=== PATIENT | female | born 1970 | race Caucasian/White ===

== ENCOUNTER → 2016-09-25 | Outpatient (CLI) | payer MEDICAID ==
--- NOTE | 2016-09-25 12:33 | MR ---
EXAMINATION: MRI cervical spine HISTORY: Other soft tissue disorders COMPARISON: None TECHNIQUE: Multiplanar and multisequence images obtained through the cervical spine without contrast . FINDINGS: The cervical spinal alignment appears grossly unremarkable. There is possibly a trace comp ression of the C6 vertebral body. Mild edema is noted within C6, likely endplate related changes. Th ere is likely minimally increased signal within the spinal cord at C6-C7. The prevertebral soft tiss ues otherwise appear normal. C2-C3: Unremarkable. C3-C4: Small diffuse disc bulge without significant spinal canal stenosis. Moderate to severe left a nd [id number] right neural foraminal stenosis. C4-C5: Small diffuse disc bulge with mild spinal canal stenosis. Moderate left and severe right neur al foraminal stenosis. C5-C6: Small diffuse disc bulge with minimal spinal canal stenosis. Mild to moderate bilateral neura l foraminal stenosis. C6-C7: Moderate diffuse disc bulge with moderate spinal canal stenosis. Moderate left and mild-to-mo derate right neural foraminal stenosis. C7-T1: Small diffuse disc bulge mild spinal canal stenosis. Moderate bilateral neural foraminal sten osis. C7-T1: Unremarkable. IMPRESSION: 1. Moderate to severe Multilevel degenerative disc disease noted within the cervical spine with suzette vidual details above.
--- NOTE | 2016-09-25 13:17 | NM ---
EXAMINATION: 3 phase bone scan of the left hand HISTORY: RSD COMPARISON: Radiographs dated 09/11/2016 TECHNIQUE: Anterior and posterior images were obtained of the upper extremities from the elbow to th e hands bilaterally following the administration of 21.8 mCi of technetium 99m labeled MDP. Images o btained in the angiographic phase, blood pool phase, and delayed phases. FINDINGS: There is symmetric flow within the upper extremities during the angiographic phase. There is possibl y slightly increased uptake within the region of the metacarpals bilaterally and blood pool however this is symmetric. There is symmetric delayed uptake within the carpal bones and unremarkable bilate rally. Mild focal uptake is noted at the interphalangeal joint of the first left digit. IMPRESSION: 1. Moderately increased however symmetric uptake within the carpal bones bilaterally and within the elbows, likely degenerative in nature. 2. Blood pool and blood flow to the extremities also appears fairly normal and symmetric.
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
== END ==
LOC: MW.NM 08:50
PROVIDERS: ATTEND Anesthesiology
DX: M79.89 Other specified soft tissue disorders (principal); R20.0 Anesthesia of skin; R20.2 Paresthesia of skin; G90.511 Complex regional pain syndrome I of right upper limb; M50.323 Other cervical disc degeneration at C6-C7 level
CPT/HCPCS: 72141; 78315; A9503

== ENCOUNTER 2016-12-18 06:52 | Emergency (ER) | payer MEDICAID ==
[2016-12-18] MEDS ORDERED: Ondansetron 4 MG/2 ML SDV IVPUSH ONE (07:36)
[2016-12-18] MEDS ORDERED: Sodium Chloride 0.9% 1,000 ML IV SCH (07:45)
[2016-12-18 08:33] LABS: CHLORIDE,CL 104 mmol/L (98-110); SODIUM,NA 139 mmol/L (136-146)
--- NOTE | 2016-12-18 08:38 | EDM.PDOC ---
ED HPI GENERAL MEDICAL PROBLEM - General Chief Complaint: Abdominal Pain Stated Complaint: FEVER, VOMITING Time Seen by Provider: 12/18/16 08:20 - History of Present Illness INITIAL COMMENTS - FREE TEXT/NARRATIVE: HISTORY AND PHYSICAL: History of present illness: Patient 46-year-old white female presents with abdominal pain nausea /vomiting/ diarrhea she denies fever chills denies urinary symptoms denies trauma denies chest pain shortness of breath or other concern Review of systems: As per history of present illness and below otherwise all systems reviewed and negative. Past medical history: As per history of present illness and as reviewed below otherwise noncontributory. Surgical history: As per history of present illness and as reviewed below otherwise noncontributory. Social history: No reported history of drug or alcohol abuse. Family history: As per history of present illness and as reviewed below otherwise noncontributory. Physical exam: HEENT: Atraumatic, normocephalic, pupils reactive, negative for conjunctival pallor or scleral icterus, mucous membranes moist, throat clear, neck supple, nontender, trachea midline. Lungs: Clear to auscultation, breath sounds equal bilaterally, chest nontender. Heart: S1S2, regular, negative for clicks, rubs, or JVD. Abdomen: Soft, nondistended, no localized tenderness. Negative for masses or hepatosplenomegaly. Negative for costovertebral tenderness. Pelvis: Stable nontender. Genitourinary: Deferred. Rectal: Deferred. Extremities: Atraumatic, negative for cords or calf pain. Neurovascular unremarkable. Neuro: Awake, alert, oriented. Cranial nerves II through XII unremarkable. Cerebellum unremarkable. Motor and sensory unremarkable throughout. Exam nonfocal. Diagnostics: CBC CMP amylase lipase UA Therapeutics: Normal saline 1 L bolus Zofran 4 mg IV Impression: #1 gastroenteritis Definitive disposition and diagnosis as appropriate pending reevaluation and review of above. Abdomen Pain Score (Numeric/FACES): 10 - Related Data Allergies Allergy/AdvReac Type Severity Reaction Status Date / Time amitriptyline Allergy Hives Verified 06/12/16 09:29 aspirin Allergy Nausea Verified 06/12/16 09:29 latex Allergy Rash Verified 06/12/16 09:29 levofloxacin [From Levaquin] Allergy Difficulty Verified 06/12/16 09:29 Breathing morphine AdvReac Confusion Verified 11/14/16 09:29 Home Meds: Home Meds Omeprazole 40 mg PO DAILY 03/06/14 [History] Albuterol [Ventolin HFA] 2 puff INH Q4HR PRN 04/24/14 [History] Potassium Chloride [Klor-Con 10] 10 meq PO DAILY 04/24/14 [History] busPIRone [Buspar] 10 mg PO BID 04/24/14 [History] Budesonide/Formoterol [Symbicort 160-4.5 MCG] 2 inh INH BID 10/12/14 [History] Ondansetron [Zofran] 4 mg PO ASDIRECTED PRN 02/16/15 [History] Cyclobenzaprine [Flexeril] 5 mg PO TID 12/18/16 [History] Gabapentin [Neurontin] 900 mg PO QID 12/18/16 [History] PARoxetine HCl [Paxil] 15 mg PO DAILY 12/18/16 [History] Past Medical History HEENT History: Reports: Other (See Below) Other HEENT History: states has blurred vision Cardiovascular History: Reports: None, Other (See Below) Other Cardiovascular History: states had blood clot in left leg over 20 yrs ago after vaginal delivery Respiratory History: Reports: Asthma, COPD, Other (See Below) Other Respiratory History: states has lung nodule Gastrointestinal History: Reports: Bowel Obstruction, Other (See Below) Other Gastrointestinal History: ulcerative colitis Genitourinary History: Reports: None MACHINE TAPER History: Reports: Ectopic Other OB/BYN History: laparotomy for ectopic Musculoskeletal History: Reports: Other (See Below) 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" Neurological History: Reports: None Psychiatric History: Reports: None Endocrine/Metabolic History: Reports: None Hematologic History: Reports: Blood Transfusion(s) Other Hematologic History: states blood transfusion following ectopic Immunologic History: Reports: None Oncologic (Cancer) History: Reports: Other (See Below) Other Oncologic History: lung nodule Dermatologic History: Reports: None - Infectious Disease History Infectious Disease History: Reports: None - Past Surgical History Head Surgeries/Procedures: Reports: None GI Surgical History: Reports: Cholecystectomy, Other (See Below) Other Female Surgeries/Procedures: left ovarian cyst with oopherectomy Endocrine Surgical History: Reports: None Neurological Surgical History: Reports: None Other Musculoskeletal Surgeries/Procedures:: toenail removal Dermatological Surgical History: Reports: None Social & Family History - Family History Family Medical History: Noncontributory - Tobacco Use Smoking Status *Q: Current Every Day Smoker Years of Tobacco use: 30 Packs/Tins Daily: 1 Used Tobacco, but Quit: No Second Hand Smoke Exposure: No - Caffeine Use Caffeine Use: Reports: Coffee Caffeine Use Comment: 3-4 daily - Alcohol Use Days Per Week of Alcohol Use: 0 Number of Drinks Per Day: 0 Total Drinks Per Week: 0 - Recreational Drug Use Recreational Drug Use: No Drug Use in Last 12 Months: No Recreational Drug Type: Reports: Marijuana/Hashish ED ROS GENERAL - Review of Systems Review Of Systems: ROS reveals no pertinent complaints other than HPI. ED EXAM, GENERAL - Physical Exam Exam: See Below (See) Course - Vital Signs Last Recorded V/S: Last Vital Signs Temp 36.5 C 12/18/16 06:59 Pulse 97 12/18/16 06:59 Resp 20 12/18/16 06:59 BP 170/101 H 12/18/16 06:59 Pulse Ox 97 12/18/16 06:59 - Orders/Labs/Meds Orders: Active Orders 24 hr Category Date Time Status Sodium Chloride 0.9% [Normal Saline] 1,000 ml Med 12/18/16 07:45 Active IV ASDIRECTED cefTRIAXone [Rocephin in Dextrose,Iso-Osm 1 GM/50 ML] 1 Med 12/18/16 10:25 Ordered gm Premix Bag 1 bag IV ONETIME Medication Orders Sodium Chloride (Normal Saline) 1,000 mls @ 999 mls/hr IV ASDIRECTED SEE Last Admin: 12/18/16 07:58 Dose: 999 mls/hr Ceftriaxone Sodium/Dextrose 1 (gm/ Premix) 50 mls @ 100 mls/hr IV ONETIME ONE Stop: 12/18/16 10:54 Labs: Laboratory Tests 12/18/16 12/18/16 12/18/16 Range/Units 07:53 07:53 09:36 WBC 13.25 H (4.0-11.0) K/uL RBC 5.05 (4.30-5.90) M/uL Hgb 15.0 (12.0-16.0) g/dL Hct 44.0 (36.0-46.0) % MCV 87.1 (80.0-98.0) fL MCH 29.7 (27.0-32.0) pg MCHC 34.1 (31.0-37.0) g/dL RDW Std Deviation 45.0 (28.0-62.0) fl RDW Coeff of Aydin 14 (11.0-15.0) % Plt Count 377 (150-400) K/uL MPV 9.20 (7.40-12.00) fL Neut % (Auto) 79.2 (48.0-80.0) % Lymph % (Auto) 14.3 L (16.0-40.0) % [place] % (Auto) 6.3 (0.0-15.0) % Eos % (Auto) 0.1 (0.0-7.0) % Baso % (Auto) 0.1 (0.0-1.5) % Neut # (Auto) 10.5 H (1.4-5.7) K/uL Lymph # (Auto) 1.9 (0.6-2.4) K/uL [place] # (Auto) 0.8 (0.0-0.8) K/uL Eos # (Auto) 0.0 (0.0-0.7) K/uL Baso # (Auto) 0.0 (0.0-0.1) K/uL Nucleated RBC % 0.0 /100WBC Nucleated RBCs # 0 K/uL Sodium 139 (136-146) mmol/L Potassium 4.0 (3.5-5.1) mmol/L Chloride 104 (98-110) mmol/L Carbon Dioxide 22 (21-31) mmol/L BUN 12 (6.0-23.0) mg/dL Creatinine 0.8 (0.6-1.5) mg/dL Est Cr Clr Drug Dosing 71.89 mL/min Estimated GFR (MDRD) > 60.0 ml/min Glucose 122 H (60-110) mg/dL Calcium 10.1 (8.8-10.8) mg/dL Total Bilirubin 0.4 (0.1-1.5) mg/dL AST 17 (5-40) IU/L ALT 16 (8-54) IU/L Alkaline Phosphatase 97 (40-150) Total Protein 8.1 H (6.0-8.0) g/dL Albumin 4.6 (3.5-5.0) g/dL Globulin 3.5 (2.0-3.5) g/dL Albumin/Globulin Ratio 1.3 (1.3-2.8) Amylase 46 (10-90) U/L Lipase 27 (7-80) U/L Urine Color YELLOW Urine Appearance CLEAR Urine pH 6.0 (5.0-8.0) Ur Specific [place] >= 1.030 (1.001-1.035) Urine Protein 100 (NEGATIVE) mg/dL Urine Glucose (UA) NEGATIVE (NEGATIVE) mg/dL Urine Ketones 15 H (NEGATIVE) mg/dL Urine Occult Blood TRACE-INTACT (NEGATIVE) Urine Nitrite NEGATIVE (NEGATIVE) Urine Bilirubin SMALL H (NEGATIVE) Urine Ictotest NEGATIVE Urine Urobilinogen 0.2 (<2.0) EU/dL Ur Leukocyte Esterase NEGATIVE (NEGATIVE) Urine RBC 0-1 (0-2/HPF) Urine WBC 1-2 (0-5/HPF) Ur Epithelial Cells FEW (NONE-FEW) Urine Bacteria 1+ H (NEGATIVE) Urine Mucus MODERATE (NONE-MOD) Meds: Medications Generic Name Dose Route Start Last Admin Trade Name Freq PRN Reason Stop Dose Admin Sodium Chloride 1,000 mls @ 999 mls/hr 12/18/16 07:45 12/18/16 07:58 Normal Saline IV 999 mls/hr ASDIRECTED SEE Administration Ceftriaxone Sodium/Dextrose 1 50 mls @ 100 mls/hr 12/18/16 10:25 gm/ Premix IV 12/18/16 10:54 ONETIME ONE Discontinued Medications Generic Name Dose Route Start Last Admin Trade Name Freq PRN Reason Stop Dose Admin Ondansetron HCl 4 mg 12/18/16 07:36 12/18/16 07:58 Zofran IVPUSH 12/18/16 07:37 4 mg ONETIME ONE Administration Departure - Departure Time of Disposition: 10:27 Disposition: Home, Self-Care 01 Condition: good Clinical Impression: UTI (urinary tract infection), Dehydration - Discharge Information Forms: ED Department Discharge - My Orders Last 24 Hours: My Active Orders 12/18/16 07:45 Sodium Chloride 0.9% [Normal Saline] 1,000 ml IV ASDIRECTED 12/18/16 10:25 cefTRIAXone [Rocephin in Dextrose,Iso-Osm 1 GM/50 ML] 1 gm Premix Bag 1 bag IV ONETIME - Assessment/Plan Last 24 Hours: My Active Orders 12/18/16 07:45 Sodium Chloride 0.9% [Normal Saline] 1,000 ml IV ASDIRECTED 12/18/16 10:25 cefTRIAXone [Rocephin in Dextrose,Iso-Osm 1 GM/50 ML] 1 gm Premix Bag 1 bag IV ONETIME
[2016-12-18] MEDS ORDERED: cefTRIAXone 1 GM in Premix Bag 1 BAG IV ONE (10:25)
[2016-12-18 11:48] VITALS: BP 117/58
== END 2016-12-18 11:48 | disposition home or self-care (01) ==
LOC: MW.ED 06:52
DX: K52.9 Noninfective gastroenteritis and colitis, unspecified (principal); E86.0 Dehydration; N39.0 Urinary tract infection, site not specified; F17.210 Nicotine dependence, cigarettes, uncomplicated; J45.909 Unspecified asthma, uncomplicated; J44.9 Chronic obstructive pulmonary disease, unspecified; Z88.5 Allergy status to narcotic agent; Z91.040 Latex allergy status; Z88.1 Allergy status to other antibiotic agents; Z88.8 Allergy status to other drugs, medicaments and biological substances; Z79.899 Other long term (current) drug therapy; Z90.49 Acquired absence of other specified parts of digestive tract; Z90.710 Acquired absence of both cervix and uterus
CPT/HCPCS: 36415; 80053; 81001; 82150; 83690; 85025; 96361; 96365; 96375; 99284; J0696; J2405; J7040

== ENCOUNTER 2016-12-19 07:35 | Emergency (ER) | payer MEDICAID ==
[2016-12-19] MEDS ORDERED: Ondansetron 4 MG/2 ML SDV IVPUSH ONE (07:53)
[2016-12-19] MEDS ORDERED: Sodium Chloride 0.9% 1,000 ML IV SCH (08:00)
[2016-12-19 08:39] LABS: CHLORIDE,CL 106 mmol/L (98-110); SODIUM,NA 141 mmol/L (136-146)
--- NOTE | 2016-12-19 08:45 | EDM.PDOC ---
ED HPI GENERAL MEDICAL PROBLEM - General Chief Complaint: Abdominal Pain Stated Complaint: FEVER, ABDOMINAL PAIN, VOMITING Time Seen by Provider: 12/19/16 08:42 - History of Present Illness INITIAL COMMENTS - FREE TEXT/NARRATIVE: HISTORY AND PHYSICAL: History of present illness: Patient 46-year-old female with chief complaint of nausea vomiting patient was seen yesterday by myself she had a workup done that included CBC chemistry UA amylase lipase she was given IV fluid antiemetics and discharged to home. She denies fever chills abdominal pain or other concern. Review of systems: As per history of present illness and below otherwise all systems reviewed and negative. Past medical history: As per history of present illness and as reviewed below otherwise noncontributory. Surgical history: As per history of present illness and as reviewed below otherwise noncontributory. Social history: No reported history of drug or alcohol abuse. Family history: As per history of present illness and as reviewed below otherwise noncontributory. Physical exam: HEENT: Atraumatic, normocephalic, pupils reactive, negative for conjunctival pallor or scleral icterus, mucous membranes moist, throat clear, neck supple, nontender, trachea midline. Lungs: Clear to auscultation, breath sounds equal bilaterally, chest nontender. Heart: S1S2, regular, negative for clicks, rubs, or JVD. Abdomen: Soft, nondistended, nontender. Negative for masses or hepatosplenomegaly. Negative for costovertebral tenderness. Pelvis: Stable nontender. Genitourinary: Deferred. Rectal: Deferred. Extremities: Atraumatic, negative for cords or calf pain. Neurovascular unremarkable. Neuro: Awake, alert, oriented. Cranial nerves II through XII unremarkable. Cerebellum unremarkable. Motor and sensory unremarkable throughout. Exam nonfocal. Diagnostics: CBC CMP CT abdomen and pelvis Therapeutics: Normal saline 1 L bolus Zofran 4 mg IV Impression: #1 nausea/vomiting definitive disposition and diagnosis as appropriate pending reevaluation and review of above. Abdominal Pain Score (Numeric/FACES): 8 - Related Data Allergies Allergy/AdvReac Type Severity Reaction Status Date / Time amitriptyline Allergy Hives Verified 06/12/16 09:29 aspirin Allergy Nausea Verified 06/12/16 09:29 latex Allergy Rash Verified 06/12/16 09:29 levofloxacin [From Levaquin] Allergy Difficulty Verified 06/12/16 09:29 Breathing morphine AdvReac Confusion Verified 06/12/16 09:29 Home Meds: Home Meds Omeprazole 40 mg PO DAILY 03/06/14 [History] Albuterol [Ventolin HFA] 2 puff INH Q4HR PRN 04/24/14 [History] Potassium Chloride [Klor-Con 10] 10 meq PO DAILY 04/24/14 [History] busPIRone [Buspar] 10 mg PO BID 04/24/14 [History] Budesonide/Formoterol [Symbicort 160-4.5 MCG] 2 inh INH BID 10/12/14 [History] Ondansetron [Zofran] 4 mg PO ASDIRECTED PRN 02/16/15 [History] Cyclobenzaprine [Flexeril] 5 mg PO TID 12/18/16 [History] Gabapentin [Neurontin] 900 mg PO QID 12/18/16 [History] PARoxetine HCl [Paxil] 15 mg PO DAILY 12/18/16 [History] Past Medical History HEENT History: Reports: Other (See Below) Other HEENT History: states has blurred vision Cardiovascular History: Reports: None, Other (See Below) Other Cardiovascular History: states had blood clot in left leg over 20 yrs ago after vaginal delivery Respiratory History: Reports: Asthma, COPD, Other (See Below) Other Respiratory History: states has lung nodule Gastrointestinal History: Reports: Bowel Obstruction, Other (See Below) Other Gastrointestinal History: ulcerative colitis Genitourinary History: Reports: None 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 Other OB/BYN History: laparotomy for ectopic Musculoskeletal History: Reports: Other (See Below) 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" Neurological History: Reports: None Psychiatric History: Reports: None Endocrine/Metabolic History: Reports: None Hematologic History: Reports: Blood Transfusion(s) Other Hematologic History: states blood transfusion following ectopic Immunologic History: Reports: None Oncologic (Cancer) History: Reports: Other (See Below) Other Oncologic History: lung nodule Dermatologic History: Reports: None - Infectious Disease History Infectious Disease History: Reports: None - Past Surgical History Head Surgeries/Procedures: Reports: None GI Surgical History: Reports: Cholecystectomy, Other (See Below) Other Female Surgeries/Procedures: left ovarian cyst with oopherectomy Endocrine Surgical History: Reports: None Neurological Surgical History: Reports: None Other Musculoskeletal Surgeries/Procedures:: toenail removal Dermatological Surgical History: Reports: None Social & Family History - Family History Family Medical History: Noncontributory - Tobacco Use Smoking Status *Q: Current Every Day Smoker Years of Tobacco use: 15 Packs/Tins Daily: 0.5 Used Tobacco, but Quit: No Second Hand Smoke Exposure: No - Caffeine Use Caffeine Use: Reports: Coffee Caffeine Use Comment: 3-4 daily - Alcohol Use Days Per Week of Alcohol Use: 0 Number of Drinks Per Day: 0 Total Drinks Per Week: 0 - Recreational Drug Use Recreational Drug Use: No Drug Use in Last 12 Months: No Recreational Drug Type: Reports: Marijuana/Hashish ED ROS GENERAL - Review of Systems Review Of Systems: ROS reveals no pertinent complaints other than HPI. ED EXAM, GENERAL - Physical Exam Exam: See Below (See dictation) Course - Vital Signs Last Recorded V/S: Last Vital Signs Temp 35.8 C 12/19/16 07:43 Pulse 82 12/19/16 07:43 Resp 16 12/19/16 07:43 BP 191/83 H 12/19/16 07:43 Pulse Ox 97 12/19/16 07:43 - Orders/Labs/Meds Orders: Active Orders 24 hr Category Date Time Status Abdomen Pelvis wo Cont [CT] Stat Exams 12/19/16 08:29 Ordered COMPREHENSIVE METABOLIC PN,CMP [CHEM] Stat Lab 12/19/16 07:50 Received Sodium Chloride 0.9% [Normal Saline] 1,000 ml Med 12/19/16 08:00 Active IV ASDIRECTED Medication Orders Sodium Chloride (Normal Saline) 1,000 mls @ 999 mls/hr IV ASDIRECTED SEE Last Admin: 12/19/16 07:57 Dose: 999 mls/hr Labs: Laboratory Tests 12/19/16 Range/Units 07:50 WBC 11.22 H (4.0-11.0) K/uL RBC 4.99 (4.30-5.90) M/uL Hgb 14.4 (12.0-16.0) g/dL Hct 43.8 (36.0-46.0) % MCV 87.8 (80.0-98.0) fL MCH 28.9 (27.0-32.0) pg MCHC 32.9 (31.0-37.0) g/dL RDW Std Deviation 44.9 (28.0-62.0) fl RDW Coeff of Aydin 14 (11.0-15.0) % Plt Count 359 (150-400) K/uL MPV 9.30 (7.40-12.00) fL Neut % (Auto) 75.6 (48.0-80.0) % Lymph % (Auto) 17.6 (16.0-40.0) % [place] % (Auto) 6.5 (0.0-15.0) % Eos % (Auto) 0.1 (0.0-7.0) % Baso % (Auto) 0.2 (0.0-1.5) % Neut # (Auto) 8.5 H (1.4-5.7) K/uL Lymph # (Auto) 2.0 (0.6-2.4) K/uL [place] # (Auto) 0.7 (0.0-0.8) K/uL Eos # (Auto) 0.0 (0.0-0.7) K/uL Baso # (Auto) 0.0 (0.0-0.1) K/uL Nucleated RBC % 0.0 /100WBC Nucleated RBCs # 0 K/uL Meds: Medications Generic Name Dose Route Start Last Admin Trade Name Freq PRN Reason Stop Dose Admin Sodium Chloride 1,000 mls @ 999 mls/hr 12/19/16 08:00 12/19/16 07:57 Normal Saline IV 999 mls/hr ASDIRECTED SEE Administration Discontinued Medications Generic Name Dose Route Start Last Admin Trade Name Freq PRN Reason Stop Dose Admin Ondansetron HCl 4 mg 12/19/16 07:53 12/19/16 07:58 Zofran IVPUSH 12/19/16 07:54 4 mg ONETIME ONE Administration Departure - Departure Time of Disposition: 08:44 Disposition: Home, Self-Care 01 Condition: good Clinical Impression: Vomiting - Discharge Information Forms: ED Department Discharge - My Orders Last 24 Hours: My Active Orders 12/19/16 07:50 COMPREHENSIVE METABOLIC PN,CMP [CHEM] Stat 12/19/16 08:00 Sodium Chloride 0.9% [Normal Saline] 1,000 ml IV ASDIRECTED 12/19/16 08:29 Abdomen Pelvis wo Cont [CT] Stat - Assessment/Plan Last 24 Hours: My Active Orders 12/19/16 07:50 COMPREHENSIVE METABOLIC PN,CMP [CHEM] Stat 12/19/16 08:00 Sodium Chloride 0.9% [Normal Saline] 1,000 ml IV ASDIRECTED 12/19/16 08:29 Abdomen Pelvis wo Cont [CT] Stat
--- NOTE | 2016-12-19 09:27 | CT ---
CT of the abdomen and pelvis without contrast. HISTORY: Pain TECHNIQUE: Axial CT images were obtained of the abdomen and pelvis without contrast. Coronal and sag ittal reconstructions obtained. FINDINGS: The lung bases are clear, no pleural effusion. There is mild focal fatty infiltration of the liver near the falciform ligament. Spleen, adrenal gla nds, and pancreas appear unremarkable for noncontrast examination. Cholecystectomy clips are noted. There is no bulky retroperitoneal lymphadenopathy. No abdominal ascites. There are no calcifications noted within the kidneys or along the courses of the ureters bilaterally . The large and small bowel are normal in caliber without evidence of obstruction. The appendix appear s normal. There is no bulky pelvic lymphadenopathy. No free fluid. No free air. The urinary bladder appears normal. The visualized osseous structures appear normal. IMPRESSION: No acute findings within the abdomen or pelvis.
[2016-12-19 09:50] VITALS: BP 124/71
== END 2016-12-19 09:49 | disposition home or self-care (01) ==
LOC: MW.ED 07:35
DX: R11.2 Nausea with vomiting, unspecified (principal); J45.909 Unspecified asthma, uncomplicated; J44.9 Chronic obstructive pulmonary disease, unspecified; G90.50 Complex regional pain syndrome I, unspecified; F17.200 Nicotine dependence, unspecified, uncomplicated; Z88.8 Allergy status to other drugs, medicaments and biological substances; Z79.899 Other long term (current) drug therapy
CPT/HCPCS: 36415; 74176; 80053; 85025; 96361; 96374; 99284; J2405; J7040

== ENCOUNTER 2017-03-30 15:06 | Emergency (ER) | payer OTHER, MEDICAID ==
--- NOTE | 2017-03-30 15:21 | EDM.PDOC ---
ED HPI GENERAL MEDICAL PROBLEM - General Chief Complaint: Chest Pain Stated Complaint: CHEST PAIN Time Seen by Provider: 03/30/17 15:16 - History of Present Illness INITIAL COMMENTS - FREE TEXT/NARRATIVE: HISTORY AND PHYSICAL: History of present illness: Patient's 46-year-old white female history chronic pain syndrome presents with concern of right rib pain she states she was carrying some items at work and missed a step and jolted her right ribs she felt pain immediately after that she is here today concerned about possible rib fracture versus muscle skeletal strain she is in pain management program is on multiple medications for pain management. Review of systems: As per history of present illness and below otherwise all systems reviewed and negative. Past medical history: As per history of present illness and as reviewed below otherwise noncontributory. Surgical history: As per history of present illness and as reviewed below otherwise noncontributory. Social history: No reported history of drug or alcohol abuse. Family history: As per history of present illness and as reviewed below otherwise noncontributory. Physical exam: HEENT: Atraumatic, normocephalic, pupils reactive, negative for conjunctival pallor or scleral icterus, mucous membranes moist, throat clear, neck supple, nontender, trachea midline. Lungs: Clear to auscultation, breath sounds equal bilaterally, patient has some right rib tenderness in the region of her anterior axillary line at the level of the fourth fifth and sixth ribs there is no crepitation is no point tenderness Heart: S1S2, regular, negative for clicks, rubs, or JVD. Abdomen: Soft, nondistended, nontender. Negative for masses or hepatosplenomegaly. Negative for costovertebral tenderness. Pelvis: Stable nontender. Genitourinary: Deferred. Rectal: Deferred. Extremities: Atraumatic, negative for cords or calf pain. Neurovascular unremarkable. Neuro: Awake, alert, oriented. Cranial nerves II through XII unremarkable. Cerebellum unremarkable. Motor and sensory unremarkable throughout. Exam nonfocal. Diagnostics: X-ray right ribs with chest Therapeutics: None Impression: #1 right rib injury #2 chronic pain syndrome Definitive disposition and diagnosis as appropriate pending reevaluation and review of above. chest,right Pain Score (Numeric/FACES): 9 - Related Data Allergies Allergy/AdvReac Type Severity Reaction Status Date / Time amitriptyline Allergy Hives Verified 03/30/17 15:21 aspirin Allergy Nausea Verified 03/30/17 15:21 latex Allergy Rash Verified 03/30/17 15:21 levofloxacin [From Levaquin] Allergy Difficulty Verified 03/30/17 15:21 Breathing morphine AdvReac Confusion Verified 03/30/17 15:21 Home Meds: Home Meds Omeprazole 40 mg PO DAILY 03/06/14 [History] Albuterol [Ventolin HFA] 2 puff INH Q4HR PRN 04/24/14 [History] Potassium Chloride [Klor-Con 10] 10 meq PO DAILY 04/24/14 [History] busPIRone [Buspar] 10 mg PO BID 04/24/14 [History] Budesonide/Formoterol [Symbicort 160-4.5 MCG] 2 inh INH BID 10/12/14 [History] Ondansetron [Zofran] 4 mg PO ASDIRECTED PRN 02/16/15 [History] Cyclobenzaprine [Flexeril] 5 mg PO TID 12/18/16 [History] Gabapentin [Neurontin] 900 mg PO QID 12/18/16 [History] PARoxetine HCl [Paxil] 15 mg PO DAILY 12/18/16 [History] Past Medical History HEENT History: Reports: Other (See Below) Other HEENT History: states has blurred vision Cardiovascular History: Reports: None, Other (See Below) Other Cardiovascular History: states had blood clot in left leg over 20 yrs ago after vaginal delivery Respiratory History: Reports: Asthma, COPD, Other (See Below) Other Respiratory History: states has lung nodule Gastrointestinal History: Reports: Bowel Obstruction, Other (See Below) Other Gastrointestinal History: ulcerative colitis Genitourinary History: Reports: None 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 Other OB/BYN History: laparotomy for ectopic Musculoskeletal History: Reports: Other (See Below) 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" Neurological History: Reports: None Psychiatric History: Reports: None Endocrine/Metabolic History: Reports: None Hematologic History: Reports: Blood Transfusion(s) Other Hematologic History: states blood transfusion following ectopic Immunologic History: Reports: None Oncologic (Cancer) History: Reports: Other (See Below) Other Oncologic History: lung nodule Dermatologic History: Reports: None - Infectious Disease History Infectious Disease History: Reports: None - Past Surgical History Head Surgeries/Procedures: Reports: None GI Surgical History: Reports: Cholecystectomy, Other (See Below) Other Female Surgeries/Procedures: left ovarian cyst with oopherectomy Endocrine Surgical History: Reports: None Neurological Surgical History: Reports: None Other Musculoskeletal Surgeries/Procedures:: toenail removal Dermatological Surgical History: Reports: None Social & Family History - Family History Family Medical History: Noncontributory - Tobacco Use Smoking Status *Q: Current Every Day Smoker Years of Tobacco use: 15 Packs/Tins Daily: 0.5 Used Tobacco, but Quit: No Second Hand Smoke Exposure: No - Caffeine Use Caffeine Use: Reports: Coffee Caffeine Use Comment: 3-4 daily - Alcohol Use Days Per Week of Alcohol Use: 0 Number of Drinks Per Day: 0 Total Drinks Per Week: 0 - Recreational Drug Use Recreational Drug Use: No Drug Use in Last 12 Months: No Recreational Drug Type: Reports: Marijuana/Hashish ED ROS GENERAL - Review of Systems Review Of Systems: ROS reveals no pertinent complaints other than HPI. ED EXAM, GENERAL - Physical Exam Exam: See Below (See dictation) Course - Vital Signs Last Recorded V/S: Last Vital Signs Temp 36.6 C 03/30/17 15:06 Pulse 100 03/30/17 15:06 Resp 24 H 03/30/17 15:06 BP 121/81 03/30/17 15:06 Pulse Ox 95 03/30/17 15:06 - Orders/Labs/Meds Orders: Active Orders 24 hr Category Date Time Status Ribs 2V w Chest Rt [CR] Stat Exams 03/30/17 15:18 Taken Departure - Departure Time of Disposition: 15:20 Disposition: Home, Self-Care 01 Condition: Good Clinical Impression: Chronic pain syndrome, Rib fracture - Discharge Information Referrals: Alex Garcia MD [Primary Care Provider] - Forms: ED Department Discharge Additional Instructions: The following information is given to patients seen in the emergency department who are being discharged to home. This information is to outline your options for follow-up care. We provide all patients seen in our emergency department with a follow-up referral. The need for follow-up, as well as the timing and circumstances, are variable depending upon the specifics of your emergency department visit. If you don't have a primary care physician on staff, we will provide you with a referral. We always advise you to contact your personal physician following an emergency department visit to inform them of the circumstance of the visit and for follow-up with them and/or the need for any referrals to a consulting specialist. The emergency department will also refer you to a specialist when appropriate. This referral assures that you have the opportunity for followup care with a specialist. All of these measure are taken in an effort to provide you with optimal care, which includes your followup. Under all circumstances we always encourage you to contact your private physician who remains a resource for coordinating your care. When calling for followup care, please make the office aware that this follow-up is from your recent emergency room visit. If for any reason you are refused follow-up, please contact the [facility] emergency department at and asked to speak to the emergency department charge nurse. Continue current medications as prescribed follow-up primary medical doctor and pain specialist as discussed return as needed as discussed - My Orders Last 24 Hours: My Active Orders 03/30/17 15:18 Ribs 2V w Chest Rt [CR] Stat - Assessment/Plan Last 24 Hours: My Active Orders 03/30/17 15:18 Ribs 2V w Chest Rt [CR] Stat
[2017-03-30 16:32] VITALS: BP 125/78
--- NOTE | 2017-04-03 10:56 | CR ---
EXAM DATE: 03/30/17 PATIENT'S AGE: 46 Patient: JUSTO PATTEN Facility: [place], [place] Site . Site : 1970 Study: XRay Extremity Right Ribs [id number] 3:52:26 PM Ordering Physician: Tyler Shaikh Final Report: HISTORY: Right-sided pain. FINDINGS: PA chest and 2 views of the right ribs are compared with 07 March 2017. Cardiac silhouette is normal. Pulmonary vasculature is free of cephalization. No consolidation or pleural effusion is seen. No pneumothorax is seen. A BB marker is seen at the right lower thorax. There is a nearly nondisplaced fracture of the posterolateral right 6th rib. IMPRESSION: Fracture of the posterolateral right 6th rib without pneumothorax. Dictated by Linnea Webster MD @ 03/30/2017 4:03:18 PM Dictated by: Linnea Webster MD @ 03/30/2017 16:03:40 (Electronic Signature) Report Signed by Proxy. RATNA
== END 2017-03-30 16:30 | disposition home or self-care (01) ==
LOC: MW.ED 15:06
DX: S22.31XA Fracture of one rib, right side, initial encounter for closed fracture (principal); G89.4 Chronic pain syndrome; J44.9 Chronic obstructive pulmonary disease, unspecified; F17.210 Nicotine dependence, cigarettes, uncomplicated; Z88.1 Allergy status to other antibiotic agents; Z88.5 Allergy status to narcotic agent; Z88.6 Allergy status to analgesic agent; Z91.040 Latex allergy status; Z79.899 Other long term (current) drug therapy; Z90.49 Acquired absence of other specified parts of digestive tract; Z90.721 Acquired absence of ovaries, unilateral; Z98.890 Other specified postprocedural states; W10.9XXA Fall (on) (from) unspecified stairs and steps, initial encounter
CPT/HCPCS: 71101-26-RT; 71101-RT; 99283

== ENCOUNTER 2017-06-18 11:22 | Emergency (ER) | payer MEDICAID, OTHER ==
[2017-06-18 12:16] VITALS: BP 163/105
[2017-06-18] MEDS ORDERED: Sodium Chloride 0.9% 1,000 ML IV ONE (12:19)
[2017-06-18] MEDS ORDERED: LORazepam 2 MG/ML SDV IVPUSH ONE ×2 (12:20→15:08)
--- NOTE | 2017-06-18 12:24 | EDM.PDOC ---
ED HPI GENERAL MEDICAL PROBLEM - General Chief Complaint: General Stated Complaint: vomiting for 3 days Time Seen by Provider: 06/18/17 12:21 Source of Information: Reports: Patient History Limitations: Reports: No Limitations - History of Present Illness INITIAL COMMENTS - FREE TEXT/NARRATIVE: HISTORY AND PHYSICAL: History of present illness: Patient is a 46-year-old female who presents to the emergency room with complaints of abdominal pain, nausea, vomiting, dysuria 3 days. States her symptoms started on Sunday and have progressively gotten worse. She does have a home prescription for Zofran which she states she is "popping like candy" not getting any relief. States when she is vomiting she does become short of breath. When asked where her pain as she points to the suprapubic /mid abdominal area, but is tender in all 4 quadrants. Denies any blood in her stools. Patient has a past medical history of anxiety, depression, COPD, fatigue syndrome, GERD, complex regional pain syndrome. Primary care provider is Dr. Alex Garcia. Currently a pack per day smoker, 35 year history. Review of systems: As per history of present illness and below otherwise all systems reviewed and negative. Past medical history: As per history of present illness and as reviewed below otherwise noncontributory. Surgical history: As per history of present illness and as reviewed below otherwise noncontributory. Social history: No reported history of drug or alcohol abuse. Family history: As per history of present illness and as reviewed below otherwise noncontributory. Physical exam: Gen.: Well-developed and well-nourished 46-year-old female. Alert and oriented. HEENT: Atraumatic, normocephalic, pupils reactive, negative for conjunctival pallor or scleral icterus, mucous membranes moist, throat clear, neck supple, nontender, trachea midline. No teeth noted, no dentures in place at this time. Lungs: Clear to auscultation, breath sounds equal bilaterally, chest nontender. Heart: S1S2, regular, negative for clicks, rubs, or JVD. Abdomen: Soft, nondistended, tender in all 4 quadrants - no rebound tenderness. Negative for masses or hepatosplenomegaly. Negative for costovertebral tenderness. Pelvis: Stable nontender. Genitourinary: Deferred. Rectal: Deferred. Extremities: Atraumatic, negative for cords or calf pain. Neurovascular unremarkable. Neuro: Awake, alert, oriented. Cranial nerves II through XII unremarkable. Cerebellum unremarkable. Motor and sensory unremarkable throughout. Exam nonfocal. Patient has not had any emesis since receiving fluids and Ativan. Reviewed this case with Dr. Fleming. They are checking on bed status/availability. I'm being told by our nursing supervisor electronics inspection that there are no beds available for this patient in our facility. I informed the patient of a likely transfer to manage her symptoms, she states she would like to first speak with her . We discussed risks versus benefits of her staying/being transferred and her signing out AMA. 1415- Patient is agreeable to transfer to [place]. Dr. Cummings in the ER at [facility] - is agreeable to accept this patient. Patient will go by ground EMS. Appropriate paperwork has been completed. Copies of the labs, CT will be sent with EMS crew. Diagnostics: CBC, CMP, amylase, lipase, UA Therapeutics: IV fluid, Ativan, Dilaudid Impression: Pancreatitis Plan: Transfer to [place] [facility], Dr. Cummings is accepting. Definitive disposition and diagnosis as appropriate pending reevaluation and review of above. Duration: Day(s): Location: Reports: Abdomen Improves with: Reports: None Worsens with: Reports: None Associated Symptoms: Reports: Nausea/Vomiting, Shortness of Breath, Weakness. Denies: Confusion, Chest Pain, Diaphoresis, Fever/Chills, Headaches Generalized Pain Score (Numeric/FACES): 9 - Related Data Allergies Allergy/AdvReac Type Severity Reaction Status Date / Time amitriptyline Allergy Hives Verified 03/30/17 15:21 aspirin Allergy Nausea Verified 03/30/17 15:21 latex Allergy Rash Verified 03/30/17 15:21 levofloxacin [From Levaquin] Allergy Difficulty Verified 03/30/17 15:21 Breathing pregabalin [From Lyrica] Allergy Nausea and Verified 06/18/17 11:53 Vomiting morphine AdvReac Confusion Verified 03/30/17 15:21 Home Meds: Home Meds Omeprazole 40 mg PO DAILY 03/06/14 [History] Albuterol [Ventolin HFA] 2 puff INH Q4HR PRN 04/24/14 [History] Potassium Chloride [Klor-Con 10] 10 meq PO DAILY 04/24/14 [History] busPIRone [Buspar] 10 mg PO BID 04/24/14 [History] Budesonide/Formoterol [Symbicort 160-4.5 MCG] 2 inh INH BID 10/12/14 [History] Ondansetron [Zofran] 4 mg PO ASDIRECTED PRN 02/16/15 [History] Gabapentin [Neurontin] 900 mg PO QID 12/18/16 [History] PARoxetine HCl [Paxil] 15 mg PO DAILY 12/18/16 [History] Past Medical History - Past Health History Medical/Surgical History: Denies Medical/Surgical History HEENT History: Reports: Other (See Below) Other HEENT History: states has blurred vision Cardiovascular History: Reports: None, Other (See Below) Other Cardiovascular History: states had blood clot in left leg over 20 yrs ago after vaginal delivery Respiratory History: Reports: Asthma, COPD, Other (See Below) Other Respiratory History: states has lung nodule Gastrointestinal History: Reports: Bowel Obstruction, Other (See Below) Other Gastrointestinal History: ulcerative colitis Genitourinary History: Reports: None 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 Other OB/BYN History: laparotomy for ectopic Musculoskeletal History: Reports: Other (See Below) 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" Neurological History: Reports: None Psychiatric History: Reports: None Endocrine/Metabolic History: Reports: None Hematologic History: Reports: Blood Transfusion(s) Other Hematologic History: states blood transfusion following ectopic Immunologic History: Reports: None Oncologic (Cancer) History: Reports: Other (See Below) Other Oncologic History: lung nodule Dermatologic History: Reports: None - Infectious Disease History Infectious Disease History: Reports: None - Past Surgical History Head Surgeries/Procedures: Reports: None GI Surgical History: Reports: Cholecystectomy, Other (See Below) Other Female Surgeries/Procedures: left ovarian cyst with oopherectomy Endocrine Surgical History: Reports: None Neurological Surgical History: Reports: None Other Musculoskeletal Surgeries/Procedures:: toenail removal Dermatological Surgical History: Reports: None Social & Family History - Family History Family Medical History: Noncontributory - Tobacco Use Smoking Status *Q: Current Every Day Smoker Years of Tobacco use: 20 Packs/Tins Daily: 1 Used Tobacco, but Quit: No Second Hand Smoke Exposure: No - Caffeine Use Caffeine Use: Reports: Coffee, Tea Caffeine Use Comment: 3-4 daily - Alcohol Use Days Per Week of Alcohol Use: 0 Number of Drinks Per Day: 0 Total Drinks Per Week: 0 - Recreational Drug Use Recreational Drug Use: No Drug Use in Last 12 Months: No Recreational Drug Type: Reports: Marijuana/Hashish ED ROS GENERAL - Review of Systems Review Of Systems: ROS reveals no pertinent complaints other than HPI. ED EXAM, GENERAL - Physical Exam Exam: See Below (See dictation) Course - Vital Signs Last Recorded V/S: Last Vital Signs Temp 37.8 C 06/18/17 12:14 Pulse 86 06/18/17 12:14 Resp 16 06/18/17 12:14 BP 163/105 H 06/18/17 12:14 Pulse Ox 96 06/18/17 12:14 - Orders/Labs/Meds Orders: Active Orders 24 hr Category Date Time Status UA W/MICROSCOPIC [URIN] Stat Lab 06/18/17 12:15 Uncollected Labs: Laboratory Tests 06/18/17 06/18/17 Range/Units 12:31 12:31 WBC 15.38 H (4.0-11.0) K/uL RBC 4.75 (4.30-5.90) M/uL Hgb 14.4 (12.0-16.0) g/dL Hct 42.0 (36.0-46.0) % MCV 88.4 (80.0-98.0) fL MCH 30.3 (27.0-32.0) pg MCHC 34.3 (31.0-37.0) g/dL RDW Std Deviation 46.5 (28.0-62.0) fl RDW Coeff of Aydin 14 (11.0-15.0) % Plt Count 293 (150-400) K/uL MPV 9.60 (7.40-12.00) fL Neut % (Auto) 72.5 (48.0-80.0) % Lymph % (Auto) 20.3 (16.0-40.0) % [place] % (Auto) 7.0 (0.0-15.0) % Eos % (Auto) 0.1 (0.0-7.0) % Baso % (Auto) 0.1 (0.0-1.5) % Neut # (Auto) 11.2 H (1.4-5.7) K/uL Lymph # (Auto) 3.1 H (0.6-2.4) K/uL [place] # (Auto) 1.1 H (0.0-0.8) K/uL Eos # (Auto) 0.0 (0.0-0.7) K/uL Baso # (Auto) 0.0 (0.0-0.1) K/uL Nucleated RBC % 0.0 /100WBC Nucleated RBCs # 0 K/uL Sodium 141 (136-146) mmol/L Potassium 3.9 (3.5-5.1) mmol/L Chloride 105 (98-110) mmol/L Carbon Dioxide 24 (21-31) mmol/L BUN 16 (6.0-23.0) mg/dL Creatinine 0.8 (0.6-1.5) mg/dL Est Cr Clr Drug Dosing 71.91 mL/min Estimated GFR (MDRD) > 60.0 ml/min Glucose 114 H (60-110) mg/dL Calcium 9.7 (8.8-10.8) mg/dL Total Bilirubin 0.5 (0.1-1.5) mg/dL AST 17 (5-40) IU/L ALT 14 (8-54) IU/L Alkaline Phosphatase 97 (40-150) Total Protein 7.5 (6.0-8.0) g/dL Albumin 4.5 (3.5-5.0) g/dL Globulin 3.0 (2.0-3.5) g/dL Albumin/Globulin Ratio 1.5 (1.3-2.8) Amylase 91 H (10-90) U/L Lipase 234 H (7-80) U/L Meds: Medications Discontinued Medications Generic Name Dose Route Start Last Admin Trade Name Freq PRN Reason Stop Dose Admin Sodium Chloride 1,000 mls @ 999 mls/hr 06/18/17 12:19 06/18/17 12:40 Normal Saline IV 06/18/17 13:19 999 mls/hr STAT ONE Administration Lorazepam 1 mg 06/18/17 12:20 06/18/17 12:40 Ativan IVPUSH 06/18/17 12:21 1 mg ONETIME ONE Administration Departure - Departure Time of Disposition: 14:28 Disposition: DC/Tfer to Acute Hospital 02 Clinical Impression: Pancreatitis Qualifiers: Chronicity: acute Pancreatitis type: other Acute pancreatitis complication: unspecified Qualified Code(s): K85.80 - Other acute pancreatitis without necrosis or infection - Discharge Information Referrals: PCP,None [Primary Care Provider] - Forms: ED Department Discharge - My Orders Last 24 Hours: My Active Orders 06/18/17 12:15 UA W/MICROSCOPIC [URIN] Stat - Assessment/Plan Last 24 Hours: My Active Orders 06/18/17 12:15 UA W/MICROSCOPIC [URIN] Stat
[2017-06-18 13:12] LABS: CHLORIDE,CL 105 mmol/L (98-110); SODIUM,NA 141 mmol/L (136-146)
--- NOTE | 2017-06-18 13:31 | CT ---
CT of the abdomen and pelvis without contrast. HISTORY: Pain TECHNIQUE: Axial CT images were obtained of the abdomen and pelvis without contrast. Coronal and sagi ttal reconstructions obtained. FINDINGS: The lung bases are clear, no pleural effusion. The liver, spleen, adrenal glands, and pancreas appear unremarkable for noncontrast examination. Chol ecystectomy clips are noted. There is no bulky retroperitoneal lymphadenopathy. No abdominal ascites. There are no calcifications noted within the kidneys or along the courses of the ureters bilaterally. The large and small bowel are normal in caliber without evidence of obstruction. The appendix appears normal. Mild diverticulosis without evidence of diverticulitis. There is no bulky pelvic lymphadenop athy. No free fluid. No free air. The urinary bladder appears normal. The visualized osseous structures appear normal. IMPRESSION: 1. No acute findings within the abdomen or pelvis. 2. Minimal diverticulosis without evidence of diverticulitis. 3. Cholecystectomy.
== END 2017-06-18 15:29 ==
LOC: MW.ED 11:22
DX: K85.80 Other acute pancreatitis without necrosis or infection (principal); F17.210 Nicotine dependence, cigarettes, uncomplicated; Z88.6 Allergy status to analgesic agent; Z88.5 Allergy status to narcotic agent; Z91.040 Latex allergy status; Z88.1 Allergy status to other antibiotic agents; Z79.899 Other long term (current) drug therapy
CPT/HCPCS: 36415; 74176; 80053; 81001; 82150; 83690; 85025; 96361; 96374; 96375; 99284; J2060; J7040; 99283

== ENCOUNTER 2017-11-10 13:49 | Emergency (ER) | payer MEDICAID ==
--- NOTE | 2017-11-10 16:12 | EDM.PDOC ---
ED HPI GENERAL MEDICAL PROBLEM - General Chief Complaint: Fever Stated Complaint: FEVER Time Seen by Provider: 11/10/17 15:05 Source of Information: Reports: Patient History Limitations: Reports: No Limitations - History of Present Illness INITIAL COMMENTS - FREE TEXT/NARRATIVE: HISTORY AND PHYSICAL: History of present illness: Patient is a 47-year-old female who presents to the emergency room with complaints of fevers, and generalized feeling unwell, and one episode of emesis yesterday. C/o of dull "ache" to low abdomen but is non-tender to palpation. Denies any current n/v/d, or constipation. Review of systems: As per history of present illness and below otherwise all systems reviewed and negative. Past medical history: As per history of present illness and as reviewed below otherwise noncontributory. Surgical history: As per history of present illness and as reviewed below otherwise noncontributory. Social history: No reported history of drug or alcohol abuse. Family history: As per history of present illness and as reviewed below otherwise noncontributory. Physical exam: General: Well-developed and well-nourished 47-year-old female. Alert and oriented. Nontoxic appearing and in no acute distress. HEENT: Atraumatic, normocephalic, pupils equal and reactive bilaterally, negative for conjunctival pallor or scleral icterus, mucous membranes moist, throat clear, neck supple, nontender, trachea midline. No drooling or trismus noted. No meningeal signs Lungs: Clear to auscultation, breath sounds equal bilaterally, chest nontender. Heart: S1S2, regular rate and rhythm without overt murmur Abdomen: Soft, nondistended, nontender. Negative for masses or hepatosplenomegaly. Negative for costovertebral tenderness. Pelvis: Stable nontender. Genitourinary: Deferred. Rectal: Deferred. Skin: Intact, warm, dry. No lesions or rashes noted. Extremities: Atraumatic, negative for cords or calf pain. Neurovascular unremarkable. Neuro: Awake, alert, oriented. Cranial nerves II through XII unremarkable. Cerebellum unremarkable. Motor and sensory unremarkable throughout. Exam nonfocal. Notes: Physical examination is normal. I'll do routine lab work at this time along with an influenza screening. She declines IV fluids at this time. Influenza negative. WBC 13. Will add a CT abdomen/pelvis at this time as I do not have a source for her white count. CT of the abdomen and pelvis is normal with no acute abnormalities noted. X-ray shows no infiltrate or pneumonia. The slightly elevated white count is likely due to her dehydration status. She declines giving a urine sample as she states she "peed before she got here". Supportive care measures were reviewed with her. Encouraged her to follow up with her primary caregiver in the next 1-2 days. Signs and symptoms were reviewed which would prompt her to return to the emergency room. SHe voices understanding and is agreeable to plan of care. Denies any further questions at this time. Diagnostics: CBC, CMP, influenza Therapeutics: NS Impression: Viral illness 1. Please use Tylenol and/or Ibuprofen as needed for pain and fever management. 2. Get plenty of Rest. Encourage fluids to prevent dehydration. 3. Please follow up with your primary care provider. Return to the ED as needed as discussed. Definitive disposition and diagnosis as appropriate pending reevaluation and review of above. Duration: Day(s): Location: Reports: Generalized Lower Abdomen Pain Score (Numeric/FACES): 8 - Related Data Allergies Allergy/AdvReac Type Severity Reaction Status Date / Time amitriptyline Allergy Hives Verified 03/30/17 15:21 aspirin Allergy Nausea Verified 03/30/17 15:21 latex Allergy Rash Verified 03/30/17 15:21 levofloxacin [From Levaquin] Allergy Difficulty Verified 03/30/17 15:21 Breathing pregabalin [From Lyrica] Allergy Nausea and Verified 06/18/17 11:53 Vomiting morphine AdvReac Confusion Verified 03/30/17 15:21 Home Meds: Home Meds Omeprazole 40 mg PO DAILY 03/06/14 [History] Albuterol [Ventolin HFA] 2 puff INH Q4HR PRN 04/24/14 [History] Potassium Chloride [Klor-Con 10] 10 meq PO DAILY 04/24/14 [History] busPIRone [Buspar] 10 mg PO BID 04/24/14 [History] Budesonide/Formoterol [Symbicort 160-4.5 MCG] 2 inh INH BID 10/12/14 [History] Ondansetron [Zofran] 4 mg PO ASDIRECTED PRN 02/16/15 [History] Gabapentin [Neurontin] 900 mg PO QID 12/18/16 [History] PARoxetine HCl [Paxil] 15 mg PO DAILY 12/18/16 [History] Past Medical History - Past Health History Medical/Surgical History: Denies Medical/Surgical History HEENT History: Reports: Other (See Below) Other HEENT History: states has blurred vision Cardiovascular History: Reports: None, Other (See Below) Other Cardiovascular History: states had blood clot in left leg over 20 yrs ago after vaginal delivery Respiratory History: Reports: Asthma, COPD, Other (See Below) Other Respiratory History: states has lung nodule Gastrointestinal History: Reports: Bowel Obstruction, Other (See Below) Other Gastrointestinal History: ulcerative colitis Genitourinary History: Reports: None [employer]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 Neurological History: Reports: None Psychiatric History: Reports: None Endocrine/Metabolic History: Reports: None Hematologic History: Reports: Blood Transfusion(s) Other Hematologic History: states blood transfusion following ectopic Immunologic History: Reports: None Oncologic (Cancer) History: Reports: Other (See Below) Other Oncologic History: lung nodule Dermatologic History: Reports: None - Infectious Disease History Infectious Disease History: Reports: None - Past Surgical History Head Surgeries/Procedures: Reports: None GI Surgical History: Reports: Cholecystectomy, Other (See Below) Other Female Surgeries/Procedures: left ovarian cyst with oopherectomy Endocrine Surgical History: Reports: None Neurological Surgical History: Reports: None Other Musculoskeletal Surgeries/Procedures:: toenail removal Dermatological Surgical History: Reports: None Social & Family History - Family History Family Medical History: Noncontributory - Tobacco Use Smoking Status *Q: Current Every Day Smoker Years of Tobacco use: 32 Packs/Tins Daily: 1 Used Tobacco, but Quit: No Second Hand Smoke Exposure: No - Caffeine Use Caffeine Use: Reports: Coffee Caffeine Use Comment: 3-4 daily - Alcohol Use Days Per Week of Alcohol Use: 0 Number of Drinks Per Day: 0 Total Drinks Per Week: 0 - Recreational Drug Use Recreational Drug Use: No Drug Use in Last 12 Months: No Recreational Drug Type: Reports: Marijuana/Hashish ED ROS GENERAL - Review of Systems Review Of Systems: ROS reveals no pertinent complaints other than HPI. ED EXAM, GENERAL - Physical Exam Exam: See Below (See dictation) Course - Vital Signs Last Recorded V/S: Last Vital Signs Temp 97.4 F 11/10/17 16:35 Pulse 75 11/10/17 16:35 Resp 18 11/10/17 16:35 BP 120/85 11/10/17 16:35 Pulse Ox 94 L 11/10/17 16:35 - Orders/Labs/Meds Orders: Active Orders 24 hr Category Date Time Status Abdomen Pelvis w Cont [CT] Stat Exams 11/10/17 16:15 Taken Chest 1V Frontal [CR] Stat Exams 11/10/17 16:15 Taken UA W/MICROSCOPIC [URIN] Stat Lab 11/10/17 16:15 Ordered Sodium Chloride 0.9% [Normal Saline] 1,000 ml Med 11/10/17 16:15 Active IV STAT Medication Orders Sodium Chloride (Normal Saline) 1,000 mls @ 999 mls/hr IV STAT ONE Stop: 11/10/17 17:15 Last Admin: 11/10/17 16:30 Dose: 999 mls/hr Labs: Laboratory Tests 11/10/17 11/10/17 11/10/17 Range/Units 15:52 15:52 15:52 WBC 13.08 H (4.0-11.0) K/uL RBC 4.53 (4.30-5.90) M/uL Hgb 13.8 (12.0-16.0) g/dL Hct 39.8 (36.0-46.0) % MCV 87.9 (80.0-98.0) fL MCH 30.5 (27.0-32.0) pg MCHC 34.7 (31.0-37.0) g/dL RDW Std Deviation 44.5 (28.0-62.0) fl RDW Coeff of Aydin 14 (11.0-15.0) % Plt Count 294 (150-400) K/uL MPV 9.40 (7.40-12.00) fL Neut % (Auto) 57.9 (48.0-80.0) % Lymph % (Auto) 33.9 (16.0-40.0) % [place] % (Auto) 7.0 (0.0-15.0) % Eos % (Auto) 1.0 (0.0-7.0) % Baso % (Auto) 0.2 (0.0-1.5) % Neut # (Auto) 7.6 H (1.4-5.7) K/uL Lymph # (Auto) 4.4 H (0.6-2.4) K/uL [place] # (Auto) 0.9 H (0.0-0.8) K/uL Eos # (Auto) 0.1 (0.0-0.7) K/uL Baso # (Auto) 0.0 (0.0-0.1) K/uL Nucleated RBC % 0.0 /100WBC Nucleated RBCs # 0 K/uL Sodium 134 L (136-145) mmol/L Potassium 3.6 (3.5-5.1) mmol/L Chloride 97 L (98-107) mmol/L Carbon Dioxide 24.5 (21.0-32.0) mmol/L BUN 15 (7.0-18.0) mg/dL Creatinine 1.0 (0.6-1.0) mg/dL Est Cr Clr Drug Dosing TNP Estimated GFR (MDRD) 59.2 ml/min Glucose 96 (74-106) mg/dL Calcium 9.2 (8.5-10.1) mg/dL Total Bilirubin 0.3 (0.2-1.0) mg/dL AST 20 (15-37) IU/L ALT 20 (14-63) IU/L Alkaline Phosphatase 84 (46-116) U/L Total Protein 8.0 (6.4-8.2) g/dL Albumin 3.9 (3.4-5.0) g/dL Globulin 4.1 H (2.0-3.5) g/dL Albumin/Globulin Ratio 1.0 L (1.3-2.8) Amylase 45 (25-115) U/L Lipase 190 (73-393) U/L Monoscreen (NEG) 11/10/17 Range/Units 15:52 WBC (4.0-11.0) K/uL RBC (4.30-5.90) M/uL Hgb (12.0-16.0) g/dL Hct (36.0-46.0) % MCV (80.0-98.0) fL MCH (27.0-32.0) pg MCHC (31.0-37.0) g/dL RDW Std Deviation (28.0-62.0) fl RDW Coeff of Aydin (11.0-15.0) % Plt Count (150-400) K/uL MPV (7.40-12.00) fL Neut % (Auto) (48.0-80.0) % Lymph % (Auto) (16.0-40.0) % [place] % (Auto) (0.0-15.0) % Eos % (Auto) (0.0-7.0) % Baso % (Auto) (0.0-1.5) % Neut # (Auto) (1.4-5.7) K/uL Lymph # (Auto) (0.6-2.4) K/uL [place] # (Auto) (0.0-0.8) K/uL Eos # (Auto) (0.0-0.7) K/uL Baso # (Auto) (0.0-0.1) K/uL Nucleated RBC % /100WBC Nucleated RBCs # K/uL Sodium (136-145) mmol/L Potassium (3.5-5.1) mmol/L Chloride (98-107) mmol/L Carbon Dioxide (21.0-32.0) mmol/L BUN (7.0-18.0) mg/dL Creatinine (0.6-1.0) mg/dL Est Cr Clr Drug Dosing Estimated GFR (MDRD) ml/min Glucose (74-106) mg/dL Calcium (8.5-10.1) mg/dL Total Bilirubin (0.2-1.0) mg/dL AST (15-37) IU/L ALT (14-63) IU/L Alkaline Phosphatase (46-116) U/L Total Protein (6.4-8.2) g/dL Albumin (3.4-5.0) g/dL Globulin (2.0-3.5) g/dL Albumin/Globulin Ratio (1.3-2.8) Amylase (25-115) U/L Lipase (73-393) U/L Monoscreen NEGATIVE (NEG) Meds: Medications Generic Name Dose Route Start Last Admin Trade Name Freq PRN Reason Stop Dose Admin Sodium Chloride 1,000 mls @ 999 mls/hr 04/14/18 16:15 11/10/17 16:30 Normal Saline IV 11/10/17 17:15 999 mls/hr STAT ONE Administration Discontinued Medications Generic Name Dose Route Start Last Admin Trade Name Ajit PRN Reason Stop Dose Admin Iopamidol 72 ml 11/10/17 16:55 11/10/17 16:55 Isovue Multipack-370 (76%) IVPUSH 11/10/17 16:56 72 ml ONETIME ONE Administration Departure - Departure Time of Disposition: 17:15 Disposition: Home, Self-Care 01 Clinical Impression: Viral illness - Discharge Information Instructions: Viral Illness, Adult Referrals: PCP,None [Primary Care Provider] - Forms: ED Department Discharge Additional Instructions: The following information is given to patients seen in the emergency department who are being discharged to home. This information is to outline your options for follow-up care. We provide all patients seen in our emergency department with a follow-up referral. The need for follow-up, as well as the timing and circumstances, are variable depending upon the specifics of your emergency department visit. If you don't have a primary care physician on staff, we will provide you with a referral. We always advise you to contact your personal physician following an emergency department visit to inform them of the circumstance of the visit and for follow-up with them and/or the need for any referrals to a consulting specialist. The emergency department will also refer you to a specialist when appropriate. This referral assures that you have the opportunity for follow-up care with a specialist. All of these measure are taken in an effort to provide you with optimal care, which includes your follow-up. Under all circumstances we always encourage you to contact your private physician who remains a resource for coordinating your care. When calling for follow-up care, please make the office aware that this follow-up is from your recent emergency room visit. If for any reason you are refused follow-up, please contact the [facility] Emergency Department at and asked to speak to the emergency department charge nurse. [facility] [address] [place] [id number] 1. Please use Tylenol and/or Ibuprofen as needed for pain and fever management. 2. Get plenty of Rest. Encourage fluids to prevent dehydration. 3. Please follow up with your primary care provider in 1-2 days. Return to the ED as needed as discussed. - My Orders Last 24 Hours: My Active Orders 11/10/17 16:15 Abdomen Pelvis w Cont [CT] Stat Chest 1V Frontal [CR] Stat UA W/MICROSCOPIC [URIN] Stat Sodium Chloride 0.9% [Normal Saline] 1,000 ml IV STAT - Assessment/Plan Last 24 Hours: My Active Orders 11/10/17 16:15 Abdomen Pelvis w Cont [CT] Stat Chest 1V Frontal [CR] Stat UA W/MICROSCOPIC [URIN] Stat Sodium Chloride 0.9% [Normal Saline] 1,000 ml IV STAT
[2017-11-10] MEDS ORDERED: Sodium Chloride 0.9% 1,000 ML IV ONE (16:15)
[2017-11-10 16:26] LABS: CHLORIDE,CL 97 mmol/L (98-107); SODIUM,NA 134 mmol/L (136-145)
[2017-11-10 16:36] VITALS: BP 120/85
[2017-11-10] MEDS ORDERED: Iopamidol 755 MG/ML 200 ML Multipack Bottle IVPUSH ONE (16:55)
--- NOTE | 2017-11-12 10:30 | CR ---
EXAM DATE: 11/10/17 PATIENT'S AGE: 47 Patient: JUSTO PATTEN Facility: [place], [place] Site . Site : 1970 Study: XRay Chest [id number]/14/2018 4:57:01 PM Ordering Physician: Doctor Iglesias Final Report: INDICATION: Pain. Shortness of breath. TECHNIQUE: PA chest. FINDINGS: Clear lungs. Normal heart size and pulmonary vascularity. Normal included skeletal thorax. IMPRESSION: Normal PA chest. Dictated by Samy Mcfadden MD @ Nov 10 2017 5:00PM (Electronic Signature) Report Signed by Proxy. RATNA
--- NOTE | 2017-11-12 10:31 | CT ---
EXAM DATE: 11/10/17 PATIENT'S AGE: 47 Patient: JUSTO PATTEN Facility: [place], [place] Site . Site : 1970 Study: CT Abdomen/Pelvis W CONT [id number]/14/2018 4:59:44 PM Ordering Physician: Doctor Iglesias Final Report: INDICATION: Emesis. Weakness. Fever. TECHNIQUE: CT scan of the abdomen and pelvis with 72 cc of Isovue-370 given intravenously. COMPARISON: CT scan of the abdomen and pelvis dated 18 June 2017. FINDINGS: The lung bases are unremarkable. No focal abnormalities identified in the visualized portions of the liver, spleen, pancreas, adrenal glands, and kidneys. No hydronephrosis. No obstructing uroliths. The GI tract is incompletely distended but shows no gross abnormalities. The stomach and GE junction are not well assessed. Normal appendix. No retroperitoneal, pelvic sidewall, or mesenteric adenopathy. Cholecystectomy changes. No bile duct dilation. IMPRESSION: No acute abnormalities of the abdomen or pelvis identified. Dictated by Abdulaziz Vidal MD @ 11/10/2017 5:11:37 PM Please note that all CT scans at this facility use dose modulation, iterative reconstruction, and/or weight-based dosing when appropriate to reduce radiation dose to as low as reasonably achievable. Dictated by: Abdulaziz Vidal MD @ 11/10/2017 17:11:49 (Electronic Signature) Report Signed by Proxy. [facility]
== END 2017-11-10 17:49 | disposition home or self-care (01) ==
LOC: MW.ED 13:49
DX: B34.9 Viral infection, unspecified (principal); F17.210 Nicotine dependence, cigarettes, uncomplicated; J44.9 Chronic obstructive pulmonary disease, unspecified; Z79.899 Other long term (current) drug therapy; Z88.8 Allergy status to other drugs, medicaments and biological substances; Z91.040 Latex allergy status; Z88.5 Allergy status to narcotic agent; Z88.1 Allergy status to other antibiotic agents; Z90.49 Acquired absence of other specified parts of digestive tract
CPT/HCPCS: 36415; 71045; 74177; 80053; 81001; 82150; 83690; 85025; 86308; 87804; 99285; J7040; Q9967; 99283

== ENCOUNTER 2018-12-03 10:09 | Day surgery (SDC) | payer MEDICAID ==
[2018-12-03] MEDS ORDERED: Scopolamine 1.5 MG Transdermal Patch TRDERM PRN (10:40)
[2018-12-03] MEDS ORDERED: Scopolamine 1.5 MG Transdermal Patch ONE (10:41)
[2018-12-03] MEDS ORDERED: Propofol 200 MG/20 ML SDV ONE (10:41)
[2018-12-03] MEDS ORDERED: Midazolam 1 MG/ML 2 ML SDV ONE (10:41)
[2018-12-03] MEDS ORDERED: fentaNYL 100 MCG/2 ML SDV ONE ×2 (10:41→12:56)
[2018-12-03] MEDS ORDERED: Ondansetron 4 MG/2 ML SDV ONE (10:42)
--- NOTE | 2018-12-03 10:47 | PCM.PREANE ---
Preanesthetic Assessment - Anesthesia/Transfusion/Family Hx Anesthesia History: Prior Anesthesia Without Reaction Other Type of Anesthesia Reaction Comment: Pt adopted, states has N/V 1 day after having anesthesia Family History of Anesthesia Reaction: No Transfusion History: Prior Transfusion Without Reaction Intubation History: Unknown - Review of Systems General: No Symptoms Pulmonary: No Symptoms Cardiovascular: No Symptoms Gastrointestinal: No Symptoms Neurological: No Symptoms Other: Reports: None - Physical Assessment O2 Sat by Pulse Oximetry: 96 Respiratory Rate: 16 Vital Signs: Last Vital Signs Temp 36.4 C 12/03/18 10:29 Pulse 98 12/03/18 10:29 Resp 16 12/03/18 10:29 BP 134/84 12/03/18 10:29 Pulse Ox 96 12/03/18 10:29 Height: 1.6 m Weight: 54.431 kg ASA Class: 3 Mental Status: Alert & Oriented x3 Airway Class: Mallampati = 2 Dentition: Reports: Dentures (upper and lower) Thyro-Mental Finger Breadths: 3 Mouth Opening Finger Breadths: 3 ROM/Head Extension: Full Lungs: Clear to Auscultation, Normal Respiratory Effort Cardiovascular: Regular Rate, Regular Rhythm - Allergies Allergies/Adverse Reactions: Allergies Allergy/AdvReac Type Severity Reaction Status Date / Time amitriptyline Allergy Hives Verified 11/28/18 09:51 aspirin Allergy Stomach Verified 11/28/18 09:51 Upset latex Allergy Rash Verified 11/28/18 09:51 levofloxacin [From Levaquin] Allergy Diarrhea Verified 11/28/18 09:51 morphine AdvReac Confusion Verified 11/28/18 09:51 - Blood Blood Available: No - Anesthesia Plan Pre-Op Medication Ordered: None - Acknowledgements Anesthesia Type Planned: General Anesthesia Pt an Appropriate Candidate for the Planned Anesthesia: Yes Alternatives and Risks of Anesthesia Discussed w Pt/Guardian: Yes Pt/Guardian Understands and Agrees with Anesthesia Plan: Yes PreAnesthesia Questionnaire - Past Health History Medical/Surgical History: Denies Medical/Surgical History HEENT History: Reports: Other (See Below) Other HEENT History: states has blurred vision, wears glasses, top denture, Cardiovascular History: Reports: High Cholesterol Respiratory History: Reports: Asthma, COPD, SOB ( 2 blocks ok but not 2 flights of stairs), Other (See Below) Other Respiratory History: states has nodule on left lower lung Gastrointestinal History: Reports: Bowel Obstruction, Diverticulosis, Pancreatitis, Other (See Below) Other Gastrointestinal History: ulcerative colitis Genitourinary History: Reports: None [employer] History: Reports: Ectopic , Other OB/BYN History: laparotomy for ectopic Musculoskeletal History: Reports: Arthritis, Back Pain, Chronic, Fracture, Other (See Below) 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 Neurological History: Reports: Other (See Below) (chronic neuropathic pain, chronic pain syndrome) Psychiatric History: Reports: Anxiety, Depression, PTSD Endocrine/Metabolic History: Reports: None Hematologic History: Reports: Blood Transfusion(s) Immunologic History: Reports: None Oncologic (Cancer) History: Reports: Other (See Below) Other Oncologic History: cervical dysplagia Dermatologic History: Reports: None - Infectious Disease History Infectious Disease History: Reports: None - Past Surgical History Head Surgeries/Procedures: Reports: None HEENT Surgical History: Reports: Other (See Below) Other HEENT Surgeries/Procedures: Dental extractions Cardiovascular Surgical History: Reports: None Respiratory Surgical History: Reports: None GI Surgical History: Reports: Cholecystectomy, Colonoscopy, EGD, Other (See Below) Other GI Surgeries/Procedures: Multiple laproscopic surgeries Female Surgical History: Reports: Section, Hysterectomy, Oophorectomy Other Female Surgeries/Procedures: left ovarian cyst with oopherectomy Endocrine Surgical History: Reports: None Neurological Surgical History: Reports: None Musculoskeletal Surgical History: Reports: Other (See Below) Other Musculoskeletal Surgeries/Procedures:: left hand surgery x3, toenail removal Oncologic Surgical History: Reports: None Dermatological Surgical History: Reports: None - SUBSTANCE USE Smoking Status *Q: Current Every Day Smoker (now < 1ppd) Tobacco Use Within Last Twelve Months: Cigarettes - HOME MEDS Home Medications: Home Meds Omeprazole 40 mg PO DAILY 03/06/14 [History] Potassium Chloride [Klor-Con 10] 10 meq PO DAILY 04/24/14 [History] Ondansetron [Zofran] 8 mg PO ASDIRECTED PRN 02/16/15 [History] Albuterol [Ventolin HFA] 1 - 2 puff INH ASDIRECTED PRN 11/28/18 [History] Cyclobenzaprine HCl 10 mg PO BID 11/28/18 [History] Diclofenac Sodium [Voltaren 1% Gel] 1 applic TOP ASDIRECTED PRN 11/28/18 [ History] Fluticasone/Salmeterol [Advair HFA 230-21 MCG] 2 puff INH BID 11/28/18 [History] Lidocaine/Prilocaine [Lidocaine-Prilocaine Cream] 1 applic TOP ASDIRECTED PRN [History] PARoxetine HCl [Paroxetine HCl] 20 mg PO BID 11/28/18 [History] Pregabalin [Lyrica] 75 mg PO BID 11/28/18 [History] busPIRone HCl [busPIRone] 30 mg PO BID 11/28/18 [History] traZODone HCl [Trazodone HCl] 50 mg PO BEDTIME PRN 11/28/18 [History] - CURRENT (IN HOUSE) MEDS Current Meds: Current Medications Scopolamine (Transderm-Scop) 1.5 mg TRDERM Q72H PRN PRN Reason: Nausea
[2018-12-03] MEDS ORDERED: Lidocaine 1% 20 ML MDV ONE (10:57)
[2018-12-03] MEDS ORDERED: Bupivacaine 0.5% 10 ML SDV ONE ×2 (10:57→12:27)
[2018-12-03] MEDS ORDERED: Rocuronium 100 MG/10 ML Syringe ONE (12:05)
[2018-12-03] MEDS ORDERED: ceFAZolin 1 GM Vial ONE (12:14)
[2018-12-03] MEDS ORDERED: fentaNYL 100 MCG/2 ML SDV IVPUSH PRN (12:40)
[2018-12-03] MEDS ORDERED: Phenylephrine/Normal Saline 100 MCG/ML 10 ML Syringe ONE (12:42)
--- NOTE | 2018-12-03 13:41 | PCM.OPNOTE ---
- General Post-Op/Procedure Note Date of Surgery/Procedure: 12/03/18 Operative Procedure(s): excision of mass left foot Findings: consistent with diagnosis Pre Op Diagnosis: mass left foot Post-Op Diagnosis: mass left foot Primary Surgeon: Surendra Craig Anesthesia Provider: Laxmi Haywood Pathology: fibrotic mass material excised from left foot plantar aspect EBL in mLs: 3 Complications: none Condition: Good Free Text/Narrative:: injectables: 10 ml 0.5% marcaine plain materials: 4-0 Vicryl, 3-0 Nylon
--- NOTE | 2018-12-03 13:52 | PCM.POSTAN ---
POST ANESTHESIA ASSESSMENT - MENTAL STATUS Mental Status: Alert - RESPIRATORY Respiratory Status: Respiratory Rate WNL, Airway Patent, O2 Saturation Stable - CARDIOVASCULAR CV Status: Pulse Rate WNL, Blood Pressure Stable - GASTROINTESTINAL GI Status: No Symptoms - POST OP HYDRATION Hydration Status: Adequate & Stable
--- NOTE | 2018-12-03 14:26 | PCM48HPAN ---
Post Anesthesia Note - EVALUATION WITHIN 48HRS OF ANESTHETIC Vital Signs in Normal Range: Yes Patient Participated in Evaluation: Yes Respiratory Function Stable: Yes Airway Patent: Yes Cardiovascular Function Stable: Yes Hydration Status Stable: Yes Pain Control Satisfactory: Yes Nausea and Vomiting Control Satisfactory: Yes Mental Status Recovered: Yes Resp Rate: 16
--- NOTE | 2018-12-03 14:42 | PN ---
DATE OF SURGERY: 12/03/2018. PREOPERATIVE DIAGNOSIS: Mass on the left foot. SCHEDULED PROCEDURE: Excision of mass, left foot. ALLERGIES: To amitriptyline, latex gloves, Levaquin, and aspirin. Additionally, patient has had confusion when she takes morphine. CURRENT MEDICATIONS: 1. Advair HFA 115/21 mcg per actuation inhalation aerosol inhale two puffs by mouth twice daily, which she has not started yet. 2. Buspirone hydrochloride 30 mg oral tablet, take 1 tablet twice daily. 3. Cyclobenzaprine hydrochloride 10 mg oral tablet, take 1 tablet at night for spasms as needed. 4. Diclofenac sodium 1% transdermal gel apply 2 g to affected area four times daily maximum of 8 g daily. 5. Lidocaine/prilocaine 2.5%/2.5% external cream apply three times a day to the left upper extremity. 6. Lyrica 75 mg oral capsule take 1 capsule by mouth twice daily x3 days, then one capsule three times daily as tolerated twice daily. 7. Omeprazole 40 mg oral capsule delayed release, take 1 capsule by mouth once daily. 8. Ondansetron hydrochloride 8 mg oral tablet, take 1 tablet by mouth every 8 hours as needed for nausea. 9. Potassium chloride ER 10 mEq oral tablet extended-release, take 1 tablet by mouth once daily. 10.Trazodone hydrochloride 50 mg oral tablet, take 1 tablet by mouth at bedtime as needed. 11.Ventolin HFA 108, 90 base, microgram per actuation inhalation aerosol solution inhale 1-2 puffs every 4-6 hours as needed. 12.Paroxetine 20 mg twice daily. PAST MEDICAL HISTORY: Significant for: 1. History of acute myofascial pain, back spasm. 2. Asthmatic bronchitis. 3. Cervical disk disease. 4. Cervical radiculopathy. 5. COPD exacerbation. 6. Complex regional pain syndrome, type 2, upper. 7. Grief counseling. 8. Hip abrasion. 9. Hip dysplasia. 10.Abdominal pain. 11.Acute bronchitis. 12.Alcohol abuse. 13.Anemia. 14.History of cholecystitis. 15.Excessive sweating. 16.Fatigue. 17.Rib fracture. 18.Hypokalemia. 19.Leukocytosis. 20.Low back pain. 21.Nausea and vomiting. 22.Ovarian cyst. 23.Rectal bleeding. 24.Reflex sympathetic dystrophy. 25.Shortness of breath. 26.Ulcerative colitis. 27.Urinary tract infection. 28.Left arm swelling. 29.Loose stools. 30.Menopausal symptoms. 31.Nasal lesion. 32.Numbness and tingling in the left arm. 33.Otitis external. 34.Pelvic mass. 35.History of asthma. 36.Reactive airway disease with wheezing. 37.Sciatica of the left side. 38.Skin lesions. PAST SURGICAL HISTORY: The patient has had surgeries includin. History of . 2. Cholecystectomy. 3. Colonoscopy. 4. Diagnostic esophagogastroduodenoscopy. 5. Hand surgery. 6. Hysterectomy. Patient denies a history of knee surgery, though it was listed on her history and physical exam. LABORATORY DATA: INR 0.89. White blood cell 7.77, red blood cell 4.11, hemoglobin 12.5, hematocrit 37.4, platelets 255. Sodium 139, potassium 4.8, chloride 102, CO2 of 27.9, random glucose 87, BUN 21, creatinine 0.9, PTT 29.3. The patient was cleared for surgery by Dr. Wayne Sims, with risks stated as class 1 risk which puts her at low risk for the procedure. All risks and benefits have been discussed with the patient. All patient questions have been answered. No guarantees have been expressed or implied, and risks discussed included prolonged healing particularly due to the patient's smoking, which she is urged to reduce further and eliminate as possible as well as postoperative infection potential particularly because this will be involving a plantar foot incision. LINDA / [place] /[id number]
[2018-12-03 14:45] VITALS: BP 128/74
--- NOTE | 2018-12-03 17:04 | OR ---
SURGEON: Surendra Craig DPM DATE OF PROCEDURE: 12/03/2018 PREOPERATIVE DIAGNOSIS: Mass, left foot. OPERATIVE PROCEDURE: Excision of mass, left foot. ANESTHESIA: General. HEMOSTASIS: Above-ankle pneumatic tourniquet inflated to a pressure of 250 mmHg. PATHOLOGY: Fibrotic mass material excised from plantar aspect of left foot. ESTIMATED BLOOD LOSS: 3 mL. MATERIALS: 4-0 Vicryl and 3-0 nylon. INJECTABLES: 10 mL of 0.5% Marcaine plain injected at the beginning of the procedure. FINDINGS: Findings were consistent with preoperative diagnosis. The patient appears to have developed a substantial fibroma in the plantar aspect of the left foot, however, final diagnosis is pending pathology analysis. The patient's condition is good, having tolerated the procedure and the anesthesia well with a prompt hyperemic response to all digits of the left foot after deflation of the tourniquet with a tourniquet time of 38 minutes. JUSTIFICATION FOR THE PROCEDURE: The patient over the last several months has developed a large palpable and painful mass on the central medial aspect of her left foot consistent with plantar fibroma. This mass appears to the patient to be growing continuously, though I do not appreciate such growth but in any event is too large to reduce conservatively with attempts such as steroid injections. The patient has consented for surgical excision of the left foot mass and presents for surgery today with written consent signed and in the patient's chart and all questions answered. No guarantees expressed or implied. The patient has again been cautioned to try to further reduce her smoking as this inevitably could complicate healing. The patient also understands that depending on the nature of the mass, the mass may repeat such as is common to plantar fibromas. PROCEDURE IN DETAIL: Excision of mass, left foot. The patient was brought to the operating room, placed on the operating table in a supine position, at which time an aseptic scrub and drape was performed about the patient's left lower extremity, and the above-ankle pneumatic tourniquet was inflated after the incision site had been planned with a marking pen and following Esmarch bandage exsanguination. The planned incision is approximately 4 cm linear from distal to proximal directly over the center of the easily palpated mass on the plantar aspect of the left foot. Incision was made with a #15 blade mounted on a #3 handle through the superficial skin into the subcutaneous layer and skin tissue was retracted with skin hooks and later with Arielle and Ragnell retractors. The dissection continued through the subcutaneous layer to the readily identifiable fibroma like thickening within the plantar fascia. The roughly oval shaped area identified as the mass area is poorly defined within the plantar fascia and is dissected with care being taken to preserve the flexor tendons and sufficient amount of plantar fascia. Careful dissection proceeded grasping the mass with a mosquito hemostat and another curved hemostat, and care was taken to identify and avoid or retract out of the way the neurovascular and tendinous structures. No Bovie was necessary as there was virtually no bleeding. The area was flushed following dissection of the main mass contents and re-examined further. A small amount of additional mass material was identified and excised and after final normal saline flush, the area was dabbed dry in preparation for layered soft tissue closure. Closure of the deep and subcutaneous layers was with 4-0 Vicryl suture. A single 4-0 Vicryl suture was also used to reapproximate some incised plantar fascia and the superficial skin was reapproximated using 3-0 nylon suture. The tourniquet was then deflated promptly at 38 minutes. Minimal bleeding was noted and the area was dressed. After cleaning the foot with wet and dry, the area was dressed with Betadine-soaked Xeroform gauze, followed by fluff gauze, Kerlix roll, and secured with a 3-inch Haris bandage. Prompt hyperemic response was noted to all digits of the left foot following deflation of the tourniquet. The patient tolerated the procedure and the anesthesia well. No complications were noted. LINDA / [place] /[id number] RATNA
== END 2018-12-03 14:47 | disposition home or self-care (01) ==
LOC: MW.SDS 10:09
PROVIDERS: ATTEND Podiatrist Foot & Ankle Surgery
DX: M72.2 Plantar fascial fibromatosis (principal); F17.210 Nicotine dependence, cigarettes, uncomplicated; J44.9 Chronic obstructive pulmonary disease, unspecified; F32.9 Major depressive disorder, single episode, unspecified; F41.9 Anxiety disorder, unspecified; Z79.51 Long term (current) use of inhaled steroids; Z79.899 Other long term (current) drug therapy; Z01.818 Encounter for other preprocedural examination; Z88.8 Allergy status to other drugs, medicaments and biological substances; Z88.1 Allergy status to other antibiotic agents; Z91.040 Latex allergy status; Z88.5 Allergy status to narcotic agent
CPT/HCPCS: 13132; 28041; A9270; J0330; J0690; J2001; J2250; J2370; J2405; J2704; J3010; J3490; 00400; 88305

== ENCOUNTER 2019-05-06 19:06 | Emergency (ER) | payer MEDICAID ==
[2019-05-06] MEDS ORDERED: Albuterol/Ipratropium 3.0-0.5 MG/3 ML Neb Soln ONE (19:14)
[2019-05-06] MEDS ORDERED: methylPREDNISolone Sodium Succinate 125 MG/2 ML SDV ONE (19:25)
[2019-05-06] MEDS ORDERED: Sodium Chloride 0.9% 1,000 ML IV ONE (19:27)
[2019-05-06] MEDS ORDERED: methylPREDNISolone Sodium Succinate 125 MG/2 ML SDV IVPUSH ONE (19:27)
--- NOTE | 2019-05-06 19:27 | EDM.PDOC ---
ED HPI GENERAL MEDICAL PROBLEM - General Chief Complaint: Respiratory Problem Stated Complaint: CHEST PAIN AND COUGH Time Seen by Provider: 05/06/19 19:25 Source of Information: Reports: Patient History Limitations: Reports: No Limitations - History of Present Illness INITIAL COMMENTS - FREE TEXT/NARRATIVE: HISTORY AND PHYSICAL: History of present illness: Patient is a 48-year-old female presenting to the emergency room for "shortness of breath/cough for 3 days". Patient states her symptoms have worsened today. She has having associated back pain due to coughing, subjective fever/chills, and "chest pain that has been going on for a while". She denies any recent illnesses. She states she has COPD, asthma, chronic bronchitis, and chronic pneumonia. She also states that she is following up with Dr. Slater for right lower lobe lung nodules that she is having checked every 6 months. 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 Patient denies any headache, change in vision, syncope or near syncope. Denies any abdominal pain, nausea, vomiting, diarrhea, constipation or dysuria. Has not noted any blood in urine or stool. Patient has been eating and drinking appropriately. Review of systems: As per history of present illness and below otherwise all systems reviewed and negative. Past medical history: As per history of present illness and as reviewed below otherwise noncontributory. Surgical history: As per history of present illness and as reviewed below otherwise noncontributory. Social history: See social history for further information Family history: As per history of present illness and as reviewed below otherwise noncontributory. Physical exam: General: Patient is a well-nourished and well-developed 48-year-old female. Alert and orientated. Nontoxic in appearance and in no acute distress. Vital signs have been reviewed by me. HEENT: Atraumatic, normocephalic, pupils equal and reactive bilaterally, negative for conjunctival pallor or scleral icterus, mucous membranes moist, TMs normal bilaterally, throat clear, neck supple, nontender, trachea midline. No drooling or trismus noted. No meningeal signs. No hot potato voice noted. Lungs: Expiratory wheezing, chest nontender. Heart: S1S2, regular rate and rhythm without overt murmur Abdomen: Soft, nondistended, nontender. Negative for masses or hepatosplenomegaly. Negative for costovertebral tenderness. Skin: Intact, warm, dry. No lesions or rashes noted. Extremities: Atraumatic, moves all extremities per self without difficulty or deficits, negative for cords or calf pain. Neurovascular unremarkable. Neuro: Awake, alert, oriented. Cranial nerves II through XII unremarkable. Cerebellum unremarkable. Motor and sensory unremarkable throughout. Exam nonfocal. Notes: Chest x-ray shows no acute findings. Lab work is unremarkable. Patient states she does feel improved since being here in the emergency room. We discussed discharge versus admission. She states she feels comfortable being discharged home. Due to her extensive respiratory history and will put her on a Z-Felipe and Medrol Dosepak. She does have a follow-up appointment with Dr. Moya on Sunday. Vital signs remain stable. Supportive care measures were reviewed and discussed. Voices understanding and is agreeable to plan of care. Denies any further questions or concerns at this time. Diagnostics: CBC, CMP, EKG, CXR, Troponin, Influenza Therapeutics: Solumedrol, IV fluids, DuoNeb Prescription: Z-Felipe, Medrol Dosepak Impression: COPD exacerbation Plan: 1. Stop smoking. 2. Take the medications as prescribed. He can do a nebulizer treatment every 4 hours as needed. 3. Follow-up with Dr. Moya, as you have scheduled on Sunday. Return to the ED as needed and as discussed. Definitive disposition and diagnosis as appropriate pending reevaluation and review of above. Chest Pain Score (Numeric/FACES): 8 - Related Data Allergies Allergy/AdvReac Type Severity Reaction Status Date / Time amitriptyline Allergy Hives Verified 05/06/19 19:14 aspirin Allergy Stomach Verified 05/06/19 19:14 Upset latex Allergy Rash Verified 05/06/19 19:14 levofloxacin [From Levaquin] Allergy Diarrhea Verified 05/06/19 19:14 morphine AdvReac Confusion Verified 05/06/19 19:14 Home Meds: Home Meds Omeprazole 40 mg PO DAILY 03/06/14 [History] Potassium Chloride [Klor-Con 10] 10 meq PO DAILY 04/24/14 [History] Ondansetron [Zofran] 8 mg PO ASDIRECTED PRN 02/16/15 [History] Albuterol [Ventolin HFA] 1 - 2 puff INH ASDIRECTED PRN 11/28/18 [History] Cyclobenzaprine HCl 10 mg PO BID 11/28/18 [History] Diclofenac Sodium [Voltaren 1% Gel] 1 applic TOP ASDIRECTED PRN 11/28/18 [ History] Fluticasone/Salmeterol [Advair HFA 230-21 MCG] 2 puff INH BID 11/28/18 [History] Lidocaine/Prilocaine [Lidocaine-Prilocaine Cream] 1 applic TOP ASDIRECTED PRN [History] PARoxetine HCl [Paroxetine HCl] 20 mg PO BID 11/28/18 [History] busPIRone HCl [busPIRone] 30 mg PO BID 11/28/18 [History] traZODone HCl [Trazodone HCl] 50 mg PO BEDTIME PRN 11/28/18 [History] Past Medical History - Past Health History Medical/Surgical History: Denies Medical/Surgical History HEENT History: Reports: Other (See Below) Other HEENT History: states has blurred vision, wears glasses, top denture, Cardiovascular History: Reports: High Cholesterol Respiratory History: Reports: Asthma, COPD, SOB, Other (See Below) Other Respiratory History: states has nodule on left lower lung Gastrointestinal History: Reports: Bowel Obstruction, Diverticulosis, Pancreatitis, Other (See Below) Other Gastrointestinal History: ulcerative colitis Genitourinary History: Reports: None DESK MONITOR History: Reports: Ectopic , Other DESK MONITOR History: laparotomy for ectopic Musculoskeletal History: Reports: Arthritis, Back Pain, Chronic, Fracture, Other (See Below) 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 Neurological History: Reports: Other (See Below) Psychiatric History: Reports: Anxiety, Depression, PTSD Endocrine/Metabolic History: Reports: None Hematologic History: Reports: Blood Transfusion(s) Immunologic History: Reports: None Oncologic (Cancer) History: Reports: Other (See Below) Other Oncologic History: cervical dysplagia Dermatologic History: Reports: None - Infectious Disease History Infectious Disease History: Reports: None - Past Surgical History HEENT Surgical History: Reports: Other (See Below) Other HEENT Surgeries/Procedures: Dental extractions Cardiovascular Surgical History: Reports: None Respiratory Surgical History: Reports: None GI Surgical History: Reports: Cholecystectomy, Colonoscopy, EGD, Other (See Below) Other GI Surgeries/Procedures: Multiple laproscopic surgeries Female Surgical History: Reports: Section, Hysterectomy, Oophorectomy Other Female Surgeries/Procedures: left ovarian cyst with oopherectomy Endocrine Surgical History: Reports: None Neurological Surgical History: Reports: None Musculoskeletal Surgical History: Reports: Other (See Below) Other Musculoskeletal Surgeries/Procedures:: left hand surgery x3, toenail removal Oncologic Surgical History: Reports: None Dermatological Surgical History: Reports: None Social & Family History - Family History Family Medical History: Noncontributory - Tobacco Use Smoking Status *Q: Current Every Day Smoker Years of Tobacco use: 35 Packs/Tins Daily: 2 - Caffeine Use Caffeine Use: Reports: Coffee Caffeine Use Comment: 3-4 daily - Recreational Drug Use Recreational Drug Use: No ED ROS GENERAL - Review of Systems Review Of Systems: ROS reveals no pertinent complaints other than HPI. ED EXAM, GENERAL - Physical Exam Exam: See Below (See dictation) Course - Vital Signs Last Recorded V/S: Last Vital Signs Temp 97.3 F 05/06/19 19:11 Pulse 92 05/06/19 20:05 Resp 28 H 05/06/19 20:05 BP 129/60 05/06/19 20:05 Pulse Ox 96 05/06/19 20:05 - Orders/Labs/Meds Orders: Active Orders 24 hr Category Date Time Status EKG Documentation Completion [RC] STAT Care 05/06/19 19:26 Active RT Aerosol Therapy [RC] ASDIRECTED Care 05/06/19 19:33 Active Azithromycin [Zithromax] Med 05/06/19 20:56 Stat 500 mg PO NOW STA Sodium Chloride 0.9% [Normal Saline] 1,000 ml Med 05/06/19 19:27 Active IV STAT Medication Orders Sodium Chloride (Normal Saline) 1,000 mls @ 125 mls/hr IV STAT ONE Stop: 05/07/19 03:26 Last Admin: 05/06/19 19:37 Dose: 125 mls/hr Labs: Laboratory Tests 05/06/19 05/06/19 Range/Units 20:00 20:00 WBC 8.60 (4.0-11.0) K/uL RBC 4.06 L (4.30-5.90) M/uL Hgb 12.5 (12.0-16.0) g/dL Hct 36.6 (36.0-46.0) % MCV 90.1 (80.0-98.0) fL MCH 30.8 (27.0-32.0) pg MCHC 34.2 (31.0-37.0) g/dL RDW Std Deviation 47.2 (28.0-62.0) fl RDW Coeff of Aydin 14 (11.0-15.0) % Plt Count 259 (150-400) K/uL MPV 8.90 (7.40-12.00) fL Neut % (Auto) 54.4 (48.0-80.0) % Lymph % (Auto) 33.7 (16.0-40.0) % [place] % (Auto) 10.3 (0.0-15.0) % Eos % (Auto) 1.5 (0.0-7.0) % Baso % (Auto) 0.1 (0.0-1.5) % Neut # (Auto) 4.7 (1.4-5.7) K/uL Lymph # (Auto) 2.9 H (0.6-2.4) K/uL [place] # (Auto) 0.9 H (0.0-0.8) K/uL Eos # (Auto) 0.1 (0.0-0.7) K/uL Baso # (Auto) 0.0 (0.0-0.1) K/uL Nucleated RBC % 0.0 /100WBC Nucleated RBCs # 0 K/uL Sodium 137 (136-145) mmol/L Potassium 3.5 (3.5-5.1) mmol/L Chloride 101 (98-107) mmol/L Carbon Dioxide 26.0 (21.0-32.0) mmol/L BUN 23 H (7.0-18.0) mg/dL Creatinine 1.0 (0.6-1.0) mg/dL Est Cr Clr Drug Dosing 56.29 mL/min Estimated GFR (MDRD) 58.9 ml/min Glucose 136 H (74-106) mg/dL Calcium 8.4 L (8.5-10.1) mg/dL Total Bilirubin 0.2 (0.2-1.0) mg/dL AST 17 (15-37) IU/L ALT 21 (14-63) IU/L Alkaline Phosphatase 107 (46-116) U/L Troponin I < 0.050 (0.000-0.056) ng/mL Total Protein 7.1 (6.4-8.2) g/dL Albumin 3.3 L (3.4-5.0) g/dL Globulin 3.8 (2.6-4.0) g/dL Albumin/Globulin Ratio 0.9 (0.9-1.6) Meds: Medications Generic Name Dose Route Start Last Admin Trade Name Freq PRN Reason Stop Dose Admin Sodium Chloride 1,000 mls @ 125 mls/hr 05/06/19 19:27 05/06/19 19:37 Normal Saline IV 05/07/19 03:26 125 mls/hr STAT ONE Administration Discontinued Medications Generic Name Dose Route Start Last Admin Trade Name Freq PRN Reason Stop Dose Admin Albuterol/Ipratropium Confirm 05/06/19 19:14 05/06/19 20:49 Duoneb 3.0-0.5 Mg/3 Ml Administered 05/06/19 19:15 Not Given Dose 3 ml .ROUTE .STK-MED ONE Albuterol/Ipratropium 3 ml 05/06/19 19:32 05/06/19 19:36 Duoneb 3.0-0.5 Mg/3 Ml NEB 05/06/19 19:33 3 ml ONETIME ONE Administration Methylprednisolone Sodium Succinate 125 mg 05/06/19 19:27 05/06/19 19:36 Solu-Medrol IVPUSH 05/06/19 19:28 125 mg ONETIME ONE Administration Methylprednisolone Sodium Succinate Confirm 05/06/19 19:25 05/06/19 20:49 Solu-Medrol Administered 05/06/19 19:26 Not Given Dose 125 mg .ROUTE .STK-MED ONE Departure - Departure Time of Disposition: 20:59 Disposition: Home, Self-Care 01 Clinical Impression: COPD exacerbation - Discharge Information Instructions: Chronic Obstructive Pulmonary Disease Exacerbation Referrals: PCP,Unknown [Primary Care Provider] - Forms: ED Department Discharge Additional Instructions: The following information is given to patients seen in the emergency department who are being discharged to home. This information is to outline your options for follow-up care. We provide all patients seen in our emergency department with a follow-up referral. The need for follow-up, as well as the timing and circumstances, are variable depending upon the specifics of your emergency department visit. If you don't have a primary care physician on staff, we will provide you with a referral. We always advise you to contact your personal physician following an emergency department visit to inform them of the circumstance of the visit and for follow-up with them and/or the need for any referrals to a consulting specialist. The emergency department will also refer you to a specialist when appropriate. This referral assures that you have the opportunity for follow-up care with a specialist. All of these measure are taken in an effort to provide you with optimal care, which includes your follow-up. Under all circumstances we always encourage you to contact your private physician who remains a resource for coordinating your care. When calling for follow-up care, please make the office aware that this follow-up is from your recent emergency room visit. If for any reason you are refused follow-up, please contact the [facility] Emergency Department at and asked to speak to the emergency department charge nurse. [facility] [address] [place] [address] [place] [address] 1. Stop smoking. 2. Take the medications as prescribed. He can do a nebulizer treatment every 4 hours as needed. 3. Follow-up with Dr. Moya, as you have scheduled on Sunday. Return to the ED as needed and as discussed. - My Orders Last 24 Hours: My Active Orders 05/06/19 19:26 EKG Documentation Completion [RC] STAT 05/06/19 19:27 Sodium Chloride 0.9% [Normal Saline] 1,000 ml IV STAT 05/06/19 19:33 RT Aerosol Therapy [RC] ASDIRECTED 05/06/19 20:56 Azithromycin [Zithromax] 500 mg PO NOW STA - Assessment/Plan Last 24 Hours: My Active Orders 05/06/19 19:26 EKG Documentation Completion [RC] STAT 05/06/19 19:27 Sodium Chloride 0.9% [Normal Saline] 1,000 ml IV STAT 05/06/19 19:33 RT Aerosol Therapy [RC] ASDIRECTED 05/06/19 20:56 Azithromycin [Zithromax] 500 mg PO NOW STA
[2019-05-06] MEDS ORDERED: Albuterol/Ipratropium 3.0-0.5 MG/3 ML Neb Soln NEB ONE (19:32)
--- NOTE | 2019-05-06 20:24 | CR ---
Indication: Chest pain. Technique: Single AP portable view of the chest was obtained. Comparison: April 02, 2019. Findings: The heart is normal in size. The lungs are clear. No infiltrate, pleural effusion, or pneumothorax is identified. Impression: No acute cardiopulmonary process. Dictated by Elisabeth Moran MD @ May 06 2019 8:23PM Signed by Dr. Elisabeth Moran @ May 06 2019 8:24PM
[2019-05-06 20:52] LABS: BLOOD UREA NITROGEN,BUN 23 mg/dL (7.0-18.0); CHLORIDE,CL 101 mmol/L (98-107); GLUCOSE RANDOM 136 mg/dL (74-106); POTASSIUM,K 3.5 mmol/L (3.5-5.1); SODIUM,NA 137 mmol/L (136-145)
[2019-05-06] MEDS ORDERED: Azithromycin 250 MG Tab PO STA (20:56)
[2019-05-06 21:16] VITALS: BP 102/57; PULSE 91
== END 2019-05-06 21:25 | disposition home or self-care (01) ==
LOC: MW.ED 19:06
DX: J44.1 Chronic obstructive pulmonary disease with (acute) exacerbation (principal); F17.210 Nicotine dependence, cigarettes, uncomplicated; F41.9 Anxiety disorder, unspecified; F32.9 Major depressive disorder, single episode, unspecified; Z79.51 Long term (current) use of inhaled steroids; Z79.899 Other long term (current) drug therapy; Z88.1 Allergy status to other antibiotic agents; Z88.5 Allergy status to narcotic agent; Z88.8 Allergy status to other drugs, medicaments and biological substances; Z91.040 Latex allergy status
CPT/HCPCS: 71045; 80053; 84484; 85025; 87804; 93005; 94640; 96361; 96374; 99285; A9270; J2930; J7040; 99284; J7620-GY

== ENCOUNTER 2019-05-15 19:48 | Emergency (ER) | payer MEDICAID ==
[2019-05-15] MEDS ORDERED: Aspirin 81 MG Tab.Chew PO ONE (19:51)
[2019-05-15] MEDS ORDERED: Sodium Chloride 0.9% 1,000 ML IV ONE (19:51)
[2019-05-15] MEDS ORDERED: LORazepam 1 MG Tab PO ONE (20:17)
--- NOTE | 2019-05-15 20:38 | EDM.PDOC ---
ED HPI GENERAL MEDICAL PROBLEM - General Chief Complaint: Chest Pain Stated Complaint: CHEST PAIN Time Seen by Provider: 05/15/19 20:38 Source of Information: Reports: Patient - History of Present Illness INITIAL COMMENTS - FREE TEXT/NARRATIVE: HISTORY AND PHYSICAL: History of present illness: [Patient presents with chest pain which is reproducible with palpation along her sternum pain as 3 out of 10 with palpation minimal 0-1 at rest Patient has been drinking today she is clinically intoxicated she has no fever nausea vomiting chills sweats no shortness of breath or diaphoresis no radiation of pain to arm neck or jaw no apparent distress whatsoever ] Review of systems: As per history of present illness and below otherwise all systems reviewed and negative. Past medical history: As per history of present illness and as reviewed below otherwise noncontributory. Surgical history: As per history of present illness and as reviewed below otherwise noncontributory. Social history: No reported history of drug or alcohol abuse. Family history: As per history of present illness and as reviewed below otherwise noncontributory. Physical exam: HEENT: Atraumatic, normocephalic, pupils reactive, negative for conjunctival pallor or scleral icterus, mucous membranes moist, throat clear, neck supple, nontender, trachea midline. Lungs: Clear to auscultation, breath sounds equal bilaterally, chest tender along sternum with reproducible pain Heart: S1S2, regular, negative for clicks, rubs, or JVD. Abdomen: Soft, nondistended, nontender. Negative for masses or hepatosplenomegaly. Negative for costovertebral tenderness. Pelvis: Stable nontender. Genitourinary: Deferred. Rectal: Deferred. Extremities: Atraumatic, negative for cords or calf pain. Neurovascular unremarkable. Neuro: Awake, alert, oriented. Cranial nerves II through XII unremarkable. Cerebellum unremarkable. Motor and sensory unremarkable throughout. Exam nonfocal. Diagnostics: [CBC CMP troponin d-dimer EKG Chest 1 view ] Therapeutics: [Normal saline Aspirin held due to allergy Ativan 1 mg ] Impression: [ anxiety about health Reproducible chest pain Alcohol intoxication ] Definitive disposition and diagnosis as appropriate pending reevaluation and review of above. chest Pain Score (Numeric/FACES): 6 - Related Data Allergies Allergy/AdvReac Type Severity Reaction Status Date / Time amitriptyline Allergy Hives Verified 05/15/19 19:54 aspirin Allergy Stomach Verified 05/15/19 19:54 Upset latex Allergy Rash Verified 05/15/19 19:54 levofloxacin [From Levaquin] Allergy Diarrhea Verified 05/15/19 19:54 morphine AdvReac Confusion Verified 05/15/19 19:54 Home Meds: Home Meds Omeprazole 40 mg PO DAILY 03/06/14 [History] Potassium Chloride [Klor-Con 10] 10 meq PO DAILY 04/24/14 [History] Ondansetron [Zofran] 8 mg PO ASDIRECTED PRN 02/16/15 [History] Albuterol [Ventolin HFA] 1 - 2 puff INH ASDIRECTED PRN 11/28/18 [History] Cyclobenzaprine HCl 10 mg PO BID 11/28/18 [History] Diclofenac Sodium [Voltaren 1% Gel] 1 applic TOP ASDIRECTED PRN 11/28/18 [ History] Fluticasone/Salmeterol [Advair HFA 230-21 MCG] 2 puff INH BID 11/28/18 [History] Lidocaine/Prilocaine [Lidocaine-Prilocaine Cream] 1 applic TOP ASDIRECTED PRN [History] PARoxetine HCl [Paroxetine HCl] 20 mg PO BID 11/28/18 [History] busPIRone HCl [busPIRone] 30 mg PO BID 11/28/18 [History] traZODone HCl [Trazodone HCl] 50 mg PO BEDTIME PRN 11/28/18 [History] Azithromycin [Zithromax] 1 dose PO DAILY 5 Days #6 tab 05/06/19 [Rx] methylPREDNISolone [Medrol] 1 dose PO DAILY 6 Days #1 dospk 05/06/19 [Rx] Past Medical History - Past Health History Medical/Surgical History: Denies Medical/Surgical History HEENT History: Reports: Other (See Below) Other HEENT History: states has blurred vision, wears glasses, top denture, Cardiovascular History: Reports: High Cholesterol Respiratory History: Reports: Asthma, COPD, SOB, Other (See Below) Other Respiratory History: states has nodule on left lower lung Gastrointestinal History: Reports: Bowel Obstruction, Diverticulosis, Pancreatitis, Other (See Below) Other Gastrointestinal History: ulcerative colitis Genitourinary History: Reports: None 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 Neurological History: Reports: Other (See Below) Psychiatric History: Reports: Anxiety, Depression, PTSD Endocrine/Metabolic History: Reports: None Hematologic History: Reports: Blood Transfusion(s) Immunologic History: Reports: None Oncologic (Cancer) History: Reports: Other (See Below) Other Oncologic History: cervical dysplagia Dermatologic History: Reports: None - Infectious Disease History Infectious Disease History: Reports: None - Past Surgical History HEENT Surgical History: Reports: Other (See Below) Other HEENT Surgeries/Procedures: Dental extractions Cardiovascular Surgical History: Reports: None Respiratory Surgical History: Reports: None GI Surgical History: Reports: Cholecystectomy, Colonoscopy, EGD, Other (See Below) Other GI Surgeries/Procedures: Multiple laproscopic surgeries Female Surgical History: Reports: Section, Hysterectomy, Oophorectomy Other Female Surgeries/Procedures: left ovarian cyst with oopherectomy Endocrine Surgical History: Reports: None Neurological Surgical History: Reports: None Musculoskeletal Surgical History: Reports: Other (See Below) Other Musculoskeletal Surgeries/Procedures:: left hand surgery x3, toenail removal Oncologic Surgical History: Reports: None Dermatological Surgical History: Reports: None Social & Family History - Family History Family Medical History: Noncontributory - Tobacco Use Smoking Status *Q: Current Every Day Smoker Years of Tobacco use: 30 Packs/Tins Daily: 1 - Caffeine Use Caffeine Use: Reports: Coffee Caffeine Use Comment: 3-4 daily - Recreational Drug Use Recreational Drug Use: No ED ROS GENERAL - Review of Systems Review Of Systems: See Below ED EXAM, GENERAL - Physical Exam Exam: See Below Course - Vital Signs Last Recorded V/S: Last Vital Signs Temp 96.7 F 05/15/19 19:48 Pulse 118 H 05/15/19 19:48 Resp 18 05/15/19 19:48 BP 130/80 05/15/19 19:48 Pulse Ox 96 05/15/19 19:48 - Orders/Labs/Meds Orders: Active Orders 24 hr Category Date Time Status EKG Documentation Completion [RC] STAT Care 05/15/19 19:51 Active HCG QUALITATIVE,URINE [URCHEM] Stat Lab 05/15/19 19:51 Ordered UA RFX LIANNE AND CULT IF INDIC [URIN] Stat Lab 05/15/19 19:51 Ordered Labs: Laboratory Tests 05/15/19 05/15/19 05/15/19 Range/Units 20:29 20:29 20:29 WBC 7.29 (4.0-11.0) K/uL RBC 4.14 L (4.30-5.90) M/uL Hgb 12.6 (12.0-16.0) g/dL Hct 37.1 (36.0-46.0) % MCV 89.6 (80.0-98.0) fL MCH 30.4 (27.0-32.0) pg MCHC 34.0 (31.0-37.0) g/dL RDW Std Deviation 46.7 (28.0-62.0) fl RDW Coeff of Aydin 14 (11.0-15.0) % Plt Count 263 (150-400) K/uL MPV 8.80 (7.40-12.00) fL Neut % (Auto) 50.1 (48.0-80.0) % Lymph % (Auto) 38.3 (16.0-40.0) % [place] % (Auto) 9.5 (0.0-15.0) % Eos % (Auto) 1.8 (0.0-7.0) % Baso % (Auto) 0.3 (0.0-1.5) % Neut # (Auto) 3.7 (1.4-5.7) K/uL Lymph # (Auto) 2.8 H (0.6-2.4) K/uL [place] # (Auto) 0.7 (0.0-0.8) K/uL Eos # (Auto) 0.1 (0.0-0.7) K/uL Baso # (Auto) 0.0 (0.0-0.1) K/uL Nucleated RBC % 0.0 /100WBC Nucleated RBCs # 0 K/uL D-Dimer, Quantitative (0.0-0.50) mg/L FEU Sodium 141 (136-145) mmol/L Potassium 4.4 (3.5-5.1) mmol/L Chloride 104 (98-107) mmol/L Carbon Dioxide 26.3 (21.0-32.0) mmol/L BUN 9 (7.0-18.0) mg/dL Creatinine 1.0 (0.6-1.0) mg/dL Est Cr Clr Drug Dosing 56.29 mL/min Estimated GFR (MDRD) 58.9 ml/min Glucose 110 H (74-106) mg/dL Calcium 8.6 (8.5-10.1) mg/dL Total Bilirubin 0.2 (0.2-1.0) mg/dL AST 24 (15-37) IU/L ALT 22 (14-63) IU/L Alkaline Phosphatase 93 (46-116) U/L Troponin I < 0.050 (0.000-0.056) ng/mL Total Protein 7.2 (6.4-8.2) g/dL Albumin 3.4 (3.4-5.0) g/dL Globulin 3.8 (2.6-4.0) g/dL Albumin/Globulin Ratio 0.9 (0.9-1.6) Lipase 225 (73-393) U/L Ethyl Alcohol 150 mg/dL 05/15/19 Range/Units 20:40 WBC (4.0-11.0) K/uL RBC (4.30-5.90) M/uL Hgb (12.0-16.0) g/dL Hct (36.0-46.0) % MCV (80.0-98.0) fL MCH (27.0-32.0) pg MCHC (31.0-37.0) g/dL RDW Std Deviation (28.0-62.0) fl RDW Coeff of Aydin (11.0-15.0) % Plt Count (150-400) K/uL MPV (7.40-12.00) fL Neut % (Auto) (48.0-80.0) % Lymph % (Auto) (16.0-40.0) % [place] % (Auto) (0.0-15.0) % Eos % (Auto) (0.0-7.0) % Baso % (Auto) (0.0-1.5) % Neut # (Auto) (1.4-5.7) K/uL Lymph # (Auto) (0.6-2.4) K/uL [place] # (Auto) (0.0-0.8) K/uL Eos # (Auto) (0.0-0.7) K/uL Baso # (Auto) (0.0-0.1) K/uL Nucleated RBC % /100WBC Nucleated RBCs # K/uL D-Dimer, Quantitative 0.30 (0.0-0.50) mg/L FEU Sodium (136-145) mmol/L Potassium (3.5-5.1) mmol/L Chloride (98-107) mmol/L Carbon Dioxide (21.0-32.0) mmol/L BUN (7.0-18.0) mg/dL Creatinine (0.6-1.0) mg/dL Est Cr Clr Drug Dosing mL/min Estimated GFR (MDRD) ml/min Glucose (74-106) mg/dL Calcium (8.5-10.1) mg/dL Total Bilirubin (0.2-1.0) mg/dL AST (15-37) IU/L ALT (14-63) IU/L Alkaline Phosphatase (46-116) U/L Troponin I (0.000-0.056) ng/mL Total Protein (6.4-8.2) g/dL Albumin (3.4-5.0) g/dL Globulin (2.6-4.0) g/dL Albumin/Globulin Ratio (0.9-1.6) Lipase (73-393) U/L Ethyl Alcohol mg/dL Meds: Medications Discontinued Medications Generic Name Dose Route Start Last Admin Trade Name Freq PRN Reason Stop Dose Admin Aspirin 324 mg 05/15/19 19:51 05/15/19 20:19 Aspirin PO 05/15/19 19:52 324 mg ONETIME ONE Administration Sodium Chloride 1,000 mls @ 999 mls/hr 05/15/19 19:51 05/15/19 20:19 Normal Saline IV 05/15/19 20:51 999 mls/hr STAT ONE Administration Lorazepam 1 mg 05/15/19 20:17 05/15/19 20:37 Ativan PO 05/15/19 20:18 1 mg ONETIME ONE Administration Departure - Departure Time of Disposition: 21:16 Disposition: Home, Self-Care 01 Condition: Good Clinical Impression: Alcohol intoxication, Chest wall pain, Anxiety about health - Discharge Information Referrals: Wayne Melvin MD [Primary Care Provider] - Forms: ED Department Discharge Additional Instructions: 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 This information is to outline your options for follow-up care. We provide all patients seen in our emergency department with a follow-up referral. The need for follow-up, as well as the timing and circumstances, are variable depending upon the specifics of your emergency department visit. If you don't have a primary care physician on staff, we will provide you with a referral. We always advise you to contact your personal physician following an emergency department visit to inform them of the circumstance of the visit and for follow-up with them and/or the need for any referrals to a consulting specialist. The emergency department will also refer you to a specialist when appropriate. This referral assures that you have the opportunity for follow-up care with a specialist. All of these measure are taken in an effort to provide you with optimal care, which includes your follow-up. Under all circumstances we always encourage you to contact your private physician who remains a resource for coordinating your care. When calling for follow-up care, please make the office aware that this follow-up is from your recent emergency room visit. If for any reason you are refused follow-up, please contact the [facility] emergency department at and asked to speak to the emergency department charge nurse. - My Orders Last 24 Hours: My Active Orders 05/15/19 19:51 EKG Documentation Completion [RC] STAT HCG QUALITATIVE,URINE [URCHEM] Stat UA RFX LIANNE AND CULT IF INDIC [URIN] Stat - Assessment/Plan Last 24 Hours: My Active Orders 05/15/19 19:51 EKG Documentation Completion [RC] STAT HCG QUALITATIVE,URINE [URCHEM] Stat UA RFX LIANNE AND CULT IF INDIC [URIN] Stat
--- NOTE | 2019-05-15 20:47 | CR ---
INDICATION: chest pain. hx of copd TECHNIQUE: Chest 1 view. COMPARISON: 05/06/19 FINDINGS: Cardiovascular and mediastinum: Heart size and vasculature are normal in caliber and appearance. Mediastinum is within normal limits. Lungs and pleural space: Lungs are clear. No sign of infiltrate or mass. No sign of pleural effusion. No pneumothorax. Bones and soft tissues: No significant findings. IMPRESSION: Unremarkable chest. Dictated by: Alex Mistry MD @ 05/15/2019 20:45:26 (Electronically Signed)
[2019-05-15 20:56] LABS: BLOOD UREA NITROGEN,BUN 9 mg/dL (7.0-18.0); CARBON DIOXIDE,CO2 26.3 mmol/L (21.0-32.0); CHLORIDE,CL 104 mmol/L (98-107); GLUCOSE RANDOM 110 mg/dL (74-106); LIPASE 225 U/L (73-393); POTASSIUM,K 4.4 mmol/L (3.5-5.1); SODIUM,NA 141 mmol/L (136-145)
[2019-05-15 21:23] VITALS: BP 113/67; PULSE 101
== END 2019-05-15 21:29 | disposition home or self-care (01) ==
LOC: MW.ED 19:48
DX: F10.129 Alcohol abuse with intoxication, unspecified (principal); R07.89 Other chest pain; F41.9 Anxiety disorder, unspecified; F32.9 Major depressive disorder, single episode, unspecified; F17.210 Nicotine dependence, cigarettes, uncomplicated; J44.9 Chronic obstructive pulmonary disease, unspecified; Y90.6 Blood alcohol level of 120-199 mg/100 ml; Z79.51 Long term (current) use of inhaled steroids; Z79.899 Other long term (current) drug therapy; Z88.1 Allergy status to other antibiotic agents; Z88.6 Allergy status to analgesic agent; Z88.8 Allergy status to other drugs, medicaments and biological substances; Z91.040 Latex allergy status
CPT/HCPCS: 71045; 71045-26; 80053; 83690; 84484; 85025; 85379; 96360; 99285-25; A9270-GY; G0480; J7040

== ENCOUNTER 2019-07-20 23:31 | Emergency (ER) | payer MEDICAID ==
--- NOTE | 2019-07-21 01:00 | EDM.PDOCBH ---
ED HPI GENERAL MEDICAL PROBLEM - General Chief Complaint: Drug or Alcohol Abuse Stated Complaint: drunk Time Seen by Provider: 07/21/19 00:55 Source of Information: Reports: Patient History Limitations: Reports: No Limitations - History of Present Illness INITIAL COMMENTS - FREE TEXT/NARRATIVE: 49 year old female states that has been having bad thoughts after drinking. Patient states that she takes Chantas and alcohol. Patient denies suicidal or homicidal ideation. Patient states she has a follow-up clinic with mental health and feels stable to go home at this time. Onset: Today Duration: Day(s):, Improving Quality: Reports: Same as Previous Episode Severity: Mild Improves with: Reports: Rest Worsens with: Reports: None Associated Symptoms: Reports: No Other Symptoms - Related Data Allergies Allergy/AdvReac Type Severity Reaction Status Date / Time amitriptyline Allergy Hives Verified 07/21/19 00:02 aspirin Allergy Stomach Verified 07/21/19 00:02 Upset latex Allergy Rash Verified 07/21/19 00:02 levofloxacin [From Levaquin] Allergy Diarrhea Verified 07/21/19 00:02 morphine AdvReac Confusion Verified 07/21/19 00:02 Home Meds: Home Meds Omeprazole 40 mg PO DAILY 03/06/14 [History] Ondansetron [Zofran] 8 mg PO ASDIRECTED PRN 02/16/15 [History] Albuterol [Ventolin HFA] 1 - 2 puff INH ASDIRECTED PRN 11/28/18 [History] Cyclobenzaprine HCl 10 mg PO BID 11/28/18 [History] Lidocaine/Prilocaine [Lidocaine-Prilocaine Cream] 1 applic TOP ASDIRECTED PRN [History] PARoxetine HCl [Paroxetine HCl] 20 mg PO BID 11/28/18 [History] busPIRone HCl [busPIRone] 30 mg PO BID 11/28/18 [History] Naltrexone 50 mg PO DAILY 07/20/19 [History] Varenicline Tartrate [Chantix] 1 mg PO 07/20/19 [History] Past Medical History - Past Health History Medical/Surgical History: Denies Medical/Surgical History HEENT History: Reports: Other (See Below) Other HEENT History: states has blurred vision, wears glasses, top denture, Cardiovascular History: Reports: High Cholesterol Respiratory History: Reports: Asthma, COPD, SOB, Other (See Below) Other Respiratory History: states has nodule on left lower lung Gastrointestinal History: Reports: Bowel Obstruction, Diverticulosis, Pancreatitis, Other (See Below) Other Gastrointestinal History: ulcerative colitis Genitourinary History: Reports: None MANAGER COLLEGE History: Reports: Ectopic , Other MANAGER COLLEGE History: laparotomy for ectopic Musculoskeletal History: Reports: Arthritis, Back Pain, Chronic, Fracture, Other (See Below) 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 Neurological History: Reports: Other (See Below) Other Neuro History: c.r.i.p.s.- final stages Psychiatric History: Reports: Anxiety, Depression, PTSD Endocrine/Metabolic History: Reports: None Hematologic History: Reports: Blood Transfusion(s) Immunologic History: Reports: None Oncologic (Cancer) History: Reports: Other (See Below) Other Oncologic History: cervical dysplagia Dermatologic History: Reports: None - Infectious Disease History Infectious Disease History: Reports: Chicken Pox - Past Surgical History HEENT Surgical History: Reports: Other (See Below) Other HEENT Surgeries/Procedures: Dental extractions Cardiovascular Surgical History: Reports: None Respiratory Surgical History: Reports: None GI Surgical History: Reports: Cholecystectomy, Colonoscopy, EGD, Other (See Below) Other GI Surgeries/Procedures: Multiple laproscopic surgeries Female Surgical History: Reports: Section, Hysterectomy, Oophorectomy Other Female Surgeries/Procedures: left ovarian cyst with oopherectomy Endocrine Surgical History: Reports: None Neurological Surgical History: Reports: None Musculoskeletal Surgical History: Reports: Other (See Below) Other Musculoskeletal Surgeries/Procedures:: left hand surgery x3, toenail removal Oncologic Surgical History: Reports: None Dermatological Surgical History: Reports: None Social & Family History - Family History Family Medical History: Noncontributory - Tobacco Use Smoking Status *Q: Current Every Day Smoker Years of Tobacco use: 35 Packs/Tins Daily: 0.5 Tobacco Use Comment: states on 2nd month of chantix but still smoking some - Caffeine Use Caffeine Use: Reports: Coffee, Soda Caffeine Use Comment: 3-4 daily - Alcohol Use Days Per Week of Alcohol Use: 7 Number of Drinks Per Day: 15 Total Drinks Per Week: 105 - Recreational Drug Use Recreational Drug Use: Yes Drug Use in Last 12 Months: Yes Recreational Drug Type: Reports: Marijuana/Hashish Recreational Drug Use Frequency: Weekly ED ROS GENERAL - Review of Systems Review Of Systems: See Below Constitutional: Reports: No Symptoms HEENT: Reports: No Symptoms Respiratory: Reports: No Symptoms Cardiovascular: Reports: No Symptoms Endocrine: Reports: No Symptoms GI/Abdominal: Reports: No Symptoms : Reports: No Symptoms Musculoskeletal: Reports: No Symptoms Skin: Reports: No Symptoms Neurological: Reports: No Symptoms Psychiatric: Reports: Other (States she has bad thoughts but not suicidal or homicidal.) Hematologic/Lymphatic: Reports: No Symptoms Immunologic: Reports: No Symptoms ED EXAM, BEHAVIORAL HEALTH - Physical Exam Exam: See Below Exam Limited By: No Limitations General Appearance: Alert, WD/WN, No Apparent Distress Eye Exam: Bilateral Eye: Normal Fundi, Normal Inspection Ears: Normal External Exam, Normal Canal, Hearing Grossly Normal, Normal TMs Nose: Normal Inspection, Normal Mucosa, No Blood Throat/Mouth: Normal Inspection, Normal Oropharynx Head: Atraumatic, Normocephalic Neck: Normal Inspection, Non-Tender, Full Range of Motion Respiratory/Chest: No Respiratory Distress, Lungs Clear, Normal Breath Sounds, No Accessory Muscle Use, Chest Non-Tender Cardiovascular: Normal Peripheral Pulses, Regular Rate, Rhythm, No Edema, No JVD , No Murmur, No Rub GI/Abdominal: Normal Bowel Sounds, No Distention Back Exam: Normal Inspection, Full Range of Motion Extremities: Normal Inspection, Normal Range of Motion Neurological: Alert, Normal Mood/Affect, CN II-XII Intact, Normal Cognition, Normal Reflexes, No Motor/Sensory Deficits, Oriented x 3 Psychiatric: Alert, Normal Affect, Normal Cognition, Normal Mood, Oriented, Tangential Thoughts. No: Flight of Ideas, Homicidal Thoughts, Yarsanism Delusions, Suicidal Plan, Suicidal Thoughts, Threatening Behavior Skin Exam: Warm, Intact, Normal color COURSE, BEHAVIORAL HEALTH COMP - Course Vital Signs: Last Vital Signs Temp 98.1 F 07/20/19 23:34 Pulse 122 H 07/20/19 23:34 Resp 22 H 07/20/19 23:34 BP 144/72 H 07/20/19 23:34 Pulse Ox 99 07/20/19 23:34 Departure - Departure Time of Disposition: 01:02 Disposition: Home, Self-Care 01 Condition: Good Clinical Impression: Alcohol abuse - Discharge Information Instructions: Alcohol Intoxication, [id number], Alcohol Abuse and Nutrition Referrals: Wayne Melvin MD [Primary Care Provider] - Sepsis Event Note - Evaluation Sepsis Screening Result: No Definite Risk - Focused Exam Vital Signs: Vital Signs Temp Pulse Resp BP Pulse Ox 07/20/19 23:34 98.1 F 122 H 22 H 144/72 H 99 Date Exam was Performed: 07/21/19 Time Exam was Performed: 00:55
[2019-07-21 01:26] VITALS: BP 129/77; PULSE 112
== END 2019-07-21 01:24 | disposition home or self-care (01) ==
LOC: MW.ED 23:31
DX: F10.10 Alcohol abuse, uncomplicated (principal); Y90.9 Presence of alcohol in blood, level not specified; E78.00 Pure hypercholesterolemia, unspecified; J44.9 Chronic obstructive pulmonary disease, unspecified; F32.9 Major depressive disorder, single episode, unspecified; F41.9 Anxiety disorder, unspecified; F17.210 Nicotine dependence, cigarettes, uncomplicated
CPT/HCPCS: 99283

== ENCOUNTER 2019-08-20 08:42 | Day surgery (SDC) | payer MEDICAID ==
[~2019-08-20 08:42] MED LIST: Lactated Ringers 1,000 ML IV SCH
--- NOTE | 2019-08-20 09:19 | PCM.PREANE ---
Preanesthetic Assessment - Anesthesia/Transfusion/Family Hx Anesthesia History: Prior Anesthesia Without Reaction Other Type of Anesthesia Reaction Comment: pt adopted, family hx unknown Transfusion History: Prior Transfusion Without Reaction Intubation History: Unknown - Review of Systems General: No Symptoms Pulmonary: No Symptoms Cardiovascular: No Symptoms Gastrointestinal: Abdominal Pain Neurological: No Symptoms Other: Reports: None - Physical Assessment Height: 5 ft 3 in Weight: 67.585 kg ASA Class: 3 Mental Status: Alert & Oriented x3 Airway Class: Mallampati = 2 Dentition: Reports: Edentulous Thyro-Mental Finger Breadths: 3 Mouth Opening Finger Breadths: 2 ROM/Head Extension: Full Lungs: Normal Respiratory Effort, Decreased Breath Sounds, Crackles Cardiovascular: Regular Rate, Regular Rhythm - Allergies Allergies/Adverse Reactions: Allergies Allergy/AdvReac Type Severity Reaction Status Date / Time amitriptyline Allergy Hives Verified 08/14/19 07:12 aspirin Allergy Stomach Verified 08/14/19 07:12 Upset latex Allergy Rash Verified 08/14/19 07:12 levofloxacin [From Levaquin] Allergy Diarrhea Verified 08/14/19 07:12 morphine AdvReac Confusion Verified 08/14/19 07:12 - Blood Blood Available: No - Anesthesia Plan Pre-Op Medication Ordered: None - Acknowledgements Anesthesia Type Planned: MAC Pt an Appropriate Candidate for the Planned Anesthesia: Yes Alternatives and Risks of Anesthesia Discussed w Pt/Guardian: Yes Pt/Guardian Understands and Agrees with Anesthesia Plan: Yes PreAnesthesia Questionnaire - Past Health History Medical/Surgical History: Denies Medical/Surgical History HEENT History: Reports: Other (See Below) Other HEENT History: states has blurred vision, wears glasses, top denture, Cardiovascular History: Reports: High Cholesterol Other Cardiovascular History: states mild heart murmur Respiratory History: Reports: Asthma, COPD, SOB (can't get 2 flights of stairs) , Other (See Below) Other Respiratory History: states has nodule on left lower lung, recurrent bronchitis Gastrointestinal History: Reports: Bowel Obstruction, Diverticulosis, GERD, Pancreatitis, Other (See Below) Other Gastrointestinal History: ulcerative colitis Genitourinary History: Reports: None 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 , Other OB/BYN History: laparotomy for ectopic Musculoskeletal History: Reports: Arthritis, Back Pain, Chronic, Fracture, Other (See Below) Other Musculoskeletal History: 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-( complex regional pain syndrome), put left hand through a plate glass window, left hand and wrist surgery x3 Neurological History: Reports: Other (See Below) Other Neuro History: CRIPS- "final stages" Psychiatric History: Reports: Anxiety, Depression, PTSD Endocrine/Metabolic History: Reports: None Hematologic History: Reports: Blood Transfusion(s) Immunologic History: Reports: None Oncologic (Cancer) History: Reports: Other (See Below) Other Oncologic History: cervical dysplagia Dermatologic History: Reports: None - Infectious Disease History Infectious Disease History: Reports: Chicken Pox - Past Surgical History Head Surgeries/Procedures: Reports: None HEENT Surgical History: Reports: Other (See Below) Other HEENT Surgeries/Procedures: Dental extractions Cardiovascular Surgical History: Reports: None Respiratory Surgical History: Reports: None GI Surgical History: Reports: Cholecystectomy, Colon, Colonoscopy, EGD, Other ( See Below) Other GI Surgeries/Procedures: Multiple laproscopic surgeries, laparotomy with colon resection for bowel obstruction Female Surgical History: Reports: Section, Hysterectomy, Oophorectomy Other Female Surgeries/Procedures: left ovarian cyst with oopherectomy Endocrine Surgical History: Reports: None Neurological Surgical History: Reports: None Musculoskeletal Surgical History: Reports: Other (See Below) Other Musculoskeletal Surgeries/Procedures:: left hand surgery x3, toenail removal Oncologic Surgical History: Reports: None Dermatological Surgical History: Reports: None - SUBSTANCE USE Smoking Status *Q: Light Tobacco Smoker Tobacco Use Within Last Twelve Months: Cigarettes Recreational Drug Use History: Yes - HOME MEDS Home Medications: Home Meds Omeprazole 40 mg PO DAILY 03/06/14 [History] Ondansetron [Zofran] 8 mg PO ASDIRECTED PRN 02/16/15 [History] Albuterol [Ventolin HFA] 1 - 2 puff INH ASDIRECTED PRN 11/28/18 [History] Cyclobenzaprine HCl 10 mg PO BID 11/28/18 [History] Lidocaine/Prilocaine [Lidocaine-Prilocaine Cream] 1 applic TOP ASDIRECTED PRN [History] PARoxetine HCl [Paroxetine HCl] 20 mg PO BID 11/28/18 [History] busPIRone HCl [busPIRone] 30 mg PO BID 11/28/18 [History] Naltrexone 50 mg PO DAILY 07/20/19 [History] Varenicline Tartrate [Chantix] 1 mg PO ASDIRECTED 07/20/19 [History] - CURRENT (IN HOUSE) MEDS Current Meds: Current Medications Lactated Ringer's (Ringers, Lactated) 1,000 mls @ 125 mls/hr IV ASDIRECTED SEE
[2019-08-20] MEDS ORDERED: Dexamethasone 4 MG/ML 5 ML MDV ONE (10:21)
[2019-08-20] MEDS ORDERED: Ondansetron 4 MG/2 ML SDV ONE (10:21)
[2019-08-20] MEDS ORDERED: Propofol 200 MG/20 ML SDV ONE (10:21)
[2019-08-20] MEDS ORDERED: Midazolam 1 MG/ML 2 ML SDV ONE (10:21)
[2019-08-20] MEDS ORDERED: fentaNYL 100 MCG/2 ML SDV ONE (10:21)
--- NOTE | 2019-08-20 11:11 | PCM.OPNOTE ---
- General Post-Op/Procedure Note Operative Procedure(s): egd w bx. colonoscopy w random bx Findings: see [id number] Pre Op Diagnosis: chanage in bowel habits and gerd flare up Post-Op Diagnosis: Same Anesthesia Technique: Moderate Sedation Primary Surgeon: Jam Tesfaye Pathology: sent Complications: None Condition: Good
--- NOTE | 2019-08-20 11:12 | PCM.POSTAN ---
POST ANESTHESIA ASSESSMENT - VITAL SIGNS Vital Signs: Last Vital Signs Temp 37.1 C 08/20/19 11:00 Pulse 88 08/20/19 11:05 Resp 16 08/20/19 11:05 BP 132/78 08/20/19 11:05 Pulse Ox 97 08/20/19 11:05 - RESPIRATORY Respiratory Status: Respiratory Rate WNL - CARDIOVASCULAR CV Status: Pulse Rate WNL - GASTROINTESTINAL GI Status: No Symptoms - PAIN Pain Score: 0 - POST OP HYDRATION Hydration Status: Adequate & Stable - OBSERVATIONS Free Text/Narrative:: Doing well. To DS.
--- NOTE | 2019-08-20 11:50 | PCM48HPAN ---
Post Anesthesia Note - EVALUATION WITHIN 48HRS OF ANESTHETIC Vital Signs in Normal Range: Yes Patient Participated in Evaluation: Yes Respiratory Function Stable: Yes Airway Patent: Yes Cardiovascular Function Stable: Yes Hydration Status Stable: Yes Pain Control Satisfactory: Yes Nausea and Vomiting Control Satisfactory: Yes Mental Status Recovered: Yes Vital Signs: Last Vital Signs Temp 37.1 C 08/20/19 11:00 Pulse 91 08/20/19 11:10 Resp 15 08/20/19 11:10 BP 118/85 08/20/19 11:10 Pulse Ox 98 08/20/19 11:10 - COMMENTS/OBSERVATIONS Free Text/Narrative:: no anesthesia problems
[2019-08-20 15:14] VITALS: BP 133/74; PULSE 93
--- NOTE | 2019-08-21 08:28 | OR ---
SURGEON: Jam Tesfaye MD DATE OF PROCEDURE: 08/20/2019 PREOPERATIVE DIAGNOSES: Change in bowel habit and abdominal pain and gastroesophageal reflux disease flare-up. PROCEDURES PERFORMED: Esophagogastroduodenoscopy with biopsy and colonoscopy with biopsy. DESCRIPTION OF PROCEDURE: EGD: The patient was taken to the endoscopy room, and with the LOAD MIXER, Diprivan was administered. A well-lubricated EGD scope was gently inserted through the oropharynx, down the esophagus, passing through the gastroesophageal junction, into the stomach. The mucosa was examined upon the passage. Any etiology will be noted. Once in the stomach, we continued to advance to the distal antrum, passed through the pylorus into the second portion of the duodenum. Again, the mucosa was examined for any abnormality and etiology. The scope was then retrieved back to the stomach and then retroflexed to look at the fundus of the stomach. If a biopsy was indicated, we will biopsy the antrum, body, and gastroesophageal junction. The air will be sucked out while the scope is retrieved to reduce the patient's discomfort. The patient tolerated the procedure well. There were no intraoperative complications. Dr. Tesfaye was present through the whole procedure. Prior to surgery, a time-out had been called, the patient identified, procedure identified, and antibiotic administered. The patient was taken to the endoscopy room. A time out was called, patient identified, and procedure identified. Diprivan was then administrated. Patient went from awake to sleep, hearing doctor talking or door closing is normal. Perineum inspection and digital examination were then performed. A well- lubricated colonoscope was gently inserted through the rectum, advanced past the rectosigmoid junction, the descending colon, splenic flexure, transverse colon, hepatic flexure, ascending colon, arrived to the cecum. Cecum was identified as dictated in the finding. Then the scope was carefully withdrawn while attention was paid to the mucosal surface for any abnormality. Air will be sucked out during the scope withdrawal. At the rectum, retroflexed to examine any rectal diseases, fistula or hemorrhoids. During mucosal examination, abnormality or polyp was noted; picture taken and biopsy performed. Patient tolerated procedure well. There were no intraoperative complications, and Dr. Tesfaye was present throughout the whole procedure. FINDINGS: EGD findings: 1. The patient is easily sedated with LOAD MIXER and Diprivan, the patient is soundly snoring. 2. Oropharynx and proximal esophagus are free of disease and no stricture, inflammation, or varicosity. Distal esophagus at GE junction at 30 cm, note for mild salmon-colored change, consistent with mild acid reflux. There is some area with flame-like color change and only one area of it, but overall is mild. Stomach rugae are normal in appearance. Antrum is normal in appearance. Duodenum is grossly normal. Retroflexed look at the fundus of stomach, the patient does not have hiatal hernia. Biopsy done at antrum, body, GE junction at 30 cm and sucked out the gas while scope pulling out. During the whole study, there is no ulcer, bry blood, or food. There is a little bit, mild, bile in the stomach. Colonoscopy findings: 1. The patient is easily sedated with LOAD MIXER and Diprivan, the patient is soundly snoring. 2. The patient's bowel prep is average to good, some liquid stool, no semi- formed stool. 3. The patient's colon is very straightforward. Cecum indicated by ileocecal fold, one-to-one indentation. Light emittance is not observed. Appendiceal orifice is observed. ScopeGuide is pointing south. Mucosa examined upon scope pulling out. The patient does not have diverticulosis, polyp, mass, growth, inflammation, stricture, ulceration, AV malformation, bleeding, none of those. The patient has moderate external hemorrhoids and moderate internal hemorrhoids. The patient would benefit from repeat colonoscopy in 10 years from today or if clinically indicated otherwise. Random biopsy done because of abdominal pain. As always, thank you for the kind referral. LINDSEY / [place] /[id number]
== END 2019-08-20 11:45 | disposition home or self-care (01) ==
LOC: MW.SDS 08:42
PROVIDERS: ATTEND Surgery
DX: R19.4 Change in bowel habit (principal); K21.9 Gastro-esophageal reflux disease without esophagitis; K64.4 Residual hemorrhoidal skin tags; K64.8 Other hemorrhoids; F41.9 Anxiety disorder, unspecified; J45.909 Unspecified asthma, uncomplicated; J44.9 Chronic obstructive pulmonary disease, unspecified; F32.9 Major depressive disorder, single episode, unspecified; E78.5 Hyperlipidemia, unspecified; K58.9 Irritable bowel syndrome, unspecified; F17.210 Nicotine dependence, cigarettes, uncomplicated; Z88.8 Allergy status to other drugs, medicaments and biological substances; Z91.040 Latex allergy status; Z88.1 Allergy status to other antibiotic agents; Z88.6 Allergy status to analgesic agent; Z79.899 Other long term (current) drug therapy
CPT/HCPCS: J1100; J2001; J2250; J2405; J2704; J3010; J7120

== ENCOUNTER 2019-10-02 18:14 | Emergency (ER) | payer MEDICAID ==
[2019-10-02 18:24] VITALS: BP 90/66; PULSE 107
[2019-10-02] MEDS ORDERED: Sodium Chloride 0.9% 1,000 ML IV ONE (18:32)
--- NOTE | 2019-10-02 18:50 | EDM.PDOC ---
ED HPI GENERAL MEDICAL PROBLEM - General Chief Complaint: General Stated Complaint: EMS Time Seen by Provider: 10/02/19 18:39 Source of Information: Reports: Patient History Limitations: Reports: No Limitations - History of Present Illness INITIAL COMMENTS - FREE TEXT/NARRATIVE: HISTORY AND PHYSICAL: History of present illness: She is a 49-year-old female who presents to the ED today via EMS with concern of an episode of her heart racing. Patient states she was sitting at home when she began to feel anxious and checked her heart rate and said it was around 120 at home. Patient states that she has had anxiety attacks in the past which is how she felt today. Patient states her symptoms lasted about 5 minutes before they resolved. Patient states she did not have any chest pain during this event and only felt like her heart was racing. Patient states that she is a chronic alcohol user and has had several [employer] hard lemonade's today. Patient states she would like information for treatment centers for alcohol abuse. Patient denies any other symptoms or concerns. Patient denies fever, chills, chest pain, shortness of breath, or cough. Denies headache, neck stiff ness, change in vision, syncope, or near syncope. Denies nausea, vomiting, abdominal pain, diarrhea, constipation, or dysuria. Has not noted any blood in urine or stool. Patient has been eating and drinking appropriately. Review of systems: As per history of present illness and below otherwise all systems reviewed and negative. Past medical history: As per history of present illness and as reviewed below otherwise noncontributory. Surgical history: As per history of present illness and as reviewed below otherwise noncontributory. Social history: See social history for further information Family history: As per history of present illness and as reviewed below otherwise noncontributory. Physical exam: General: Patient is alert, oriented, and in no acute distress. Patient sitting comfortably on exam table. HEENT: Atraumatic, normocephalic, pupils equal and reactive bilaterally, negative for conjunctival pallor or scleral icterus, mucous membranes moist, TMs normal bilaterally, throat clear, neck supple, nontender, trachea midline. No drooling or trismus noted. No meningeal signs. No hot potato voice noted. Lungs: Clear to auscultation, breath sounds equal bilaterally, chest nontender. Heart: S1S2, regular rate and rhythm without overt murmur Abdomen: Soft, nondistended, nontender. Negative for masses or hepatosplenomegaly. Negative for costovertebral tenderness. Pelvis: Stable nontender. Genitourinary: Deferred. Rectal: Deferred. Skin: Intact, warm, dry. No lesions or rashes noted. Extremities: Atraumatic, negative for cords or calf pain. Neurovascular unremarkable. Neuro: Awake, alert, oriented. Cranial nerves II through XII unremarkable. Cerebellum unremarkable. Motor and sensory unremarkable throughout. Exam nonfocal. Notes: Patient left AGAINST MEDICAL ADVICE before diagnostics had returned. Diagnostics: EKG, CBC, CMP, UA, lipase, magnesium, troponin, lactate, chest x-ray Therapeutics: NS Prescription: None Impression: Left against medical advice History of palpitations Alcohol abuse Plan: Left against medical advice before discharge Definitive disposition and diagnosis as appropriate pending reevaluation and review of above. Left Arm Pain Score (Numeric/FACES): 8 - Related Data Allergies Allergy/AdvReac Type Severity Reaction Status Date / Time amitriptyline Allergy Hives Verified 10/02/19 18:24 aspirin Allergy Stomach Verified 10/02/19 18:24 Upset latex Allergy Rash Verified 10/02/19 18:24 levofloxacin [From Levaquin] Allergy Diarrhea Verified 10/02/19 18:24 morphine AdvReac Confusion Verified 10/02/19 18:24 Home Meds: Home Meds Omeprazole 40 mg PO DAILY 03/06/14 [History] Ondansetron [Zofran] 8 mg PO ASDIRECTED PRN 02/16/15 [History] Albuterol [Ventolin HFA] 1 - 2 puff INH ASDIRECTED PRN 11/28/18 [History] Cyclobenzaprine HCl 10 mg PO BID 11/28/18 [History] Lidocaine/Prilocaine [Lidocaine-Prilocaine Cream] 1 applic TOP ASDIRECTED PRN [History] PARoxetine HCl [Paroxetine HCl] 20 mg PO BID 11/28/18 [History] busPIRone HCl [busPIRone] 30 mg PO BID 11/28/18 [History] Naltrexone 50 mg PO DAILY 07/20/19 [History] Varenicline Tartrate [Chantix] 1 mg PO ASDIRECTED 07/20/19 [History] Past Medical History - Past Health History Medical/Surgical History: Denies Medical/Surgical History HEENT History: Reports: Other (See Below) Other HEENT History: states has blurred vision, wears glasses, top denture, Cardiovascular History: Reports: High Cholesterol Other Cardiovascular History: states mild heart murmur Respiratory History: Reports: Asthma, COPD, SOB, Other (See Below) Other Respiratory History: states has nodule on left lower lung, recurrent bronchitis Gastrointestinal History: Reports: Bowel Obstruction, Diverticulosis, GERD, Pancreatitis, Other (See Below) Other Gastrointestinal History: ulcerative colitis Genitourinary History: Reports: None 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 , 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: laparotomy for ectopic Musculoskeletal History: Reports: Arthritis, Back Pain, Chronic, Fracture, Other (See Below) Other Musculoskeletal History: 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-( complex regional pain syndrome), put left hand through a plate glass window, left hand and wrist surgery x3 Neurological History: Reports: Other (See Below) Other Neuro History: CRIPS- "final stages" Psychiatric History: Reports: Anxiety, Depression, PTSD Endocrine/Metabolic History: Reports: None Hematologic History: Reports: Blood Transfusion(s) Immunologic History: Reports: None Oncologic (Cancer) History: Reports: Other (See Below) Other Oncologic History: cervical dysplagia Dermatologic History: Reports: None - Infectious Disease History Infectious Disease History: Reports: Chicken Pox - Past Surgical History Head Surgeries/Procedures: Reports: None HEENT Surgical History: Reports: Other (See Below) Other HEENT Surgeries/Procedures: Dental extractions Cardiovascular Surgical History: Reports: None Respiratory Surgical History: Reports: None GI Surgical History: Reports: Cholecystectomy, Colon, Colonoscopy, EGD, Other ( See Below) Other GI Surgeries/Procedures: Multiple laproscopic surgeries, laparotomy with colon resection for bowel obstruction Female Surgical History: Reports: Section, Hysterectomy, Oophorectomy Other Female Surgeries/Procedures: left ovarian cyst with oopherectomy Endocrine Surgical History: Reports: None Neurological Surgical History: Reports: None Musculoskeletal Surgical History: Reports: Other (See Below) Other Musculoskeletal Surgeries/Procedures:: left hand surgery x3, toenail removal Oncologic Surgical History: Reports: None Dermatological Surgical History: Reports: None Social & Family History - Family History Family Medical History: Noncontributory - Tobacco Use Smoking Status *Q: Current Every Day Smoker Years of Tobacco use: 35 Packs/Tins Daily: 1 - Caffeine Use Caffeine Use: Reports: Coffee, Energy Drinks, Soda Caffeine Use Comment: 3-4 daily - Recreational Drug Use Recreational Drug Use: Yes Drug Use in Last 12 Months: Yes Recreational Drug Type: Reports: Marijuana/Hashish Recreational Drug Use Frequency: Monthly ED ROS GENERAL - Review of Systems Review Of Systems: Comprehensive ROS is negative, except as noted in HPI. ED EXAM, GENERAL - Physical Exam Exam: See Below (see dictation) Course - Vital Signs Last Recorded V/S: Last Vital Signs Temp 96.6 F L 10/02/19 18:19 Pulse 107 H 10/02/19 18:19 Resp 20 10/02/19 18:19 BP 90/66 10/02/19 18:19 Pulse Ox 95 10/02/19 18:19 - Orders/Labs/Meds Orders: Active Orders 24 hr Category Date Time Status EKG Documentation Completion [RC] STAT Care 10/02/19 18:45 Active CBC WITH AUTO DIFF [HEME] Stat Lab 10/02/19 18:50 Received CMP [COMPREHENSIVE METABOLIC PN,CMP] [CHEM] Stat Lab 10/02/19 18:50 Received LIPASE [CHEM] Stat Lab 10/02/19 18:50 Received MAGNESIUM [CHEM] Stat Lab 10/02/19 18:50 Received TROPONIN I [CHEM] Stat Lab 10/02/19 18:50 Received UA W/LIANNE RFLX IF INDICATED [URIN] Stat Lab 10/02/19 18:32 Ordered Sodium Chloride 0.9% [Normal Saline] 1,000 ml Med 10/02/19 18:32 Active IV .Bolus Medication Orders Sodium Chloride (Normal Saline) 1,000 mls @ 1,000 mls/hr IV .Bolus ONE Stop: 10/02/19 19:31 Last Admin: 10/02/19 18:55 Dose: 1,000 mls/hr Labs: Laboratory Tests 10/02/19 Range/Units 18:50 Lactate 1.0 (0.20-2.00) mmol/L Meds: Medications Generic Name Dose Route Start Last Admin Trade Name Freq PRN Reason Stop Dose Admin Sodium Chloride 1,000 mls @ 1,000 mls/hr 10/02/19 18:32 10/02/19 18:55 Normal Saline IV 10/02/19 19:31 1,000 mls/hr .Bolus ONE Administration Departure - Departure Time of Disposition: 19:17 Disposition: Against Medical Advice 07 Clinical Impression: Alcohol abuse, History of palpitations, Left against medical advice - Discharge Information Forms: ED Department Discharge Additional Instructions: Patient left AGAINST MEDICAL ADVICE prior to discharge being given. Sepsis Event Note - Evaluation Sepsis Screening Result: No Definite Risk - Focused Exam Vital Signs: Vital Signs Temp Pulse Resp BP Pulse Ox 10/02/19 18:19 96.6 F L 107 H 20 90/66 95 Date Exam was Performed: 10/02/19 Time Exam was Performed: 19:17 - My Orders Last 24 Hours: My Active Orders 10/02/19 18:45 EKG Documentation Completion [RC] STAT - Assessment/Plan Last 24 Hours: My Active Orders 10/02/19 18:45 EKG Documentation Completion [RC] STAT
--- NOTE | 2019-10-02 19:08 | CR ---
Chest: Portable view of the chest was obtained. Comparison: Prior chest x-ray of 05/15/19. Heart size and mediastinum are normal. Lungs are clear with no acute parenchymal change. Bony structures are grossly intact. Impression: 1. Nothing acute is appreciated on portable chest x-ray. Diagnostic code #1 This report was dictated in [place] Standard Time
[2019-10-02 19:39] LABS: BLOOD UREA NITROGEN,BUN 12 mg/dL (7.0-18.0); CARBON DIOXIDE,CO2 26.9 mmol/L (21.0-32.0); CHLORIDE,CL 99 mmol/L (98-107); GLUCOSE RANDOM 106 mg/dL (74-106); POTASSIUM,K 3.8 mmol/L (3.5-5.1); SODIUM,NA 136 mmol/L (136-145)
[2019-10-02 19:57] LABS: LIPASE 1792 U/L (73-393)
== END 2019-10-02 19:20 | disposition left against medical advice (07) ==
LOC: MW.ED 18:14
DX: R00.2 Palpitations (principal); F10.10 Alcohol abuse, uncomplicated; K21.9 Gastro-esophageal reflux disease without esophagitis; F41.9 Anxiety disorder, unspecified; F32.9 Major depressive disorder, single episode, unspecified; J45.909 Unspecified asthma, uncomplicated; F17.210 Nicotine dependence, cigarettes, uncomplicated; Z90.49 Acquired absence of other specified parts of digestive tract; Z88.5 Allergy status to narcotic agent; Z91.040 Latex allergy status; Z88.6 Allergy status to analgesic agent; Z88.1 Allergy status to other antibiotic agents; Z88.8 Allergy status to other drugs, medicaments and biological substances; Z79.899 Other long term (current) drug therapy
CPT/HCPCS: 36415; 71045; 80053; 83605; 83690; 83735; 84484; 85025; 93005; 99285; J7030

== ENCOUNTER 2019-10-07 19:44 | Emergency (ER) | payer MEDICAID ==
[2019-10-07] MEDS ORDERED: Sodium Chloride 0.9% 2.5 ML Syringe FLUSH PRN (20:13)
[2019-10-07] MEDS ORDERED: Sodium Chloride 0.9% 10 ML Syringe FLUSH PRN (20:13)
--- NOTE | 2019-10-07 20:22 | EDM.PDOC ---
ED HPI GENERAL MEDICAL PROBLEM - General Chief Complaint: Respiratory Problem Stated Complaint: TROUBLE BREATHING,CONGESTION Time Seen by Provider: 10/07/19 19:58 Source of Information: Reports: Patient, Family History Limitations: Reports: No Limitations - History of Present Illness INITIAL COMMENTS - FREE TEXT/NARRATIVE: 1-year-old female with past medical history of COPD using albuterol and inhaled steroids daily presenting with a 3-day history of worsening of her cough and shortness of breath. Patient denies fevers at home. Patient denies any sick contacts. Patient Dors increased wheezing and "congestion." She denies any changes in bowel or bladder habits and denies any chest pain or arm pain or jaw pain. Patient does endorse benefiting mildly from the initial treatment she got here in the emergency department. No recent trips or travels. No history of pulmonary embolus or DVT. Patient denies any new joint pains, rashes, bug bites, confusion, headaches, vision changes, focal weakness. chest Pain Score (Numeric/FACES): 8 - Related Data Allergies Allergy/AdvReac Type Severity Reaction Status Date / Time amitriptyline Allergy Hives Verified 10/07/19 19:50 aspirin Allergy Stomach Verified 10/07/19 19:50 Upset latex Allergy Rash Verified 10/07/19 19:50 levofloxacin [From Levaquin] Allergy Diarrhea Verified 10/07/19 19:50 morphine AdvReac Confusion Verified 10/07/19 19:50 Home Meds: Home Meds Omeprazole 40 mg PO DAILY 03/06/14 [History] Ondansetron [Zofran] 8 mg PO ASDIRECTED PRN 02/16/15 [History] Albuterol [Ventolin HFA] 1 - 2 puff INH ASDIRECTED PRN 11/28/18 [History] Cyclobenzaprine HCl 10 mg PO BID 11/28/18 [History] Lidocaine/Prilocaine [Lidocaine-Prilocaine Cream] 1 applic TOP ASDIRECTED PRN [History] PARoxetine HCl [Paroxetine HCl] 20 mg PO BID 11/28/18 [History] busPIRone HCl [busPIRone] 30 mg PO BID 11/28/18 [History] Naltrexone 50 mg PO DAILY 07/20/19 [History] Varenicline Tartrate [Chantix] 1 mg PO ASDIRECTED 07/20/19 [History] Doxycycline Monohydrate 100 mg PO BID 6 Days #12 capsule 10/07/19 [Rx] predniSONE [Prednisone] 40 mg PO DAILY 3 Days #6 tablet 10/07/19 [Rx] Past Medical History - Past Health History Medical/Surgical History: Denies Medical/Surgical History HEENT History: Reports: Other (See Below) Other HEENT History: states has blurred vision, wears glasses, top denture, Cardiovascular History: Reports: High Cholesterol Other Cardiovascular History: states mild heart murmur Respiratory History: Reports: Asthma, COPD, SOB, Other (See Below) Other Respiratory History: states has nodule on left lower lung, recurrent bronchitis Gastrointestinal History: Reports: Bowel Obstruction, Diverticulosis, GERD, Pancreatitis, Other (See Below) Other Gastrointestinal History: ulcerative colitis Genitourinary History: Reports: None 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 CLERK 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: Reports: Ectopic , Other KENO CLERK History: laparotomy for ectopic Musculoskeletal History: Reports: Arthritis, Back Pain, Chronic, Fracture, Other (See Below) Other Musculoskeletal History: 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-( complex regional pain syndrome), put left hand through a plate glass window, left hand and wrist surgery x3 Neurological History: Reports: Other (See Below) Other Neuro History: CRIPS- "final stages" Psychiatric History: Reports: Anxiety, Depression, PTSD Endocrine/Metabolic History: Reports: None Hematologic History: Reports: Blood Transfusion(s) Immunologic History: Reports: None Oncologic (Cancer) History: Reports: Other (See Below) Other Oncologic History: cervical dysplagia Dermatologic History: Reports: None - Infectious Disease History Infectious Disease History: Reports: Chicken Pox - Past Surgical History Head Surgeries/Procedures: Reports: None HEENT Surgical History: Reports: Other (See Below) Other HEENT Surgeries/Procedures: Dental extractions Cardiovascular Surgical History: Reports: None Respiratory Surgical History: Reports: None GI Surgical History: Reports: Cholecystectomy, Colon, Colonoscopy, EGD, Other ( See Below) Other GI Surgeries/Procedures: Multiple laproscopic surgeries, laparotomy with colon resection for bowel obstruction Female Surgical History: Reports: Section, Hysterectomy, Oophorectomy Other Female Surgeries/Procedures: left ovarian cyst with oopherectomy Endocrine Surgical History: Reports: None Neurological Surgical History: Reports: None Musculoskeletal Surgical History: Reports: Other (See Below) Other Musculoskeletal Surgeries/Procedures:: left hand surgery x3, toenail removal Oncologic Surgical History: Reports: None Dermatological Surgical History: Reports: None Social & Family History - Family History Family Medical History: Noncontributory - Tobacco Use Smoking Status *Q: Never Smoker Second Hand Smoke Exposure: No - Caffeine Use Caffeine Use: Reports: Soda Caffeine Use Comment: 3-4 daily - Recreational Drug Use Recreational Drug Use: No ED ROS GENERAL - Review of Systems Review Of Systems: Comprehensive ROS is negative, except as noted in HPI. ED EXAM, GENERAL - Physical Exam Exam: See Below Free Text/Narrative:: General: No acute distress. Comfortable. Coughing Heent: Examination revealed no pallor, no icterus, no lymphadenopathy. The patient has normal posterior pharynx, moist mucous membranes. Neck: Supple. No JVD. No rigidity. Heart: Normal rate. Reg rhythm. No murmurs appreciated. Lungs: Significant global wheezing. No focal findings. Abdomen: Nontender, non-distended, soft, no CVA tenderness. Neuro: Pt is moving all four extremities. EOMI. PERRL. Normal speech. Skin: Exposed areas appeared normally perfused, warm, normal color with no meaningful rashes or lesions. Extremities: Peripheral examination revealed no pedal edema. Peripheral pulses were 2+. EKG INTERPRETATION EKG Interpretation Comments: EKG time 7:53 PM. Sinus tachycardia 112 bpm. Normal axis. Normal intervals. QTc slightly elevated at 466. No significant Q waves. No significant ST elevation or depression. Course - Vital Signs Last Recorded V/S: Last Vital Signs Temp 36.9 C 10/07/19 19:47 Pulse 108 H 10/07/19 20:27 Resp 26 H 10/07/19 19:47 BP 147/100 H 10/07/19 19:48 Pulse Ox 89 L 10/07/19 20:27 - Orders/Labs/Meds Orders: Active Orders 24 hr Category Date Time Status EKG Documentation Completion [RC] STAT Care 10/07/19 20:27 Active RT Aerosol Therapy [RC] ASDIRECTED Care 10/07/19 20:43 Active Sodium Chloride 0.9% [Saline Flush] Med 10/07/19 20:13 Active 10 ml FLUSH ASDIRECTED PRN Sodium Chloride 0.9% [Saline Flush] Med 10/07/19 20:13 Active 2.5 ml FLUSH ASDIRECTED PRN Saline Lock Insert [OM.PC] Stat Oth 10/07/19 20:13 Ordered Medication Orders Sodium Chloride (Saline Flush) 10 ml FLUSH ASDIRECTED PRN PRN Reason: Keep Vein Open Sodium Chloride (Saline Flush) 2.5 ml FLUSH ASDIRECTED PRN PRN Reason: Keep Vein Open Labs: Laboratory Tests 10/07/19 10/07/19 Range/Units 20:00 20:00 WBC 11.88 H (4.0-11.0) K/uL RBC 4.57 (4.30-5.90) M/uL Hgb 13.9 (12.0-16.0) g/dL Hct 40.8 (36.0-46.0) % MCV 89.3 (80.0-98.0) fL MCH 30.4 (27.0-32.0) pg MCHC 34.1 (31.0-37.0) g/dL RDW Std Deviation 45.0 (28.0-62.0) fl RDW Coeff of Aydin 14 (11.0-15.0) % Plt Count 334 (150-400) K/uL MPV 9.10 (7.40-12.00) fL Neut % (Auto) 83.6 H (48.0-80.0) % Lymph % (Auto) 9.8 L (16.0-40.0) % White % (Auto) 6.1 (0.0-15.0) % Eos % (Auto) 0.3 (0.0-7.0) % Baso % (Auto) 0.2 (0.0-1.5) % Neut # (Auto) 9.9 H (1.4-5.7) K/uL Lymph # (Auto) 1.2 (0.6-2.4) K/uL White # (Auto) 0.7 (0.0-0.8) K/uL Eos # (Auto) 0.0 (0.0-0.7) K/uL Baso # (Auto) 0.0 (0.0-0.1) K/uL Nucleated RBC % 0.0 /100WBC Nucleated RBCs # 0 K/uL Sodium 138 (136-145) mmol/L Potassium 3.7 (3.5-5.1) mmol/L Chloride 97 L (98-107) mmol/L Carbon Dioxide 27.5 (21.0-32.0) mmol/L BUN 15 (7.0-18.0) mg/dL Creatinine 0.9 (0.6-1.0) mg/dL Est Cr Clr Drug Dosing 61.86 mL/min Estimated GFR (MDRD) > 60.0 ml/min Glucose 124 H (74-106) mg/dL Calcium 9.7 (8.5-10.1) mg/dL Total Bilirubin 0.4 (0.2-1.0) mg/dL AST 20 (15-37) IU/L ALT 30 (14-63) IU/L Alkaline Phosphatase 115 (46-116) U/L Total Protein 8.4 H (6.4-8.2) g/dL Albumin 4.1 (3.4-5.0) g/dL Globulin 4.3 H (2.6-4.0) g/dL Albumin/Globulin Ratio 1.0 (0.9-1.6) Meds: Medications Generic Name Dose Route Start Last Admin Trade Name Freq PRN Reason Stop Dose Admin Sodium Chloride 10 ml 10/07/19 20:13 Saline Flush FLUSH ASDIRECTED PRN Keep Vein Open Sodium Chloride 2.5 ml 10/07/19 20:13 Saline Flush FLUSH ASDIRECTED PRN Keep Vein Open Discontinued Medications Generic Name Dose Route Start Last Admin Trade Name Freq PRN Reason Stop Dose Admin Albuterol/Ipratropium 3 ml 10/07/19 20:43 10/07/19 19:52 Duoneb 3.0-0.5 Mg/3 Ml NEB 10/07/19 20:44 3 ml ONETIME ONE Administration Methylprednisolone Sodium Succinate 125 mg 10/07/19 20:30 10/07/19 20:43 Solu-Medrol IVPUSH 10/07/19 20:31 125 mg ONETIME ONE Administration - Re-Assessments/Exams Free Text/Narrative Re-Assessment/Exam: Patient feels much better after her second breathing treatment. She requests discharge home because she feels better and wants to go to sleep. Again she has had no chest pain with this presentation and significant wheezing and we felt that a cardiac work-up was not in order. Patient will be sent home with steroid and will follow-up with her primary care provider tomorrow. Additionally, she has 2 elevated inflammatory markers and a strong history of pneumonia we will treat for pneumonia for 5 days with doxycycline. Return precautions. 10/07/19 21:46 Departure - Departure Time of Disposition: 20:10 Disposition: Home, Self-Care 01 Clinical Impression: COPD exacerbation - Discharge Information Prescriptions: Doxycycline Monohydrate 100 mg PO BID 6 Days #12 capsule predniSONE [Prednisone] 40 mg PO DAILY 3 Days #6 tablet Referrals: Wayne Melvin MD [Primary Care Provider] - Forms: ED Department Discharge Sepsis Event Note - Evaluation Sepsis Screening Result: No Definite Risk - Focused Exam Vital Signs: Vital Signs Temp Pulse Resp BP Pulse Ox 10/07/19 20:27 108 H 89 L 10/07/19 20:12 111 H 96 10/07/19 20:07 110 H 94 L 10/07/19 19:48 119 H 147/100 H 94 L 10/07/19 19:47 36.9 C 116 H 26 H 147/100 H 92 L Date Exam was Performed: 10/07/19 Time Exam was Performed: 21:45 - My Orders Last 24 Hours: My Active Orders 10/07/19 20:13 Sodium Chloride 0.9% [Saline Flush] 10 ml FLUSH ASDIRECTED PRN Sodium Chloride 0.9% [Saline Flush] 2.5 ml FLUSH ASDIRECTED PRN Saline Lock Insert [OM.PC] Stat - Assessment/Plan Last 24 Hours: My Active Orders 10/07/19 20:13 Sodium Chloride 0.9% [Saline Flush] 10 ml FLUSH ASDIRECTED PRN Sodium Chloride 0.9% [Saline Flush] 2.5 ml FLUSH ASDIRECTED PRN Saline Lock Insert [OM.PC] Stat
[2019-10-07] MEDS ORDERED: methylPREDNISolone Sodium Succinate 125 MG/2 ML SDV IVPUSH ONE (20:30)
[2019-10-07 20:31] LABS: BLOOD UREA NITROGEN,BUN 15 mg/dL (7.0-18.0); CARBON DIOXIDE,CO2 27.5 mmol/L (21.0-32.0); CHLORIDE,CL 97 mmol/L (98-107); GLUCOSE RANDOM 124 mg/dL (74-106); POTASSIUM,K 3.7 mmol/L (3.5-5.1); SODIUM,NA 138 mmol/L (136-145)
--- NOTE | 2019-10-07 20:42 | CR ---
Chest: PA and lateral views the chest were obtained. Comparison: Prior chest x-ray of 10/02/19. Heart size and mediastinum are normal. Lungs are clear with no acute parenchymal change. Bony structures shows nothing acute. Surgical clips are seen within the upper abdomen. Impression: 1. Nothing acute is seen on 2 view chest x-ray. Diagnostic code #1 This report was dictated in [place] Standard Time
[2019-10-07] MEDS ORDERED: Albuterol/Ipratropium 3.0-0.5 MG/3 ML Neb Soln NEB ONE (20:43)
[2019-10-07] MEDS ORDERED: Doxycycline 100 MG Cap PO ONE (22:05)
[2019-10-07 22:08] VITALS: BP 130/84; PULSE 97
== END 2019-10-07 22:12 | disposition home or self-care (01) ==
LOC: MW.ED 19:44
DX: J44.1 Chronic obstructive pulmonary disease with (acute) exacerbation (principal); E78.00 Pure hypercholesterolemia, unspecified; F41.9 Anxiety disorder, unspecified; F32.9 Major depressive disorder, single episode, unspecified; Z88.6 Allergy status to analgesic agent; Z91.040 Latex allergy status; Z88.5 Allergy status to narcotic agent; Z88.8 Allergy status to other drugs, medicaments and biological substances
CPT/HCPCS: 36415; 71046; 80053; 85025; 93005; 96374; 99285; A9270; J2930; J7620-GY

== ENCOUNTER 2019-11-26 13:10 | Emergency (ER) | payer MEDICAID ==
[2019-11-26] MEDS ORDERED: Ondansetron 4 MG/2 ML SDV IVPUSH ONE (13:17)
[2019-11-26] MEDS ORDERED: Sodium Chloride 0.9% 2.5 ML Syringe FLUSH PRN (13:17)
[2019-11-26] MEDS ORDERED: Sodium Chloride 0.9% 10 ML Syringe FLUSH PRN (13:17)
[2019-11-26] MEDS ORDERED: Sodium Chloride 0.9% 1,000 ML IV ONE (13:17)
--- NOTE | 2019-11-26 13:38 | EDM.PDOC ---
ED HPI GENERAL MEDICAL PROBLEM - General Chief Complaint: Abdominal Pain Stated Complaint: PANCREATITIS Time Seen by Provider: 11/26/19 13:38 Source of Information: Reports: Patient History Limitations: Reports: No Limitations - History of Present Illness INITIAL COMMENTS - FREE TEXT/NARRATIVE: HISTORY AND PHYSICAL: History of present illness: Patient is a 49-year-old female presents to the ED with concern of pancreatitis. Patient has history of alcohol abuse, COPD, GERD, and pancreatitis. Patient states she has been having abdominal discomfort for the past week. She states today she started having more severe epigastric abdominal pain, bloating and nausea. She states she has not had anything to drink in about 2 weeks. She denies fevers or chills. She reports diarrhea which is chronic, states it has been more yellow lately but nonbloody. History of cholecystectomy. Review of systems: As per history of present illness and below otherwise all systems reviewed and negative. Past medical history: As per history of present illness and as reviewed below otherwise noncontributory. Surgical history: As per history of present illness and as reviewed below otherwise noncontributory. Social history: No reported history of drug or alcohol abuse. Family history: As per history of present illness and as reviewed below otherwise noncontributory. Physical exam: General: Patient sitting comfortably in no acute distress and nontoxic appearing HEENT: Atraumatic, normocephalic, pupils reactive, negative for conjunctival pallor or scleral icterus, mucous membranes moist, throat clear, neck supple, nontender, trachea midline. No meningeal signs. Lungs: Clear to auscultation, breath sounds equal bilaterally, chest nontender. Heart: S1S2, regular, negative for clicks, rubs, or overt murmur. Abdomen: abdomen is soft and mildly distended. Epigastric and RUQ tenderness to palpation. Negative for masses or hepatosplenomegaly. Negative for costovertebral tenderness. No rigidity, rebound, guarding. Pelvis: Stable nontender. Genitourinary: Deferred. Rectal: Deferred. Extremities: Atraumatic, negative for cords or calf pain. Neurovascular unremarkable. Neuro: Awake, alert, oriented. Cranial nerves II through XII unremarkable. Cerebellum unremarkable. Motor and sensory unremarkable throughout. Exam nonfocal. Notes: Diagnostics: CBC, CMP, lipase, Therapeutics: 1L NS IV 4mg Zofran IV GI cocktail Prescriptions: none Impression: Gastritis Plan: Continue omeprazole as prescribed Avoid spicy and citrus foods Follow up with primary care provider Return to ED as needed as discussed Definitive disposition and diagnosis as appropriate pending reevaluation and review of above. RUQ Pain Score (Numeric/FACES): 7 - Related Data Allergies Allergy/AdvReac Type Severity Reaction Status Date / Time amitriptyline Allergy Hives Verified 11/26/19 13:19 aspirin Allergy Stomach Verified 11/26/19 13:19 Upset latex Allergy Rash Verified 11/26/19 13:19 levofloxacin [From Levaquin] Allergy Diarrhea Verified 11/26/19 13:19 morphine AdvReac Confusion Verified 11/26/19 13:19 Home Meds: Home Meds Omeprazole 40 mg PO DAILY 03/06/14 [History] Ondansetron [Zofran] 8 mg PO ASDIRECTED PRN 02/16/15 [History] Albuterol [Ventolin HFA] 1 - 2 puff INH ASDIRECTED PRN 11/28/18 [History] Cyclobenzaprine HCl 10 mg PO BID 11/28/18 [History] PARoxetine HCL [Paroxetine HCl] 20 mg PO BID 11/28/18 [History] busPIRone HCl [busPIRone] 30 mg PO BID 11/28/18 [History] Past Medical History - Past Health History Medical/Surgical History: Denies Medical/Surgical History HEENT History: Reports: Other (See Below) Other HEENT History: states has blurred vision, wears glasses, top denture, Cardiovascular History: Reports: High Cholesterol Other Cardiovascular History: states mild heart murmur Respiratory History: Reports: Asthma, COPD, SOB, Other (See Below) Other Respiratory History: states has nodule on left lower lung, recurrent bronchitis Gastrointestinal History: Reports: Bowel Obstruction, Diverticulosis, GERD, Pancreatitis, Other (See Below) Other Gastrointestinal History: ulcerative colitis Genitourinary History: Reports: None 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: Ectopic , Other HOT ROOM ATTENDANT History: laparotomy for ectopic Musculoskeletal History: Reports: Arthritis, Back Pain, Chronic, Fracture, Other (See Below) Other Musculoskeletal History: 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-( complex regional pain syndrome), put left hand through a plate glass window, left hand and wrist surgery x3 Neurological History: Reports: Other (See Below) Other Neuro History: CRIPS- "final stages" Psychiatric History: Reports: Anxiety, Depression, PTSD Endocrine/Metabolic History: Reports: None Hematologic History: Reports: Blood Transfusion(s) Immunologic History: Reports: None Oncologic (Cancer) History: Reports: Other (See Below) Other Oncologic History: cervical dysplagia Dermatologic History: Reports: None - Infectious Disease History Infectious Disease History: Reports: Chicken Pox - Past Surgical History Head Surgeries/Procedures: Reports: None HEENT Surgical History: Reports: Other (See Below) Other HEENT Surgeries/Procedures: Dental extractions Cardiovascular Surgical History: Reports: None Respiratory Surgical History: Reports: None GI Surgical History: Reports: Cholecystectomy, Colon, Colonoscopy, EGD, Other ( See Below) Other GI Surgeries/Procedures: Multiple laproscopic surgeries, laparotomy with colon resection for bowel obstruction Female Surgical History: Reports: Section, Hysterectomy, Oophorectomy Other Female Surgeries/Procedures: left ovarian cyst with oopherectomy Endocrine Surgical History: Reports: None Neurological Surgical History: Reports: None Musculoskeletal Surgical History: Reports: Other (See Below) Other Musculoskeletal Surgeries/Procedures:: left hand surgery x3, toenail removal Oncologic Surgical History: Reports: None Dermatological Surgical History: Reports: None Social & Family History - Family History Family Medical History: Noncontributory - Tobacco Use Smoking Status *Q: Former Smoker Used Tobacco, but Quit: Yes Month/Year Tobacco Last Used: 2018 - Caffeine Use Caffeine Use: Reports: Soda Caffeine Use Comment: 3-4 daily - Recreational Drug Use Recreational Drug Use: Yes Recreational Drug Type: Reports: Marijuana/Hashish ED ROS GENERAL - Review of Systems Review Of Systems: Comprehensive ROS is negative, except as noted in HPI. ED EXAM, GI/ABD - Physical Exam Exam: See Below (see dictation) Course - Vital Signs Last Recorded V/S: Last Vital Signs Temp 95.9 F L 11/26/19 13:21 Pulse 98 11/26/19 13:21 Resp 16 11/26/19 13:21 BP 132/74 11/26/19 13:21 Pulse Ox 97 11/26/19 13:21 - Orders/Labs/Meds Orders: Active Orders 24 hr Category Date Time Status Sodium Chloride 0.9% [Saline Flush] Med 11/26/19 13:17 Active 10 ml FLUSH ASDIRECTED PRN Sodium Chloride 0.9% [Saline Flush] Med 11/26/19 13:17 Active 2.5 ml FLUSH ASDIRECTED PRN Saline Lock Insert [OM.PC] Stat Oth 11/26/19 13:17 Ordered Medication Orders Sodium Chloride (Saline Flush) 10 ml FLUSH ASDIRECTED PRN PRN Reason: Keep Vein Open Last Admin: 11/26/19 13:37 Dose: 10 ml Sodium Chloride (Saline Flush) 2.5 ml FLUSH ASDIRECTED PRN PRN Reason: Keep Vein Open Last Admin: 11/26/19 13:37 Dose: 2.5 ml Labs: Laboratory Tests 11/26/19 11/26/19 Range/Units 13:35 13:35 WBC 8.94 (4.0-11.0) K/uL RBC 4.10 L (4.30-5.90) M/uL Hgb 11.8 L (12.0-16.0) g/dL Hct 36.5 (36.0-46.0) % MCV 89.0 (80.0-98.0) fL MCH 28.8 (27.0-32.0) pg MCHC 32.3 (31.0-37.0) g/dL RDW Std Deviation 45.6 (28.0-62.0) fl RDW Coeff of Aydin 14 (11.0-15.0) % Plt Count 326 (150-400) K/uL MPV 9.10 (7.40-12.00) fL Neut % (Auto) 61.8 (48.0-80.0) % Lymph % (Auto) 29.2 (16.0-40.0) % [place] % (Auto) 7.0 (0.0-15.0) % Eos % (Auto) 1.8 (0.0-7.0) % Baso % (Auto) 0.2 (0.0-1.5) % Neut # (Auto) 5.5 (1.4-5.7) K/uL Lymph # (Auto) 2.6 H (0.6-2.4) K/uL [place] # (Auto) 0.6 (0.0-0.8) K/uL Eos # (Auto) 0.2 (0.0-0.7) K/uL Baso # (Auto) 0.0 (0.0-0.1) K/uL Nucleated RBC % 0.0 /100WBC Nucleated RBCs # 0 K/uL Sodium 135 L (136-145) mmol/L Potassium 3.7 (3.5-5.1) mmol/L Chloride 100 (98-107) mmol/L Carbon Dioxide 24.8 (21.0-32.0) mmol/L BUN 22 H (7.0-18.0) mg/dL Creatinine 1.2 H (0.6-1.0) mg/dL Est Cr Clr Drug Dosing 46.40 mL/min Estimated GFR (MDRD) 47.6 ml/min Glucose 123 H (74-106) mg/dL Calcium 8.8 (8.5-10.1) mg/dL Total Bilirubin 0.2 (0.2-1.0) mg/dL AST 24 (15-37) IU/L ALT 32 (14-63) IU/L Alkaline Phosphatase 90 (46-116) U/L Total Protein 7.0 (6.4-8.2) g/dL Albumin 3.6 (3.4-5.0) g/dL Globulin 3.4 (2.6-4.0) g/dL Albumin/Globulin Ratio 1.1 (0.9-1.6) Lipase 394 H (73-393) U/L Meds: Medications Generic Name Dose Route Start Last Admin Trade Name Freq PRN Reason Stop Dose Admin Sodium Chloride 10 ml 11/26/19 13:17 11/26/19 13:37 Saline Flush FLUSH 10 ml ASDIRECTED PRN Administration Keep Vein Open Sodium Chloride 2.5 ml 11/26/19 13:17 11/26/19 13:37 Saline Flush FLUSH 2.5 ml ASDIRECTED PRN Administration Keep Vein Open Discontinued Medications Generic Name Dose Route Start Last Admin Trade Name Freq PRN Reason Stop Dose Admin Al Hydroxide/Mg Hydroxide 15 0 ml 11/26/19 14:18 ml/ Lidocaine HCl 5 ml PO 11/26/19 14:19 ONETIME ONE Sodium Chloride 1,000 mls @ 999 mls/hr 11/26/19 13:17 11/26/19 13:35 Normal Saline IV 11/26/19 14:17 999 mls/hr STAT ONE Administration Ondansetron HCl 4 mg 11/26/19 13:17 11/26/19 13:36 Zofran IVPUSH 11/26/19 13:18 4 mg ONETIME ONE Administration Departure - Departure Time of Disposition: 14:28 Disposition: Home, Self-Care 01 Condition: Good Clinical Impression: Gastritis - Discharge Information Referrals: Wayne Melvin MD [Primary Care Provider] - Forms: ED Department Discharge Additional Instructions: The following information is given to patients seen in the emergency department who are being discharged to home. This information is to outline your options for follow-up care. We provide all patients seen in our emergency department with a follow-up referral. The need for follow-up, as well as the timing and circumstances, are variable depending upon the specifics of your emergency department visit. If you don't have a primary care physician on staff, we will provide you with a referral. We always advise you to contact your personal physician following an emergency department visit to inform them of the circumstance of the visit and for follow-up with them and/or the need for any referrals to a consulting specialist. The emergency department will also refer you to a specialist when appropriate. This referral assures that you have the opportunity for follow-up care with a specialist. All of these measure are taken in an effort to provide you with optimal care, which includes your follow-up. Under all circumstances we always encourage you to contact your private physician who remains a resource for coordinating your care. When calling for follow-up care, please make the office aware that this follow-up is from your recent emergency room visit. If for any reason you are refused follow-up, please contact the [facility] Emergency Department at and asked to speak to the emergency department charge nurse. [facility] [address] [place] [id number] [id number] Continue omeprazole as prescribed Avoid spicy and citrus foods Follow up with primary care provider Return to ED as needed as discussed Sepsis Event Note - Evaluation Sepsis Screening Result: No Definite Risk - Focused Exam Vital Signs: Vital Signs Temp Pulse Resp BP Pulse Ox 11/26/19 13:21 95.9 F L 98 16 132/74 97 Date Exam was Performed: 11/26/19 Time Exam was Performed: 14:28 - My Orders Last 24 Hours: My Active Orders 11/26/19 13:17 Sodium Chloride 0.9% [Saline Flush] 10 ml FLUSH ASDIRECTED PRN Sodium Chloride 0.9% [Saline Flush] 2.5 ml FLUSH ASDIRECTED PRN Saline Lock Insert [OM.PC] Stat - Assessment/Plan Last 24 Hours: My Active Orders 11/26/19 13:17 Sodium Chloride 0.9% [Saline Flush] 10 ml FLUSH ASDIRECTED PRN Sodium Chloride 0.9% [Saline Flush] 2.5 ml FLUSH ASDIRECTED PRN Saline Lock Insert [OM.PC] Stat
[2019-11-26 14:13] LABS: CARBON DIOXIDE,CO2 24.8 mmol/L (21.0-32.0); POTASSIUM,K 3.7 mmol/L (3.5-5.1)
[2019-11-26] MEDS ORDERED: Alum Hydrox/Mag Hydrox/Simeth 15 ML, Lidocaine 2% 5 ML PO ONE ×2 (14:18)
[2019-11-26 14:36] VITALS: BP 154/79; PULSE 92
== END 2019-11-26 14:40 | disposition home or self-care (01) ==
LOC: MW.ED 13:10
DX: K29.70 Gastritis, unspecified, without bleeding (principal); J44.9 Chronic obstructive pulmonary disease, unspecified; K21.9 Gastro-esophageal reflux disease without esophagitis; M19.90 Unspecified osteoarthritis, unspecified site; F41.9 Anxiety disorder, unspecified; F32.9 Major depressive disorder, single episode, unspecified; Z90.710 Acquired absence of both cervix and uterus; Z87.891 Personal history of nicotine dependence; Z88.6 Allergy status to analgesic agent; Z91.040 Latex allergy status; Z88.5 Allergy status to narcotic agent; Z88.8 Allergy status to other drugs, medicaments and biological substances; Z79.899 Other long term (current) drug therapy; Z90.49 Acquired absence of other specified parts of digestive tract
CPT/HCPCS: 36415; 80053; 83690; 85025; 96361; 96374; 99284; A9270; J2405; J7030; 99283

== ENCOUNTER 2019-12-26 14:28 | Emergency (ER) | payer MEDICAID ==
[2019-12-26] MEDS ORDERED: Sodium Chloride 0.9% 1,000 ML IV ONE (14:35)
[2019-12-26] MEDS ORDERED: chlordiazePOXIDE 25 MG Cap PO ONE ×2 (14:35→16:15)
[2019-12-26] MEDS ORDERED: Thiamine 200 MG/2 ML MDV IVPUSH ONE ×2 (14:37→15:26)
[2019-12-26] MEDS ORDERED: Prochlorperazine 10 MG/2 ML SDV IVPUSH ONE (14:38)
--- NOTE | 2019-12-26 14:44 | EDM.PDOC ---
ED HPI GENERAL MEDICAL PROBLEM - General Chief Complaint: Drug or Alcohol Abuse Stated Complaint: ALCOHOL Time Seen by Provider: 12/26/19 14:32 Source of Information: Reports: Patient, EMS History Limitations: Reports: Intoxication - History of Present Illness INITIAL COMMENTS - FREE TEXT/NARRATIVE: HISTORY AND PHYSICAL: History of present illness: This 49-year-old female with a past medical history of COPD, hypertension, alcohol dependence, and severe alcohol withdrawal syndrome in the past presents emergency department complaining of a binge drinking episode that is been going on for the last 9 days per her report. Patient does appear to be intoxicated. She is able to give a history including her name and events. She denies any trauma. She states that she has been wanting to stop drinking and desires medically assisted detox for alcohol and tried to stop cold turkey at home. The patient reports that she was having severe alcohol withdrawal syndromes at home including tremors and some early delirium along with nausea and vomiting. She is taken multiple doses of Zofran. She complains that she has a history of chronic pancreatitis and that she has some generalized vague abdominal symptoms including her nausea and vomiting. Review of systems: As per history of present illness and below otherwise all systems reviewed and negative. Past medical history: As per history of present illness and as reviewed below otherwise noncontributory. Surgical history: As per history of present illness and as reviewed below otherwise noncontributory. Social history: No reported history of drug or alcohol abuse. Family history: As per history of present illness and as reviewed below otherwise noncontributory. Physical exam: HEENT: Atraumatic, normocephalic, pupils reactive, negative for conjunctival pallor or scleral icterus, mucous membranes moist, throat clear, neck supple, nontender, trachea midline. Lungs: Clear to auscultation, breath sounds equal bilaterally, chest nontender. Heart: S1S2, regular, negative for clicks, rubs, or JVD. Abdomen: Soft, nondistended, nontender. Negative for masses or hepatosplenomegaly. Negative for costovertebral tenderness. Pelvis: Stable nontender. Genitourinary: Deferred. Rectal: Deferred. Extremities: Atraumatic, negative for cords or calf pain. Neurovascular unremarkable. Neuro: Awake, alert, oriented. Cranial nerves II through XII unremarkable. Cerebellum unremarkable. Motor and sensory unremarkable throughout. Exam nonfocal. Initial differential diagnosis: Patient is altered mental status and appears to have mild alcohol intoxication. She does not have any focal neurologic deficits and is not significantly confused. She does have some nystagmus. Differential includes electrolyte abnormality, alcohol intoxication, underlying infection, and metabolic abnormality. I will obtain a CBC, EKG, CMP, magnesium level, lipase level, treat with Librium and thiamine and IV fluids. I will reevaluate the patient and determine if she requires admission to the hospital. Currently that is our initial plan. - Related Data Allergies Allergy/AdvReac Type Severity Reaction Status Date / Time amitriptyline Allergy Hives Verified 12/26/19 14:31 aspirin Allergy Stomach Verified 12/26/19 14:31 Upset latex Allergy Rash Verified 12/26/19 14:31 levofloxacin [From Levaquin] Allergy Diarrhea Verified 12/26/19 14:31 morphine AdvReac Confusion Verified 12/26/19 14:31 Home Meds: Home Meds RX: Omeprazole 40 mg PO DAILY 03/06/14 [History] RX: Ondansetron [Zofran] 8 mg PO ASDIRECTED PRN 02/16/15 [History] RX: Albuterol [Ventolin HFA] 1 - 2 puff INH ASDIRECTED PRN 11/28/18 [History] RX: PARoxetine HCL [Paroxetine HCl] 20 mg PO BID 11/28/18 [History] RX: busPIRone HCl [busPIRone] 30 mg PO BID 11/28/18 [History] Past Medical History - Past Health History Medical/Surgical History: Denies Medical/Surgical History HEENT History: Reports: Other (See Below) Other HEENT History: states has blurred vision, wears glasses, top denture, Cardiovascular History: Reports: High Cholesterol Other Cardiovascular History: states mild heart murmur Respiratory History: Reports: Asthma, Bronchitis, Recurrent, COPD, SOB, Other ( See Below) Other Respiratory History: states has nodule on left lower lung, Gastrointestinal History: Reports: Bowel Obstruction, Diverticulosis, GERD, Pancreatitis, Other (See Below) Other Gastrointestinal History: ulcerative colitis Genitourinary History: Reports: None KITCHEN CLERK History: Reports: Ectopic , Other KITCHEN CLERK History: laparotomy for ectopic Musculoskeletal History: Reports: Arthritis, Back Pain, Chronic, Fracture, Other (See Below) Other Musculoskeletal History: 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-( complex regional pain syndrome), put left hand through a plate glass window, left hand and wrist surgery x3 Neurological History: Reports: Other (See Below) Other Neuro History: CRIPS- "final stages" Psychiatric History: Reports: Addiction, Anxiety, Depression, PTSD, Suicide Attempt, Suicidal Ideation Endocrine/Metabolic History: Reports: None Hematologic History: Reports: Blood Transfusion(s) Immunologic History: Reports: None Oncologic (Cancer) History: Reports: Other (See Below) Other Oncologic History: cervical dysplagia Dermatologic History: Reports: None - Infectious Disease History Infectious Disease History: Reports: Chicken Pox - Past Surgical History Head Surgeries/Procedures: Reports: None HEENT Surgical History: Reports: Other (See Below) Other HEENT Surgeries/Procedures: Dental extractions Cardiovascular Surgical History: Reports: None Respiratory Surgical History: Reports: None GI Surgical History: Reports: Cholecystectomy, Colon, Colonoscopy, EGD, Other ( See Below) Other GI Surgeries/Procedures: Multiple laproscopic surgeries, laparotomy with colon resection for bowel obstruction Female Surgical History: Reports: Section, Hysterectomy, Oophorectomy Other Female Surgeries/Procedures: left ovarian cyst with oopherectomy Endocrine Surgical History: Reports: None Neurological Surgical History: Reports: None Musculoskeletal Surgical History: Reports: Other (See Below) Other Musculoskeletal Surgeries/Procedures:: left hand surgery x3, toenail removal Oncologic Surgical History: Reports: None Dermatological Surgical History: Reports: None Social & Family History - Family History Family Medical History: Noncontributory - Tobacco Use Smoking Status *Q: Current Every Day Smoker Years of Tobacco use: 1 Packs/Tins Daily: 1 - Caffeine Use Caffeine Use: Reports: Soda Caffeine Use Comment: 3-4 daily - Recreational Drug Use Recreational Drug Use: No ED ROS GENERAL - Review of Systems Review Of Systems: Comprehensive ROS is negative, except as noted in HPI. - Physical Exam Exam: See Below (See narriative) Text/Narrative:: As above. Neuro Exam (Abbreviated): Other (Mild lateral nystagmus. Mild dysmetria. Mild slurred speech.) EKG INTERPRETATION EKG Interpretation Comments: 12 lead EKG interpretation Obtained: December 26, 2019 2:41 PM Rhythm: Sinus Rate: 96 [place]: Normal Intervals: Normal ST/T Segments: No acute ischemic changes Interpretation: Sinus Rhythm Course - Vital Signs Text/Narrative:: Patient would like to be admitted to inpatient alcohol rehab. We have found a facility in [place]. If the patient is medically fit for transfer for rehab we will arrange this. 1556: Spoke to the on the phone. Patient was trying to leave the hospital and he states that she is not safe at home. She goes into delirium tremens per his report. After discussing again with the patient she will stay and be admitted as original plan. 1615 -I have arranged for the patient to be accepted at [facility], Dr. Londono will accept, I will arrange for the patient to be transferred via [facility] with IV solution as needed. We will give an additional dose of Librium 50 mg and correct her magnesium deficiency prior to her transfer. Final diagnosis 1. Alcohol abuse with dependence 2. Delirium tremens at home 3. Hypomagnesia Treated with oral Librium, intravenous Compazine for symptoms, and IV fluids for dehydration. The patient was given thiamine 200 mg IV along with 2 g of magnesium sulfate. I feel at this time she is safe to be transferred. Transfer via [facility]. Last Recorded V/S: Last Vital Signs Temp 97.7 F 12/26/19 14:29 Pulse 104 H 12/26/19 14:29 Resp 17 12/26/19 14:29 BP 124/88 12/26/19 14:29 Pulse Ox 96 12/26/19 14:29 - Orders/Labs/Meds Orders: Active Orders 24 hr Category Date Time Status EKG Documentation Completion [RC] STAT Care 12/26/19 14:35 Active Magnesium Sulfate/Water [Magnesium Sulfate in Water Med 12/26/19 16:15 Active Premix] 2 gm Premix Bag 1 bag IV ONETIME Medication Orders Magnesium Sulfate 2 gm/ Premix 50 mls @ 50 mls/hr IV ONETIME ONE Stop: 12/26/19 17:14 Labs: Laboratory Tests 12/26/19 12/26/19 Range/Units 15:22 15:22 WBC 8.76 (4.0-11.0) K/uL RBC 4.28 L (4.30-5.90) M/uL Hgb 12.4 (12.0-16.0) g/dL Hct 37.6 (36.0-46.0) % MCV 87.9 (80.0-98.0) fL MCH 29.0 (27.0-32.0) pg MCHC 33.0 (31.0-37.0) g/dL RDW Std Deviation 45.5 (28.0-62.0) fl RDW Coeff of Aydin 14 (11.0-15.0) % Plt Count 312 (150-400) K/uL MPV 8.90 (7.40-12.00) fL Neut % (Auto) 57.1 (48.0-80.0) % Lymph % (Auto) 34.6 (16.0-40.0) % [place] % (Auto) 7.1 (0.0-15.0) % Eos % (Auto) 1.0 (0.0-7.0) % Baso % (Auto) 0.2 (0.0-1.5) % Neut # (Auto) 5.0 (1.4-5.7) K/uL Lymph # (Auto) 3.0 H (0.6-2.4) K/uL [place] # (Auto) 0.6 (0.0-0.8) K/uL Eos # (Auto) 0.1 (0.0-0.7) K/uL Baso # (Auto) 0.0 (0.0-0.1) K/uL Nucleated RBC % 0.0 /100WBC Nucleated RBCs # 0 K/uL Sodium 135 L (136-145) mmol/L Potassium 3.8 (3.5-5.1) mmol/L Chloride 98 (98-107) mmol/L Carbon Dioxide 28.4 (21.0-32.0) mmol/L BUN 11 (7.0-18.0) mg/dL Creatinine 0.9 (0.6-1.0) mg/dL Est Cr Clr Drug Dosing 61.86 mL/min Estimated GFR (MDRD) > 60.0 ml/min Glucose 102 (74-106) mg/dL Calcium 8.5 (8.5-10.1) mg/dL Magnesium 1.6 L (1.8-2.4) mg/dL Total Bilirubin 0.2 (0.2-1.0) mg/dL AST 22 (15-37) IU/L ALT 28 (14-63) IU/L Alkaline Phosphatase 100 (46-116) U/L Total Protein 7.3 (6.4-8.2) g/dL Albumin 3.6 (3.4-5.0) g/dL Globulin 3.7 (2.6-4.0) g/dL Albumin/Globulin Ratio 1.0 (0.9-1.6) Lipase 221 (73-393) U/L Ethyl Alcohol 76 mg/dL Meds: Medications Generic Name Dose Route Start Last Admin Trade Name Freq PRN Reason Stop Dose Admin Magnesium Sulfate 2 gm/ Premix 50 mls @ 50 mls/hr 12/26/19 16:15 IV 12/26/19 17:14 ONETIME ONE Discontinued Medications Generic Name Dose Route Start Last Admin Trade Name Freq PRN Reason Stop Dose Admin Chlordiazepoxide HCl 50 mg 12/26/19 14:35 12/26/19 15:27 Librium PO 12/26/19 14:36 50 mg ONETIME ONE Administration Chlordiazepoxide HCl 50 mg 12/26/19 16:15 Librium PO 12/26/19 16:16 ONETIME ONE Sodium Chloride 1,000 mls @ 999 mls/hr 12/26/19 14:35 12/26/19 15:12 Normal Saline IV 12/26/19 15:35 999 mls/hr .Bolus ONE Administration Magnesium Sulfate 2 gm 12/26/19 16:12 Magnesium Sulfate 50% IV 12/26/19 16:13 ONETIME ONE Prochlorperazine Edisylate 10 mg 12/26/19 14:38 12/26/19 15:12 Compazine IVPUSH 12/26/19 14:39 10 mg ONETIME ONE Administration Thiamine HCl 200 mg 12/26/19 15:26 12/26/19 15:27 Vitamin B-1 IVPUSH 12/26/19 15:27 200 mg ONETIME ONE Administration Departure - Departure Time of Disposition: 16:08 Disposition: DC[facility] 05 Clinical Impression: Alcohol abuse with intoxication with complication, Alcohol abuse - Discharge Information *PRESCRIPTION DRUG MONITORING PROGRAM REVIEWED*: Not Applicable *COPY OF PRESCRIPTION DRUG MONITORING REPORT IN PATIENT INOCENTE: Not Applicable Instructions: Alcohol Use Disorder, Chemical Dependency Referrals: PCP,Unobtain [Primary Care Provider] - Forms: ED Department Discharge Sepsis Event Note - Evaluation Sepsis Screening Result: No Definite Risk - Focused Exam Vital Signs: Vital Signs Temp Pulse Resp BP Pulse Ox 12/26/19 14:29 97.7 F 104 H 17 124/88 96 Date Exam was Performed: 12/26/19 Time Exam was Performed: 16:32 - My Orders Last 24 Hours: My Active Orders 12/26/19 14:35 EKG Documentation Completion [RC] STAT 12/26/19 16:15 Magnesium Sulfate/Water [Magnesium Sulfate in Water Premix] 2 gm Premix Bag 1 bag IV ONETIME - Assessment/Plan Last 24 Hours: My Active Orders 12/26/19 14:35 EKG Documentation Completion [RC] STAT 12/26/19 16:15 Magnesium Sulfate/Water [Magnesium Sulfate in Water Premix] 2 gm Premix Bag 1 bag IV ONETIME
[2019-12-26 16:07] LABS: BLOOD UREA NITROGEN,BUN 11 mg/dL (7.0-18.0); CARBON DIOXIDE,CO2 28.4 mmol/L (21.0-32.0); CHLORIDE,CL 98 mmol/L (98-107); GLUCOSE RANDOM 102 mg/dL (74-106); LIPASE 221 U/L (73-393); POTASSIUM,K 3.8 mmol/L (3.5-5.1); SODIUM,NA 135 mmol/L (136-145)
[2019-12-26] MEDS ORDERED: Magnesium Sulfate (4.06 MEQ/ML) 5 GM/10 ML SDV IV ONE (16:12)
[2019-12-26] MEDS ORDERED: Magnesium Sulfate/Water 2 GM in Premix Bag 1 BAG IV ONE (16:15)
[2019-12-26] MEDS ORDERED: Sodium Chloride 0.9% 1,000 ML IV STA (16:33)
[2019-12-26 16:44] VITALS: BP 124/89; PULSE 94
== END 2019-12-26 17:38 | disposition designated cancer center or children's hospital (05) ==
LOC: MW.ED 14:28
DX: F10.129 Alcohol abuse with intoxication, unspecified (principal); E83.42 Hypomagnesemia; R41.0 Disorientation, unspecified; K21.9 Gastro-esophageal reflux disease without esophagitis; J44.9 Chronic obstructive pulmonary disease, unspecified; F17.210 Nicotine dependence, cigarettes, uncomplicated; Z88.6 Allergy status to analgesic agent; Z88.5 Allergy status to narcotic agent; Z88.1 Allergy status to other antibiotic agents
CPT/HCPCS: 80053; 80307; 83690; 83735; 85025; 93005; 96361; 96365; 96375; 99285; A9270; J0780; J3411; J3475; J7030; 99283

== ENCOUNTER 2020-01-02 13:13 | Emergency (ER) | payer MEDICAID ==
--- NOTE | 2020-01-02 13:30 | PCM.SN.2 ---
- Free Text/Narrative Note: This patient was transported by EMS to the emergency department out of concern for intoxication. The patient has no medical complaints and does not want to be evaluated here in the emergency department. She is alert and oriented to person, place, time, and event. She has no medical complaints and is refusing vital signs or evaluation. She does not want to be seen here in the emergency department today. She is calm, cooperative, and quite pleasant. I see no evidence of trauma or any emergency medical condition. She is walking under her own power without difficulty and has normal coordination and speech. She signed a refusal of medical evaluation and was seen walking of the emergency department without difficulty.
[2020-01-02 13:45] VITALS: BP 154/89; PULSE 92
== END 2020-01-02 13:45 | disposition left against medical advice (07) ==
LOC: MW.ED 13:13
DX: Z53.21 Procedure and treatment not carried out due to patient leaving prior to being seen by health care provider (principal)

== ENCOUNTER 2020-01-05 01:02 | Emergency (ER) | payer MEDICAID ==
--- NOTE | 2020-01-05 01:19 | EDM.PDOC ---
ED HPI GENERAL MEDICAL PROBLEM - General Chief Complaint: Drug or Alcohol Abuse Stated Complaint: REFERRAL FROM CRISIS LINE- DETOX Time Seen by Provider: 01/05/20 01:06 - History of Present Illness INITIAL COMMENTS - FREE TEXT/NARRATIVE: History of present illness: [] Patient presents with alcohol intoxication patient was just discharged from detox several days ago is been drinking the entire time she is been back she is here at 1:15 in the morning requesting detox placement. Explained the patient we do not have ability to place her in detox. She denies any homicidal or suicidal ideations she is alert and oriented person place and time though intoxicated. Review of systems: As per history of present illness and below otherwise all systems reviewed and negative. Past medical history: As per history of present illness and as reviewed below otherwise noncontributory. Surgical history: As per history of present illness and as reviewed below otherwise noncontributory. Social history: No reported history of drug or alcohol abuse. Family history: As per history of present illness and as reviewed below otherwise noncontributory. Physical exam: HEENT: Atraumatic, normocephalic, pupils reactive, negative for conjunctival pallor or scleral icterus, mucous membranes moist, throat clear, neck supple, nontender, trachea midline. Lungs: Clear to auscultation, breath sounds equal bilaterally, chest nontender. Heart: S1S2, regular, negative for clicks, rubs, or JVD. Abdomen: Soft, nondistended, nontender. Negative for masses or hepatosplenomegaly. Negative for costovertebral tenderness. Pelvis: Stable nontender. Genitourinary: Deferred. Rectal: Deferred. Extremities: Atraumatic, negative for cords or calf pain. Neurovascular unremarkable. Neuro: Awake, alert, oriented. Cranial nerves II through XII unremarkable. Cerebellum unremarkable. Motor and sensory unremarkable throughout. Exam nonfocal. Intoxicated but alert Diagnostics: [] Therapeutics: [] Impression: [] Plan: Patient will be discharged home with a sober ride and given instructions on how to follow-up for help with her alcohol problem. [] Definitive disposition and diagnosis as appropriate pending reevaluation and review of above. - Related Data Allergies Allergy/AdvReac Type Severity Reaction Status Date / Time amitriptyline Allergy Hives Verified 01/02/20 13:18 aspirin Allergy Stomach Verified 06/05/20 13:18 Upset latex Allergy Rash Verified 01/02/20 13:18 levofloxacin [From Levaquin] Allergy Diarrhea Verified 01/02/20 13:18 morphine AdvReac Confusion Verified 01/02/20 13:18 Home Meds: Home Meds Omeprazole 20 mg PO DAILY 03/06/14 [History] Ondansetron [Zofran] 8 mg PO ASDIRECTED PRN 02/16/15 [History] Albuterol [Ventolin HFA] 1 - 2 puff INH ASDIRECTED PRN 11/28/18 [History] PARoxetine HCL [Paroxetine HCl] 20 mg PO BID 11/28/18 [History] busPIRone HCl [busPIRone] 30 mg PO BID 11/28/18 [History] Past Medical History - Past Health History Medical/Surgical History: Denies Medical/Surgical History HEENT History: Reports: Other (See Below) Other HEENT History: states has blurred vision, wears glasses, top denture, Cardiovascular History: Reports: High Cholesterol Other Cardiovascular History: states mild heart murmur Respiratory History: Reports: Asthma, Bronchitis, Recurrent, COPD, SOB, Other ( See Below) Other Respiratory History: states has nodule on left lower lung, Gastrointestinal History: Reports: Bowel Obstruction, Diverticulosis, GERD, Pancreatitis, Other (See Below) Other Gastrointestinal History: ulcerative colitis Genitourinary History: Reports: None NEW ACCOUNTS REPRESENTATIVE History: Reports: Ectopic , Other NEW ACCOUNTS REPRESENTATIVE History: Ectopic Musculoskeletal History: Reports: Arthritis, Back Pain, Chronic, Fracture, Other (See Below) Other Musculoskeletal History: 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-( complex regional pain syndrome), put left hand through a plate glass window, left hand and wrist surgery x3 Neurological History: Reports: Other (See Below) Other Neuro History: CRIPS Psychiatric History: Reports: Addiction, Anxiety, Depression, PTSD, Suicide Attempt, Suicidal Ideation Endocrine/Metabolic History: Reports: None Hematologic History: Reports: Blood Transfusion(s) Immunologic History: Reports: None Oncologic (Cancer) History: Reports: Other (See Below) Other Oncologic History: cervical dysplagia Dermatologic History: Reports: None - Infectious Disease History Infectious Disease History: Reports: Chicken Pox - Past Surgical History Head Surgeries/Procedures: Reports: None HEENT Surgical History: Reports: Other (See Below) Other HEENT Surgeries/Procedures: Dental extractions Cardiovascular Surgical History: Reports: None Respiratory Surgical History: Reports: None GI Surgical History: Reports: Cholecystectomy, Colon, Colonoscopy, EGD, Other ( See Below) Other GI Surgeries/Procedures: Multiple laproscopic surgeries, laparotomy with colon resection for bowel obstruction Female Surgical History: Reports: Section, Hysterectomy, Oophorectomy Other Female Surgeries/Procedures: left ovarian cyst with oopherectomy Endocrine Surgical History: Reports: None Neurological Surgical History: Reports: None Musculoskeletal Surgical History: Reports: Other (See Below) Other Musculoskeletal Surgeries/Procedures:: left hand surgery x3, toenail removal Oncologic Surgical History: Reports: None Dermatological Surgical History: Reports: None Social & Family History - Family History Family Medical History: Noncontributory - Caffeine Use Caffeine Use: Reports: Coffee, Soda Caffeine Use Comment: 3-4 daily ED ROS GENERAL - Review of Systems Review Of Systems: See Below ED EXAM, GENERAL - Physical Exam Exam: See Below Course - Vital Signs Text/Narrative:: Patient is alert oriented person place and time vital signs are stable she will be discharged home as soon as a sober ride is available she will be given phone numbers for resources she can contact tomorrow if she wishes to go to detox. Last Recorded V/S: Last Vital Signs Temp 36.7 C 01/05/20 01:11 Pulse 78 01/05/20 01:11 Resp 18 01/05/20 01:11 BP 118/74 01/05/20 01:11 Pulse Ox 96 01/05/20 01:11 Departure - Departure Time of Disposition: 01:18 Disposition: Home, Self-Care 01 Condition: Good Clinical Impression: Alcohol intoxication Qualifiers: Complication of substance-induced condition: uncomplicated Qualified Code(s): F10.920 - Alcohol use, unspecified with intoxication, uncomplicated - Discharge Information *PRESCRIPTION DRUG MONITORING PROGRAM REVIEWED*: Not Applicable *COPY OF PRESCRIPTION DRUG MONITORING REPORT IN PATIENT INOCENTE: Not Applicable Referrals: Wayne Melvin MD [Primary Care Provider] - Additional Instructions: The following information is given to patients seen in the emergency department who are being discharged to home. This information is to outline your options for follow-up care. We provide all patients seen in our emergency department with a follow-up referral. The need for follow-up, as well as the timing and circumstances, are variable depending upon the specifics of your emergency department visit. If you don't have a primary care physician on staff, we will provide you with a referral. We always advise you to contact your personal physician following an emergency department visit to inform them of the circumstance of the visit and for follow-up with them and/or the need for any referrals to a consulting specialist. The emergency department will also refer you to a specialist when appropriate. This referral assures that you have the opportunity for follow-up care with a specialist. All of these measure are taken in an effort to provide you with optimal care, which includes your follow-up. Under all circumstances we always encourage you to contact your private physician who remains a resource for coordinating your care. When calling for follow-up care, please make the office aware that this follow-up is from your recent emergency room visit. If for any reason you are refused follow-up, please contact the [facility] Emergency Department at and asked to speak to the emergency department charge nurse. [facility] [address] [place] [address] [address] Sepsis Event Note - Evaluation Sepsis Screening Result: No Definite Risk - Focused Exam Vital Signs: Vital Signs Temp Pulse Resp BP Pulse Ox 01/05/20 01:11 36.7 C 78 18 118/74 96 Date Exam was Performed: 01/05/20 Time Exam was Performed: 01:15
[2020-01-05 01:26] VITALS: BP 118/74; PULSE 78
== END 2020-01-05 01:23 | disposition home or self-care (01) ==
LOC: MW.ED 01:02
DX: F10.120 Alcohol abuse with intoxication, uncomplicated (principal); J44.9 Chronic obstructive pulmonary disease, unspecified; K21.9 Gastro-esophageal reflux disease without esophagitis; F41.9 Anxiety disorder, unspecified; F32.9 Major depressive disorder, single episode, unspecified; Z88.8 Allergy status to other drugs, medicaments and biological substances; Z88.6 Allergy status to analgesic agent; Z91.040 Latex allergy status; Z88.1 Allergy status to other antibiotic agents; Z88.5 Allergy status to narcotic agent; Z79.899 Other long term (current) drug therapy
CPT/HCPCS: 99282; 99283

== ENCOUNTER 2020-01-16 11:13 | Emergency (ER) | payer MEDICAID ==
--- NOTE | 2020-01-16 11:30 | EDM.PDOC ---
ED HPI GENERAL MEDICAL PROBLEM - General Chief Complaint: Upper Extremity Injury/Pain Stated Complaint: FELL DOWN STAIRS Time Seen by Provider: 01/16/20 11:22 - History of Present Illness INITIAL COMMENTS - FREE TEXT/NARRATIVE: History of present illness: The patient fell carrying a laundry basket and struck her right chest when she landed. She complains of pain in the right side of her ribs. Eyes any neck pain or head injury. She does not have any significant trauma to any other part of her body. She says she has a little bruising in her legs. The pain in the center of the posterior thorax but no other spinal pain. Patient has no neurologic deficit. The pain is moderately severe when she takes a deep breath and better when she is not breathing. Movement also makes it worse. Review of systems: As per history of present illness and below otherwise all systems reviewed and negative. Past medical history: As per history of present illness and as reviewed below otherwise noncontributory. Surgical history: As per history of present illness and as reviewed below otherwise noncontributory. Social history: No reported history of drug or alcohol abuse. Family history: As per history of present illness and as reviewed below otherwise noncontributory. Physical exam: HEENT: Atraumatic, normocephalic, pupils reactive, negative for conjunctival pallor or scleral icterus, mucous membranes moist, throat clear, neck supple, nontender, trachea midline. Lungs: Clear to auscultation, breath sounds equal bilaterally, chest nontender. Heart: S1S2, regular, negative for clicks, rubs, or JVD. Abdomen: Soft, nondistended, nontender. Negative for masses or hepatosplenomegaly. Negative for costovertebral tenderness. Pelvis: Stable nontender. Genitourinary: Deferred. Rectal: Deferred. Extremities: Atraumatic, negative for cords or calf pain. Neurovascular unremarkable. Neuro: Awake, alert, oriented. Cranial nerves II through XII unremarkable. Cerebellum unremarkable. Motor and sensory unremarkable throughout. Exam nonfocal. Diagnostics: [] Therapeutics: [] Impression: [] Plan: [] Definitive disposition and diagnosis as appropriate pending reevaluation and review of above. right ribs and shoulder Pain Score (Numeric/FACES): 10 - Related Data Allergies Allergy/AdvReac Type Severity Reaction Status Date / Time amitriptyline Allergy Hives Verified 01/16/20 11:28 aspirin Allergy Stomach Verified 01/16/20 11:28 Upset latex Allergy Rash Verified 01/16/20 11:28 levofloxacin [From Levaquin] Allergy Diarrhea Verified 01/16/20 11:28 morphine AdvReac Confusion Verified 01/16/20 11:28 Home Meds: Home Meds Omeprazole 20 mg PO DAILY 03/06/14 [History] Ondansetron [Zofran] 8 mg PO ASDIRECTED PRN 02/16/15 [History] Albuterol [Ventolin HFA] 1 - 2 puff INH ASDIRECTED PRN 11/28/18 [History] PARoxetine HCL [Paroxetine HCl] 20 mg PO BID 11/28/18 [History] busPIRone HCl [busPIRone] 30 mg PO BID 11/28/18 [History] Past Medical History - Past Health History Medical/Surgical History: Denies Medical/Surgical History HEENT History: Reports: Other (See Below) Other HEENT History: states has blurred vision, wears glasses, top denture, Cardiovascular History: Reports: High Cholesterol Other Cardiovascular History: states mild heart murmur Respiratory History: Reports: Asthma, Bronchitis, Recurrent, COPD, SOB, Other (See Below) Other Respiratory History: states has nodule on left lower lung, Gastrointestinal History: Reports: Bowel Obstruction, Diverticulosis, GERD, Pancreatitis, Other (See Below) Other Gastrointestinal History: ulcerative colitis Genitourinary History: Reports: None MANAGER INTRANET History: Reports: Ectopic , Other MANAGER INTRANET History: Ectopic Musculoskeletal History: Reports: Arthritis, Back Pain, Chronic, Fracture, Other (See Below) Other Musculoskeletal History: 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), put left hand through a plate glass window, left hand and wrist surgery x3 Neurological History: Reports: Other (See Below) Other Neuro History: CRIPS Psychiatric History: Reports: Addiction, Anxiety, Depression, PTSD, Suicide Attempt, Suicidal Ideation Endocrine/Metabolic History: Reports: None Hematologic History: Reports: Blood Transfusion(s) Immunologic History: Reports: None Oncologic (Cancer) History: Reports: Other (See Below) Other Oncologic History: cervical dysplagia Dermatologic History: Reports: None - Infectious Disease History Infectious Disease History: Reports: Chicken Pox - Past Surgical History Head Surgeries/Procedures: Reports: None HEENT Surgical History: Reports: Other (See Below) Other HEENT Surgeries/Procedures: Dental extractions Cardiovascular Surgical History: Reports: None Respiratory Surgical History: Reports: None GI Surgical History: Reports: Cholecystectomy, Colon, Colonoscopy, EGD, Other (See Below) Other GI Surgeries/Procedures: Multiple laproscopic surgeries, laparotomy with colon resection for bowel obstruction Female Surgical History: Reports: Section, Hysterectomy, Oophorectomy Other Female Surgeries/Procedures: left ovarian cyst with oopherectomy Endocrine Surgical History: Reports: None Neurological Surgical History: Reports: None Musculoskeletal Surgical History: Reports: Other (See Below) Other Musculoskeletal Surgeries/Procedures:: left hand surgery x3, toenail removal Oncologic Surgical History: Reports: None Dermatological Surgical History: Reports: None Social & Family History - Family History Family Medical History: Noncontributory - Caffeine Use Caffeine Use: Reports: Coffee, Soda Caffeine Use Comment: 3-4 daily Review of Systems - Review of Systems Review Of Systems: Comprehensive ROS is negative, except as noted in HPI. ED EXAM, GENERAL - Physical Exam Exam: See Below Free Text/Narrative:: Physical examination as in the HPI Course - Vital Signs Last Recorded V/S: Last Vital Signs Temp 97.3 F 01/16/20 11:29 Pulse 101 H 01/16/20 11:29 Resp 18 01/16/20 11:29 BP 147/95 H 01/16/20 11:29 Pulse Ox 98 01/16/20 11:29 - Orders/Labs/Meds Orders: Active Orders 24 hr Category Date Time Status Chest 2V [CR] Stat Exams 01/16/20 11:26 Ordered Departure - Departure Time of Disposition: 11:57 Disposition: Home, Self-Care 01 Condition: Good Clinical Impression: Contusion, chest wall, Fall - Discharge Information *PRESCRIPTION DRUG MONITORING PROGRAM REVIEWED*: Not Applicable *COPY OF PRESCRIPTION DRUG MONITORING REPORT IN PATIENT INOCENTE: Not Applicable Instructions: Rib Contusion Referrals: Guzman Wen MD [Primary Care Provider] - Forms: ED Department Discharge Additional Instructions: The following information is given to patients seen in the emergency department who are being discharged to home. This information is to outline your options for follow-up care. We provide all patients seen in our emergency department with a follow-up referral. The need for follow-up, as well as the timing and circumstances, are variable depending upon the specifics of your emergency department visit. If you don't have a primary care physician on staff, we will provide you with a referral. We always advise you to contact your personal physician following an emergency department visit to inform them of the circumstance of the visit and for follow-up with them and/or the need for any referrals to a consulting specialist. The emergency department will also refer you to a specialist when appropriate. This referral assures that you have the opportunity for follow-up care with a specialist. All of these measure are taken in an effort to provide you with optimal care, which includes your follow-up. Under all circumstances we always encourage you to contact your private physician who remains a resource for coordinating your care. When calling for follow-up care, please make the office aware that this follow-up is from your recent emergency room visit. If for any reason you are refused follow-up, please contact the [facility] Emergency Department at and asked to speak to the emergency department charge nurse. [facility] [address] [place] [address] [place] [address] Sepsis Event Note (ED) - Focused Exam Vital Signs: Vital Signs Temp Pulse Resp BP Pulse Ox 01/16/20 11:29 97.3 F 101 H 18 147/95 H 98 - My Orders Last 24 Hours: My Active Orders 01/16/20 11:26 Chest 2V [CR] Stat - Assessment/Plan Last 24 Hours: My Active Orders 01/16/20 11:26 Chest 2V [CR] Stat
--- NOTE | 2020-01-16 12:20 | CR ---
Chest: 2 views of the chest are obtained. Comparison: Prior chest x-ray of 10/07/19. Heart size and mediastinum are normal. Pleural thickening is noted along the right lateral chest which appears as an interval change from prior study. Given the history of injury to the right chest this may represent a small pleural hematoma from a nonvisualized rib fracture. Lungs otherwise are clear. Bony structures appear within normal limits for the patient's age. Surgical clips are seen within the upper abdomen. Impression: 1. Pleural thickening within the right lateral chest area and this may represent pleural hematoma from a nonvisualized rib fracture. 2. Nothing acute is otherwise seen on 2 view chest x-ray. Diagnostic code #3 This report was dictated in MDT
[2020-01-16 12:44] VITALS: BP 137/96; PULSE 87
== END 2020-01-16 12:44 | disposition home or self-care (01) ==
LOC: MW.ED 11:13
DX: S20.211A Contusion of right front wall of thorax, initial encounter (principal); J44.9 Chronic obstructive pulmonary disease, unspecified; M19.90 Unspecified osteoarthritis, unspecified site; K21.9 Gastro-esophageal reflux disease without esophagitis; F41.9 Anxiety disorder, unspecified; F32.9 Major depressive disorder, single episode, unspecified; Z88.8 Allergy status to other drugs, medicaments and biological substances; Z88.5 Allergy status to narcotic agent; Z91.040 Latex allergy status; Z79.899 Other long term (current) drug therapy; W10.9XXA Fall (on) (from) unspecified stairs and steps, initial encounter
CPT/HCPCS: 71046; 71046-26; 99282; 99284-25

== ENCOUNTER 2020-03-31 16:00 | Emergency (ER) | payer MEDICAID ==
[2020-03-31] MEDS ORDERED: Sodium Chloride 0.9% 2.5 ML Syringe FLUSH PRN (16:05)
[2020-03-31] MEDS ORDERED: Sodium Chloride 0.9% 10 ML Syringe FLUSH PRN (16:05)
--- NOTE | 2020-03-31 16:11 | EDM.PDOC ---
<Johanna Catalan - Last Filed: 04/01/20 18:30> ED HPI GENERAL MEDICAL PROBLEM - General Chief Complaint: Respiratory Problem Time Seen by Provider: 03/31/20 16:04 Source of Information: Reports: Patient, EMS - History of Present Illness INITIAL COMMENTS - FREE TEXT/NARRATIVE: History of present illness: 49-year-old female brought by EMS presenting with difficulty breathing over the last few days. She reports history of COPD. She does report she has needed to use her inhaler more than usual over the last few days. She has a dry cough. She also does report some right-sided chest pain that is described as a pressure and moderate in intensity. No leg pain. She is a smoker though she has plans to quit and she just recently got a prescription for Chantix. Per EMS the vital signs were largely stable except that the patient was tachycardic in the 113 range but oxygen saturation 96 to 97% on room air. Review of systems: As per history of present illness and below otherwise all systems reviewed and negative. Past medical history: As per history of present illness and as reviewed below otherwise noncontributory. Surgical history: As per history of present illness and as reviewed below otherwise noncontributory. Social history: No reported history of drug or alcohol abuse. Family history: As per history of present illness and as reviewed below otherwise noncontributory. Physical exam: GEN: no acute distress, well appearing, appears somewhat anxious HEENT: Atraumatic, normocephalic, mucous membranes moist, Neck: supple, nontender, trachea midline. Lungs: No respiratory distress. No wheezing, rales or rhonchi Heart: Regular, mildly tachycardic Abdomen: Soft, nondistended, nontender. Back: nontender Extremities: Atraumatic. Neurovascularly intact. No calf tenderness or lower extremity edema Neuro: Awake, alert, oriented. Neuro Exam nonfocal. Skin: warm, dry, no lesions Diagnostics: Labs, EKG, chest x-ray, COVID swab Therapeutics: [] MDM: Impression: [] Plan: [] Definitive disposition and diagnosis as appropriate pending reevaluation and review of above. abdominal, chest Pain Score (Numeric/FACES): 5 - Related Data Allergies Allergy/AdvReac Type Severity Reaction Status Date / Time amitriptyline Allergy Hives Verified 03/31/20 16:04 aspirin Allergy Stomach Verified 03/31/20 16:04 Upset latex Allergy Rash Verified 03/31/20 16:04 levofloxacin [From Levaquin] Allergy Diarrhea Verified 03/31/20 16:04 morphine AdvReac Confusion Verified 03/31/20 16:04 Home Meds: Home Meds Omeprazole 20 mg PO DAILY 03/06/14 [History] Ondansetron [Zofran] 8 mg PO ASDIRECTED PRN 02/16/15 [History] Albuterol [Ventolin HFA] 1 - 2 puff INH ASDIRECTED PRN 11/28/18 [History] PARoxetine HCL [Paroxetine HCl] 20 mg PO BID 11/28/18 [History] busPIRone HCl [busPIRone] 30 mg PO BID 11/28/18 [History] Albuterol Sulfate 1 dose INH DAILY PRN 03/31/20 [History] Magnesium Chloride [Mag Delay] 64 mg PO BID 7 Days #14 tablet. 03/31/20 [Rx] Potassium Chloride 40 meq PO DAILY 5 Days #10 packet 03/31/20 [Rx] Past Medical History - Past Health History Medical/Surgical History: Denies Medical/Surgical History HEENT History: Reports: Other (See Below) Other HEENT History: states has blurred vision, wears glasses, top denture, Cardiovascular History: Reports: High Cholesterol Other Cardiovascular History: states mild heart murmur Respiratory History: Reports: Asthma, Bronchitis, Recurrent, COPD, SOB, Other (See Below) Other Respiratory History: states has nodule on left lower lung, Gastrointestinal History: Reports: Bowel Obstruction, Diverticulosis, GERD, Pancreatitis, Other (See Below) Other Gastrointestinal History: ulcerative colitis Genitourinary History: Reports: None CAD DESIGNER DRAFTER History: Reports: Ectopic , Other CAD DESIGNER DRAFTER History: Ectopic Musculoskeletal History: Reports: Arthritis, Back Pain, Chronic, Fracture, Other (See Below) Other Musculoskeletal History: 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), put left hand through a plate glass window, left hand and wrist surgery x3 Neurological History: Reports: Other (See Below) Other Neuro History: CRIPS Psychiatric History: Reports: Addiction, Anxiety, Depression, PTSD, Suicide Attempt, Suicidal Ideation Endocrine/Metabolic History: Reports: None Hematologic History: Reports: Blood Transfusion(s) Immunologic History: Reports: None Oncologic (Cancer) History: Reports: Other (See Below) Other Oncologic History: cervical dysplagia Dermatologic History: Reports: None - Infectious Disease History Infectious Disease History: Reports: Chicken Pox - Past Surgical History Head Surgeries/Procedures: Reports: None HEENT Surgical History: Reports: Other (See Below) Other HEENT Surgeries/Procedures: Dental extractions Cardiovascular Surgical History: Reports: None Respiratory Surgical History: Reports: None GI Surgical History: Reports: Cholecystectomy, Colon, Colonoscopy, EGD, Other (See Below) Other GI Surgeries/Procedures: Multiple laproscopic surgeries, laparotomy with colon resection for bowel obstruction Female Surgical History: Reports: Section, Hysterectomy, Oophorectomy Other Female Surgeries/Procedures: left ovarian cyst with oopherectomy Endocrine Surgical History: Reports: None Neurological Surgical History: Reports: None Musculoskeletal Surgical History: Reports: Other (See Below) Other Musculoskeletal Surgeries/Procedures:: left hand surgery x3, toenail removal Oncologic Surgical History: Reports: None Dermatological Surgical History: Reports: None Social & Family History - Family History Family Medical History: Noncontributory - Caffeine Use Caffeine Use: Reports: Coffee, Soda Caffeine Use Comment: 3-4 daily ED ROS GENERAL - Review of Systems Review Of Systems: See Below (See HPI) ED EXAM, GENERAL - Physical Exam Exam: See Below (See HPI) EKG INTERPRETATION EKG Interpretation Comments: EKG performed today at 4:03 PM, sinus tachycardia, rate 103, QTc 430, no acute ischemia, no STEMI. Independently interpreted by me. Course - Vital Signs Text/Narrative:: Dyspnea, chest pain, history of COPD, also dry cough Differential includes COPD exacerbation, pneumonia, ACS or angina, coronavirus, bronchitis Chest x-ray neg, COVID swab negative, oxygen saturation improved no ischemia on EKG, troponin negative, will check repeat troponin, CT angios was performed which shows no pulmonary embolism or pneumonia. Patient improved. Stable for discharge after repeat troponin. Patient signed out to Dr. Nassar at 8 PM pending final troponin results. - Re-Assessments/Exams Free Text/Narrative Re-Assessment/Exam: 03/31/20 19:01 No acute findings on patient's chest x-ray or CT scan, no pulmonary emboli, no dissection. Departure - Departure Disposition: Home, Self-Care 01 Clinical Impression: Atypical chest pain, Hypokalemia Dyspnea Qualifiers: Dyspnea type: unspecified Qualified Code(s): R06.00 - Dyspnea, unspecified - Discharge Information Prescriptions: Magnesium Chloride [Mag Delay] 64 mg PO BID 7 Days #14 tablet. Potassium Chloride 40 meq PO DAILY 5 Days #10 packet Instructions: Hypokalemia, Nonspecific Chest Pain, Adult, Shortness of Breath, Adult Referrals: Guzman Wen MD [Primary Care Provider] - 3 Days (For re-evaluation of symptoms.) Forms: ED Department Discharge Additional Instructions: You were seen in the emergency department for chest pain and shortness of breath. At this point, your work-up is reassuring. There is no evidence of a heart attack, blood clot in your lungs, pneumonia, or any other dangerous explanation for your symptoms. Your blood potassium level is low so I will prescribe magnesium chloride and potassium that you should take as directed. I would like for you to have your potassium level rechecked by your primary doctor the next couple of days. I feel comfortable with going home tonight. I would like for you to follow-up with your primary doctor the next 2 to 3 days for reevaluation. If your symptoms worsen, you should come back to the ER right away. Please return the emergency department immediately if your symptoms worsen or if you feel worse. Thank you for choosing the [facility] emergency department in [place] for your medical needs today. It was a pleasure caring for you. The following information is given to patients seen in the emergency department who are being discharged. This information is to outline your options for follow-up care. We provide all patients seen in our emergency department with a follow-up referral. The need for follow-up, as well as the timing and circumstances, are variable depending upon the specifics of your emergency department visit. If you don't have a primary care physician on staff, we will provide you with a referral. We always advise you to contact your personal physician following an emergency department visit to inform them of the circumstance of the visit and for follow-up with them and/or the need for any referrals to a consulting specialist. The emergency department will also refer you to a specialist when appropriate. This referral assures that you have the opportunity for follow-up care with a specialist. All of these measure are taken in an effort to provide you with optimal care, which includes your follow-up. Under all circumstances we always encourage you to contact your private physician who remains a resource for coordinating your care. When calling for follow-up care, please make the office aware that this follow-up is from your recent emergency room visit. If for any reason you are refused follow-up, please contact the [facility] Emergency Department at and asked to speak to the emergency department charge nurse. If you do not have a primary care physician that is caring for you, you can contact these clinics below to set up an appointment to establish care: [facility] - Primary Care [address] [place] [id number] [address] Sepsis Event Note (ED) - Evaluation Sepsis Screening Result: No Definite Risk <Juan Manuel Nassar - Last Filed: 04/01/20 19:15> Course - Vital Signs Text/Narrative:: I assumed care of this patient at 1900 hrs. from my colleague Dr. Carlson. In brief, this is a 49-year-old female with a past medical history of COPD, SBO, alcohol intoxication presenting with right-sided chest pain and shortness of breath, onset around 1 PM. Also reported dry cough. Noted to be tachycardic on arrival. Did have a large work-up including negative troponin, negative CT pulm onary angiogram, negative chest x-rays. Given steroids prior to my arrival. BNP within normal limits. COVID testing negative. Twelve-lead EKG nonischemic. Repeat troponin testing is also negative. We did obtain an additional twelve- lead EKG which shows sinus rhythm with a ventricular rate of 91, no acute ischemia or ectopy, no RV strain pattern. Patient states her chest pain is improving. Low risk by HEART score. By auscultation, patient does have mild wheezing but she is not complaining of any shortness of breath so we did not administer any nebulized bronchodilators. I considered a multitude of differential diagnoses for the patient's chest pain, including: Acute coronary syndrome: the ECGs do not demonstrate acute ischemia and troponin testing is negative. They have a HEART score of 3. Under the 2015 HEART pathway study, risk of MACE at 30 days with a HEART score 0-3 and a second negative 3-hour troponin is 0.8% (Carlos et hugh PMID: [id number]) Pulmonary embolism: CT pulmonary angiography did not demonstrate pulmonary embolism. Thoracic aortic dissection: equal radial pulses, no radiation of pain to the back, no history of connective tissue disease. The mediastinum is not widened on x-rays. No evidence on CTPA study. Acute decompensated heart failure/pulmonary edema: no significant respiratory distress (hypoxia, tachypnea), no significant lower extremity edema, no evidence of edema on chest x-rays, no JVD. Negative BNP. Pneumothorax/pleural effusion: no evidence of such on chest x-ray, no fever or sputum production, no tachypnea or hypoxia. Pericardial effusion: Not seen on CT imaging. Lester/pericarditis: no fever, no friction rub, negative troponin testing, non- diagnostic ECG. Endocarditis: no fever, no splinter hemorrhages noted, no murmur, no history of IV drug use, non-toxic appearing. Esophageal rupture: no fever, no history of recurrent emesis, no subcutaneous emphysema to the neck or chest, non-toxic appearing. GERD, musculoskeletal chest pain, pleurisy, non-specific chest pain, et cetera. The patient presented with chest pain of uncertain etiology. Based on their history, lab analysis, and ECG, I see no evidence at this time for a malignant etiology for the patient's chest pain. Stable discharge home with outpatient primary care follow-up. Strict ED return precautions provided. All questions answered prior to being discharged in good condition. HEART Pathway for Early Discharge in Acute Chest Pain RESULT SUMMARY: 3 points HEART Pathway Score Low risk 0.9-1.7% 30-day MACE Repeat troponin at 3 hours and if negative, discharge home with outpatient follow-up. INPUTS: History > 1 = Moderately suspicious EKG > 0 = Normal Age > 1 = 45-64 Risk factors > 1 = 1-2 risk factors Initial troponin > 0 = ?normal limit Last Recorded V/S: Last Vital Signs Temp 35.1 C L 03/31/20 16:01 Pulse 93 03/31/20 21:07 Resp 16 03/31/20 21:07 BP 135/88 03/31/20 21:07 Pulse Ox 97 03/31/20 21:07 - Orders/Labs/Meds Labs: Laboratory Tests 03/31/20 03/31/20 03/31/20 Range/Units 15:59 15:59 15:59 WBC 10.36 (4.0-11.0) K/uL RBC 4.78 (4.30-5.90) M/uL Hgb 13.9 (12.0-16.0) g/dL Hct 41.1 (36.0-46.0) % MCV 86.0 (80.0-98.0) fL MCH 29.1 (27.0-32.0) pg MCHC 33.8 (31.0-37.0) g/dL RDW Std Deviation 44.3 (28.0-62.0) fl RDW Coeff of Aydin 14 (11.0-15.0) % Plt Count 332 (150-400) K/uL MPV 9.20 (7.40-12.00) fL Neut % (Auto) 64.4 (48.0-80.0) % Lymph % (Auto) 27.6 (16.0-40.0) % [place] % (Auto) 6.9 (0.0-15.0) % Eos % (Auto) 0.9 (0.0-7.0) % Baso % (Auto) 0.2 (0.0-1.5) % Neut # (Auto) 6.7 H (1.4-5.7) K/uL Lymph # (Auto) 2.9 H (0.6-2.4) K/uL [place] # (Auto) 0.7 (0.0-0.8) K/uL Eos # (Auto) 0.1 (0.0-0.7) K/uL Baso # (Auto) 0.0 (0.0-0.1) K/uL Nucleated RBC % 0.0 /100WBC Nucleated RBCs # 0 K/uL INR 0.99 Sodium 135 L (136-145) mmol/L Potassium 3.0 L (3.5-5.1) mmol/L Chloride 99 (98-107) mmol/L Carbon Dioxide 20.1 L (21.0-32.0) mmol/L BUN 11 (7.0-18.0) mg/dL Creatinine 1.1 H (0.6-1.0) mg/dL Est Cr Clr Drug Dosing 52.84 mL/min Estimated GFR (MDRD) 52.6 ml/min Glucose 97 (74-106) mg/dL Calcium 9.1 (8.5-10.1) mg/dL Total Bilirubin 0.2 (0.2-1.0) mg/dL AST 32 (15-37) IU/L ALT 37 (14-63) IU/L Alkaline Phosphatase 129 H (46-116) U/L Troponin I < 0.050 (0.000-0.056) ng/mL B-Natriuretic Peptide (<100) PG/ML Total Protein 7.9 (6.4-8.2) g/dL Albumin 3.9 (3.4-5.0) g/dL Globulin 4.0 (2.6-4.0) g/dL Albumin/Globulin Ratio 1.0 (0.9-1.6) COVID-19 (JOSE) (NEGATIVE) 03/31/20 03/31/20 03/31/20 Range/Units 15:59 17:19 19:44 WBC (4.0-11.0) K/uL RBC (4.30-5.90) M/uL Hgb (12.0-16.0) g/dL Hct (36.0-46.0) % MCV (80.0-98.0) fL MCH (27.0-32.0) pg MCHC (31.0-37.0) g/dL RDW Std Deviation (28.0-62.0) fl RDW Coeff of Aydin (11.0-15.0) % Plt Count (150-400) K/uL MPV (7.40-12.00) fL Neut % (Auto) (48.0-80.0) % Lymph % (Auto) (16.0-40.0) % [place] % (Auto) (0.0-15.0) % Eos % (Auto) (0.0-7.0) % Baso % (Auto) (0.0-1.5) % Neut # (Auto) (1.4-5.7) K/uL Lymph # (Auto) (0.6-2.4) K/uL [place] # (Auto) (0.0-0.8) K/uL Eos # (Auto) (0.0-0.7) K/uL Baso # (Auto) (0.0-0.1) K/uL Nucleated RBC % /100WBC Nucleated RBCs # K/uL INR Sodium (136-145) mmol/L Potassium (3.5-5.1) mmol/L Chloride (98-107) mmol/L Carbon Dioxide (21.0-32.0) mmol/L BUN (7.0-18.0) mg/dL Creatinine (0.6-1.0) mg/dL Est Cr Clr Drug Dosing mL/min Estimated GFR (MDRD) ml/min Glucose (74-106) mg/dL Calcium (8.5-10.1) mg/dL Total Bilirubin (0.2-1.0) mg/dL AST (15-37) IU/L ALT (14-63) IU/L Alkaline Phosphatase (46-116) U/L Troponin I < 0.050 (0.000-0.056) ng/mL B-Natriuretic Peptide 3 (<100) PG/ML Total Protein (6.4-8.2) g/dL Albumin (3.4-5.0) g/dL Globulin (2.6-4.0) g/dL Albumin/Globulin Ratio (0.9-1.6) COVID-19 (JOSE) NEGATIVE (NEGATIVE) Meds: Medications Discontinued Medications Generic Name Dose Route Start Last Admin Trade Name Freq PRN Reason Stop Dose Admin Aspirin 324 mg 03/31/20 19:51 03/31/20 19:58 Aspirin PO 03/31/20 19:52 324 mg ONETIME ONE Administration Dexamethasone 6 mg 03/31/20 16:37 03/31/20 17:20 Dexamethasone IVPUSH 03/31/20 16:38 6 mg ONETIME ONE Administration Iopamidol 50 ml 03/31/20 19:14 03/31/20 19:15 [id number]-370 (76%) IV 03/31/20 19:15 50 ml ONETIME STA Administration Sodium Chloride 10 ml 03/31/20 16:05 03/31/20 16:18 Saline Flush FLUSH 10 ml ASDIRECTED PRN Administration Keep Vein Open Sodium Chloride 2.5 ml 03/31/20 16:05 03/31/20 16:18 Saline Flush FLUSH 2.5 ml ASDIRECTED PRN Administration Keep Vein Open Departure - Departure Time of Disposition: 21:06 Condition: Good - Discharge Information *PRESCRIPTION DRUG MONITORING PROGRAM REVIEWED*: Not Applicable *COPY OF PRESCRIPTION DRUG MONITORING REPORT IN PATIENT INOCENTE: Not Applicable
[2020-03-31] MEDS ORDERED: Dexamethasone 10 MG/ML SDV IVPUSH ONE (16:37)
[2020-03-31 16:39] LABS: BLOOD UREA NITROGEN,BUN 11 mg/dL (7.0-18.0); CARBON DIOXIDE,CO2 20.1 mmol/L (21.0-32.0); CHLORIDE,CL 99 mmol/L (98-107); GLUCOSE RANDOM 97 mg/dL (74-106); SODIUM,NA 135 mmol/L (136-145)
--- NOTE | 2020-03-31 16:52 | CR ---
Chest: 2 views of the chest were obtained. Comparison: Previous chest x-ray of 01/16/20. Heart size and mediastinum are normal. Lungs are clear with no acute parenchymal change. Bony structures are grossly intact. Impression: 1. Nothing acute is seen on portable chest x-ray. Diagnostic code #1 Study was dictated in MDT
--- NOTE | 2020-03-31 18:43 | CT ---
CT chest Technique: Multiple axial sections through the chest were obtained. Intravenous contrast was utilized. Study has been performed as a pulmonary angiogram protocol. Comparison: No prior chest CT, prior chest x-ray performed earlier on same day (4:13 PM). Findings: Pulmonary arteries are well-opacified. No filling defects are seen to indicate pulmonary embolism. Aorta shows no aneurysm. No dissection is seen. Mediastinum shows no adenopathy. No axillary abnormalities are seen. Hilar regions appear normal. No pericardial thickening is seen. Visualized upper abdominal structures showed nothing acute. Lungs are clear with no acute parenchymal change. No pleural effusions are seen. No pneumothorax is seen. Bone window settings were reviewed. 3 partially healed right-sided rib fractures are seen. Please correlate as to the age of this finding. Single left-sided rib fracture is seen which appears to be healed. Thoracic spine shows minimal degenerative change. Impression: 1. No findings of pulmonary embolism. 2. Aorta shows no aneurysm or dissection. 3. Rib fractures as described above felt to be subacute to old. Please correlate. 4. Other findings which are nonacute. Diagnostic code #2 Study was dictated in MDT
[2020-03-31] MEDS ORDERED: Iopamidol 755 MG/ML 50 ML Bottle IV STA (19:14)
[2020-03-31] MEDS ORDERED: Aspirin 81 MG Tab.Chew PO ONE (19:51)
[2020-03-31 21:08] VITALS: BP 135/88; PULSE 93
== END 2020-03-31 21:30 | disposition home or self-care (01) ==
LOC: MW.ED 16:00
DX: R07.89 Other chest pain (principal); R06.00 Dyspnea, unspecified; E87.6 Hypokalemia; J44.9 Chronic obstructive pulmonary disease, unspecified; K21.9 Gastro-esophageal reflux disease without esophagitis; F41.9 Anxiety disorder, unspecified; F32.9 Major depressive disorder, single episode, unspecified; R00.0 Tachycardia, unspecified; F17.200 Nicotine dependence, unspecified, uncomplicated; Z98.890 Other specified postprocedural states; Z88.8 Allergy status to other drugs, medicaments and biological substances; Z88.5 Allergy status to narcotic agent; Z91.040 Latex allergy status; Z79.899 Other long term (current) drug therapy; Z20.828 Contact with and (suspected) exposure to other viral communicable diseases
CPT/HCPCS: 36415; 71045; 71275; 80053; 83880; 84484; 85025; 85610; 87635; 93005; 96374; 99285; A9270; J1100; Q9967; U0002

== ENCOUNTER 2020-05-29 21:36 | Emergency (ER) | payer MEDICAID ==
[2020-05-29] MEDS ORDERED: Ibuprofen 600 MG Tab PO ONE (22:44)
[2020-05-29] MEDS ORDERED: traMADol 50 MG Tab PO ONE (22:44)
--- NOTE | 2020-05-29 22:57 | EDM.PDOC ---
ED HPI GENERAL MEDICAL PROBLEM - General Chief Complaint: General Stated Complaint: RT SIDE ABDOMINAL PAIN Time Seen by Provider: 05/29/20 22:46 - History of Present Illness INITIAL COMMENTS - FREE TEXT/NARRATIVE: HISTORY AND PHYSICAL: History of present illness: This is a 49-year-old female with history significant for COPD, pancreatitis, alcohol-related liver disease, cervical dysplasia, multiple bowel surgeries in the past, ectopic pregnancies, hysterectomy, who presents ER today secondary to acute onset of sharp stabbing pain to her right lateral ribs. Patient reports that she felt a pop while she was sitting and relaxing and has been having pain with deep inspiration and cough since. Patient reports that the pain is very sharp and localized to her right lower ribs. Patient denies any abdominal pain. Patient has any recent fevers, shakes, chills, nausea, vomiting, diarrhea, dysuria, frequency, urgency. Patient reports pain increases with deep inspirations but feels okay with shallow inspirations. Patient denies any emesis. Patient denies any cough other than her usual COPD cough. Patient denies any hemoptysis. Patient has a history of DVT or PE. Patient has any calf tenderness or swelling. Patient has any family history of DVT or PE. Review of systems: As per history of present illness and below otherwise all systems reviewed and negative. MDM: Nurses notes reviewed and agree with PFSH, CISCO, V/S. Any exceptions to agreement documented on physician record. Other than the symptoms associated with the present events, the following is reported with regard to recent health: General: (-) fever. HENT: (-) congestion. Respiratory: (-) cough. Cardiovascular:(+) right lateral sharp chest pain with deep inspiration. GI: (-) abdominal pain : (-) urinary complaints. Musculoskeletal: (-) other aches or pains. Endocrine: (-) generalized weakness. Neurological: (-) localized weakness. Psychiatric: (-)emotional stress Past medical history: As per history of present illness and as reviewed below otherwise noncontributory. Surgical history: As per history of present illness and as reviewed below otherwise noncontributory. Social history: No reported history of drug or alcohol abuse. Family history: As per history of present illness and as reviewed below otherwise noncontributory. Physical exam: Constitutional: Patient is oriented to person, place, and time. Appears well-d eveloped and well-nourished. No distress. HEENT: Moist mucous membranes Head: Normocephalic and atraumatic Eyes: Right eye exhibits no discharge. Left eye exhibits no discharge. No scleral icterus Neck: Normal range of motion. No tracheal deviation present. Cardiovascular: Normal rate and regular rhythm. Pulmonary: Effort normal, no respiratory distress, no wheezing rales or rhonchi, no respiratory distress, no dyspnea, no tachypnea. Pain is reproducible with deep inspiration. Abdominal: No distention Musculoskeletal: Normal range of motion Neurologic: Alert and oriented to person, place and time. Skin: [place], warm and dry. Psychiatric: Normal mood and affect. Behavior is normal. Judgment and thought content normal. Nursing note and vital signs have been reviewed Patient's ER physical exam is significant for reproducible tenderness to palpation to her right lower lateral ribs. Pain is extremely localized. Patient has no right upper quadrant tenderness to palpation. Abd: Soft, nondistended, no rebound/guarding, no psoas or obturator signs, no tenderness at Mcberney's point, no Patel's sign. Pt does not present with an exam that would be consistent with an acute surgical abdomen at this time, nontender to palpation. Diagnostics: Right rib x-rays: No fracture identified by radiology. Therapeutics: Ibuprofen 600 mg Ultram 50 mg p.o. Patient is requesting no opiates but is agreeable to Ultram Assessment and plan: This a 49-year-old female who presents ER today with reproducible right-sided chest wall pain. Pain appears to be mechanical in nature. Pain does not appear to be consistent with cardiac etiology or pulmonary etiology i.e. PE, pneumonia, pneumothorax. Patient will be given ibuprofen and Ultram and will get a right rib x-ray. Patient reports improvement in her discomfort. Patient be discharged home with a prescription for a strength ibuprofen instructions to follow-up with her primary care physician. Reassessment at the time of disposition demonstrates that the patient is in no acute distress. The patient has remained stable throughout the entire ED visit and is without objective evidence for acute process requiring urgent intervention or hospitalization. The patient is stable for discharge, counseling is provided as documented above, discussed symptomatic treatment and specific conditions for return. I have spoken with the patient/caregiver and discussed todays findings, in addition to providing specific details for the plan of care. Questions are answered and there is agreement with the plan. Definitive disposition and diagnosis as appropriate pending reevaluation and review of above. R rib pain Pain Score (Numeric/FACES): 10 - Related Data Allergies Allergy/AdvReac Type Severity Reaction Status Date / Time amitriptyline Allergy Hives Verified 03/31/20 16:04 aspirin Allergy Stomach Verified 03/31/20 16:04 Upset latex Allergy Rash Verified 03/31/20 16:04 levofloxacin [From Levaquin] Allergy Diarrhea Verified 03/31/20 16:04 pregabalin [From Lyrica] Allergy Other Verified 05/29/20 21:56 morphine AdvReac Confusion Verified 03/31/20 16:04 Home Meds: Home Meds Omeprazole 20 mg PO DAILY 03/06/14 [History] Albuterol [Ventolin HFA] 1 - 2 puff INH ASDIRECTED PRN 11/28/18 [History] PARoxetine HCL [Paroxetine HCl] 20 mg PO BID 11/28/18 [History] busPIRone HCl [busPIRone] 30 mg PO BID 11/28/18 [History] Albuterol Sulfate 1 dose NEB DAILY PRN 03/31/20 [History] Ibuprofen 600 mg PO Q6HR PRN #30 tablet 05/30/20 [Rx] Past Medical History - Past Health History Medical/Surgical History: Denies Medical/Surgical History HEENT History: Reports: Other (See Below) Other HEENT History: states has blurred vision, wears glasses, top denture, Cardiovascular History: Reports: High Cholesterol Other Cardiovascular History: states mild heart murmur Respiratory History: Reports: Asthma, Bronchitis, Recurrent, COPD, SOB, Other (See Below) Other Respiratory History: states has nodule on R lower lung, Gastrointestinal History: Reports: Bowel Obstruction, Diverticulosis, GERD, Pancreatitis, Other (See Below) Other Gastrointestinal History: ulcerative colitis Genitourinary History: Reports: None MICROBIOLOGY LAB MANAGER History: Reports: Ectopic , Other MICROBIOLOGY LAB MANAGER History: Ectopic Musculoskeletal History: Reports: Arthritis, Back Pain, Chronic, Fracture, Other (See Below) Other Musculoskeletal History: 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), put left hand through a plate glass window, left hand and wrist surgery x3 Neurological History: Reports: Other (See Below) Other Neuro History: CRIPS Psychiatric History: Reports: Addiction, Anxiety, Depression, PTSD, Suicide Attempt, Suicidal Ideation Endocrine/Metabolic History: Reports: None Hematologic History: Reports: Blood Transfusion(s) Immunologic History: Reports: None Oncologic (Cancer) History: Reports: Other (See Below) Other Oncologic History: cervical dysplagia Dermatologic History: Reports: None - Infectious Disease History Infectious Disease History: Reports: Chicken Pox - Past Surgical History Head Surgeries/Procedures: Reports: None HEENT Surgical History: Reports: Other (See Below) Other HEENT Surgeries/Procedures: Dental extractions Cardiovascular Surgical History: Reports: None Respiratory Surgical History: Reports: None GI Surgical History: Reports: Cholecystectomy, Colon, Colonoscopy, EGD, Other (See Below) Other GI Surgeries/Procedures: Multiple laproscopic surgeries, laparotomy with colon resection for bowel obstruction Female Surgical History: Reports: Section, Hysterectomy, Oophorectomy Other Female Surgeries/Procedures: left ovarian cyst with oopherectomy Endocrine Surgical History: Reports: None Neurological Surgical History: Reports: None Musculoskeletal Surgical History: Reports: Other (See Below) Other Musculoskeletal Surgeries/Procedures:: left hand surgery x3, toenail removal Oncologic Surgical History: Reports: None Dermatological Surgical History: Reports: None Social & Family History - Family History Family Medical History: Noncontributory - Caffeine Use Caffeine Use: Reports: Coffee Caffeine Use Comment: 3-4 daily - Recreational Drug Use Recreational Drug Type: Reports: Marijuana/Hashish ED ROS GENERAL - Review of Systems Review Of Systems: See Below ED EXAM, GENERAL - Physical Exam Exam: See Below Course - Vital Signs Last Recorded V/S: Last Vital Signs Temp 97.6 F 05/29/20 21:57 Pulse 102 H 05/29/20 21:57 Resp 18 05/29/20 21:57 BP 119/62 05/29/20 21:57 Pulse Ox 94 L 05/29/20 21:57 - Orders/Labs/Meds Meds: Medications Discontinued Medications Generic Name Dose Route Start Last Admin Trade Name Rachidq PRN Reason Stop Dose Admin Ibuprofen 600 mg 05/29/20 22:44 05/29/20 22:56 Motrin PO 05/29/20 22:45 600 mg ONETIME ONE Administration Tramadol HCl 50 mg 05/29/20 22:44 05/29/20 22:57 Ultram PO 05/29/20 22:45 50 mg ONETIME ONE Administration Departure - Departure Time of Disposition: 00:04 Disposition: Home, Self-Care 01 Condition: Good Clinical Impression: Chest wall pain - Discharge Information Instructions: Chest Wall Pain Referrals: Guzman Wen MD [Primary Care Provider] - Forms: ED Department Discharge Additional Instructions: You have been seen and evaluated the ER today secondary to the pain to your right lateral ribs. Your x-ray does not reveal any fracture or pathology. You will be prescribed ibuprofen to assist you with the pain. Please make an appointment to see your family doctor if the pain persists for more than 3 to 5 days. The following information is given to patients seen in the emergency department who are being discharged to home. This information is to outline your options for follow-up care. We provide all patients seen in our emergency department with a follow-up referral. The need for follow-up, as well as the timing and circumstances, are variable depending upon the specifics of your emergency department visit. If you don't have a primary care physician on staff, we will provide you with a referral. We always advise you to contact your personal physician following an emergency department visit to inform them of the circumstance of the visit and for follow-up with them and/or the need for any referrals to a consulting specialist. The emergency department will also refer you to a specialist when appropriate. This referral assures that you have the opportunity for follow-up care with a specialist. All of these measure are taken in an effort to provide you with optimal care, which includes your follow-up. Under all circumstances we always encourage you to contact your private physician who remains a resource for coordinating your care. When calling for follow-up care, please make the office aware that this follow-up is from your recent emergency room visit. If for any reason you are refused follow-up, please contact the [facility] Emergency Department at and asked to speak to the emergency department charge nurse. Sepsis Event Note (ED) - Evaluation Sepsis Screening Result: No Definite Risk - Focused Exam Vital Signs: Vital Signs Temp Pulse Resp BP Pulse Ox 05/29/20 21:57 97.6 F 102 H 18 119/62 94 L
--- NOTE | 2020-05-29 23:55 | CR ---
INDICATION: Right lower rib pain TECHNIQUE: Right ribs 2 views. COMPARISON: Chest radiograph March 31, 2020 FINDINGS/IMPRESSION: Detailed oblique images of the right ribs demonstrate no fractures or bone lesions. There are surgical clips in the right upper quadrant. Visualized lungs are clear. Dictated by Becca Meehan MD @ May 29 2020 11:53PM Signed by Dr. Becca Meehan @ May 29 2020 11:53PM
[2020-05-30 00:26] VITALS: BP 116/75; PULSE 96
== END 2020-05-30 00:14 | disposition home or self-care (01) ==
LOC: MW.ED 21:36
DX: R07.89 Other chest pain (principal); J44.9 Chronic obstructive pulmonary disease, unspecified; F32.9 Major depressive disorder, single episode, unspecified; F41.9 Anxiety disorder, unspecified; K21.9 Gastro-esophageal reflux disease without esophagitis; Z91.040 Latex allergy status; Z88.8 Allergy status to other drugs, medicaments and biological substances; Z88.1 Allergy status to other antibiotic agents; Z88.5 Allergy status to narcotic agent; Z88.6 Allergy status to analgesic agent; Z79.899 Other long term (current) drug therapy
CPT/HCPCS: 71100; 99283; A9270

== ENCOUNTER 2020-08-11 14:26 | Observation (INO) | payer MEDICAID ==
[2020-08-11] MEDS ORDERED: Sodium Chloride 0.9% 1,000 ML IV ONE (15:06)
--- NOTE | 2020-08-11 15:11 | EDM.PDOC ---
ED HPI GENERAL MEDICAL PROBLEM - General Chief Complaint: Neuro Symptoms/Deficits Stated Complaint: EMS ARRIVAL Time Seen by Provider: 08/11/20 14:43 Source of Information: Reports: Patient History Limitations: Reports: No Limitations - History of Present Illness INITIAL COMMENTS - FREE TEXT/NARRATIVE: Patient is a 50-year-old female who presented today after possible syncope v ersus seizure episode. Patient had a previous subdural hematoma. Patient that she was in a store today where she felt lightheaded and woke up on the ground. Bystanders stated that she did not fall or hit her head but there was some notes that she had some shakiness of her arm. Patient was only out for few seconds and when she woke up she did states she was slightly confused. Patient now is at her baseline has no neurological complaints. Patient just feels dizzy more so when she turns her head to the left. Patient denies any vision changes arm or leg weakness no change in speech. Head Pain Score (Numeric/FACES): 8 - Related Data Allergies Allergy/AdvReac Type Severity Reaction Status Date / Time amitriptyline Allergy Hives Verified 08/11/20 21:54 aspirin Allergy Stomach Verified 08/11/20 21:54 Upset latex Allergy Rash Verified 08/11/20 21:54 levofloxacin [From Levaquin] Allergy Diarrhea Verified 08/11/20 21:54 pregabalin [From Lyrica] Allergy Other Verified 08/11/20 21:54 morphine AdvReac Confusion Verified 08/11/20 21:54 Home Meds: Home Meds Albuterol [Ventolin HFA] 1 - 2 puff INH ASDIRECTED PRN 11/28/18 [History] PARoxetine HCL [Paroxetine HCl] 20 mg PO BID 11/28/18 [History] busPIRone HCl [busPIRone] 30 mg PO BID 11/28/18 [History] Albuterol Sulfate 1 dose NEB DAILY PRN 03/31/20 [History] Ibuprofen 600 mg PO Q6HR PRN #30 tablet 05/30/20 [Rx] Furosemide [Lasix] 40 mg PO DAILY 08/11/20 [History] Diclofenac Sodium 50 mg PO BID PRN 08/12/20 [History] Mirtazapine 7.5 mg PO BEDTIME 08/12/20 [History] Pantoprazole Sodium [Protonix] 20 mg PO DAILY 08/12/20 [History] Prazosin HCl [Prazosin] 1 mg PO BEDTIME 08/12/20 [History] Rosuvastatin Calcium 10 mg PO BEDTIME 08/12/20 [History] Past Medical History - Past Health History Medical/Surgical History: Denies Medical/Surgical History HEENT History: Reports: Other (See Below) Other HEENT History: states has blurred vision, wears glasses, top denture, Cardiovascular History: Reports: High Cholesterol Other Cardiovascular History: states mild heart murmur Respiratory History: Reports: Asthma, Bronchitis, Recurrent, COPD, SOB, Other (See Below) Other Respiratory History: states has nodule on R lower lung, Gastrointestinal History: Reports: Bowel Obstruction, Diverticulosis, GERD, Pancreatitis, Other (See Below) Other Gastrointestinal History: ulcerative colitis Genitourinary History: Reports: None MANAGER INTELLIGENCE History: Reports: Ectopic , Other MANAGER INTELLIGENCE History: Ectopic Musculoskeletal History: Reports: Arthritis, Back Pain, Chronic, Fracture, Other (See Below) Other Musculoskeletal History: 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), put left hand through a plate glass window, left hand and wrist surgery x3 Neurological History: Reports: Other (See Below) Other Neuro History: CRIPS Psychiatric History: Reports: Addiction, Anxiety, Depression, PTSD, Suicide Attempt, Suicidal Ideation Endocrine/Metabolic History: Reports: None Hematologic History: Reports: Blood Transfusion(s) Immunologic History: Reports: None Oncologic (Cancer) History: Reports: Other (See Below) Other Oncologic History: cervical dysplagia Dermatologic History: Reports: None - Infectious Disease History Infectious Disease History: Reports: Chicken Pox - Past Surgical History Head Surgeries/Procedures: Reports: None HEENT Surgical History: Reports: Other (See Below) Other HEENT Surgeries/Procedures: Dental extractions Cardiovascular Surgical History: Reports: None Respiratory Surgical History: Reports: None GI Surgical History: Reports: Cholecystectomy, Colon, Colonoscopy, EGD, Other (See Below) Other GI Surgeries/Procedures: Multiple laproscopic surgeries, laparotomy with colon resection for bowel obstruction Female Surgical History: Reports: Section, Hysterectomy, Oophorectomy Other Female Surgeries/Procedures: left ovarian cyst with oopherectomy Endocrine Surgical History: Reports: None Neurological Surgical History: Reports: None Musculoskeletal Surgical History: Reports: Other (See Below) Other Musculoskeletal Surgeries/Procedures:: left hand surgery x3, toenail removal Oncologic Surgical History: Reports: None Dermatological Surgical History: Reports: None Social & Family History - Family History Family Medical History: No Pertinent Family History - Tobacco Use Tobacco Use Status *Q: Current Every Day Tobacco User Years of Tobacco use: 35 Packs/Tins Daily: 1 - Caffeine Use Caffeine Use: Reports: None Caffeine Use Comment: 3-4 daily - Recreational Drug Use Recreational Drug Use: Yes Recreational Drug Type: Reports: Marijuana/Hashish ED ROS GENERAL - Review of Systems Review Of Systems: Comprehensive ROS is negative, except as noted in HPI. Respiratory: Reports: No Symptoms Cardiovascular: Reports: No Symptoms Neurological: Reports: Dizziness, Syncope ED EXAM, GENERAL - Physical Exam Exam: See Below Exam Limited By: No Limitations General Appearance: Alert, WD/WN, No Apparent Distress Eye Exam: Left Eye: Nystagmus, Bilateral Eye: EOMI, PERRL Respiratory/Chest: No Respiratory Distress, Lungs Clear, Normal Breath Sounds Cardiovascular: Normal Peripheral Pulses, Regular Rate, Rhythm GI/Abdominal: Normal Bowel Sounds, Soft, Non-Tender Extremities: Normal Inspection, Normal Range of Motion, Non-Tender Neurological: Alert, Oriented, CN II-XII Intact, Abnormal Gait #1 Interpretation EKG Date: 08/11/20 Time: 15:02 Rhythm: NSR Rate (Beats/Min): 77 ST-T: Normal Course - Vital Signs Last Recorded V/S: Last Vital Signs Temp 97.3 F 08/12/20 07:02 Pulse 98 08/12/20 07:02 Resp 20 08/12/20 07:02 BP 122/68 08/12/20 07:02 Pulse Ox 94 L 08/12/20 07:02 - Orders/Labs/Meds Orders: Active Orders 24 hr Category Date Time Status Patient Status [ADT] Routine ADT 08/11/20 18:40 Active EKG Documentation Completion [RC] STAT Care 08/11/20 15:07 Active Orthostatic Vital Signs [RC] ASDIRECTED Care 08/11/20 17:16 Active Medication Orders Albuterol (Ventolin Hfa) 0 gm INH Q6H PRN PRN Reason: Shortness of Breath Buspirone HCl (Buspar) 30 mg PO BID SEE Folic Acid (Folic Acid) 1 mg PO BEDTIME SEE Last Admin: 08/11/20 23:19 Dose: 1 mg Documented by: GIAN Omeprazole (Omeprazole) 20 mg PO DAILY SEE Ondansetron HCl (Zofran) 4 mg IVPUSH Q4H PRN PRN Reason: Nausea Paroxetine HCl (Paxil) 20 mg PO BID SEE Thiamine HCl (Vitamin B-1) 100 mg PO BEDTIME SEE Last Admin: 08/11/20 23:23 Dose: 100 mg Documented by: GIAN Labs: Laboratory Tests 08/11/20 08/11/20 08/11/20 Range/Units 14:42 14:42 15:23 WBC 10.00 (4.0-11.0) K/uL RBC 4.14 L (4.30-5.90) M/uL Hgb 11.8 L (12.0-16.0) g/dL Hct 36.3 (36.0-46.0) % MCV 87.7 (80.0-98.0) fL MCH 28.5 (27.0-32.0) pg MCHC 32.5 (31.0-37.0) g/dL RDW Std Deviation 46.7 (28.0-62.0) fl RDW Coeff of Aydin 15 (11.0-15.0) % Plt Count 325 (150-400) K/uL MPV 9.50 (7.40-12.00) fL Neut % (Auto) 66.0 (48.0-80.0) % Lymph % (Auto) 25.4 (16.0-40.0) % [place] % (Auto) 7.0 (0.0-15.0) % Eos % (Auto) 1.3 (0.0-7.0) % Baso % (Auto) 0.3 (0.0-1.5) % Neut # (Auto) 6.6 H (1.4-5.7) K/uL Lymph # (Auto) 2.5 H (0.6-2.4) K/uL [place] # (Auto) 0.7 (0.0-0.8) K/uL Eos # (Auto) 0.1 (0.0-0.7) K/uL Baso # (Auto) 0.0 (0.0-0.1) K/uL Nucleated RBC % 0.0 /100WBC Nucleated RBCs # 0 K/uL Lactate 1.4 (0.20-2.00) mmol/L Sodium 140 (136-145) mmol/L Potassium 4.0 (3.5-5.1) mmol/L Chloride 101 (98-107) mmol/L Carbon Dioxide 24.9 (21.0-32.0) mmol/L BUN 19 H (7.0-18.0) mg/dL Creatinine 0.9 (0.6-1.0) mg/dL Est Cr Clr Drug Dosing 61.17 mL/min Estimated GFR (MDRD) > 60.0 ml/min Glucose 101 (74-106) mg/dL Calcium 9.7 (8.5-10.1) mg/dL Phosphorus 3.6 (2.6-4.7) mg/dL Magnesium 1.7 L (1.8-2.4) mg/dL Total Bilirubin 0.3 (0.2-1.0) mg/dL AST 24 (15-37) IU/L ALT 32 (14-63) IU/L Alkaline Phosphatase 112 (46-116) U/L Creatine Kinase 81 (26-308) U/L Troponin I (0.000-0.056) ng/mL Total Protein 8.1 (6.4-8.2) g/dL Albumin 3.9 (3.4-5.0) g/dL Globulin 4.2 H (2.6-4.0) g/dL Albumin/Globulin Ratio 0.9 (0.9-1.6) Lipase 115 (73-393) U/L Urine Color Urine Appearance Urine pH (5.0-8.0) Ur Specific [place] (1.001-1.035) Urine Protein (NEGATIVE) mg/dL Urine Glucose (UA) (NEGATIVE) mg/dL Urine Ketones (NEGATIVE) mg/dL Urine Occult Blood (NEGATIVE) Urine Nitrite (NEGATIVE) Urine Bilirubin (NEGATIVE) Urine Urobilinogen (<2.0) EU/dL Ur Leukocyte Esterase (NEGATIVE) Urine Opiates Screen (NEGATIVE) Ur Oxycodone Screen (NEGATIVE) Urine Methadone Screen (NEGATIVE) Ur Barbiturates Screen (NEGATIVE) Ur Phencyclidine Scrn (NEGATIVE) Ur Amphetamine Screen (NEGATIVE) U Methamphetamines Scrn (NEGATIVE) U Benzodiazepines Scrn (NEGATIVE) U Cocaine Metab Screen (NEGATIVE) U Marijuana (THC) Screen (NEGATIVE) Influenza Type A RNA (NEGATIVE) Influenza Type B RNA (NEGATIVE) SARS-CoV-2 RNA (JOSE) (NEGATIVE) 08/11/20 08/11/20 08/11/20 Range/Units 15:23 15:41 15:41 WBC (4.0-11.0) K/uL RBC (4.30-5.90) M/uL Hgb (12.0-16.0) g/dL Hct (36.0-46.0) % MCV (80.0-98.0) fL MCH (27.0-32.0) pg MCHC (31.0-37.0) g/dL RDW Std Deviation (28.0-62.0) fl RDW Coeff of Aydin (11.0-15.0) % Plt Count (150-400) K/uL MPV (7.40-12.00) fL Neut % (Auto) (48.0-80.0) % Lymph % (Auto) (16.0-40.0) % [place] % (Auto) (0.0-15.0) % Eos % (Auto) (0.0-7.0) % Baso % (Auto) (0.0-1.5) % Neut # (Auto) (1.4-5.7) K/uL Lymph # (Auto) (0.6-2.4) K/uL [place] # (Auto) (0.0-0.8) K/uL Eos # (Auto) (0.0-0.7) K/uL Baso # (Auto) (0.0-0.1) K/uL Nucleated RBC % /100WBC Nucleated RBCs # K/uL Lactate (0.20-2.00) mmol/L Sodium (136-145) mmol/L Potassium (3.5-5.1) mmol/L Chloride (98-107) mmol/L Carbon Dioxide (21.0-32.0) mmol/L BUN (7.0-18.0) mg/dL Creatinine (0.6-1.0) mg/dL Est Cr Clr Drug Dosing mL/min Estimated GFR (MDRD) ml/min Glucose (74-106) mg/dL Calcium (8.5-10.1) mg/dL Phosphorus (2.6-4.7) mg/dL Magnesium (1.8-2.4) mg/dL Total Bilirubin (0.2-1.0) mg/dL AST (15-37) IU/L ALT (14-63) IU/L Alkaline Phosphatase (46-116) U/L Creatine Kinase (26-308) U/L Troponin I < 0.050 (0.000-0.056) ng/mL Total Protein (6.4-8.2) g/dL Albumin (3.4-5.0) g/dL Globulin (2.6-4.0) g/dL Albumin/Globulin Ratio (0.9-1.6) Lipase (73-393) U/L Urine Color YELLOW Urine Appearance CLEAR Urine pH 6.0 (5.0-8.0) Ur Specific [place] 1.010 (1.001-1.035) Urine Protein NEGATIVE (NEGATIVE) mg/dL Urine Glucose (UA) NEGATIVE (NEGATIVE) mg/dL Urine Ketones NEGATIVE (NEGATIVE) mg/dL Urine Occult Blood NEGATIVE (NEGATIVE) Urine Nitrite NEGATIVE (NEGATIVE) Urine Bilirubin NEGATIVE (NEGATIVE) Urine Urobilinogen 0.2 (<2.0) EU/dL Ur Leukocyte Esterase NEGATIVE (NEGATIVE) Urine Opiates Screen NEGATIVE (NEGATIVE) Ur Oxycodone Screen NEGATIVE (NEGATIVE) Urine Methadone Screen NEGATIVE (NEGATIVE) Ur Barbiturates Screen NEGATIVE (NEGATIVE) Ur Phencyclidine Scrn NEGATIVE (NEGATIVE) Ur Amphetamine Screen NEGATIVE (NEGATIVE) U Methamphetamines Scrn NEGATIVE (NEGATIVE) U Benzodiazepines Scrn NEGATIVE (NEGATIVE) U Cocaine Metab Screen NEGATIVE (NEGATIVE) U Marijuana (THC) Screen POSITIVE (NEGATIVE) Influenza Type A RNA (NEGATIVE) Influenza Type B RNA (NEGATIVE) SARS-CoV-2 RNA (JOSE) (NEGATIVE) 08/11/20 Range/Units 17:50 WBC (4.0-11.0) K/uL RBC (4.30-5.90) M/uL Hgb (12.0-16.0) g/dL Hct (36.0-46.0) % MCV (80.0-98.0) fL MCH (27.0-32.0) pg MCHC (31.0-37.0) g/dL RDW Std Deviation (28.0-62.0) fl RDW Coeff of Aydin (11.0-15.0) % Plt Count (150-400) K/uL MPV (7.40-12.00) fL Neut % (Auto) (48.0-80.0) % Lymph % (Auto) (16.0-40.0) % [place] % (Auto) (0.0-15.0) % Eos % (Auto) (0.0-7.0) % Baso % (Auto) (0.0-1.5) % Neut # (Auto) (1.4-5.7) K/uL Lymph # (Auto) (0.6-2.4) K/uL [place] # (Auto) (0.0-0.8) K/uL Eos # (Auto) (0.0-0.7) K/uL Baso # (Auto) (0.0-0.1) K/uL Nucleated RBC % /100WBC Nucleated RBCs # K/uL Lactate (0.20-2.00) mmol/L Sodium (136-145) mmol/L Potassium (3.5-5.1) mmol/L Chloride (98-107) mmol/L Carbon Dioxide (21.0-32.0) mmol/L BUN (7.0-18.0) mg/dL Creatinine (0.6-1.0) mg/dL Est Cr Clr Drug Dosing mL/min Estimated GFR (MDRD) ml/min Glucose (74-106) mg/dL Calcium (8.5-10.1) mg/dL Phosphorus (2.6-4.7) mg/dL Magnesium (1.8-2.4) mg/dL Total Bilirubin (0.2-1.0) mg/dL AST (15-37) IU/L ALT (14-63) IU/L Alkaline Phosphatase (46-116) U/L Creatine Kinase (26-308) U/L Troponin I (0.000-0.056) ng/mL Total Protein (6.4-8.2) g/dL Albumin (3.4-5.0) g/dL Globulin (2.6-4.0) g/dL Albumin/Globulin Ratio (0.9-1.6) Lipase (73-393) U/L Urine Color Urine Appearance Urine pH (5.0-8.0) Ur Specific [place] (1.001-1.035) Urine Protein (NEGATIVE) mg/dL Urine Glucose (UA) (NEGATIVE) mg/dL Urine Ketones (NEGATIVE) mg/dL Urine Occult Blood (NEGATIVE) Urine Nitrite (NEGATIVE) Urine Bilirubin (NEGATIVE) Urine Urobilinogen (<2.0) EU/dL Ur Leukocyte Esterase (NEGATIVE) Urine Opiates Screen (NEGATIVE) Ur Oxycodone Screen (NEGATIVE) Urine Methadone Screen (NEGATIVE) Ur Barbiturates Screen (NEGATIVE) Ur Phencyclidine Scrn (NEGATIVE) Ur Amphetamine Screen (NEGATIVE) U Methamphetamines Scrn (NEGATIVE) U Benzodiazepines Scrn (NEGATIVE) U Cocaine Metab Screen (NEGATIVE) U Marijuana (THC) Screen (NEGATIVE) Influenza Type A RNA NEGATIVE (NEGATIVE) Influenza Type B RNA NEGATIVE (NEGATIVE) SARS-CoV-2 RNA (JOSE) NEGATIVE (NEGATIVE) Meds: Medications Generic Name Dose Route Start Last Admin Trade Name Freq PRN Reason Stop Dose Admin Albuterol 0 gm 08/11/20 22:39 Ventolin Hfa INH Q6H PRN Shortness of Breath Buspirone HCl 30 mg 08/12/20 09:00 Buspar PO BID SEE Folic Acid 1 mg 08/11/20 22:00 08/11/20 23:19 Folic Acid PO 1 mg BEDTIME SEE Administration Omeprazole 20 mg 08/12/20 09:00 Omeprazole PO DAILY SEE Ondansetron HCl 4 mg 08/11/20 22:38 Zofran IVPUSH Q4H PRN Nausea Paroxetine HCl 20 mg 08/12/20 09:00 Paxil PO BID SEE Thiamine HCl 100 mg 08/11/20 22:00 08/11/20 23:23 Vitamin B-1 PO 100 mg BEDTIME SEE Administration Discontinued Medications Generic Name Dose Route Start Last Admin Trade Name Freq PRN Reason Stop Dose Admin Sodium Chloride 1,000 mls @ 999 mls/hr 08/11/20 15:06 08/11/20 15:37 Normal Saline IV 08/11/20 16:06 999 mls/hr .BOLUS ONE Administration Departure - Departure Time of Disposition: 19:00 Disposition: Refer to Observation Condition: Good Clinical Impression: Syncope - Discharge Information Sepsis Event Note (ED) - Evaluation Sepsis Screening Result: No Definite Risk - My Orders Last 24 Hours: My Active Orders 08/11/20 15:07 EKG Documentation Completion [RC] STAT 08/11/20 17:16 Orthostatic Vital Signs [RC] ASDIRECTED 08/11/20 18:40 Patient Status [ADT] Routine - Assessment/Plan Last 24 Hours: My Active Orders 08/11/20 15:07 EKG Documentation Completion [RC] STAT 08/11/20 17:16 Orthostatic Vital Signs [RC] ASDIRECTED 08/11/20 18:40 Patient Status [ADT] Routine Assessment:: Is a 50-year-old female with history of subdural who presented today for a syncope episode she also has numbness shaking while she was passed out unclear if this is a syncope versus seizure. Also unsteady with gait when she stands up feels severely dizzy but feels fine sitting still. Will obtain EKG chest x-ray labs.
[2020-08-11 15:24] LABS: BLOOD UREA NITROGEN,BUN 19 mg/dL (7.0-18.0); CARBON DIOXIDE,CO2 24.9 mmol/L (21.0-32.0); CHLORIDE,CL 101 mmol/L (98-107); GLUCOSE RANDOM 101 mg/dL (74-106); LIPASE 115 U/L (73-393); SODIUM,NA 140 mmol/L (136-145)
--- NOTE | 2020-08-11 15:49 | CR ---
INDICATION: Syncope and possible seizure COMPARISON: March 31, 2020 TECHNIQUE: Single view of the chest was acquired FINDINGS: TUBES AND LINES: None. HEART AND MEDIASTINUM: The heart size is normal. The mediastinal contour appears normal for patient age. LUNGS AND PLEURAL SPACES: The lungs appear normal.The pleural spaces are unremarkable. OSSEOUS STRUCTURES: Age-appropriate appearance. No acute focal finding. IMPRESSION: No evidence of active pulmonary disease. Dictated by Tom Corral MD @ Aug 11 2020 3:47PM Signed by Dr. Tom Corral @ Aug 11 2020 3:48PM
--- NOTE | 2020-08-11 16:22 | CT ---
INDICATION: Syncope TECHNIQUE: CT head without contrast. COMPARISON: 06/30/2020 FINDINGS: CSF spaces: Within normal limits for age. Brain parenchyma and extra-axial spaces: The banks-white differentiation is normal. No sign of mass, hemorrhage, or midline shift. No extra-axial fluid collection. Skull base and calvarium: The visualized paranasal sinuses and mastoid air cells demonstrate no acute or significant findings. The visualized orbits are grossly unremarkable. No skull fractures. IMPRESSION: Unremarkable noncontrast head CT. Please note that all CT scans at this facility use dose modulation, iterative reconstruction, and/or weight-based dosing when appropriate to reduce radiation dose to as low as reasonably achievable. Dictated by Blade Martinez MD @ Aug 11 2020 4:14PM Signed by Dr. Blade Martinez @ Aug 11 2020 4:22PM
[2020-08-11 18:38] LABS: CORONAVIRUS COVID-19 NAA NEGATIVE (NEGATIVE); INFLUENZA A NAA NEGATIVE (NEGATIVE); INFLUENZA B NAA NEGATIVE (NEGATIVE)
[2020-08-11] MEDS ORDERED: Albuterol HFA 18 Gm Inhaler INH PRN (22:39)
--- NOTE | 2020-08-11 22:46 | PCM.HP.2 ---
H&P History of Present Illness - General Date of Service: 08/11/20 Admit Problem/Dx: Admission Diagnosis/Problem Admission Diagnosis/Problem Syncope - History of Present Illness Initial Comments - Free Text/Narative: 50 yo female with pmh COPD/Asthma, chronic pancreatitis and ETOH liver disease who presents to the ED after passing out. Patient reports feeling nauseated while eating at [employer]. In the restroom she strained to induce vomiting but passed out. Witness said she did not hit her head. Patient reports two months being sober. She completed inpatient rehab. During rehab she said she was started on lasix for leg edema. She has been urinating and drinking a a lot. Patient reports feeling nauseated several times during rehab which lead to the feelings of dizziness. She reports general fatigue since quitting ETOH. She is followed by Dr. Rosalie Wen who has ordered a Zio patch. It fell off after three days and she has sent it in to be analyzed. Head Pain Score (Numeric/FACES): 8 - Related Data Allergies/Adverse Reactions: Allergies Allergy/AdvReac Type Severity Reaction Status Date / Time amitriptyline Allergy Hives Verified 08/11/20 21:54 aspirin Allergy Stomach Verified 08/11/20 21:54 Upset latex Allergy Rash Verified 08/11/20 21:54 levofloxacin [From Levaquin] Allergy Diarrhea Verified 08/11/20 21:54 pregabalin [From Lyrica] Allergy Other Verified 08/11/20 21:54 morphine AdvReac Confusion Verified 08/11/20 21:54 Home Medications: Home Meds Omeprazole 20 mg PO DAILY 03/06/14 [History] Albuterol [Ventolin HFA] 1 - 2 puff INH ASDIRECTED PRN 11/28/18 [History] PARoxetine HCL [Paroxetine HCl] 20 mg PO BID 11/28/18 [History] busPIRone HCl [busPIRone] 30 mg PO BID 11/28/18 [History] Albuterol Sulfate 1 dose NEB DAILY PRN 03/31/20 [History] Ibuprofen 600 mg PO Q6HR PRN #30 tablet 05/30/20 [Rx] Furosemide [Lasix] 40 mg PO DAILY 08/11/20 [History] Past Medical History - Past Health History Medical/Surgical History: Denies Medical/Surgical History HEENT History: Reports: Other (See Below) Other HEENT History: states has blurred vision, wears glasses, top denture, Cardiovascular History: Reports: High Cholesterol Other Cardiovascular History: states mild heart murmur Respiratory History: Reports: Asthma, Bronchitis, Recurrent, COPD, SOB, Other (See Below) Other Respiratory History: states has nodule on R lower lung, Gastrointestinal History: Reports: Bowel Obstruction, Diverticulosis, GERD, Pancreatitis, Other (See Below) Other Gastrointestinal History: ulcerative colitis Genitourinary History: Reports: None [employer] SOC[employer] 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: Reports: Ectopic , Other OB/BYN History: Ectopic Musculoskeletal History: Reports: Arthritis, Back Pain, Chronic, Fracture, Other (See Below) Other Musculoskeletal History: 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), put left hand through a plate glass window, left hand and wrist surgery x3 Neurological History: Reports: Other (See Below) Other Neuro History: CRIPS Psychiatric History: Reports: Addiction, Anxiety, Depression, PTSD, Suicide Attempt, Suicidal Ideation Endocrine/Metabolic History: Reports: None Hematologic History: Reports: Blood Transfusion(s) Immunologic History: Reports: None Oncologic (Cancer) History: Reports: Other (See Below) Other Oncologic History: cervical dysplagia Dermatologic History: Reports: None - Infectious Disease History Infectious Disease History: Reports: Chicken Pox - Past Surgical History Head Surgeries/Procedures: Reports: None HEENT Surgical History: Reports: Other (See Below) Other HEENT Surgeries/Procedures: Dental extractions Cardiovascular Surgical History: Reports: None Respiratory Surgical History: Reports: None GI Surgical History: Reports: Cholecystectomy, Colon, Colonoscopy, EGD, Other (See Below) Other GI Surgeries/Procedures: Multiple laproscopic surgeries, laparotomy with colon resection for bowel obstruction Female Surgical History: Reports: Section, Hysterectomy, Oophorectomy Other Female Surgeries/Procedures: left ovarian cyst with oopherectomy Endocrine Surgical History: Reports: None Neurological Surgical History: Reports: None Musculoskeletal Surgical History: Reports: Other (See Below) Other Musculoskeletal Surgeries/Procedures:: left hand surgery x3, toenail removal Oncologic Surgical History: Reports: None Dermatological Surgical History: Reports: None Social & Family History - Family History Family Medical History: No Pertinent Family History - Tobacco Use Tobacco Use Status *Q: Current Every Day Tobacco User Years of Tobacco use: 35 Packs/Tins Daily: 1 - Caffeine Use Caffeine Use: Reports: None Caffeine Use Comment: 3-4 daily - Recreational Drug Use Recreational Drug Use: Yes Recreational Drug Type: Reports: Marijuana/Hashish H&P Review of Systems - Review of Systems: Review Of Systems: Comprehensive ROS is negative, except as noted in HPI. Exam - Exam Exam: See Below - Vital Signs Vital Signs: Last Vital Signs Temp 36.6 C 08/11/20 21:10 Pulse 81 08/11/20 21:10 Resp 15 08/11/20 21:10 BP 130/94 H 08/11/20 21:10 Pulse Ox 99 08/11/20 21:10 Orthostatic Blood Pressure [ 131/66 Standing] Orthostatic Blood Pressure [ 147/75 Sitting] Orthostatic Blood Pressure [ 120/55 Supine] Weight: 68.946 kg - Exam General: Alert, Oriented HEENT: Mucosa Moist & [place] Lungs: Clear to Auscultation, Normal Respiratory Effort Cardiovascular: Regular Rate, Regular Rhythm GI/Abdominal Exam: Normal Bowel Sounds, Soft Extremities: Non-Tender, No Pedal Edema Skin: Warm, Dry, Intact Neurological: Cranial Nerves Intact, Reflexes Equal Bilateral, Strength Equal Bilateral, Normal Speech, Normal Tone, Sensation Intact, Abnormal Gait (unsteady while walking, not able to keep standing while eyes closed, finger past pointing, no nystgmuis) - Patient Data Lab Results Last 24 hrs: Laboratory Results - last 24 hr 08/11/20 08/11/20 08/11/20 Range/Units 14:42 14:42 15:23 WBC 10.00 (4.0-11.0) K/uL RBC 4.14 L (4.30-5.90) M/uL Hgb 11.8 L (12.0-16.0) g/dL Hct 36.3 (36.0-46.0) % MCV 87.7 (80.0-98.0) fL MCH 28.5 (27.0-32.0) pg MCHC 32.5 (31.0-37.0) g/dL RDW Std Deviation 46.7 (28.0-62.0) fl RDW Coeff of Aydin 15 (11.0-15.0) % Plt Count 325 (150-400) K/uL MPV 9.50 (7.40-12.00) fL Neut % (Auto) 66.0 (48.0-80.0) % Lymph % (Auto) 25.4 (16.0-40.0) % [place] % (Auto) 7.0 (0.0-15.0) % Eos % (Auto) 1.3 (0.0-7.0) % Baso % (Auto) 0.3 (0.0-1.5) % Neut # (Auto) 6.6 H (1.4-5.7) K/uL Lymph # (Auto) 2.5 H (0.6-2.4) K/uL [place] # (Auto) 0.7 (0.0-0.8) K/uL Eos # (Auto) 0.1 (0.0-0.7) K/uL Baso # (Auto) 0.0 (0.0-0.1) K/uL Nucleated RBC % 0.0 /100WBC Nucleated RBCs # 0 K/uL Lactate 1.4 (0.20-2.00) mmol/L Sodium 140 (136-145) mmol/L Potassium 4.0 (3.5-5.1) mmol/L Chloride 101 (98-107) mmol/L Carbon Dioxide 24.9 (21.0-32.0) mmol/L BUN 19 H (7.0-18.0) mg/dL Creatinine 0.9 (0.6-1.0) mg/dL Est Cr Clr Drug Dosing 61.17 mL/min Estimated GFR (MDRD) > 60.0 ml/min Glucose 101 (74-106) mg/dL Calcium 9.7 (8.5-10.1) mg/dL Phosphorus 3.6 (2.6-4.7) mg/dL Magnesium 1.7 L (1.8-2.4) mg/dL Total Bilirubin 0.3 (0.2-1.0) mg/dL AST 24 (15-37) IU/L ALT 32 (14-63) IU/L Alkaline Phosphatase 112 (46-116) U/L Creatine Kinase 81 (26-308) U/L Troponin I (0.000-0.056) ng/mL Total Protein 8.1 (6.4-8.2) g/dL Albumin 3.9 (3.4-5.0) g/dL Globulin 4.2 H (2.6-4.0) g/dL Albumin/Globulin Ratio 0.9 (0.9-1.6) Lipase 115 (73-393) U/L Urine Color Urine Appearance Urine pH (5.0-8.0) Ur Specific [place] (1.001-1.035) Urine Protein (NEGATIVE) mg/dL Urine Glucose (UA) (NEGATIVE) mg/dL Urine Ketones (NEGATIVE) mg/dL Urine Occult Blood (NEGATIVE) Urine Nitrite (NEGATIVE) Urine Bilirubin (NEGATIVE) Urine Urobilinogen (<2.0) EU/dL Ur Leukocyte Esterase (NEGATIVE) Urine Opiates Screen (NEGATIVE) Ur Oxycodone Screen (NEGATIVE) Urine Methadone Screen (NEGATIVE) Ur Barbiturates Screen (NEGATIVE) Ur Phencyclidine Scrn (NEGATIVE) Ur Amphetamine Screen (NEGATIVE) U Methamphetamines Scrn (NEGATIVE) U Benzodiazepines Scrn (NEGATIVE) U Cocaine Metab Screen (NEGATIVE) U Marijuana (THC) Screen (NEGATIVE) Influenza Type A RNA (NEGATIVE) Influenza Type B RNA (NEGATIVE) SARS-CoV-2 RNA (JOSE) (NEGATIVE) 08/11/20 08/11/20 08/11/20 Range/Units 15:23 15:41 15:41 WBC (4.0-11.0) K/uL RBC (4.30-5.90) M/uL Hgb (12.0-16.0) g/dL Hct (36.0-46.0) % MCV (80.0-98.0) fL MCH (27.0-32.0) pg MCHC (31.0-37.0) g/dL RDW Std Deviation (28.0-62.0) fl RDW Coeff of Aydin (11.0-15.0) % Plt Count (150-400) K/uL MPV (7.40-12.00) fL Neut % (Auto) (48.0-80.0) % Lymph % (Auto) (16.0-40.0) % [place] % (Auto) (0.0-15.0) % Eos % (Auto) (0.0-7.0) % Baso % (Auto) (0.0-1.5) % Neut # (Auto) (1.4-5.7) K/uL Lymph # (Auto) (0.6-2.4) K/uL [place] # (Auto) (0.0-0.8) K/uL Eos # (Auto) (0.0-0.7) K/uL Baso # (Auto) (0.0-0.1) K/uL Nucleated RBC % /100WBC Nucleated RBCs # K/uL Lactate (0.20-2.00) mmol/L Sodium (136-145) mmol/L Potassium (3.5-5.1) mmol/L Chloride (98-107) mmol/L Carbon Dioxide (21.0-32.0) mmol/L BUN (7.0-18.0) mg/dL Creatinine (0.6-1.0) mg/dL Est Cr Clr Drug Dosing mL/min Estimated GFR (MDRD) ml/min Glucose (74-106) mg/dL Calcium (8.5-10.1) mg/dL Phosphorus (2.6-4.7) mg/dL Magnesium (1.8-2.4) mg/dL Total Bilirubin (0.2-1.0) mg/dL AST (15-37) IU/L ALT (14-63) IU/L Alkaline Phosphatase (46-116) U/L Creatine Kinase (26-308) U/L Troponin I < 0.050 (0.000-0.056) ng/mL Total Protein (6.4-8.2) g/dL Albumin (3.4-5.0) g/dL Globulin (2.6-4.0) g/dL Albumin/Globulin Ratio (0.9-1.6) Lipase (73-393) U/L Urine Color YELLOW Urine Appearance CLEAR Urine pH 6.0 (5.0-8.0) Ur Specific [place] 1.010 (1.001-1.035) Urine Protein NEGATIVE (NEGATIVE) mg/dL Urine Glucose (UA) NEGATIVE (NEGATIVE) mg/dL Urine Ketones NEGATIVE (NEGATIVE) mg/dL Urine Occult Blood NEGATIVE (NEGATIVE) Urine Nitrite NEGATIVE (NEGATIVE) Urine Bilirubin NEGATIVE (NEGATIVE) Urine Urobilinogen 0.2 (<2.0) EU/dL Ur Leukocyte Esterase NEGATIVE (NEGATIVE) Urine Opiates Screen NEGATIVE (NEGATIVE) Ur Oxycodone Screen NEGATIVE (NEGATIVE) Urine Methadone Screen NEGATIVE (NEGATIVE) Ur Barbiturates Screen NEGATIVE (NEGATIVE) Ur Phencyclidine Scrn NEGATIVE (NEGATIVE) Ur Amphetamine Screen NEGATIVE (NEGATIVE) U Methamphetamines Scrn NEGATIVE (NEGATIVE) U Benzodiazepines Scrn NEGATIVE (NEGATIVE) U Cocaine Metab Screen NEGATIVE (NEGATIVE) U Marijuana (THC) Screen POSITIVE (NEGATIVE) Influenza Type A RNA (NEGATIVE) Influenza Type B RNA (NEGATIVE) SARS-CoV-2 RNA (JOSE) (NEGATIVE) 08/11/20 Range/Units 17:50 WBC (4.0-11.0) K/uL RBC (4.30-5.90) M/uL Hgb (12.0-16.0) g/dL Hct (36.0-46.0) % MCV (80.0-98.0) fL MCH (27.0-32.0) pg MCHC (31.0-37.0) g/dL RDW Std Deviation (28.0-62.0) fl RDW Coeff of Aydin (11.0-15.0) % Plt Count (150-400) K/uL MPV (7.40-12.00) fL Neut % (Auto) (48.0-80.0) % Lymph % (Auto) (16.0-40.0) % [place] % (Auto) (0.0-15.0) % Eos % (Auto) (0.0-7.0) % Baso % (Auto) (0.0-1.5) % Neut # (Auto) (1.4-5.7) K/uL Lymph # (Auto) (0.6-2.4) K/uL [place] # (Auto) (0.0-0.8) K/uL Eos # (Auto) (0.0-0.7) K/uL Baso # (Auto) (0.0-0.1) K/uL Nucleated RBC % /100WBC Nucleated RBCs # K/uL Lactate (0.20-2.00) mmol/L Sodium (136-145) mmol/L Potassium (3.5-5.1) mmol/L Chloride (98-107) mmol/L Carbon Dioxide (21.0-32.0) mmol/L BUN (7.0-18.0) mg/dL Creatinine (0.6-1.0) mg/dL Est Cr Clr Drug Dosing mL/min Estimated GFR (MDRD) ml/min Glucose (74-106) mg/dL Calcium (8.5-10.1) mg/dL Phosphorus (2.6-4.7) mg/dL Magnesium (1.8-2.4) mg/dL Total Bilirubin (0.2-1.0) mg/dL AST (15-37) IU/L ALT (14-63) IU/L Alkaline Phosphatase (46-116) U/L Creatine Kinase (26-308) U/L Troponin I (0.000-0.056) ng/mL Total Protein (6.4-8.2) g/dL Albumin (3.4-5.0) g/dL Globulin (2.6-4.0) g/dL Albumin/Globulin Ratio (0.9-1.6) Lipase (73-393) U/L Urine Color Urine Appearance Urine pH (5.0-8.0) Ur Specific [place] (1.001-1.035) Urine Protein (NEGATIVE) mg/dL Urine Glucose (UA) (NEGATIVE) mg/dL Urine Ketones (NEGATIVE) mg/dL Urine Occult Blood (NEGATIVE) Urine Nitrite (NEGATIVE) Urine Bilirubin (NEGATIVE) Urine Urobilinogen (<2.0) EU/dL Ur Leukocyte Esterase (NEGATIVE) Urine Opiates Screen (NEGATIVE) Ur Oxycodone Screen (NEGATIVE) Urine Methadone Screen (NEGATIVE) Ur Barbiturates Screen (NEGATIVE) Ur Phencyclidine Scrn (NEGATIVE) Ur Amphetamine Screen (NEGATIVE) U Methamphetamines Scrn (NEGATIVE) U Benzodiazepines Scrn (NEGATIVE) U Cocaine Metab Screen (NEGATIVE) U Marijuana (THC) Screen (NEGATIVE) Influenza Type A RNA NEGATIVE (NEGATIVE) Influenza Type B RNA NEGATIVE (NEGATIVE) SARS-CoV-2 RNA (JOSE) NEGATIVE (NEGATIVE) Result Diagrams: 08/11/20 14:42 08/11/20 14:42 Sepsis Event Note - Evaluation Sepsis Screening Result: No Definite Risk - Focused Exam Vital Signs: Vital Signs Temp Pulse Resp BP Pulse Ox 08/11/20 21:10 36.6 C 81 15 130/94 H 99 08/11/20 20:25 88 14 121/87 95 08/11/20 19:24 81 16 113/71 97 08/11/20 18:13 76 18 110/74 97 08/11/20 17:43 75 18 116/68 97 08/11/20 17:13 75 17 114/66 97 08/11/20 15:40 85 25 H 115/73 98 08/11/20 14:33 35.5 C L 77 16 116/67 98 Problem List Initiated/Reviewed/Updated: Yes Orders Last 24hrs: Active Orders 24 hr Category Date Time Status Patient Status [ADT] Routine ADT 08/11/20 18:40 Active EKG Documentation Completion [RC] STAT Care 08/11/20 15:07 Active Orthostatic Vital Signs [RC] ASDIRECTED Care 08/11/20 17:16 Active Telemetry Monitoring [Cardiac Monitoring] [RC] Q8H Care 08/11/20 19:22 Active Folic Acid Med 08/11/20 21:00 Ordered 1 mg PO BEDTIME Thiamine [Vitamin B-1] Med 08/11/20 21:00 Ordered 100 mg PO BEDTIME Medication Orders Folic Acid (Folic Acid) 1 mg PO BEDTIME SEE Thiamine HCl (Vitamin B-1) 100 mg PO BEDTIME SEE Assessment/Plan Comment:: 50 yo female admitted after syncope. Per her history this sounds vasovagal. She is not orthostatic. She has balance issues on neuro exam. We will monitor overnight on telemetry. Brain MRI ordered.
[2020-08-11] MEDS: Folic Acid 1 MG Tab PO SCH (23:19)
[2020-08-11] MEDS: Thiamine 100 MG Tab PO SCH (23:23)
[2020-08-12 05:31] LABS: BLOOD UREA NITROGEN,BUN 18 mg/dL (7.0-18.0); CARBON DIOXIDE,CO2 28.1 mmol/L (21.0-32.0); CHLORIDE,CL 104 mmol/L (98-107); GLUCOSE RANDOM 99 mg/dL (74-106); POTASSIUM,K 4.5 mmol/L (3.5-5.1); SODIUM,NA 141 mmol/L (136-145)
[2020-08-12] MEDS ORDERED: LORazepam 2 MG/ML SDV ONE (08:12)
[2020-08-12] MEDS ORDERED: Gadobenate Dimeglumine 529 MG/ML 20 ML SDV IVPUSH STA (08:31)
[2020-08-12] MEDS ORDERED: Omeprazole 20 MG Cap.CR PO SCH (09:00)
[2020-08-12] MEDS: LORazepam 2 MG/ML SDV IVPUSH ONE ×2 (09:11→09:17)
--- NOTE | 2020-08-12 09:29 | MR ---
INDICATION: Dizziness. TECHNIQUE: Multiplanar multisequence MR imaging was acquired through the brain prior to and following intravenous contrast. COMPARISON: CT brain 08/11/2020. FINDINGS: Motion artifact degrades multiple sequences. The ventricles and sulci are within normal limits for patient age. No mass effect or midline shift. A few punctate T2 FLAIR hyperintensities in the supratentorial white matter, nonspecific. No diffusion restriction to suggest acute infarction. No intracranial hemorrhage or pathologic extra-axial fluid collection. No definite pathologic intracranial enhancement, though postcontrast images are significantly limited secondary to artifact. The major arterial flow voids of the skullbase are preserved. The globes are symmetric. The paranasal sinuses are well aerated. Small left mastoid effusion. IMPRESSION: 1. Motion artifact degrades multiple sequences, particularly post-contrast images. 2. No acute infarction, mass effect, or intracranial hemorrhage. 3. Few punctate T2 FLAIR hyperintensities in the supratentorial white matter are nonspecific, though typical for sequelae of minimal chronic microvascular ischemic changes or migraine headaches. Dictated by Kuldip Jackson MD @ Aug 12 2020 9:22AM Signed by Dr. Kuldip Jackson @ Aug 12 2020 9:28AM
[2020-08-12] MEDS: busPIRone 5 MG Tab PO SCH ×2 (09:32→20:02)
[2020-08-12] MEDS: Ondansetron 4 MG/2 ML SDV IVPUSH PRN ×2 (09:33→18:33)
[2020-08-12] MEDS: PARoxetine 20 MG Tab PO SCH ×2 (09:57→20:07)
--- NOTE | 2020-08-12 12:22 | PCM.PN ---
- General Info Date of Service: 08/12/20 Admission Dx/Problem (Free Text): Admission Diagnosis/Problem Admission Diagnosis/Problem Syncope Subjective Update: Reports that she is feeling a little bit imbalanced today and unsteady with ambulation. Denies any chest pain or shortness of breath. Is feeling slightly nauseated this morning but otherwise very hungry. She just returned from [facility] where she received Ativan. She is eager to find out what happened and continues to be very motivated to stay sober and getting herself healthy. Functional Status: Reports: Pain Controlled, Tolerating Diet. Denies: Ambulating (Ambulating but is having difficulty with balance and gait steadiness) - Review of Systems General: Reports: Weakness (Generalized) HEENT: Reports: No Symptoms. Denies: Headaches, Sinus Congestion, Sore Throat, Visual Changes (No blurred vision or double vision) Pulmonary: Reports: No Symptoms. Denies: Shortness of Breath Cardiovascular: Reports: No Symptoms. Denies: Chest Pain Gastrointestinal: Reports: Abdominal Pain (Chronic epigastric pain likely secondary to chronic pancreatitis.), Nausea. Denies: Vomiting Genitourinary: Reports: No Symptoms. Denies: Dysuria, Frequency Musculoskeletal: Reports: No Symptoms Skin: Reports: No Symptoms Neurological: Reports: No Symptoms Psychiatric: Reports: No Symptoms - Patient Data Vitals - Most Recent: Last Vital Signs Temp 97.6 F 08/12/20 11:15 Pulse 78 08/12/20 11:15 Resp 18 08/12/20 11:15 BP 107/62 08/12/20 11:15 Pulse Ox 94 L 08/12/20 11:15 Orthostatic Blood Pressure [ 131/66 Standing] Orthostatic Blood Pressure [ 147/75 Sitting] Orthostatic Blood Pressure [ 120/55 Supine] Weight - Most Recent: 68.8 kg I&O - Last 24 Hours: Intake & Output 08/11/20 08/12/20 08/12/20 22:59 06:59 14:59 Intake Total 550 Output Total 650 Balance -100 Lab Results Last 24 Hours: Laboratory Results - last 24 hr 08/11/20 08/11/20 08/11/20 Range/Units 14:42 14:42 15:23 WBC 10.00 (4.0-11.0) K/uL RBC 4.14 L (4.30-5.90) M/uL Hgb 11.8 L (12.0-16.0) g/dL Hct 36.3 (36.0-46.0) % MCV 87.7 (80.0-98.0) fL MCH 28.5 (27.0-32.0) pg MCHC 32.5 (31.0-37.0) g/dL RDW Std Deviation 46.7 (28.0-62.0) fl RDW Coeff of Aydin 15 (11.0-15.0) % Plt Count 325 (150-400) K/uL MPV 9.50 (7.40-12.00) fL Neut % (Auto) 66.0 (48.0-80.0) % Lymph % (Auto) 25.4 (16.0-40.0) % Gibson % (Auto) 7.0 (0.0-15.0) % Eos % (Auto) 1.3 (0.0-7.0) % Baso % (Auto) 0.3 (0.0-1.5) % Neut # (Auto) 6.6 H (1.4-5.7) K/uL Lymph # (Auto) 2.5 H (0.6-2.4) K/uL Gibson # (Auto) 0.7 (0.0-0.8) K/uL Eos # (Auto) 0.1 (0.0-0.7) K/uL Baso # (Auto) 0.0 (0.0-0.1) K/uL Nucleated RBC % 0.0 /100WBC Nucleated RBCs # 0 K/uL Lactate 1.4 (0.20-2.00) mmol/L Sodium 140 (136-145) mmol/L Potassium 4.0 (3.5-5.1) mmol/L Chloride 101 (98-107) mmol/L Carbon Dioxide 24.9 (21.0-32.0) mmol/L BUN 19 H (7.0-18.0) mg/dL Creatinine 0.9 (0.6-1.0) mg/dL Est Cr Clr Drug Dosing 61.17 mL/min Estimated GFR (MDRD) > 60.0 ml/min Glucose 101 (74-106) mg/dL Calcium 9.7 (8.5-10.1) mg/dL Phosphorus 3.6 (2.6-4.7) mg/dL Magnesium 1.7 L (1.8-2.4) mg/dL Total Bilirubin 0.3 (0.2-1.0) mg/dL AST 24 (15-37) IU/L ALT 32 (14-63) IU/L Alkaline Phosphatase 112 (46-116) U/L Creatine Kinase 81 (26-308) U/L Troponin I (0.000-0.056) ng/mL Total Protein 8.1 (6.4-8.2) g/dL Albumin 3.9 (3.4-5.0) g/dL Globulin 4.2 H (2.6-4.0) g/dL Albumin/Globulin Ratio 0.9 (0.9-1.6) Lipase 115 (73-393) U/L Urine Color Urine Appearance Urine pH (5.0-8.0) Ur Specific Vander[place]ift (1.001-1.035) Urine Protein (NEGATIVE) mg/dL Urine Glucose (UA) (NEGATIVE) mg/dL Urine Ketones (NEGATIVE) mg/dL Urine Occult Blood (NEGATIVE) Urine Nitrite (NEGATIVE) Urine Bilirubin (NEGATIVE) Urine Urobilinogen (<2.0) EU/dL Ur Leukocyte Esterase (NEGATIVE) Urine Opiates Screen (NEGATIVE) Ur Oxycodone Screen (NEGATIVE) Urine Methadone Screen (NEGATIVE) Ur Barbiturates Screen (NEGATIVE) Ur Phencyclidine Scrn (NEGATIVE) Ur Amphetamine Screen (NEGATIVE) U Methamphetamines Scrn (NEGATIVE) U Benzodiazepines Scrn (NEGATIVE) U Cocaine Metab Screen (NEGATIVE) U Marijuana (THC) Screen (NEGATIVE) Influenza Type A RNA (NEGATIVE) Influenza Type B RNA (NEGATIVE) SARS-CoV-2 RNA (JOSE) (NEGATIVE) 08/11/20 08/11/20 08/11/20 Range/Units 15:23 15:41 15:41 WBC (4.0-11.0) K/uL RBC (4.30-5.90) M/uL Hgb (12.0-16.0) g/dL Hct (36.0-46.0) % MCV (80.0-98.0) fL MCH (27.0-32.0) pg MCHC (31.0-37.0) g/dL RDW Std Deviation (28.0-62.0) fl RDW Coeff of Aydin (11.0-15.0) % Plt Count (150-400) K/uL MPV (7.40-12.00) fL Neut % (Auto) (48.0-80.0) % Lymph % (Auto) (16.0-40.0) % Gibson % (Auto) (0.0-15.0) % Eos % (Auto) (0.0-7.0) % Baso % (Auto) (0.0-1.5) % Neut # (Auto) (1.4-5.7) K/uL Lymph # (Auto) (0.6-2.4) K/uL Gibson # (Auto) (0.0-0.8) K/uL Eos # (Auto) (0.0-0.7) K/uL Baso # (Auto) (0.0-0.1) K/uL Nucleated RBC % /100WBC Nucleated RBCs # K/uL Lactate (0.20-2.00) mmol/L Sodium (136-145) mmol/L Potassium (3.5-5.1) mmol/L Chloride (98-107) mmol/L Carbon Dioxide (21.0-32.0) mmol/L BUN (7.0-18.0) mg/dL Creatinine (0.6-1.0) mg/dL Est Cr Clr Drug Dosing mL/min Estimated GFR (MDRD) ml/min Glucose (74-106) mg/dL Calcium (8.5-10.1) mg/dL Phosphorus (2.6-4.7) mg/dL Magnesium (1.8-2.4) mg/dL Total Bilirubin (0.2-1.0) mg/dL AST (15-37) IU/L ALT (14-63) IU/L Alkaline Phosphatase (46-116) U/L Creatine Kinase (26-308) U/L Troponin I < 0.050 (0.000-0.056) ng/mL Total Protein (6.4-8.2) g/dL Albumin (3.4-5.0) g/dL Globulin (2.6-4.0) g/dL Albumin/Globulin Ratio (0.9-1.6) Lipase (73-393) U/L Urine Color YELLOW Urine Appearance CLEAR Urine pH 6.0 (5.0-8.0) Ur Specific [place] 1.010 (1.001-1.035) Urine Protein NEGATIVE (NEGATIVE) mg/dL Urine Glucose (UA) NEGATIVE (NEGATIVE) mg/dL Urine Ketones NEGATIVE (NEGATIVE) mg/dL Urine Occult Blood NEGATIVE (NEGATIVE) Urine Nitrite NEGATIVE (NEGATIVE) Urine Bilirubin NEGATIVE (NEGATIVE) Urine Urobilinogen 0.2 (<2.0) EU/dL Ur Leukocyte Esterase NEGATIVE (NEGATIVE) Urine Opiates Screen NEGATIVE (NEGATIVE) Ur Oxycodone Screen NEGATIVE (NEGATIVE) Urine Methadone Screen NEGATIVE (NEGATIVE) Ur Barbiturates Screen NEGATIVE (NEGATIVE) Ur Phencyclidine Scrn NEGATIVE (NEGATIVE) Ur Amphetamine Screen NEGATIVE (NEGATIVE) U Methamphetamines Scrn NEGATIVE (NEGATIVE) U Benzodiazepines Scrn NEGATIVE (NEGATIVE) U Cocaine Metab Screen NEGATIVE (NEGATIVE) U Marijuana (THC) Screen POSITIVE (NEGATIVE) Influenza Type A RNA (NEGATIVE) Influenza Type B RNA (NEGATIVE) SARS-CoV-2 RNA (JOSE) (NEGATIVE) 08/11/20 08/12/20 08/12/20 Range/Units 17:50 04:50 04:50 WBC 7.78 (4.0-11.0) K/uL RBC 4.03 L (4.30-5.90) M/uL Hgb 11.6 L (12.0-16.0) g/dL Hct 35.8 L (36.0-46.0) % MCV 88.8 (80.0-98.0) fL MCH 28.8 (27.0-32.0) pg MCHC 32.4 (31.0-37.0) g/dL RDW Std Deviation 47.2 (28.0-62.0) fl RDW Coeff of Aydin 15 (11.0-15.0) % Plt Count 298 (150-400) K/uL MPV 9.20 (7.40-12.00) fL Neut % (Auto) (48.0-80.0) % Lymph % (Auto) (16.0-40.0) % Gibson % (Auto) (0.0-15.0) % Eos % (Auto) (0.0-7.0) % Baso % (Auto) (0.0-1.5) % Neut # (Auto) (1.4-5.7) K/uL Lymph # (Auto) (0.6-2.4) K/uL Gibson # (Auto) (0.0-0.8) K/uL Eos # (Auto) (0.0-0.7) K/uL Baso # (Auto) (0.0-0.1) K/uL Nucleated RBC % 0.0 /100WBC Nucleated RBCs # 0 K/uL Lactate (0.20-2.00) mmol/L Sodium 141 (136-145) mmol/L Potassium 4.5 (3.5-5.1) mmol/L Chloride 104 (98-107) mmol/L Carbon Dioxide 28.1 (21.0-32.0) mmol/L BUN 18 (7.0-18.0) mg/dL Creatinine 0.9 (0.6-1.0) mg/dL Est Cr Clr Drug Dosing 61.17 mL/min Estimated GFR (MDRD) > 60.0 ml/min Glucose 99 (74-106) mg/dL Calcium 9.2 (8.5-10.1) mg/dL Phosphorus (2.6-4.7) mg/dL Magnesium (1.8-2.4) mg/dL Total Bilirubin (0.2-1.0) mg/dL AST (15-37) IU/L ALT (14-63) IU/L Alkaline Phosphatase (46-116) U/L Creatine Kinase (26-308) U/L Troponin I (0.000-0.056) ng/mL Total Protein (6.4-8.2) g/dL Albumin (3.4-5.0) g/dL Globulin (2.6-4.0) g/dL Albumin/Globulin Ratio (0.9-1.6) Lipase (73-393) U/L Urine Color Urine Appearance Urine pH (5.0-8.0) Ur Specific Vander[place]ift (1.001-1.035) Urine Protein (NEGATIVE) mg/dL Urine Glucose (UA) (NEGATIVE) mg/dL Urine Ketones (NEGATIVE) mg/dL Urine Occult Blood (NEGATIVE) Urine Nitrite (NEGATIVE) Urine Bilirubin (NEGATIVE) Urine Urobilinogen (<2.0) EU/dL Ur Leukocyte Esterase (NEGATIVE) Urine Opiates Screen (NEGATIVE) Ur Oxycodone Screen (NEGATIVE) Urine Methadone Screen (NEGATIVE) Ur Barbiturates Screen (NEGATIVE) Ur Phencyclidine Scrn (NEGATIVE) Ur Amphetamine Screen (NEGATIVE) U Methamphetamines Scrn (NEGATIVE) U Benzodiazepines Scrn (NEGATIVE) U Cocaine Metab Screen (NEGATIVE) U Marijuana (THC) Screen (NEGATIVE) Influenza Type A RNA NEGATIVE (NEGATIVE) Influenza Type B RNA NEGATIVE (NEGATIVE) SARS-CoV-2 RNA (JOSE) NEGATIVE (NEGATIVE) 08/12/20 Range/Units 04:50 WBC (4.0-11.0) K/uL RBC (4.30-5.90) M/uL Hgb (12.0-16.0) g/dL Hct (36.0-46.0) % MCV (80.0-98.0) fL MCH (27.0-32.0) pg MCHC (31.0-37.0) g/dL RDW Std Deviation (28.0-62.0) fl RDW Coeff of Aydin (11.0-15.0) % Plt Count (150-400) K/uL MPV (7.40-12.00) fL Neut % (Auto) (48.0-80.0) % Lymph % (Auto) (16.0-40.0) % Gibson % (Auto) (0.0-15.0) % Eos % (Auto) (0.0-7.0) % Baso % (Auto) (0.0-1.5) % Neut # (Auto) (1.4-5.7) K/uL Lymph # (Auto) (0.6-2.4) K/uL Gibson # (Auto) (0.0-0.8) K/uL Eos # (Auto) (0.0-0.7) K/uL Baso # (Auto) (0.0-0.1) K/uL Nucleated RBC % /100WBC Nucleated RBCs # K/uL Lactate (0.20-2.00) mmol/L Sodium (136-145) mmol/L Potassium (3.5-5.1) mmol/L Chloride (98-107) mmol/L Carbon Dioxide (21.0-32.0) mmol/L BUN (7.0-18.0) mg/dL Creatinine (0.6-1.0) mg/dL Est Cr Clr Drug Dosing mL/min Estimated GFR (MDRD) ml/min Glucose (74-106) mg/dL Calcium (8.5-10.1) mg/dL Phosphorus (2.6-4.7) mg/dL Magnesium 1.9 (1.8-2.4) mg/dL Total Bilirubin (0.2-1.0) mg/dL AST (15-37) IU/L ALT (14-63) IU/L Alkaline Phosphatase (46-116) U/L Creatine Kinase (26-308) U/L Troponin I (0.000-0.056) ng/mL Total Protein (6.4-8.2) g/dL Albumin (3.4-5.0) g/dL Globulin (2.6-4.0) g/dL Albumin/Globulin Ratio (0.9-1.6) Lipase (73-393) U/L Urine Color Urine Appearance Urine pH (5.0-8.0) Ur Specific [place] (1.001-1.035) Urine Protein (NEGATIVE) mg/dL Urine Glucose (UA) (NEGATIVE) mg/dL Urine Ketones (NEGATIVE) mg/dL Urine Occult Blood (NEGATIVE) Urine Nitrite (NEGATIVE) Urine Bilirubin (NEGATIVE) Urine Urobilinogen (<2.0) EU/dL Ur Leukocyte Esterase (NEGATIVE) Urine Opiates Screen (NEGATIVE) Ur Oxycodone Screen (NEGATIVE) Urine Methadone Screen (NEGATIVE) Ur Barbiturates Screen (NEGATIVE) Ur Phencyclidine Scrn (NEGATIVE) Ur Amphetamine Screen (NEGATIVE) U Methamphetamines Scrn (NEGATIVE) U Benzodiazepines Scrn (NEGATIVE) U Cocaine Metab Screen (NEGATIVE) U Marijuana (THC) Screen (NEGATIVE) Influenza Type A RNA (NEGATIVE) Influenza Type B RNA (NEGATIVE) SARS-CoV-2 RNA (JOSE) (NEGATIVE) Med Orders - Current: Current Medications Albuterol (Ventolin Hfa) 0 gm INH Q6H PRN PRN Reason: Shortness of Breath Buspirone HCl (Buspar) 30 mg PO BID [facility] Last Admin: 08/12/20 09:32 Dose: 30 mg Documented by: Folic Acid (Folic Acid) 1 mg PO BEDTIME [facility] Last Admin: 08/11/20 23:19 Dose: 1 mg Documented by: Omeprazole (Omeprazole) 20 mg PO DAILY [facility] Last Admin: 08/12/20 09:33 Dose: 20 mg Documented by: Ondansetron HCl (Zofran) 4 mg IVPUSH Q4H PRN PRN Reason: Nausea Last Admin: 08/12/20 09:33 Dose: 4 mg Documented by: Paroxetine HCl (Paxil) 20 mg PO BID [facility] Last Admin: 08/12/20 09:57 Dose: 20 mg Documented by: Thiamine HCl (Vitamin B-1) 100 mg PO BEDTIME [facility] Last Admin: 08/11/20 23:23 Dose: 100 mg Documented by: Discontinued Medications Gadobenate Dimeglumine (Multihance) 20 ml IVPUSH ONETIME STA Stop: 08/12/20 08:32 Last Admin: 08/12/20 08:45 Dose: 13 ml Documented by: Sodium Chloride (Normal Saline) 1,000 mls @ 999 mls/hr IV .BOLUS ONE Stop: 08/11/20 16:06 Last Admin: 08/11/20 15:37 Dose: 999 mls/hr Documented by: Lorazepam (Ativan) 1 mg IVPUSH ONETIME ONE Stop: 08/12/20 08:09 Last Admin: 08/12/20 09:17 Dose: 1 mg Documented by: Lorazepam (Ativan) Confirm Administered Dose 2 mg .ROUTE .STK-MED ONE Stop: 08/12/20 08:13 Last Admin: 08/12/20 09:18 Dose: Not Given Documented by: - Exam Quality Assessment: DVT Prophylaxis. No: Supplemental Oxygen General: Alert, Oriented, Cooperative, No Acute Distress Lungs: Clear to Auscultation, Normal Respiratory Effort Cardiovascular: Regular Rate, Regular Rhythm GI/Abdominal Exam: Normal Bowel Sounds, Soft, Tender (Scant tenderness to epigastric region.) Back Exam: Normal Inspection, Full Range of Motion Extremities: Normal Inspection, Normal Range of Motion, Non-Tender, No Pedal Edema Skin: Warm, Dry Neurological: Strength Equal Bilateral. No: Normal Gait (Very ataxic and unsteady needing assist of 2 to stand up safely.) Psy/Mental Status: Alert, Normal Affect, Normal Mood Sepsis Event Note - Evaluation Sepsis Screening Result: No Definite Risk - Focused Exam Vital Signs: Vital Signs Temp Pulse Resp BP Pulse Ox 08/12/20 11:15 97.6 F 78 18 107/62 94 L 08/12/20 07:02 97.3 F 98 20 122/68 94 L 08/12/20 05:00 98.2 F 85 15 129/85 97 08/12/20 01:14 98.1 F 86 15 144/82 H 97 - Problem List & Annotations (1) Syncope SNOMED Code(s): 536146760 Code(s): R55 - SYNCOPE AND COLLAPSE Status: Acute Current Visit: Yes Qualifiers: Syncope type: unspecified Qualified Code(s): R55 - Syncope and collapse (2) Ataxia SNOMED Code(s): 17956942 Code(s): R27.0 - ATAXIA, UNSPECIFIED Status: Acute Current Visit: Yes (3) History of alcohol abuse SNOMED Code(s): 922591323 Code(s): F10.11 - ALCOHOL ABUSE, IN REMISSION Status: Chronic Current Visit: Yes (4) Liver disease SNOMED Code(s): 131253058 Code(s): K76.9 - LIVER DISEASE, UNSPECIFIED Status: Chronic Current Visit: Yes (5) Chronic pancreatitis SNOMED Code(s): 309245127 Code(s): K86.1 - OTHER CHRONIC PANCREATITIS Status: Chronic Current Visit: Yes (6) COPD (chronic obstructive pulmonary disease) SNOMED Code(s): 31776686 Code(s): J44.9 - CHRONIC OBSTRUCTIVE PULMONARY DISEASE, UNSPECIFIED Status: Chronic Current Visit: Yes - Problem List Review Problem List Initiated/Reviewed/Updated: Yes - Plan Plan:: 50 yo female admitted after syncope. 1. Syncope -Head CT negative brain MRI negative for acute infarct -No orthostatic potential noted -Continue to monitor on telemetry for any cardiac causes of syncopal episode. - Per her history this sounds vasovagal. -Does have balance issues on neuro exam. No nystagmus or encephalopathy noted. W -Consult PT -For ataxia consider high-dose thiamine after PT consulted. 2. Liver disease -Secondary to alcohol abuse currently sober -Monitor lab work -Encouraged balanced nutrition -Hold Lasix as she may be slightly over diuresed. 3. Depression/anxiety/alcohol abuse -Continue antidepressants. 4. COPD -Continue inhalers 5. HTN/HLD -Continue antihypertensives and statin. VTE prophylaxis: SCDs and ambulation GI prophylaxis: Protonix CODE STATUS: Full code Dispo: 1 to 2 days
[2020-08-12] MEDS ORDERED: Albuterol 8 GM Inhaler INH PRN ×2 (12:24→12:45)
[2020-08-12] MEDS: Folic Acid 1 MG Tab PO SCH (20:01)
[2020-08-12] MEDS: Thiamine 100 MG Tab PO SCH (20:08)
[2020-08-12] MEDS ORDERED: Mirtazapine 15 MG Tab PO SCH (21:00)
[2020-08-12] MEDS ORDERED: Prazosin 1 MG Cap PO SCH (21:00)
[2020-08-12] MEDS ORDERED: Rosuvastatin 10 MG Tab PO SCH (21:00)
[2020-08-13 05:48] LABS: BLOOD UREA NITROGEN,BUN 24 mg/dL (7.0-18.0); CARBON DIOXIDE,CO2 26.9 mmol/L (21.0-32.0); CHLORIDE,CL 103 mmol/L (98-107); GLUCOSE RANDOM 107 mg/dL (74-106); POTASSIUM,K 4.4 mmol/L (3.5-5.1); SODIUM,NA 139 mmol/L (136-145)
[2020-08-13] MEDS ORDERED: Pantoprazole 40 MG Tab.CR PO SCH (07:30)
[2020-08-13 09:12] VITALS: BP 117/78; PULSE 71
[2020-08-13] MEDS: busPIRone 5 MG Tab PO SCH (09:15)
[2020-08-13] MEDS: PARoxetine 20 MG Tab PO SCH (09:23)
[2020-08-13] MEDS ORDERED: Acetaminophen 325 MG Tab PO PRN (09:24)
--- NOTE | 2020-08-13 10:12 | PCM.DCSUM1 ---
Discharge Summary - Hospital Course Brief History: 50 yo female with pmh COPD/Asthma, chronic pancreatitis and ETOH liver disease who presents to the ED after passing out. Patient reports feeling nauseated while eating at [employer]. In the restroom she strained to induce vomiting but passed out. Witness said she did not hit her head. Patient reports two months being sober. She completed inpatient rehab. During rehab she said she was started on lasix for leg edema. She has been urinating and drinking a a lot. Patient reports feeling nauseated several times during rehab which lead to the feelings of dizziness. She reports general fatigue since quitting ETOH. She is followed by Dr. Rosalie Wen who has ordered a Zio patch. It fell off after three days and she has sent it in to be analyzed. - Discharge Data Discharge Date: 08/13/20 Discharge Disposition: Home, Self-Care 01 Condition: Good - Referral to Home Health Primary Care Physician: PCP None - Discharge Diagnosis/Problem(s) (1) Syncope SNOMED Code(s): 114769446 ICD Code: R55 - SYNCOPE AND COLLAPSE Status: Acute Current Visit: Yes Qualifiers: Syncope type: unspecified Qualified Code(s): R55 - Syncope and collapse (2) Ataxia SNOMED Code(s): 09025711 ICD Code: R27.0 - ATAXIA, UNSPECIFIED Status: Acute Current Visit: Yes (3) History of alcohol abuse SNOMED Code(s): 402118855 ICD Code: F10.11 - ALCOHOL ABUSE, IN REMISSION Status: Chronic Current Visit: Yes (4) Liver disease SNOMED Code(s): 102188146 ICD Code: K76.9 - LIVER DISEASE, UNSPECIFIED Status: Chronic Current Visit: Yes (5) Chronic pancreatitis SNOMED Code(s): 329526146 ICD Code: K86.1 - OTHER CHRONIC PANCREATITIS Status: Chronic Current Visit: Yes (6) COPD (chronic obstructive pulmonary disease) SNOMED Code(s): 19575600 ICD Code: J44.9 - CHRONIC OBSTRUCTIVE PULMONARY DISEASE, UNSPECIFIED Status: Chronic Current Visit: Yes (7) Unsteady gait SNOMED Code(s): 59953813 ICD Code: R26.81 - UNSTEADINESS ON FEET Status: Acute Current Visit: Yes - Patient Summary/Data Consults: Consultations 08/11/20 23:02 PT Evaluation and Treatment [CONS] Routine Hospital Course: Admission diagnoses; Syncope Discharge diagnoses; Syncope likely vasovagal Deconditioning Other PMH; Chronic pancreatitis COPD History of alcohol abuse 2-month sober Liver disease Shirley was admitted secondary to syncopal episode that occurred at grocery store in [facility]. She reports she was attempting to throw up she felt very nauseated and then passed out. He did not hit her head she likely had some vasovagal. Head CT was negative MRI of the brain was obtained which was also negative. CTAs of head and neck were obtained which showed no large vessel occlusion. She was monitored on telemetry showing no arrhythmia. She did have outpatient Zio patch which was not able to stay on due to excessive sweating. Patient had sent that in after 3 days of use. Lab work has remained stable during stay. She is evaluated by PT no vestibular changes but did note to have some ataxia and deconditioning which is likely secondary to 30+ years of alcohol abuse. No nystagmus or encephalopathy. She was treated with folic acid and thiamine. Lasix was held during stay as consideration for mild dehydration was noted. No significant peripheral edema was noted. We did instruct patient to decrease Lasix amount to every other day and to watch her weight as this will give her signs of increased fluid. She verbalized understanding she will be discharged home today with outpatient physical therapy. She does need a walker at home that she started using a couple weeks ago due to gait imbalance. She is to follow-up with PCP as an outpatient. She is to return to ER or clinic sooner if concerns should arise. - Patient Instructions Diet: Regular Diet as Tolerated Activity: As Tolerated Driving: Do Not Drive Showering/Bathing: May Shower Notify Provider of: Fever, Increased Pain, Swelling and Redness, Drainage, Nausea and/or Vomiting Other/Special Instructions: Outpatient physical therapy prescription provided - Discharge Plan *PRESCRIPTION DRUG MONITORING PROGRAM REVIEWED*: Not Applicable *COPY OF PRESCRIPTION DRUG MONITORING REPORT IN PATIENT INOCENTE: Not Applicable Prescriptions/Med Rec: Folic Acid 1 mg PO BEDTIME #60 tablet Thiamine [Vitamin B-1] 100 mg PO BEDTIME #60 tablet Home Medications: Home Meds Albuterol [Ventolin HFA] 1 - 2 puff INH ASDIRECTED PRN 11/28/18 [History] PARoxetine HCL [Paroxetine HCl] 20 mg PO BID 11/28/18 [History] busPIRone HCl [busPIRone] 30 mg PO BID 11/28/18 [History] Albuterol Sulfate 1 dose NEB DAILY PRN 03/31/20 [History] Mirtazapine 7.5 mg PO BEDTIME 08/12/20 [History] Pantoprazole Sodium [Protonix] 20 mg PO DAILY 08/12/20 [History] Prazosin HCl [Prazosin] 1 mg PO BEDTIME 08/12/20 [History] Rosuvastatin Calcium 10 mg PO BEDTIME 08/12/20 [History] Folic Acid 1 mg PO BEDTIME #60 tablet 08/13/20 [Rx] Furosemide [Lasix] 40 mg PO Q48H #0 08/13/20 [Rx] Thiamine [Vitamin B-1] 100 mg PO BEDTIME #60 tablet 08/13/20 [Rx] Oxygen Therapy Mode: Room Air Patient Handouts: Thiamine, Vitamin B1 tablets, Syncope, [id number], Folic Acid, Vitamin B9 tablets Referrals: Ling Garrido MD [Physician] - 09/30/20 1:00 pm Guzman Wen MD [Physician] - 08/16/20 9:30 am - Discharge Summary/Plan Comment DC Time >30 min.: No - Patient Data Vitals - Most Recent: Last Vital Signs Temp 97.5 F 08/13/20 08:00 Pulse 71 08/13/20 08:00 Resp 16 08/13/20 08:00 BP 117/78 08/13/20 08:00 Pulse Ox 95 08/13/20 08:00 Orthostatic Blood Pressure [ 131/66 Standing] Orthostatic Blood Pressure [ 147/75 Sitting] Orthostatic Blood Pressure [ 120/55 Supine] Weight - Most Recent: 68.8 kg I&O - Last 24 hours: Intake & Output 08/12/20 08/13/20 08/13/20 22:59 06:59 14:59 Intake Total 710 600 Output Total 900 1000 Balance -190 -400 Lab Results - Last 24 hrs: Laboratory Results - last 24 hr 08/13/20 08/13/20 Range/Units 04:53 04:53 WBC 6.89 (4.0-11.0) K/uL RBC 4.27 L (4.30-5.90) M/uL Hgb 12.1 (12.0-16.0) g/dL Hct 37.9 (36.0-46.0) % MCV 88.8 (80.0-98.0) fL MCH 28.3 (27.0-32.0) pg MCHC 31.9 (31.0-37.0) g/dL RDW Std Deviation 46.4 (28.0-62.0) fl RDW Coeff of Aydin 14 (11.0-15.0) % Plt Count 295 (150-400) K/uL MPV 9.50 (7.40-12.00) fL Neut % (Auto) 58.2 (48.0-80.0) % Lymph % (Auto) 31.1 (16.0-40.0) % Sunflower % (Auto) 8.1 (0.0-15.0) % Eos % (Auto) 2.5 (0.0-7.0) % Baso % (Auto) 0.1 (0.0-1.5) % Neut # (Auto) 4.0 (1.4-5.7) K/uL Lymph # (Auto) 2.1 (0.6-2.4) K/uL Sunflower # (Auto) 0.6 (0.0-0.8) K/uL Eos # (Auto) 0.2 (0.0-0.7) K/uL Baso # (Auto) 0.0 (0.0-0.1) K/uL Nucleated RBC % 0.0 /100WBC Nucleated RBCs # 0 K/uL Sodium 139 (136-145) mmol/L Potassium 4.4 (3.5-5.1) mmol/L Chloride 103 (98-107) mmol/L Carbon Dioxide 26.9 (21.0-32.0) mmol/L BUN 24 H (7.0-18.0) mg/dL Creatinine 0.9 (0.6-1.0) mg/dL Est Cr Clr Drug Dosing 61.17 mL/min Estimated GFR (MDRD) > 60.0 ml/min Glucose 107 H (74-106) mg/dL Calcium 9.7 (8.5-10.1) mg/dL Magnesium 2.0 (1.8-2.4) mg/dL Total Bilirubin 0.3 (0.2-1.0) mg/dL AST 31 (15-37) IU/L ALT 39 (14-63) IU/L Alkaline Phosphatase 108 (46-116) U/L Total Protein 7.8 (6.4-8.2) g/dL Albumin 3.6 (3.4-5.0) g/dL Globulin 4.2 H (2.6-4.0) g/dL Albumin/Globulin Ratio 0.9 (0.9-1.6) Med Orders - Current: Current Medications Acetaminophen (Tylenol) 650 mg PO Q4H PRN PRN Reason: Pain Last Admin: 08/13/20 09:44 Dose: 650 mg Documented by: Albuterol (Ventolin Hfa) 0 gm INH Q6H PRN PRN Reason: Shortness of Breath Buspirone HCl (Buspar) 30 mg PO BID [facility] Last Admin: 08/13/20 09:15 Dose: 30 mg Documented by: Folic Acid (Folic Acid) 1 mg PO BEDTIME [facility] Last Admin: 08/12/20 20:01 Dose: 1 mg Documented by: Mirtazapine (Remeron) 7.5 mg PO BEDTIME [facility] Last Admin: 08/12/20 20:02 Dose: 7.5 mg Documented by: Ondansetron HCl (Zofran) 4 mg IVPUSH Q4H PRN PRN Reason: Nausea Last Admin: 08/12/20 18:33 Dose: 4 mg Documented by: Pantoprazole Sodium (Protonix) 20 mg PO ACBREAKFAST [facility] Last Admin: 08/13/20 06:30 Dose: 20 mg Documented by: Paroxetine HCl (Paxil) 20 mg PO BID [facility] Last Admin: 08/13/20 09:23 Dose: 20 mg Documented by: Prazosin HCl (Minpress) 1 mg PO BEDTIME [facility] Last Admin: 08/12/20 20:05 Dose: 1 mg Documented by: Rosuvastatin Calcium (Crestor) 10 mg PO BEDTIME [facility] Last Admin: 08/12/20 20:02 Dose: 10 mg Documented by: Thiamine HCl (Vitamin B-1) 100 mg PO BEDTIME [facility] Last Admin: 08/12/20 20:08 Dose: 100 mg Documented by: Discontinued Medications Albuterol (Ventolin Hfa) 0 gm INH Q4H PRN PRN Reason: Dyspnea Gadobenate Dimeglumine (Multihance) 20 ml IVPUSH ONETIME STA Stop: 08/12/20 08:32 Last Admin: 08/12/20 08:45 Dose: 13 ml Documented by: Sodium Chloride (Normal Saline) 1,000 mls @ 999 mls/hr IV .BOLUS ONE Stop: 08/11/20 16:06 Last Admin: 08/11/20 15:37 Dose: 999 mls/hr Documented by: Lorazepam (Ativan) 1 mg IVPUSH ONETIME ONE Stop: 08/12/20 08:09 Last Admin: 08/12/20 09:17 Dose: 1 mg Documented by: Lorazepam (Ativan) Confirm Administered Dose 2 mg .ROUTE .STK-MED ONE Stop: 08/12/20 08:13 Last Admin: 08/12/20 09:18 Dose: Not Given Documented by: Omeprazole (Omeprazole) 20 mg PO DAILY SEE Last Admin: 08/12/20 09:33 Dose: 20 mg Documented by: - Exam General: Reports: Alert, Oriented, Cooperative, No Acute Distress Lungs: Reports: Clear to Auscultation, Normal Respiratory Effort Cardiovascular: Reports: Regular Rate, Regular Rhythm GI/Abdominal Exam: Normal Bowel Sounds, Soft, Non-Tender Extremities: Normal Inspection, Normal Range of Motion, Non-Tender, No Pedal Edema Neurological: Reports: No New Focal Deficit Psy/Mental Status: Reports: Alert, Normal Affect, Normal Mood
== END 2020-08-13 10:45 | disposition home or self-care (01) ==
LOC: MW.ED 14:26 → MW.MS 19:19
PROVIDERS: ADMIT Internal Medicine; ATTEND Internal Medicine
DX: K86.1 Other chronic pancreatitis (principal); K70.9 Alcoholic liver disease, unspecified; E78.00 Pure hypercholesterolemia, unspecified; F17.210 Nicotine dependence, cigarettes, uncomplicated; R55 Syncope and collapse; R27.0 Ataxia, unspecified; J44.9 Chronic obstructive pulmonary disease, unspecified; Z20.822 Contact with and (suspected) exposure to COVID-19; Z88.8 Allergy status to other drugs, medicaments and biological substances; Z88.1 Allergy status to other antibiotic agents; Z91.040 Latex allergy status; Z88.5 Allergy status to narcotic agent; Z79.899 Other long term (current) drug therapy; Z90.49 Acquired absence of other specified parts of digestive tract
CPT/HCPCS: 0240U; 36415; 70450; 70553; 71045; 80048; 80053; 80305; 81003; 82550; 83605; 83690; 83735; 84100; 84484; 85025; 85027; 93005; 97162; 99285; A9270; A9577; J2060; J2405; J7030; 93010; 96374; 96375; 96376; 99283; G0378; J3535-GY

== ENCOUNTER 2020-08-27 20:49 | Emergency (ER) | payer MEDICAID ==
[2020-08-27] MEDS ORDERED: Haloperidol Lactate 5 MG/ML SDV IM ONE (21:58)
[2020-08-27] MEDS ORDERED: diphenhydrAMINE 50 MG/ML SDV IVPUSH ONE (21:58)
[2020-08-27] MEDS ORDERED: Dextrose 5%-0.9% NaCl 1,000 ML IV SCH (22:00)
[2020-08-27 23:24] LABS: BLOOD UREA NITROGEN,BUN 25 mg/dL (7.0-18.0); CARBON DIOXIDE,CO2 26.4 mmol/L (21.0-32.0); CHLORIDE,CL 98 mmol/L (98-107); GLUCOSE RANDOM 110 mg/dL (74-106); LIPASE 144 U/L (73-393); POTASSIUM,K 4.2 mmol/L (3.5-5.1); SODIUM,NA 138 mmol/L (136-145)
[2020-08-27] MEDS ORDERED: Iopamidol 755 MG/ML 500 ML Multipack Bottle IVPUSH STA (23:57)
--- NOTE | 2020-08-28 00:15 | CT ---
INDICATION: Abdominal pain with running stools. COMPARISON: CT of the abdomen and pelvis with contrast from 11/10/2017 TECHNIQUE: CT examination of the abdomen and pelvis was performed with the uneventful intravenous administration of 100 cc of Isovue 370 while 2.5 mm thick axial sections were obtained from the lung bases through the pubic symphysis. Oral contrast was not administered. Please note that all CT scans at this facility use dose modulation, iterative reconstruction, and/or weight-based dosing when appropriate to reduce radiation dose to as low as reasonably achievable. FINDINGS: In the abdomen, the liver, spleen, pancreas, and adrenals are normal in appearance. The kidneys are normal in appearance. Clips are seen in the gall bladder fossa from cholecystectomy. A The abdominal aorta is normal in caliber with no sign of dilatation. There is no sign of retroperitoneal mass or adenopathy. The stomach, loops of small bowel, and colon in the abdomen are normal in appearance. In the pelvis, the appendix is normal in appearance with no sign of inflammatory process. There is stable moderate mid sigmoid diverticulosis without evidence of diverticulitis. The loops of small bowel and colon in the pelvis are otherwise normal in appearance. The uterus is again seen to be absent and the adnexal regions are normal in appearance. The urinary bladder is normal in appearance. There is no sign of pelvic or inguinal mass or adenopathy. There is no sign of free air or free fluid in the abdomen or pelvis. The lung bases are clear. There is no change in minimal scoliosis of the upper lumbar spine convex towards the right. IMPRESSION: Nothing seen to correlate with history of abdominal pain and runny stools. No sign colitis or enteritis. CT of the abdomen shows stable changes of cholecystectomy with no sign of biliary ductal dilatation. CT of the pelvis shows stable moderate mid sigmoid diverticulosis with no sign of diverticulitis. Again seen are changes of hysterectomy. Please note that all CT scans at this facility use dose modulation, iterative reconstruction, and/or weight-based dosing when appropriate to reduce radiation dose to as low as reasonably achievable. Dictated by Apolinar Ordonez MD @ Aug 28 2020 12:08AM Signed by Dr. Apolinar Ordonez @ Aug 28 2020 12:14AM
--- NOTE | 2020-08-28 01:12 | EDM.PDOC ---
ED HPI GENERAL MEDICAL PROBLEM - General Chief Complaint: Gastrointestinal Problem Stated Complaint: VOMITING Time Seen by Provider: 08/27/20 21:47 - History of Present Illness INITIAL COMMENTS - FREE TEXT/NARRATIVE: CHIEF COMPLAINT(S): Abdominal pain HISTORY OF PRESENT ILLNESS: This is a 50-year-old woman with a past medical history of chronic pancreatitis who comes to the emergency department with a chief complaint of abdominal pain. The patient states that for the last 3 days she has been experiencing nausea and vomiting was nonbloody and nonbilious. She states that she checked her heart rate at home and it was found to be 117. She states that she checks her temperature and she has not been febrile. She states that her oxygen has been good. She states that she has not been able to take her home meds. She states that in addition to the nausea and vomiting she has been experiencing epigastric abdominal pain without any radiation. She rates it as sharp and 5 out of 10. She denies any melena or hematochezia but states that she does have some diarrhea. She denies any aggravating factors and nothing seems to be helping the pain. She denies any urinary complaints or vaginal discharge. The patient states that she did smoke marijuana to help with the nausea and vomiting. REVIEW OF SYSTEMS: Constitutional: Denies fever, chills. Eyes: Denies eye pain Ears, Nose, Mouth, & Throat: Denies earache Cardiovascular: Denies chest pain Respiratory: Denies shortness of breath Gastrointestinal: Positive for abdominal pain, nausea, vomiting. Denies diarrhea, hematochezia, melena, hematemesis, bilious emesis Genitourinary: Denies hematuria, dysuria, vaginal bleeding Skin:Denies a rash Neurological: Denies blurred vision Psychiatric: Denies depression PAST MEDICAL HISTORY: As per history of present illness and as reviewed below otherwise noncontributory. SURGICAL HISTORY: As per history of present illness and as reviewed below otherwise noncontributory. SOCIAL HISTORY: As per history of present illness and as reviewed below otherwise noncontributory. FAMILY HISTORY: As per history of present illness and as reviewed below otherwise noncontributory. EXAMINATION OF ORGAN SYSTEMS/BODY AREAS: Constitutional: Blood pressure was 133/89, heart rate 96, respiratory rate 16 with an oxygen saturation 95% on room air. Temperature 36.1 General: Overall well-appearing woman who is in no acute distress. Psychiatric: Appropriate mood and affect. Eyes: No scleral icterus or conjunctival erythema ENMT: Moist mucous membranes. No pharyngeal erythema Cardiovascular: Regular, rate, and rhythm. No gallops, murmurs, or rubs. Bilateral upper extremity pulses symmetric and intact. No peripheral edema. No JVD. Respiratory: Lungs clear to auscultation bilaterally. No wheezes, rales, or rhonchi. Gastrointestinal: Soft, minimal tenderness in the epigastric region. No rebound or guarding. There is tenderness to palpation in the right lower quadrant. Normoactive bowel sounds Genitourinary: No suprapubic tenderness no CVA tenderness. Musculoskeletal: Normal range of motion. Skin: No lesions or abrasions. Neurological: Alert, GCS 15 MEDICAL DECISION MAKING AND COURSE IN THE ED WITH INTERPRETATION/REVIEW OF DIAGNOSTIC STUDIES: This is a 50-year-old woman with a past medical history of chronic pancreatitis who comes to the emergency department with 3 days of nausea and vomiting with an examination revealing right lower quadrant abdominal pain. At this time differential includes acute on chronic pancreatitis, appendicitis, marijuana hyperemesis given marijuana use. Will obtain labs including CBC, CMP, lipase. Will obtain CT abdomen pelvis with contrast. We will provide the patient with Haldol and Benadryl for pain and nausea relief. Twelve-lead EKG interpreted by myself. Normal sinus rhythm at a rate of 94 beats per minute. Normal axis. OR interval is 161 ms. QRS duration is [address] segments are normal without elevations or depressions. No Q waves present. Hyp ertrophy not noted. No changes demonstrated from prior EKG dated 08/11/2020. Interpretation: Normal sinus rhythm Laboratory: CBC reveals a leukocytosis of 14.47 with normal indices. CMP reveals mildly elevated BUN at 25, hyperglycemia at 110, mild elevation in alkaline phosphatase at 123. Troponin is negative. Lipase is 144 The radiological images were viewed by myself along with reading the report from the radiologist. CT abdomen pelvis with IV contrast does not reveal any acute intra-abdominal pathology. After labs and Haldol and Benadryl the patient did report significant improvement. At this time the patient was able to tolerate p.o. At this time her CT was negative I did discuss results with her. I discussed that she would be stable for discharge. She is to follow-up with her primary care physician. She is to return for any new or worsening symptoms. She was amenable discharge and had no further questions DISPOSITION: The patient was discharged home in stable condition. The patient will follow up with PCP within 1 week CONDITION: Fair PROCEDURES: None FINAL IMPRESSION(S)/DIAGNOSES: 1. Acute abdominal pain, unknown etiology Dane Cadena M.D. abdominal Pain Score (Numeric/FACES): 7 - Related Data Allergies Allergy/AdvReac Type Severity Reaction Status Date / Time amitriptyline Allergy Hives Verified 08/27/20 21:33 aspirin Allergy Stomach Verified 08/27/20 21:33 Upset latex Allergy Rash Verified 08/27/20 21:33 levofloxacin [From Levaquin] Allergy Diarrhea Verified 08/27/20 21:33 pregabalin [From Lyrica] Allergy Other Verified 08/27/20 21:33 morphine AdvReac Confusion Verified 08/27/20 21:33 Home Meds: Home Meds Albuterol [Ventolin HFA] 1 - 2 puff INH ASDIRECTED PRN 11/28/18 [History] PARoxetine HCL [Paroxetine HCl] 20 mg PO BID 11/28/18 [History] busPIRone HCl [busPIRone] 30 mg PO BID 11/28/18 [History] Albuterol Sulfate 1 dose NEB DAILY PRN 03/31/20 [History] Mirtazapine 7.5 mg PO BEDTIME 08/12/20 [History] Pantoprazole Sodium [Protonix] 20 mg PO DAILY 08/12/20 [History] Prazosin HCl [Prazosin] 1 mg PO BEDTIME 08/12/20 [History] Rosuvastatin Calcium 10 mg PO BEDTIME 08/12/20 [History] Folic Acid 1 mg PO BEDTIME #60 tablet 08/13/20 [Rx] Furosemide [Lasix] 40 mg PO Q48H #0 08/13/20 [Rx] Thiamine [Vitamin B-1] 100 mg PO BEDTIME #60 tablet 08/13/20 [Rx] Past Medical History - Past Health History Medical/Surgical History: Denies Medical/Surgical History HEENT History: Reports: Other (See Below) Other HEENT History: states has blurred vision, wears glasses, top denture, Cardiovascular History: Reports: High Cholesterol Other Cardiovascular History: states mild heart murmur Respiratory History: Reports: Asthma, Bronchitis, Recurrent, COPD, SOB, Other (See Below) Other Respiratory History: states has nodule on R lower lung, Gastrointestinal History: Reports: Bowel Obstruction, Diverticulosis, GERD, Pancreatitis, Other (See Below) Other Gastrointestinal History: ulcerative colitis Genitourinary History: Reports: None MANGLE TENDER History: Reports: Ectopic , Other MANGLE TENDER History: Ectopic Musculoskeletal History: Reports: Arthritis, Back Pain, Chronic, Fracture, Other (See Below) Other Musculoskeletal History: 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), put left hand through a plate glass window, left hand and wrist surgery x3 Neurological History: Reports: Other (See Below) Other Neuro History: CRIPS Psychiatric History: Reports: Addiction, Anxiety, Depression, PTSD, Suicide Attempt, Suicidal Ideation Endocrine/Metabolic History: Reports: None Hematologic History: Reports: Blood Transfusion(s) Immunologic History: Reports: None Oncologic (Cancer) History: Reports: Other (See Below) Other Oncologic History: cervical dysplagia Dermatologic History: Reports: None - Infectious Disease History Infectious Disease History: Reports: Chicken Pox - Past Surgical History Head Surgeries/Procedures: Reports: None HEENT Surgical History: Reports: Other (See Below) Other HEENT Surgeries/Procedures: Dental extractions Cardiovascular Surgical History: Reports: None Respiratory Surgical History: Reports: None GI Surgical History: Reports: Cholecystectomy, Colon, Colonoscopy, EGD, Other (See Below) Other GI Surgeries/Procedures: Multiple laproscopic surgeries, laparotomy with colon resection for bowel obstruction Female Surgical History: Reports: Section, Hysterectomy, Oophorectomy Other Female Surgeries/Procedures: left ovarian cyst with oopherectomy Endocrine Surgical History: Reports: None Neurological Surgical History: Reports: None Musculoskeletal Surgical History: Reports: Other (See Below) Other Musculoskeletal Surgeries/Procedures:: left hand surgery x3, toenail removal Oncologic Surgical History: Reports: None Dermatological Surgical History: Reports: None Social & Family History - Family History Family Medical History: No Pertinent Family History - Caffeine Use Caffeine Use: Reports: None Caffeine Use Comment: 3-4 daily - Recreational Drug Use Recreational Drug Use: No ED ROS GENERAL - Review of Systems Review Of Systems: See Below ED EXAM, GENERAL - Physical Exam Exam: See Below Course - Vital Signs Last Recorded V/S: Last Vital Signs Temp 36.6 C 08/28/20 01:34 Pulse 80 08/28/20 01:34 Resp 18 08/28/20 01:34 BP 100/54 L 08/28/20 01:34 Pulse Ox 95 08/28/20 01:34 - Orders/Labs/Meds Labs: Laboratory Tests 08/27/20 08/27/20 Range/Units 22:50 22:50 WBC 14.47 H (4.0-11.0) K/uL RBC 4.51 (4.30-5.90) M/uL Hgb 13.4 (12.0-16.0) g/dL Hct 39.4 (36.0-46.0) % MCV 87.4 (80.0-98.0) fL MCH 29.7 (27.0-32.0) pg MCHC 34.0 (31.0-37.0) g/dL RDW Std Deviation 45.1 (28.0-62.0) fl RDW Coeff of Aydin 14 (11.0-15.0) % Plt Count 359 (150-400) K/uL MPV 9.60 (7.40-12.00) fL Neut % (Auto) 72.0 (48.0-80.0) % Lymph % (Auto) 21.1 (16.0-40.0) % [place] % (Auto) 6.5 (0.0-15.0) % Eos % (Auto) 0.3 (0.0-7.0) % Baso % (Auto) 0.1 (0.0-1.5) % Neut # (Auto) 10.4 H (1.4-5.7) K/uL Lymph # (Auto) 3.1 H (0.6-2.4) K/uL [place] # (Auto) 0.9 H (0.0-0.8) K/uL Eos # (Auto) 0.0 (0.0-0.7) K/uL Baso # (Auto) 0.0 (0.0-0.1) K/uL Nucleated RBC % 0.0 /100WBC Nucleated RBCs # 0 K/uL Sodium 138 (136-145) mmol/L Potassium 4.2 (3.5-5.1) mmol/L Chloride 98 (98-107) mmol/L Carbon Dioxide 26.4 (21.0-32.0) mmol/L BUN 25 H (7.0-18.0) mg/dL Creatinine 1.0 (0.6-1.0) mg/dL Est Cr Clr Drug Dosing 55.06 mL/min Estimated GFR (MDRD) 58.5 ml/min Glucose 110 H (74-106) mg/dL Calcium 10.1 (8.5-10.1) mg/dL Magnesium 1.9 (1.8-2.4) mg/dL Total Bilirubin 0.3 (0.2-1.0) mg/dL AST 23 (15-37) IU/L ALT 46 (14-63) IU/L Alkaline Phosphatase 123 H (46-116) U/L Troponin I < 0.050 (0.000-0.056) ng/mL Total Protein 8.8 H (6.4-8.2) g/dL Albumin 4.2 (3.4-5.0) g/dL Globulin 4.6 H (2.6-4.0) g/dL Albumin/Globulin Ratio 0.9 (0.9-1.6) Lipase 144 (73-393) U/L Meds: Medications Discontinued Medications Generic Name Dose Route Start Last Admin Trade Name Freq PRN Reason Stop Dose Admin Diphenhydramine HCl 25 mg 08/27/20 21:58 08/27/20 22:52 Benadryl IVPUSH 08/27/20 21:59 25 mg ONETIME ONE Administration Haloperidol Lactate 2.5 mg 08/27/20 21:58 08/27/20 22:53 Haldol IM 08/27/20 21:59 2.5 mg ONETIME ONE Administration Dextrose/Sodium Chloride 1,000 mls @ 999 mls/hr 08/27/20 22:00 08/27/20 22:51 Dextrose 5%-Normal Saline IV 999 mls/hr ASDIRECTED SEE Administration Iopamidol 100 ml 08/27/20 23:57 08/27/20 23:57 Isovue Multipack-370 (76%) IVPUSH 08/27/20 23:58 100 ml ONETIME STA Administration Departure - Departure Time of Disposition: 01:12 Disposition: Home, Self-Care 01 Condition: Fair Clinical Impression: Abdominal pain - Discharge Information *PRESCRIPTION DRUG MONITORING PROGRAM REVIEWED*: No *COPY OF PRESCRIPTION DRUG MONITORING REPORT IN PATIENT INOCENTE: No Instructions: Abdominal Pain, Adult, [id number] Referrals: Lang Tomlinson MD [Primary Care Provider] - Forms: ED Department Discharge Additional Instructions: Your evaluated on an emergent basis. At this time it is uncertain as what is causing your pain however your pain has improved here. Your CT scan did show diverticulosis without any evidence of infection. It is important that you follow-up with your primary care physician at your scheduled appointment. If you have any new or worsening symptoms such as continued vomiting, worsening abdominal pain, blood in your vomit or blood in your stool please return to the emergency department. [facility] [address] [place] [address] [facility] [address] [place] [id number] The patient is informed of any results of their evaluation and diagnostic workup and all questions are answered. They are given discharge instructions and return precautions. The patient is stable for discharge. The patient states they understand and agree with the plan and that they will return if their symptoms get worse or if they have any new concerns. The following information is given to patients seen in the emergency department who are being discharged to home. This information is to outline your options for follow-up care. We provide all patients seen in our emergency department with a follow-up referral. The need for follow-up, as well as the timing and circumstances, are variable depending upon the specifics of your emergency department visit. If you don't have a primary care physician on staff, we will provide you with a referral. We always advise you to contact your personal physician following an emergency department visit to inform them of the circumstance of the visit and for follow-up with them and/or the need for any referrals to a consulting specialist. The emergency department will also refer you to a specialist when appropriate. This referral assures that you have the opportunity for follow-up care with a specialist. All of these measure are taken in an effort to provide you with optimal care, which includes your follow-up. Under all circumstances we always encourage you to contact your private physician who remains a resource for coordinating your care. When calling for follow-up care, please make the office aware that this follow-up is from your recent emergency room visit. If for any reason you are refused follow-up, please contact the [facility] Emergency Department at and asked to speak to the emergency department charge nurse. Sepsis Event Note (ED) - Evaluation Sepsis Screening Result: No Definite Risk
[2020-08-28 01:51] VITALS: BP 100/54; PULSE 80
== END 2020-08-28 01:34 | disposition home or self-care (01) ==
LOC: MW.ED 20:49
DX: R10.13 Epigastric pain (principal); E78.00 Pure hypercholesterolemia, unspecified; J44.9 Chronic obstructive pulmonary disease, unspecified; K21.9 Gastro-esophageal reflux disease without esophagitis; Z79.899 Other long term (current) drug therapy; Z88.6 Allergy status to analgesic agent; Z88.8 Allergy status to other drugs, medicaments and biological substances; Z91.040 Latex allergy status; Z88.1 Allergy status to other antibiotic agents; Z88.5 Allergy status to narcotic agent
CPT/HCPCS: 36415; 74177; 80053; 83690; 83735; 84484; 85025; 93005; 96372; 96374; 99284; J1200; J1630; J7042; Q9967; 93010; 99283

== ENCOUNTER 2020-11-22 19:58 | Emergency (ER) | payer MEDICAID ==
[2020-11-22] MEDS ORDERED: Ondansetron 4 MG/2 ML SDV IVPUSH ONE ×2 (20:37→22:05)
[2020-11-22] MEDS ORDERED: Sodium Chloride 0.9% 1,000 ML IV ONE (20:37)
[2020-11-22] MEDS ORDERED: Morphine 2 MG/ML SYRINGE IVPUSH ONE (20:39)
[2020-11-22 20:52] LABS: CARBON DIOXIDE,CO2 26.1 mmol/L (21.0-32.0); POTASSIUM,K 4.7 mmol/L (3.5-5.1)
[2020-11-22] MEDS ORDERED: Ondansetron 4 MG/2 ML SDV ONE (21:48)
[2020-11-22] MEDS ORDERED: Iopamidol 755 MG/ML 500 ML Multipack Bottle IVPUSH STA (22:09)
--- NOTE | 2020-11-22 22:43 | CT ---
INDICATION: Epigastric pain TECHNIQUE: CT abdomen and pelvis acquired with 100 cc Isovue 370 IV contrast. COMPARISON: August 27, 2020 FINDINGS: Lower chest: Unremarkable. Liver: Unremarkable. Spleen: Unremarkable. Pancreas: Unremarkable. Gallbladder and bile ducts: S/p cholecystectomy. Adrenal glands: Unremarkable. Kidneys: Unremarkable. GI tract: Colonic diverticulosis. Appendix is normal. Vascular structures: Unremarkable. Lymph nodes: Unremarkable. Miscellaneous: Unremarkable. No free air or significant free fluid. Pelvic Organs: Status post hysterectomy. Bones: Unremarkable for age. IMPRESSION: No acute intra-abdominal process identified. Colonic diverticulosis. Status post cholecystectomy and hysterectomy. Please note that all CT scans at this facility use dose modulation, iterative reconstruction, and/or weight-based dosing when appropriate to reduce radiation dose to as low as reasonably achievable. Dictated by Becca Meehan MD @ 11/22/2020 10:42:[address] Becca Meehan @ Nov 22 2020 10:42PM
[2020-11-22] MEDS ORDERED: Famotidine 20 MG/2 ML SDV IVPUSH ONE (23:37)
[2020-11-22] MEDS ORDERED: Alum Hydrox/Mag Hydrox/Simeth 15 ML, Lidocaine 2% 5 ML PO ONE ×2 (23:37)
[2020-11-22] MEDS ORDERED: diphenhydrAMINE 50 MG/ML SDV IVPUSH ONE (23:55)
[2020-11-22] MEDS ORDERED: Haloperidol Lactate 5 MG/ML SDV IM ONE (23:55)
--- NOTE | 2020-11-23 01:32 | EDM.PDOC ---
ED HPI GENERAL MEDICAL PROBLEM - General Chief Complaint: Gastrointestinal Problem Stated Complaint: NAUSEA Time Seen by Provider: 11/22/20 20:05 - History of Present Illness INITIAL COMMENTS - FREE TEXT/NARRATIVE: CHIEF COMPLAINT(S): Vomiting HISTORY OF PRESENT ILLNESS: This is a 50-year-old woman in with a past medical history of prior alcohol use disorder who is 70 days sober with a history of pancreatitis and cirrhosis comes to the emergency department with a chief complaint of vomiting. The patient states that she was seen here approximately 2 months ago with muscle cramps, nausea and weakness. She states that she is experiencing similar symptoms. She states that all of her muscles are cramping and are the same as before. She denies any fevers or chills, chest pain or shortness of breath. She states that the muscle pain is exacerbated by walking. She states that today she also had an abdominal pain which is epigastric which she describes as dull/achy/crampy rated 6 out of 10 without any radiation. She states that she does feel mildly distended and describes the pain is constant. She states that there is associated nausea and vomiting which is nonbloody nonbilious. She states that she took Tylenol but that did not help. She does not have any nausea medication at home. She denies any relieving factors. REVIEW OF SYSTEMS: Constitutional: Denies fever, chills. Eyes: Denies eye pain Ears, Nose, Mouth, & Throat: Denies earache Cardiovascular: Denies chest pain Respiratory: Denies shortness of breath Gastrointestinal: Positive for abdominal pain, nausea, vomiting. Denies diarrhea, hematochezia, hematemesis, bilious emesis, melena Genitourinary: Denies hematuria, dysuria Skin:Denies a rash MSK: Positive for muscle aches. Denies joint pain Neurological: Denies blurred vision Psychiatric: Denies depression PAST MEDICAL HISTORY: As per history of present illness and as reviewed below otherwise noncontributory. SURGICAL HISTORY: As per history of present illness and as reviewed below otherwise noncontributory. SOCIAL HISTORY: As per history of present illness and as reviewed below otherwise noncontributory. FAMILY HISTORY: As per history of present illness and as reviewed below otherwise noncontributory. EXAMINATION OF ORGAN SYSTEMS/BODY AREAS: Constitutional: Blood pressure was 183/107, heart rate 74, respiratory rate 18 with an oxygen saturation 97% on room air. Temperature 36.0 temporally General: Middle-aged woman who does not appear to be in acute distress Psychiatric: Appropriate mood and affect. Eyes: No scleral icterus or conjunctival erythema ENMT: Moist mucous membranes. No pharyngeal erythema Cardiovascular: Regular, rate, and rhythm. No gallops, murmurs, or rubs. Bilateral upper extremity pulses symmetric and intact. No peripheral edema. No JVD. Respiratory: Lungs clear to auscultation bilaterally. No wheezes, rales, or rhonchi. Gastrointestinal: Soft, distended, tenderness to palpation in the epigastric and right upper quadrant. No rebound or guarding. Negative Patel's and McBurney's. Hyperactive bowel sounds Genitourinary: No suprapubic tenderness no CVA tenderness Musculoskeletal: Normal range of motion. Skin: No lesions or abrasions. Neurological: Alert, GCS 15 MEDICAL DECISION MAKING AND COURSE IN THE ED WITH INTERPRETATION/REVIEW OF DIAGNOSTIC STUDIES: This is a 50-year-old woman in with a past medical history of prior alcohol use disorder who is 70 days sober with a history of pancreatitis and cirrhosis comes to the emergency department with abdominal pain with distention and associated vomiting with muscle aches. At this time given her history of prior abdominal surgeries and adhesions I am concerned about the possibility of bowel obstruction. In addition differential includes pancreatitis. This also could be viral syndrome given the body aches and cramping. Will obtain labs including CBC, CMP, urinalysis. Will obtain a Covid swab. Will obtain a CT abdomen pelvis with p.o. and IV contrast. We will provide the patient with morphine 2 mg IV, 4 mg of IV Zofran, and 1 L of normal saline. Laboratory: CBC reveals a leukocytosis of 12.76 with neutrophilic predominance without any left shift otherwise unremarkable. CMP reveals hyperglycemia at 145, elevation in alkaline phosphatase at 143 otherwise unremarkable. CPK is 128. Lipase is 96. Covid is negative. Urinalysis was a clean catch and was negative for leukocyte esterase, negative for nitrites, and negative for blood. Interpretation: Negative. The patient did attempt to swallow p.o. contrast however the patient vomited it immediately back up. Therefore we will just obtain a CT abdomen pelvis with IV contrast. We provided the patient with an additional 4 mg of IV Zofran. The radiological images were viewed by myself along with reading the report from the radiologist. CT abdomen pelvis reveals no acute abdominal process. There is colonic diverticulosis without diverticulitis. After imaging I did discuss results with the patient. I discussed with her at this time that her work-up is negative thus far. At this time we will observe the patient for p.o. toleration. Patient was unable to tolerate p.o. therefore I provided the patient with Haldol and Benadryl for continued nausea relief. We will reevaluate. After period of observation the patient was able to tolerate p.o. At this time I did encourage her to continue taking her home medication for reflux and GERD. I discussed with her that I had be providing her with Zofran for nausea relief at home. I encouraged her to have a bland diet over the next couple of days and then reintroduce foods to her system. I discussed if she were to have any new or worsening symptoms she need to return to the emergency department. She was amenable to discharge at this time and had no further questions. DISPOSITION: The patient was discharged home in stable condition. The patient will follow up with primary care physician in 3 to 5 days CONDITION: Fair PROCEDURES: None FINAL IMPRESSION(S)/DIAGNOSES: 1. Acute abdominal pain, unknown etiology 2. Acute vomiting, unknown etiology Dane Cadena M.D. Abdomen Pain Score (Numeric/FACES): 6 - Related Data Allergies Allergy/AdvReac Type Severity Reaction Status Date / Time amitriptyline Allergy Hives Verified 11/22/20 20:12 aspirin Allergy Stomach Verified 11/22/20 20:12 Upset latex Allergy Rash Verified 11/22/20 20:12 levofloxacin [From Levaquin] Allergy Diarrhea Verified 11/22/20 20:12 pregabalin [From Lyrica] Allergy Other Verified 11/22/20 20:12 morphine AdvReac Confusion Verified 11/22/20 20:12 Home Meds: Home Meds Albuterol [Ventolin HFA] 1 - 2 puff INH ASDIRECTED PRN 11/28/18 [History] PARoxetine HCL [Paroxetine HCl] 20 mg PO DAILY 11/28/18 [History] busPIRone HCl [busPIRone] 30 mg PO BID 11/28/18 [History] Albuterol Sulfate 1 dose NEB DAILY PRN 03/31/20 [History] Mirtazapine 7.5 mg PO BEDTIME 08/12/20 [History] Pantoprazole Sodium [Protonix] 20 mg PO DAILY 08/12/20 [History] Prazosin HCl [Prazosin] 1 mg PO BEDTIME 08/12/20 [History] Rosuvastatin Calcium 10 mg PO BEDTIME 08/12/20 [History] Folic Acid 1 mg PO BEDTIME #60 tablet 08/13/20 [Rx] Furosemide [Lasix] 40 mg PO Q48H #0 08/13/20 [Rx] Thiamine [Vitamin B-1] 100 mg PO BEDTIME #60 tablet 08/13/20 [Rx] Metoprolol Succinate 25 mg PO DAILY 09/30/20 [History] Benzonatate 200 mg PO TID PRN 3 Days #9 capsule 10/01/20 [Rx] Doxycycline [Vibramycin] 100 mg PO Q12HR 3 Days #6 cap 10/01/20 [Rx] Nicotine [Habitrol] 14 mg TRDERM DAILY 30 Days #30 patch 10/01/20 [Rx] predniSONE [Prednisone] 20 mg PO DAILY 12 Days #24 tablet 10/01/20 [Rx] Ondansetron [Zofran ODT] 4 mg PO Q6H PRN #12 tab.dis 11/23/20 [Rx] Past Medical History - Past Health History Medical/Surgical History: Denies Medical/Surgical History HEENT History: Reports: Other (See Below) Other HEENT History: states has blurred vision, wears glasses, top denture, Cardiovascular History: Reports: High Cholesterol Other Cardiovascular History: states mild heart murmur Respiratory History: Reports: Asthma, Bronchitis, Recurrent, COPD, SOB, Other (See Below) Other Respiratory History: states has nodule on R lower lung, Gastrointestinal History: Reports: Bowel Obstruction, Diverticulosis, GERD, Pancreatitis, Other (See Below) Other Gastrointestinal History: ulcerative colitis Genitourinary History: Reports: None WIRELESS SALES REPRESENTATIVE History: Reports: Ectopic , Other WIRELESS SALES REPRESENTATIVE History: Ectopic Musculoskeletal History: Reports: Arthritis, Back Pain, Chronic, Fracture, Other (See Below) Other Musculoskeletal History: 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), put left hand through a plate glass window, left hand and wrist surgery x3 Neurological History: Reports: Other (See Below) Other Neuro History: CRIPS Psychiatric History: Reports: Addiction, Anxiety, Depression, PTSD, Suicide Attempt, Suicidal Ideation Endocrine/Metabolic History: Reports: None Hematologic History: Reports: Blood Transfusion(s) Immunologic History: Reports: None Oncologic (Cancer) History: Reports: Other (See Below) Other Oncologic History: cervical dysplagia Dermatologic History: Reports: None - Infectious Disease History Infectious Disease History: Reports: Chicken Pox - Past Surgical History Head Surgeries/Procedures: Reports: None HEENT Surgical History: Reports: Other (See Below) Other HEENT Surgeries/Procedures: Dental extractions Cardiovascular Surgical History: Reports: None Respiratory Surgical History: Reports: None GI Surgical History: Reports: Cholecystectomy, Colon, Colonoscopy, EGD, Other (See Below) Other GI Surgeries/Procedures: Multiple laproscopic surgeries, laparotomy with colon resection for bowel obstruction Female Surgical History: Reports: Section, Hysterectomy, Oophorectomy Other Female Surgeries/Procedures: left ovarian cyst with oopherectomy Endocrine Surgical History: Reports: None Neurological Surgical History: Reports: None Musculoskeletal Surgical History: Reports: Other (See Below) Other Musculoskeletal Surgeries/Procedures:: left hand surgery x3, toenail removal Oncologic Surgical History: Reports: None Dermatological Surgical History: Reports: None Social & Family History - Family History Family Medical History: No Pertinent Family History - Caffeine Use Caffeine Use: Reports: Coffee Caffeine Use Comment: 3-4 daily - Recreational Drug Use Recreational Drug Use: No ED ROS GENERAL - Review of Systems Review Of Systems: See Below ED EXAM, GENERAL - Physical Exam Exam: See Below Course - Vital Signs Last Recorded V/S: Last Vital Signs Temp 36.6 C 11/23/20 03:30 Pulse 81 11/23/20 03:30 Resp 18 11/23/20 03:30 BP 104/61 11/23/20 03:30 Pulse Ox 97 11/23/20 01:30 - Orders/Labs/Meds Labs: Laboratory Tests 11/22/20 11/22/20 11/22/20 Range/Units 20:00 20:00 20:00 WBC 12.76 H (4.0-11.0) K/uL RBC 5.14 (4.30-5.90) M/uL Hgb 15.3 (12.0-16.0) g/dL Hct 44.3 (36.0-46.0) % MCV 86.2 (80.0-98.0) fL MCH 29.8 (27.0-32.0) pg MCHC 34.5 (31.0-37.0) g/dL RDW Std Deviation 43.8 (28.0-62.0) fl RDW Coeff of Aydin 14 (11.0-15.0) % Plt Count 349 (150-400) K/uL MPV 10.00 (7.40-12.00) fL Neut % (Auto) 84.9 H (48.0-80.0) % Lymph % (Auto) 11.7 L (16.0-40.0) % Noble % (Auto) 3.1 (0.0-15.0) % Eos % (Auto) 0.1 (0.0-7.0) % Baso % (Auto) 0.2 (0.0-1.5) % Neut # (Auto) 10.8 H (1.4-5.7) K/uL Lymph # (Auto) 1.5 (0.6-2.4) K/uL Noble # (Auto) 0.4 (0.0-0.8) K/uL Eos # (Auto) 0.0 (0.0-0.7) K/uL Baso # (Auto) 0.0 (0.0-0.1) K/uL Nucleated RBC % 0.0 /100WBC Nucleated RBCs # 0 K/uL Sodium 138 (136-145) mmol/L Potassium 4.7 (3.5-5.1) mmol/L Chloride 98 (98-107) mmol/L Carbon Dioxide 26.1 (21.0-32.0) mmol/L BUN 12 (7.0-18.0) mg/dL Creatinine 1.0 (0.6-1.0) mg/dL Est Cr Clr Drug Dosing 55.06 mL/min Estimated GFR (MDRD) 58.5 ml/min Glucose 145 H (74-106) mg/dL Calcium 10.1 (8.5-10.1) mg/dL Total Bilirubin 0.4 (0.2-1.0) mg/dL AST 25 (15-37) IU/L ALT 24 (14-63) IU/L Alkaline Phosphatase 143 H (46-116) U/L Creatine Kinase 128 (26-308) U/L Total Protein 8.9 H (6.4-8.2) g/dL Albumin 4.1 (3.4-5.0) g/dL Globulin 4.8 H (2.6-4.0) g/dL Albumin/Globulin Ratio 0.9 (0.9-1.6) Lipase 96 (73-393) U/L Urine Color Urine Appearance Urine pH (5.0-8.0) Ur Specific [place] (1.001-1.035) Urine Protein (NEGATIVE) mg/dL Urine Glucose (UA) (NEGATIVE) mg/dL Urine Ketones (NEGATIVE) mg/dL Urine Occult Blood (NEGATIVE) Urine Nitrite (NEGATIVE) Urine Bilirubin (NEGATIVE) Urine Urobilinogen (<2.0) EU/dL Ur Leukocyte Esterase (NEGATIVE) Urine RBC (0-2/HPF) Urine WBC (0-5/HPF) Ur Epithelial Cells (NONE-FEW) Urine Bacteria (NEGATIVE) SARS-CoV-2 RNA (JOSE) (NEGATIVE) 11/22/20 11/22/20 Range/Units 21:00 21:00 WBC (4.0-11.0) K/uL RBC (4.30-5.90) M/uL Hgb (12.0-16.0) g/dL Hct (36.0-46.0) % MCV (80.0-98.0) fL MCH (27.0-32.0) pg MCHC (31.0-37.0) g/dL RDW Std Deviation (28.0-62.0) fl RDW Coeff of Aydin (11.0-15.0) % Plt Count (150-400) K/uL MPV (7.40-12.00) fL Neut % (Auto) (48.0-80.0) % Lymph % (Auto) (16.0-40.0) % Noble % (Auto) (0.0-15.0) % Eos % (Auto) (0.0-7.0) % Baso % (Auto) (0.0-1.5) % Neut # (Auto) (1.4-5.7) K/uL Lymph # (Auto) (0.6-2.4) K/uL Noble # (Auto) (0.0-0.8) K/uL Eos # (Auto) (0.0-0.7) K/uL Baso # (Auto) (0.0-0.1) K/uL Nucleated RBC % /100WBC Nucleated RBCs # K/uL Sodium (136-145) mmol/L Potassium (3.5-5.1) mmol/L Chloride (98-107) mmol/L Carbon Dioxide (21.0-32.0) mmol/L BUN (7.0-18.0) mg/dL Creatinine (0.6-1.0) mg/dL Est Cr Clr Drug Dosing mL/min Estimated GFR (MDRD) ml/min Glucose (74-106) mg/dL Calcium (8.5-10.1) mg/dL Total Bilirubin (0.2-1.0) mg/dL AST (15-37) IU/L ALT (14-63) IU/L Alkaline Phosphatase (46-116) U/L Creatine Kinase (26-308) U/L Total Protein (6.4-8.2) g/dL Albumin (3.4-5.0) g/dL Globulin (2.6-4.0) g/dL Albumin/Globulin Ratio (0.9-1.6) Lipase (73-393) U/L Urine Color YELLOW Urine Appearance HAZY Urine pH 6.0 (5.0-8.0) Ur Specific [place] >= 1.030 (1.001-1.035) Urine Protein TRACE H (NEGATIVE) mg/dL Urine Glucose (UA) NEGATIVE (NEGATIVE) mg/dL Urine Ketones TRACE H (NEGATIVE) mg/dL Urine Occult Blood NEGATIVE (NEGATIVE) Urine Nitrite NEGATIVE (NEGATIVE) Urine Bilirubin NEGATIVE (NEGATIVE) Urine Urobilinogen 0.2 (<2.0) EU/dL Ur Leukocyte Esterase NEGATIVE (NEGATIVE) Urine RBC 0-3 (0-2/HPF) Urine WBC 0-1 (0-5/HPF) Ur Epithelial Cells RARE (NONE-FEW) Urine Bacteria FEW (NEGATIVE) SARS-CoV-2 RNA (JOSE) NEGATIVE (NEGATIVE) Meds: Medications Discontinued Medications Generic Name Dose Route Start Last Admin Trade Name Freq PRN Reason Stop Dose Admin Al Hydroxide/Mg Hydroxide 15 0 ml 11/22/20 23:37 11/22/20 23:50 ml/ Lidocaine HCl 5 ml PO 11/22/20 23:38 20 each ONETIME ONE Administration Diphenhydramine HCl 50 mg 11/22/20 23:55 11/23/20 00:00 Diphenhydramine 50 Mg/Ml Sdv IVPUSH 11/22/20 23:56 50 mg ONETIME ONE Administration Famotidine 20 mg 11/22/20 23:37 11/22/20 23:49 Famotidine 20 Mg/2 Ml Sdv IVPUSH 11/22/20 23:38 20 mg ONETIME ONE Administration Haloperidol Lactate 5 mg 11/22/20 23:55 11/23/20 00:00 Haloperidol Lactate 5 Mg/Ml Sdv IM 11/22/20 23:56 5 mg ONETIME ONE Administration Sodium Chloride 1,000 mls @ 999 mls/hr 11/22/20 20:37 11/22/20 20:54 Normal Saline IV 11/22/20 21:37 999 mls/hr .BOLUS ONE Administration Iopamidol 100 ml 11/22/20 22:09 11/22/20 22:10 Iopamidol 755 Mg/Ml 500 Ml Multipack Bottle IVPUSH 11/22/20 22:10 100 ml ONETIME STA Administration Morphine Sulfate 2 mg 11/22/20 20:39 11/22/20 20:54 Morphine 2 Mg/Ml Syringe IVPUSH 11/22/20 20:40 2 mg ONETIME ONE Administration Ondansetron HCl 4 mg 11/22/20 20:37 11/22/20 20:54 Ondansetron 4 Mg/2 Ml Sdv IVPUSH 11/22/20 20:38 4 mg ONETIME ONE Administration Ondansetron HCl Confirm 11/22/20 21:48 11/22/20 22:05 Ondansetron 4 Mg/2 Ml Sdv Administered 11/22/20 21:49 Not Given Dose 4 mg .ROUTE .STK-MED ONE Ondansetron HCl 4 mg 11/22/20 22:05 11/22/20 22:06 Ondansetron 4 Mg/2 Ml Sdv IVPUSH 11/22/20 22:06 4 mg ONETIME ONE Administration Departure - Departure Time of Disposition: 03:30 Disposition: Home, Self-Care 01 Condition: Fair Clinical Impression: Vomiting, Abdominal pain - Discharge Information *PRESCRIPTION DRUG MONITORING PROGRAM REVIEWED*: No *COPY OF PRESCRIPTION DRUG MONITORING REPORT IN PATIENT INOCENTE: No Prescriptions: Ondansetron [Zofran ODT] 4 mg PO Q6H PRN #12 tab.dis PRN Reason: Nausea/Vomiting Instructions: Nausea and Vomiting, Adult, [id number], Dehydration, Adult, [id number] Referrals: Raffi Hammonds MD [Primary Care Provider] - Forms: ED Department Discharge Additional Instructions: You were evaluated today on an emergent basis. At this time your work-up was negative. Given the vomiting you were able to tolerate some fluid by mouth. I do recommend that you use a bland diet over the next couple of days and then slowly return to a normal diet. You may use Zofran as needed for nausea at home. If you have any new or worsening symptoms such as worsening abdominal pain, blood in your stool, inability to eat or drink please return to the e mergency department. Please follow-up with your primary care physician within 3 days. CONGRATULATIONS FOR BEING SOBER 70 DAYS, THAT IS A HUGE MILESTONE. :) [facility] - Primary Care [address] [place] [address] [place] [address] The patient is informed of any results of their evaluation and diagnostic workup and all questions are answered. They are given discharge instructions and return precautions. The patient is stable for discharge. The patient states they understand and agree with the plan and that they will return if their symptoms get worse or if they have any new concerns. The following information is given to patients seen in the emergency department who are being discharged to home. This information is to outline your options for follow-up care. We provide all patients seen in our emergency department with a follow-up referral. The need for follow-up, as well as the timing and circumstances, are variable depending upon the specifics of your emergency department visit. If you don't have a primary care physician on staff, we will provide you with a referral. We always advise you to contact your personal physician following an emergency department visit to inform them of the circumstance of the visit and for follow-up with them and/or the need for any referrals to a consulting specialist. The emergency department will also refer you to a specialist when appropriate. This referral assures that you have the opportunity for follow-up care with a specialist. All of these measure are taken in an effort to provide you with optimal care, which includes your follow-up. Under all circumstances we always encourage you to contact your private physician who remains a resource for coordinating your care. When calling for follow-up care, please make the office aware that this follow-up is from your recent emergency room visit. If for any reason you are refused follow-up, please contact the [facility] Emergency Department at and asked to speak to the emergency department charge nurse. Sepsis Event Note (ED) - Evaluation Sepsis Screening Result: No Definite Risk - Focused Exam Vital Signs: Vital Signs Temp Pulse Resp BP Pulse Ox 11/23/20 03:30 36.6 C 81 18 104/61 11/23/20 01:30 84 18 101/64 97 11/22/20 22:40 76 18 150/66 H 98 11/22/20 21:15 90 18 156/90 H 97 11/22/20 20:05 36.0 C L 74 18 183/107 H 97
[2020-11-23 03:57] VITALS: BP 104/61; PULSE 81
== END 2020-11-23 03:30 | disposition home or self-care (01) ==
LOC: MW.ED 19:58
DX: R10.13 Epigastric pain (principal); R10.11 Right upper quadrant pain; R11.2 Nausea with vomiting, unspecified; J44.9 Chronic obstructive pulmonary disease, unspecified; K21.9 Gastro-esophageal reflux disease without esophagitis; Z20.822 Contact with and (suspected) exposure to COVID-19; Z91.040 Latex allergy status; Z88.6 Allergy status to analgesic agent; Z88.5 Allergy status to narcotic agent; Z88.1 Allergy status to other antibiotic agents; Z88.8 Allergy status to other drugs, medicaments and biological substances; Z79.899 Other long term (current) drug therapy
CPT/HCPCS: 36415; 74177; 80053; 81001; 82550; 83690; 85025; 87635; 96372; 96374; 96375; 99284; A9270; J1200; J1630; J2270; J2405; J3490; J7030; Q9967; U0002

== ENCOUNTER 2020-12-21 14:21 | Emergency (ER) | payer MEDICAID ==
--- NOTE | 2020-12-21 14:55 | EDM.PDOC ---
ED HPI GENERAL MEDICAL PROBLEM - General Chief Complaint: Abdominal Pain Stated Complaint: STOMACH PAINS Time Seen by Provider: 12/21/20 14:25 - History of Present Illness INITIAL COMMENTS - FREE TEXT/NARRATIVE: History of present illness: [] The patient has vomited everything she has tried to take in since 5 days ago. She has severe abdominal pain in the epigastrium. She does not have any other systemic signs of illness. She has a past history of pancreatitis. She is sober now and is here with her sponsor. She has a past history of alcohol abuse. She has had a cholecystectomy in the past. She is on omeprazole for s tomach acid. Food makes her feel worse. Nothing really makes her feel better. Review of systems: As per history of present illness and below otherwise all systems reviewed and negative. Past medical history: As per history of present illness and as reviewed below otherwise noncontributory. Surgical history: As per history of present illness and as reviewed below otherwise noncontributory. Social history: No reported history of drug or alcohol abuse. Family history: As per history of present illness and as reviewed below otherwise noncontributory. Physical exam: Constitutional - well developed, well-nourished and in no acute distress HEENT - normocephalic, no evidence of trauma - external nose and mouth normal - no mass in neck and no JVD - mucosae moist EYES - full EOM, PERRL, no icterus - no evidence of inflammation, injection, or drainage Respiratory - no respiratory distress, equal bilateral expansion, lungs clear to auscultation and no abnormal lung sounds Cardiovascular - Regular Rhythm with S1 and S2 appreciated and no murmur, gallop or rub. GI -tender epigastrium-abdomen soft without distension or organomegaly - normal bowel sounds - no guard or rebound Musculoskeletal no gross deformity of long bones or joints - no tenderness, swelling or edema Neurologic - Alert and oriented times four - CN II-XII grossly intact - motor sensory and coordination symmetrically normal Psychiatric - appropriate mood and affect with normal thought content Hematologic - No petechiae or purpura - mucosa appropriate color and sclera not pale - normal nail bed color and refill Integument - no rash or evidence of trauma - normal turgor Diagnostics: [] Therapeutics: [] Impression: [] Plan: [] Definitive disposition and diagnosis as appropriate pending reevaluation and review of above. Middle Abdomen Pain Score (Numeric/FACES): 8 - Related Data Allergies Allergy/AdvReac Type Severity Reaction Status Date / Time amitriptyline Allergy Hives Verified 12/21/20 14:32 aspirin Allergy Stomach Verified 12/21/20 14:32 Upset latex Allergy Rash Verified 12/21/20 14:32 levofloxacin [From Levaquin] Allergy Diarrhea Verified 12/21/20 14:32 pregabalin [From Lyrica] Allergy Other Verified 12/21/20 14:32 morphine AdvReac Confusion Verified 12/21/20 14:32 Home Meds: Home Meds Albuterol [Ventolin HFA] 1 - 2 puff INH ASDIRECTED PRN 11/28/18 [History] PARoxetine HCL [Paroxetine HCl] 20 mg PO DAILY 11/28/18 [History] busPIRone HCl [busPIRone] 30 mg PO BID 11/28/18 [History] Albuterol Sulfate 1 dose NEB DAILY PRN 03/31/20 [History] Mirtazapine 7.5 mg PO BEDTIME 08/12/20 [History] Pantoprazole Sodium [Protonix] 20 mg PO DAILY 08/12/20 [History] Prazosin HCl [Prazosin] 1 mg PO BEDTIME 08/12/20 [History] Rosuvastatin Calcium 10 mg PO BEDTIME 08/12/20 [History] Folic Acid 1 mg PO BEDTIME #60 tablet 08/13/20 [Rx] Furosemide [Lasix] 40 mg PO Q48H #0 08/13/20 [Rx] Thiamine [Vitamin B-1] 100 mg PO BEDTIME #60 tablet 08/13/20 [Rx] Metoprolol Succinate 25 mg PO DAILY 09/30/20 [History] Benzonatate 200 mg PO TID PRN 3 Days #9 capsule 10/01/20 [Rx] Doxycycline [Vibramycin] 100 mg PO Q12HR 3 Days #6 cap 10/01/20 [Rx] Nicotine [Habitrol] 14 mg TRDERM DAILY 30 Days #30 patch 10/01/20 [Rx] predniSONE [Prednisone] 20 mg PO DAILY 12 Days #24 tablet 10/01/20 [Rx] Ondansetron [Zofran ODT] 4 mg PO Q6H PRN #12 tab.dis 11/23/20 [Rx] Prochlorperazine Maleate [Compazine] 10 mg PO Q6HR PRN #10 tablet 12/21/20 [Rx] Past Medical History - Past Health History Medical/Surgical History: Denies Medical/Surgical History HEENT History: Reports: Other (See Below) Other HEENT History: states has blurred vision, wears glasses, top denture, Cardiovascular History: Reports: High Cholesterol Other Cardiovascular History: states mild heart murmur Respiratory History: Reports: Asthma, Bronchitis, Recurrent, COPD, SOB, Other (See Below) Other Respiratory History: states has nodule on R lower lung, Gastrointestinal History: Reports: Bowel Obstruction, Diverticulosis, GERD, Pancreatitis, Other (See Below) Other Gastrointestinal History: ulcerative colitis Genitourinary History: Reports: None TIMING INSPECTOR History: Reports: Ectopic , Other TIMING INSPECTOR History: Ectopic Musculoskeletal History: Reports: Arthritis, Back Pain, Chronic, Fracture, Other (See Below) Other Musculoskeletal History: 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), put left hand through a plate glass window, left hand and wrist surgery x3 Neurological History: Reports: Other (See Below) Other Neuro History: CRIPS Psychiatric History: Reports: Addiction, Anxiety, Depression, PTSD, Suicide Attempt, Suicidal Ideation Endocrine/Metabolic History: Reports: None Hematologic History: Reports: Blood Transfusion(s) Immunologic History: Reports: None Oncologic (Cancer) History: Reports: Other (See Below) Other Oncologic History: cervical dysplagia Dermatologic History: Reports: None - Infectious Disease History Infectious Disease History: Reports: Chicken Pox - Past Surgical History Head Surgeries/Procedures: Reports: None HEENT Surgical History: Reports: Other (See Below) Other HEENT Surgeries/Procedures: Dental extractions Cardiovascular Surgical History: Reports: None Respiratory Surgical History: Reports: None GI Surgical History: Reports: Cholecystectomy, Colon, Colonoscopy, EGD, Other (See Below) Other GI Surgeries/Procedures: Multiple laproscopic surgeries, laparotomy with colon resection for bowel obstruction Female Surgical History: Reports: Section, Hysterectomy, Oophorectomy Other Female Surgeries/Procedures: left ovarian cyst with oopherectomy Endocrine Surgical History: Reports: None Neurological Surgical History: Reports: None Musculoskeletal Surgical History: Reports: Other (See Below) Other Musculoskeletal Surgeries/Procedures:: left hand surgery x3, toenail removal Oncologic Surgical History: Reports: None Dermatological Surgical History: Reports: None Social & Family History - Family History Family Medical History: No Pertinent Family History - Caffeine Use Caffeine Use: Reports: Coffee Caffeine Use Comment: 3-4 daily ED ROS GENERAL - Review of Systems Review Of Systems: Comprehensive ROS is negative, except as noted in HPI. ED EXAM, GENERAL - Physical Exam Exam: See Below Free Text/Narrative:: My physical exam is in the HPI Course - Vital Signs Text/Narrative:: 1706 hrs. nausea still persist Compazine written because of possible interaction with Reglan and other medicines. Benadryl given as precaution. Plan to send home with Compazine. Last Recorded V/S: Last Vital Signs Temp 36.4 C 12/21/20 14:32 Pulse 91 12/21/20 14:32 Resp 18 12/21/20 14:32 BP 146/93 H 12/21/20 14:32 Pulse Ox 95 12/21/20 14:32 - Orders/Labs/Meds Orders: Active Orders 24 hr Category Date Time Status Sodium Chloride 0.9% [Saline Flush] Med 12/21/20 14:56 Active 10 ml FLUSH ASDIRECTED PRN Sodium Chloride 0.9% [Saline Flush] Med 12/21/20 14:56 Active 2.5 ml FLUSH ASDIRECTED PRN Saline Lock Insert [OM.PC] Stat Oth 12/21/20 14:56 Ordered Medication Orders Sodium Chloride (Sodium Chloride 0.9% 10 Ml Syringe) 10 ml FLUSH ASDIRECTED PRN PRN Reason: Keep Vein Open Last Admin: 12/21/20 15:02 Dose: 10 ml Documented by: PRANAY Sodium Chloride (Sodium Chloride 0.9% 2.5 Ml Syringe) 2.5 ml FLUSH ASDIRECTED PRN PRN Reason: Keep Vein Open Last Admin: 12/21/20 15:02 Dose: 2.5 ml Documented by: PRANAY Labs: Laboratory Tests 12/21/20 12/21/20 12/21/20 Range/Units 14:30 14:30 15:55 WBC 9.70 (4.0-11.0) K/uL RBC 5.13 (4.30-5.90) M/uL Hgb 15.0 (12.0-16.0) g/dL Hct 45.0 (36.0-46.0) % MCV 87.7 (80.0-98.0) fL MCH 29.2 (27.0-32.0) pg MCHC 33.3 (31.0-37.0) g/dL RDW Std Deviation 46.3 (28.0-62.0) fl RDW Coeff of Aydin 14 (11.0-15.0) % Plt Count 373 (150-400) K/uL MPV 9.50 (7.40-12.00) fL Neut % (Auto) 65.8 (48.0-80.0) % Lymph % (Auto) 25.8 (16.0-40.0) % Phillips % (Auto) 6.5 (0.0-15.0) % Eos % (Auto) 1.6 (0.0-7.0) % Baso % (Auto) 0.3 (0.0-1.5) % Neut # (Auto) 6.4 H (1.4-5.7) K/uL Lymph # (Auto) 2.5 H (0.6-2.4) K/uL Phillips # (Auto) 0.6 (0.0-0.8) K/uL Eos # (Auto) 0.2 (0.0-0.7) K/uL Baso # (Auto) 0.0 (0.0-0.1) K/uL Nucleated RBC % 0.0 /100WBC Nucleated RBCs # 0 K/uL Sodium 141 (136-145) mmol/L Potassium 4.5 (3.5-5.1) mmol/L Chloride 102 (98-107) mmol/L Carbon Dioxide 28.8 (21.0-32.0) mmol/L BUN 15 (7.0-18.0) mg/dL Creatinine 1.0 (0.6-1.0) mg/dL Est Cr Clr Drug Dosing 55.06 mL/min Estimated GFR (MDRD) 58.5 ml/min Glucose 112 H (74-106) mg/dL Calcium 9.3 (8.5-10.1) mg/dL Magnesium 2.1 (1.8-2.4) mg/dL Total Bilirubin 0.2 (0.2-1.0) mg/dL AST 16 (15-37) IU/L ALT 23 (14-63) IU/L Alkaline Phosphatase 133 H (46-116) U/L Total Protein 8.5 H (6.4-8.2) g/dL Albumin 3.8 (3.4-5.0) g/dL Globulin 4.7 H (2.6-4.0) g/dL Albumin/Globulin Ratio 0.8 L (0.9-1.6) Lipase 147 (73-393) U/L Urine Color YELLOW Urine Appearance CLEAR Urine pH 7.0 (5.0-8.0) Ur Specific Fence 1.015 (1.001-1.035) Urine Protein NEGATIVE (NEGATIVE) mg/dL Urine Glucose (UA) NEGATIVE (NEGATIVE) mg/dL Urine Ketones NEGATIVE (NEGATIVE) mg/dL Urine Occult Blood NEGATIVE (NEGATIVE) Urine Nitrite NEGATIVE (NEGATIVE) Urine Bilirubin NEGATIVE (NEGATIVE) Urine Urobilinogen 0.2 (<2.0) EU/dL Ur Leukocyte Esterase NEGATIVE (NEGATIVE) Meds: Medications Generic Name Dose Route Start Last Admin Trade Name Ajit PRN Reason Stop Dose Admin Sodium Chloride 10 ml 12/21/20 14:56 12/21/20 15:02 Sodium Chloride 0.9% 10 Ml Syringe FLUSH 10 ml ASDIRECTED PRN Administration Keep Vein Open Sodium Chloride 2.5 ml 12/21/20 14:56 12/21/20 15:02 Sodium Chloride 0.9% 2.5 Ml Syringe FLUSH 2.5 ml ASDIRECTED PRN Administration Keep Vein Open Discontinued Medications Generic Name Dose Route Start Last Admin Trade Name Ajit PRN Reason Stop Dose Admin Diphenhydramine HCl 25 mg 12/21/20 17:07 12/21/20 17:20 Diphenhydramine 50 Mg/Ml Sdv IVPUSH 12/21/20 17:08 25 mg ONETIME ONE Administration Meclizine HCl 25 mg 12/21/20 16:57 Meclizine 25 Mg Tab PO 12/21/20 16:58 ONETIME ONE Morphine Sulfate 4 mg 12/21/20 14:57 12/21/20 15:03 Morphine 4 Mg/Ml Syringe IVPUSH 12/21/20 14:58 4 mg ONETIME ONE Administration Ondansetron HCl 4 mg 12/21/20 14:56 12/21/20 15:03 Ondansetron 4 Mg/2 Ml Sdv IVPUSH 12/21/20 14:57 4 mg ONETIME ONE Administration Prochlorperazine Edisylate 10 mg 12/21/20 17:06 12/21/20 17:20 Prochlorperazine 10 Mg/2 Ml Sdv IVPUSH 12/21/20 17:07 10 mg ONETIME ONE Administration Departure - Departure Time of Disposition: 17:25 Disposition: Home, Self-Care 01 Condition: Good Clinical Impression: Acute gastritis - Discharge Information Prescriptions: Prochlorperazine Maleate [Compazine] 10 mg PO Q6HR PRN #10 tablet PRN Reason: Nausea Referrals: PCP,None [Primary Care Provider] - Forms: ED Department Discharge Additional Instructions: A prescription for Compazine was sent to your pharmacy. You should probably take Benadryl with this because it can have a side effect causing muscle irritability or contraction. He should continue taking omeprazole or pantoprazole. You can probably take 40 mg twice a day for a few days then 40 mg a day then go back to 2 mg [facility] [address] [place] [address] [place] [address] The following information is given to patients seen in the emergency department who are being discharged to home. This information is to outline your options for follow-up care. We provide all patients seen in our emergency department with a follow-up referral. The need for follow-up, as well as the timing and circumstances, are variable depending upon the specifics of your emergency department visit. If you don't have a primary care physician on staff, we will provide you with a referral. We always advise you to contact your personal physician following an emergency department visit to inform them of the circumstance of the visit and for follow-up with them and/or the need for any referrals to a consulting specialist. The emergency department will also refer you to a specialist when appropriate. This referral assures that you have the opportunity for follow-up care with a specialist. All of these measure are taken in an effort to provide you with optimal care, which includes your follow-up. Under all circumstances we always encourage you to contact your private physician who remains a resource for coordinating your care. When calling for follow-up care, please make the office aware that this follow-up is from your recent emergency room visit. If for any reason you are refused follow-up, please contact the [facility] Emergency Department at and asked to speak to the emergency department charge nurse. Sepsis Event Note (ED) - Evaluation Sepsis Screening Result: No Definite Risk - Focused Exam Vital Signs: Vital Signs Temp Pulse Resp BP Pulse Ox 12/21/20 14:32 36.4 C 91 18 146/93 H 95 - My Orders Last 24 Hours: My Active Orders 12/21/20 14:56 Sodium Chloride 0.9% [Saline Flush] 10 ml FLUSH ASDIRECTED PRN Sodium Chloride 0.9% [Saline Flush] 2.5 ml FLUSH ASDIRECTED PRN Saline Lock Insert [OM.PC] Stat - Assessment/Plan Last 24 Hours: My Active Orders 12/21/20 14:56 Sodium Chloride 0.9% [Saline Flush] 10 ml FLUSH ASDIRECTED PRN Sodium Chloride 0.9% [Saline Flush] 2.5 ml FLUSH ASDIRECTED PRN Saline Lock Insert [OM.PC] Stat
[2020-12-21] MEDS ORDERED: Sodium Chloride 0.9% 10 ML Syringe FLUSH PRN (14:56)
[2020-12-21] MEDS ORDERED: Ondansetron 4 MG/2 ML SDV IVPUSH ONE (14:56)
[2020-12-21] MEDS ORDERED: Sodium Chloride 0.9% 2.5 ML Syringe FLUSH PRN (14:56)
[2020-12-21] MEDS ORDERED: Morphine 4 MG/ML Syringe IVPUSH ONE (14:57)
[2020-12-21 16:02] LABS: CARBON DIOXIDE,CO2 28.8 mmol/L (21.0-32.0); POTASSIUM,K 4.5 mmol/L (3.5-5.1)
[2020-12-21] MEDS ORDERED: Meclizine 25 MG Tab PO ONE (16:57)
[2020-12-21] MEDS ORDERED: Prochlorperazine 10 MG/2 ML SDV IVPUSH ONE (17:06)
[2020-12-21] MEDS ORDERED: diphenhydrAMINE 50 MG/ML SDV IVPUSH ONE (17:07)
[2020-12-21 17:46] VITALS: BP 137/57; PULSE 72
== END 2020-12-21 17:49 | disposition home or self-care (01) ==
LOC: MW.ED 14:21
DX: K29.00 Acute gastritis without bleeding (principal); E78.00 Pure hypercholesterolemia, unspecified; J44.9 Chronic obstructive pulmonary disease, unspecified; Z88.8 Allergy status to other drugs, medicaments and biological substances; Z88.6 Allergy status to analgesic agent; Z91.040 Latex allergy status; Z88.1 Allergy status to other antibiotic agents; Z88.5 Allergy status to narcotic agent; Z79.899 Other long term (current) drug therapy
CPT/HCPCS: 36415; 80053; 81003; 83690; 83735; 85025; 96374; 96375; 99283; J0780; J1200; J2270; J2405; 99284

== ENCOUNTER 2021-02-17 18:38 | Inpatient (IN) | payer MEDICAID ==
[2021-02-17] MEDS ORDERED: Sodium Chloride 0.9% 1,000 ML IV ONE (18:43)
[2021-02-17] MEDS ORDERED: Albuterol/Ipratropium 3.0-0.5 MG/3 ML Neb Soln NEB ONE ×3 (18:43→18:44)
[2021-02-17] MEDS ORDERED: methylPREDNISolone Sodium Succinate 125 MG/2 ML SDV IVPUSH ONE (18:44)
[2021-02-17] MEDS ORDERED: Ondansetron 4 MG/2 ML SDV IVPUSH ONE ×2 (18:45→21:03)
--- NOTE | 2021-02-17 19:05 | CR ---
INDICATION: Shortness of breath and wheezing TECHNIQUE: Chest 1 views COMPARISON: September 28, 2020 FINDINGS: Cardiovascular and mediastinum: Heart size and vasculature are normal in caliber and appearance. Lungs and pleural spaces: Lungs are clear. No sign of infiltrate or mass. No sign of pleural effusion. No pneumothorax. Bones and soft tissues: No significant findings. IMPRESSION: No acute findings and no significant changes from the prior exam. Dictated by Blade Martinez MD @ 02/17/2021 7:03:[address] Blade Martinez @ Feb 17 2021 7:03PM
[2021-02-17 19:15] LABS: BLOOD UREA NITROGEN,BUN 16 mg/dL (7.0-18.0); CARBON DIOXIDE,CO2 25.5 mmol/L (21.0-32.0); CHLORIDE,CL 97 mmol/L (98-107); GLUCOSE RANDOM 152 mg/dL (74-106); POTASSIUM,K 3.8 mmol/L (3.5-5.1); SODIUM,NA 134 mmol/L (136-145)
--- NOTE | 2021-02-17 19:18 | EDM.PDOC ---
ED HPI GENERAL MEDICAL PROBLEM - General Chief Complaint: Respiratory Problem Stated Complaint: SHORTNESS OF BREATH Time Seen by Provider: 02/17/21 18:42 Source of Information: Reports: Patient History Limitations: Reports: No Limitations - History of Present Illness INITIAL COMMENTS - FREE TEXT/NARRATIVE: HISTORY AND PHYSICAL: History of present illness: Patient is a 50-year-old female, with a history of hyperlipidemia, hypertension, and COPD, who presents to the ED today with concern of worsening shortness of breath since this morning that she woke up with. Patient states that she last used a nebulizer at home at about 3:00 but states that she used the last 1 and is now out of nebulizers. Patient states that she began feeling worsening shortness of breath and was unable to perform a nebulizer at home so came to the emergency room. Patient does not use oxygen at home or had this available to her. Patient denies fever, chills, chest pain, or cough. Denies headache, neck stiff ness, change in vision, syncope, or near syncope. Denies nausea, vomiting, abdominal pain, diarrhea, constipation, or dysuria. Has not noted any blood in urine or stool. Patient has been eating and drinking appropriately. Review of systems: As per history of present illness and below otherwise all systems reviewed and negative. Past medical history: As per history of present illness and as reviewed below otherwise noncontributory. Surgical history: As per history of present illness and as reviewed below otherwise noncontributory. Social history: See social history for further information Family history: As per history of present illness and as reviewed below otherwise noncontributory. Physical exam: General: Patient is alert, oriented, and in no acute distress. Patient laying on exam table. Patient noted to be tachypneic with respiratory rate of 30, blood pressure 90/68, and 90% on room air. Patient tachycardic at 112. HEENT: Atraumatic, normocephalic, pupils equal and reactive bilaterally, negative for conjunctival pallor or scleral icterus, mucous membranes moist, TMs normal bilaterally, throat clear, neck supple, nontender, trachea midline. No drooling or trismus noted. No meningeal signs. No hot potato voice noted. Lungs: Diffuse wheezing expiratory and inspiratory to auscultation throughout all lung mena, breath sounds equal bilaterally, chest nontender. Patient speaking 4-5 word with breathlessness, no stridor, mild-moderate use of accessory muscle use. Heart: S1S2, regular rate and rhythm without overt murmur Abdomen: Soft, nondistended, nontender. Negative for masses or hepatosplenomegaly. Negative for costovertebral tenderness. Pelvis: Stable nontender. Genitourinary: Deferred. Rectal: Deferred. Skin: Intact, warm, dry. No lesions or rashes noted. Extremities: Atraumatic, negative for cords or calf pain. Neurovascular unremarkable. Neuro: Awake, alert, oriented. Cranial nerves II through XII unremarkable. Cerebellum unremarkable. Motor and sensory unremarkable throughout. Exam nonfocal. Notes: Patient is a 50-year-old female, with a history of COPD, hyperlipidemia, and hypertension, who presents emergency room today secondary to worsening dyspnea since this morning. Upon arrival to the ED, patient is tachypneic with an increased respiratory rate of 30, 90% on room air and tachycardic at 112. Patient also has diffuse expiratory and inspiratory wheezing on exam throughout all lung mena and speaking 4-5 words with breathlessness with accessory muscle use. Will initiate a continuous DuoNeb and provide Solu-Medrol as well is obtain cardiac evaluation with continual reassessment of patient. After initiation of DuoNeb, patient has improvement of her respiratory rate 22, but does become hypoxic off oxygen at about 85 to 88% without oxygen. Patient placed on 3 L nasal cannula and satting 95 to 96% and breathing much more comfortable following the DuoNeb's. Patient does remain tachycardic at about 1 10-1 15. Mild derangements of lab work today unremarkable. D-dimer is mildly elevated at 0.54. I did offer ANG CT chest scan for PE rule out, however, patient declines at this time. All risks versus benefits discussed with patient and expresses understanding. I did call and speak to the hospitalist on-call, Dr. Ziegler, and thoroughly discussed patient's case. Will admit to inpatient on telemetry. Voices understanding and is agreeable to plan of care. Denies any further questions or concerns at this time. Patient transferred to the floor in stable condition to Dr. Ziegler Diagnostics: EKG, CBC, CMP, chest x-ray, troponin, D-dimer, VBG Therapeutics: DuoNeb x3, Solu-Medrol, Azithromycin, O2 Impression: COPD exacerbation, moderate-severe Hypoxia Plan: Admit to inpatient to Dr. Ziegler on telemetry Definitive disposition and diagnosis as appropriate pending reevaluation and review of above. Left Finger-Little Pain Score (Numeric/FACES): 10 - Related Data Allergies Allergy/AdvReac Type Severity Reaction Status Date / Time amitriptyline Allergy Hives Verified 02/17/21 23:30 aspirin Allergy Stomach Verified 02/17/21 23:30 Upset latex Allergy Rash Verified 02/17/21 23:30 levofloxacin [From Levaquin] Allergy Diarrhea Verified 02/17/21 23:30 pregabalin [From Lyrica] Allergy Other Verified 02/17/21 23:30 morphine AdvReac Confusion Verified 02/17/21 23:30 Home Meds: Home Meds PARoxetine HCL [Paroxetine HCl] 20 mg PO WITHDINNER 11/28/18 [History] busPIRone HCl [busPIRone] 30 mg PO BID 11/28/18 [History] Mirtazapine 7.5 mg PO BEDTIME 08/12/20 [History] Pantoprazole Sodium [Protonix] 20 mg PO DAILY 08/12/20 [History] Prazosin HCl [Prazosin] 1 mg PO BEDTIME 08/12/20 [History] Rosuvastatin Calcium 10 mg PO BEDTIME 08/12/20 [History] Folic Acid 1 mg PO BEDTIME #60 tablet 08/13/20 [Rx] Furosemide [Lasix] 40 mg PO Q48H #0 08/13/20 [Rx] Thiamine [Vitamin B-1] 100 mg PO BEDTIME #60 tablet 08/13/20 [Rx] Metoprolol Succinate 25 mg PO DAILY 09/30/20 [History] Benzonatate 200 mg PO TID PRN 3 Days #9 capsule 10/01/20 [Rx] Nicotine [Habitrol] 14 mg TRDERM DAILY 30 Days #30 patch 10/01/20 [Rx] Ondansetron [Zofran ODT] 4 mg PO Q6H PRN #12 tab.dis 11/23/20 [Rx] Prochlorperazine Maleate [Compazine] 10 mg PO Q6HR PRN #10 tablet 12/21/20 [Rx] Albuterol Sulfate 1 dose NEB Q6H PRN #16 vial 02/20/21 [Rx] Albuterol [Ventolin HFA] 1 - 2 puff INH ASDIRECTED PRN #1 inhaler 02/20/21 [Rx] Azithromycin [Zithromax] 250 mg PO Q24H #1 tablet 02/20/21 [Rx] Fluticasone/Salmeterol [Advair 100-50] 1 puff INH BID #1 diskus 02/20/21 [Rx] Nicotine [Habitrol] 14 mg TRDERM DAILY #30 patch 02/20/21 [Rx] predniSONE [Prednisone] 40 mg PO DAILY 5 Days #10 tablet 02/20/21 [Rx] Past Medical History - Past Health History Medical/Surgical History: Denies Medical/Surgical History HEENT History: Reports: Other (See Below) Other HEENT History: states has blurred vision, wears glasses, top denture, Cardiovascular History: Reports: High Cholesterol Other Cardiovascular History: states mild heart murmur Respiratory History: Reports: Asthma, Bronchitis, Recurrent, COPD, SOB, Other (See Below) Other Respiratory History: states has nodule on R lower lung, Gastrointestinal History: Reports: Bowel Obstruction, Diverticulosis, GERD, Pancreatitis, Other (See Below) Other Gastrointestinal History: ulcerative colitis Genitourinary History: Reports: None [employer] History: Reports: Ectopic , Other [employer] History: Ectopic Musculoskeletal History: Reports: Arthritis, Back Pain, Chronic, Fracture, Other (See Below) Other Musculoskeletal History: 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), put left hand through a plate glass window, left hand and wrist surgery x3 Neurological History: Reports: Other (See Below) Other Neuro History: CRIPS Psychiatric History: Reports: Addiction, Anxiety, Depression, PTSD, Suicide Attempt, Suicidal Ideation Endocrine/Metabolic History: Reports: None Hematologic History: Reports: Blood Transfusion(s) Immunologic History: Reports: None Oncologic (Cancer) History: Reports: Other (See Below) Other Oncologic History: cervical dysplagia Dermatologic History: Reports: None - Infectious Disease History Infectious Disease History: Reports: Chicken Pox - Past Surgical History Head Surgeries/Procedures: Reports: None HEENT Surgical History: Reports: Other (See Below) Other HEENT Surgeries/Procedures: Dental extractions Cardiovascular Surgical History: Reports: None Respiratory Surgical History: Reports: None GI Surgical History: Reports: Cholecystectomy, Colon, Colonoscopy, EGD, Other (See Below) Other GI Surgeries/Procedures: Multiple laproscopic surgeries, laparotomy with colon resection for bowel obstruction Female Surgical History: Reports: Section, Hysterectomy, Oophorectomy Other Female Surgeries/Procedures: left ovarian cyst with oopherectomy Endocrine Surgical History: Reports: None Neurological Surgical History: Reports: None Musculoskeletal Surgical History: Reports: Other (See Below) Other Musculoskeletal Surgeries/Procedures:: left hand surgery x3, toenail removal Oncologic Surgical History: Reports: None Dermatological Surgical History: Reports: None Social & Family History - Family History Family Medical History: No Pertinent Family History - Caffeine Use Caffeine Use: Reports: Coffee, Soda Caffeine Use Comment: 3-4 daily ED ROS GENERAL - Review of Systems Review Of Systems: Comprehensive ROS is negative, except as noted in HPI. ED EXAM, GENERAL - Physical Exam Exam: See Below (see dictation) Course - Vital Signs Last Recorded V/S: Last Vital Signs Temp 98.2 F 02/20/21 09:47 Pulse 89 02/20/21 10:54 Resp 19 02/20/21 09:47 BP 128/78 02/20/21 10:54 Pulse Ox 94 L 02/20/21 09:47 - Orders/Labs/Meds Labs: Laboratory Tests 02/17/21 02/17/21 02/17/21 Range/Units 18:41 18:41 18:41 WBC 5.56 (4.0-11.0) K/uL RBC 4.88 (4.30-5.90) M/uL Hgb 14.3 (12.0-16.0) g/dL Hct 41.5 (36.0-46.0) % MCV 85.0 (80.0-98.0) fL MCH 29.3 (27.0-32.0) pg MCHC 34.5 (31.0-37.0) g/dL RDW Std Deviation 44.5 (28.0-62.0) fl RDW Coeff of Aydin 14 (11.0-15.0) % Plt Count 286 (150-400) K/uL MPV 9.60 (7.40-12.00) fL Neut % (Auto) 62.5 (48.0-80.0) % Lymph % (Auto) 24.3 (16.0-40.0) % [place] % (Auto) 11.9 (0.0-15.0) % Eos % (Auto) 0.9 (0.0-7.0) % Baso % (Auto) 0.4 (0.0-1.5) % Neut # (Auto) 3.5 (1.4-5.7) K/uL Lymph # (Auto) 1.4 (0.6-2.4) K/uL [place] # (Auto) 0.7 (0.0-0.8) K/uL Eos # (Auto) 0.1 (0.0-0.7) K/uL Baso # (Auto) 0.0 (0.0-0.1) K/uL Nucleated RBC % 0.0 /100WBC Nucleated RBCs # 0 K/uL D-Dimer, Quantitative 0.54 H (0.0-0.50) mg/L FEU Sodium 134 L (136-145) mmol/L Potassium 3.8 (3.5-5.1) mmol/L Chloride 97 L (98-107) mmol/L Carbon Dioxide 25.5 (21.0-32.0) mmol/L BUN 16 (7.0-18.0) mg/dL Creatinine 1.0 (0.6-1.0) mg/dL Est Cr Clr Drug Dosing 55.06 mL/min Estimated GFR (MDRD) 58.5 ml/min Glucose 152 H (74-106) mg/dL Calcium 9.3 (8.5-10.1) mg/dL Total Bilirubin 0.3 (0.2-1.0) mg/dL AST 17 (15-37) IU/L ALT 18 (14-63) IU/L Alkaline Phosphatase 120 H (46-116) U/L Troponin I < 0.050 (0.000-0.056) ng/mL Total Protein 7.9 (6.4-8.2) g/dL Albumin 3.8 (3.4-5.0) g/dL Globulin 4.1 H (2.6-4.0) g/dL Albumin/Globulin Ratio 0.9 (0.9-1.6) SARS-CoV-2 RNA (JOSE) (NEGATIVE) 02/17/21 Range/Units 19:35 WBC (4.0-11.0) K/uL RBC (4.30-5.90) M/uL Hgb (12.0-16.0) g/dL Hct (36.0-46.0) % MCV (80.0-98.0) fL MCH (27.0-32.0) pg MCHC (31.0-37.0) g/dL RDW Std Deviation (28.0-62.0) fl RDW Coeff of Aydin (11.0-15.0) % Plt Count (150-400) K/uL MPV (7.40-12.00) fL Neut % (Auto) (48.0-80.0) % Lymph % (Auto) (16.0-40.0) % [place] % (Auto) (0.0-15.0) % Eos % (Auto) (0.0-7.0) % Baso % (Auto) (0.0-1.5) % Neut # (Auto) (1.4-5.7) K/uL Lymph # (Auto) (0.6-2.4) K/uL [place] # (Auto) (0.0-0.8) K/uL Eos # (Auto) (0.0-0.7) K/uL Baso # (Auto) (0.0-0.1) K/uL Nucleated RBC % /100WBC Nucleated RBCs # K/uL D-Dimer, Quantitative (0.0-0.50) mg/L FEU Sodium (136-145) mmol/L Potassium (3.5-5.1) mmol/L Chloride (98-107) mmol/L Carbon Dioxide (21.0-32.0) mmol/L BUN (7.0-18.0) mg/dL Creatinine (0.6-1.0) mg/dL Est Cr Clr Drug Dosing mL/min Estimated GFR (MDRD) ml/min Glucose (74-106) mg/dL Calcium (8.5-10.1) mg/dL Total Bilirubin (0.2-1.0) mg/dL AST (15-37) IU/L ALT (14-63) IU/L Alkaline Phosphatase (46-116) U/L Troponin I (0.000-0.056) ng/mL Total Protein (6.4-8.2) g/dL Albumin (3.4-5.0) g/dL Globulin (2.6-4.0) g/dL Albumin/Globulin Ratio (0.9-1.6) SARS-CoV-2 RNA (JOSE) NEGATIVE (NEGATIVE) Meds: Medications Discontinued Medications Generic Name Dose Route Start Last Admin Trade Name Freq PRN Reason Stop Dose Admin Acetaminophen 650 mg 02/17/21 20:48 02/18/21 10:27 Acetaminophen 325 Mg Tab PO 650 mg Q4H PRN Administration Pain (Mild 1-3)/fever Albuterol/Ipratropium 3 ml 02/17/21 18:43 02/17/21 18:52 Albuterol/Ipratropium 3.0-0.5 Mg/3 Ml Neb Soln NEB 02/17/21 18:44 3 ml ONETIME ONE Administration Albuterol/Ipratropium 3 ml 02/17/21 18:44 02/17/21 18:52 Albuterol/Ipratropium 3.0-0.5 Mg/3 Ml Neb Soln NEB 02/17/21 18:45 3 ml ONETIME ONE Administration Albuterol/Ipratropium 3 ml 02/17/21 18:44 02/17/21 18:52 Albuterol/Ipratropium 3.0-0.5 Mg/3 Ml Neb Soln NEB 02/17/21 18:45 3 ml ONETIME ONE Administration Albuterol/Ipratropium 3 ml 02/17/21 22:00 02/20/21 10:06 Albuterol/Ipratropium 3.0-0.5 Mg/3 Ml Neb Soln NEB 3 ml Q4HRRT SEE Administration Azithromycin 250 mg 02/18/21 09:00 02/20/21 09:35 Azithromycin 250 Mg Tab PO 250 mg Q24H SEE Administration Buspirone HCl 30 mg 02/18/21 21:00 02/20/21 09:36 Buspirone 5 Mg Tab PO 30 mg BID SEE Administration Enoxaparin Sodium 40 mg 02/17/21 21:00 02/19/21 20:23 Enoxaparin 40 Mg/0.4 Ml Syringe SUBCUT 40 mg Q24H SEE Administration Folic Acid 1 mg 02/18/21 21:00 02/19/21 20:27 Folic Acid 1 Mg Tab PO 1 mg BEDTIME SEE Administration Sodium Chloride 1,000 mls @ 999 mls/hr 02/17/21 18:43 02/17/21 18:52 Normal Saline IV 02/17/21 19:43 999 mls/hr BOLUS ONE Administration Azithromycin 500 mg/ Sodium 250 mls @ 250 mls/hr 02/17/21 19:45 02/17/21 20:21 Chloride IV 250 mls/hr ONETIME SEE Administration Lactated Ringer's 1,000 mls @ 125 mls/hr 02/17/21 21:00 02/18/21 07:27 Ringers, Lactated IV 125 mls/hr ASDIRECTED SEE Administration Pantoprazole Sodium 40 mg/ 10 mls @ 300 mls/hr 02/18/21 09:00 02/20/21 09:33 Sodium Chloride IV 300 mls/hr DAILY SEE Administration Magnesium Sulfate 2 gm/ Premix 50 mls @ 12.5 mls/hr 02/19/21 09:12 02/19/21 10:02 IV 02/19/21 13:11 12.5 mls/hr ONETIME ONE Administration Methylprednisolone Sodium Succinate 125 mg 02/17/21 18:44 02/17/21 18:53 Methylprednisolone Sodium Succinate 125 Mg/2 Ml Sdv IVPUSH 02/17/21 18:45 125 mg ONETIME ONE Administration Methylprednisolone Sodium Succinate 40 mg 02/18/21 03:00 02/20/21 10:01 Methylprednisolone Sodium Succinate 40 Mg/1 Ml Sdv IVPUSH 40 mg Q8H SEE Administration Metoprolol Succinate 25 mg 02/18/21 13:15 02/20/21 10:54 Metoprolol Succinate 25 Mg Tab.Er PO 25 mg DAILY SEE Administration Mirtazapine 7.5 mg 02/18/21 21:00 02/19/21 20:27 Mirtazapine 15 Mg Tab PO 7.5 mg BEDTIME SEE Administration Nicotine 14 mg 02/18/21 11:00 02/20/21 09:42 Nicotine 14 Mg/24 Hr Patch TRDERM 14 mg DAILY SEE Administration Ondansetron HCl 4 mg 02/17/21 18:45 02/17/21 18:53 Ondansetron 4 Mg/2 Ml Sdv IVPUSH 02/17/21 18:46 4 mg ONETIME ONE Administration Ondansetron HCl 4 mg 02/17/21 20:48 Ondansetron 4 Mg/2 Ml Sdv IVPUSH Q4H PRN Nausea/Vomiting Ondansetron HCl 4 mg 02/17/21 21:03 02/17/21 21:07 Ondansetron 4 Mg/2 Ml Sdv IVPUSH 02/17/21 21:04 4 mg ONETIME ONE Administration Paroxetine HCl 20 mg 02/18/21 17:30 02/19/21 18:36 Paroxetine 20 Mg Tab PO 20 mg WITHDINNER SEE Administration Prazosin HCl 1 mg 02/18/21 21:00 02/19/21 20:24 Prazosin 1 Mg Cap PO 1 mg BEDTIME SEE Administration Rosuvastatin Calcium 10 mg 02/18/21 21:00 02/19/21 20:27 Rosuvastatin 10 Mg Tab PO 10 mg BEDTIME SEE Administration Fluticasone/Salmeterol 1 puff 02/17/21 21:00 02/20/21 08:52 Fluticasone/Salmeterol 100-50 Mcg Inhalation Powder 14/Diskus INH 1 puff BID SEE Administration Thiamine HCl 100 mg 02/18/21 21:00 02/19/21 20:35 Thiamine 100 Mg Tab PO 100 mg BEDTIME SEE Administration Departure - Departure Time of Disposition: 19:42 Disposition: Admitted As Inpatient 65 Clinical Impression: COPD exacerbation, Hypoxia - Discharge Information Sepsis Event Note (ED) - Evaluation Sepsis Screening Result: No Definite Risk
[2021-02-17] MEDS ORDERED: Azithromycin 500 MG in Sodium Chloride 0.9% 250 ML IV SCH (19:45)
[2021-02-17] MEDS ORDERED: Acetaminophen 325 MG Tab PO PRN (20:48)
[2021-02-17] MEDS ORDERED: Ondansetron 4 MG/2 ML SDV IVPUSH PRN (20:48)
--- NOTE | 2021-02-17 20:56 | PCM.HP.2 ---
H&P History of Present Illness - General Date of Service: 02/17/21 Admit Problem/Dx: Admission Diagnosis/Problem Admission Diagnosis/Problem COPD, Severe chronic obstructive pulmonary disease - History of Present Illness Initial Comments - Free Text/Narative: Patient is a 50-year-old female with past medical history of hypertension, hyperlipidemia, COPD, previous history of alcohol abuse currently sober for past 5 months, daily cigarette smoker smokes 10 cigarettes a day who presents to the ER with concerns of worsening shortness of breath which started the past 2 days but has been getting worse this morning. Patient states that she was using nebulizers at home to control her symptoms but ran out of them today. Patient states that her shortness of breath is getting way worse and she is unable to perform any exertion. Upon arrival in the ED patient was tachypneic with increased respiratory rate in 30s, was found to be 90% on room air and tachycardic at 112. Patient was started on oxygen. Patient was found to have diffuse expiratory wheezes as well as inspiratory wheezes on exam. Patient was also using some accessory muscles while speaking. Patient was unable to speak full sentences. Patient was started on duo nebs as well as IV steroids. Administered. After receiving several breathing treatments patient was still found to be hypoxic to 85-88 on room air and her symptoms minimally improved. Patient's D-dimer was found to be elevated and CTA of the chest was offered to rule out a PE which patient declined saying that she has done a lot of CTAs in the past and was never found to have a clot and would prefer not to get CTA done. Rest of the labs were not significantly deranged. Troponin was negative. EKG was unremarkable for ACS. Patient was admitted to the hospital for management of acute hypoxic respiratory failure due to COPD exacerbation. - Related Data Allergies/Adverse Reactions: Allergies Allergy/AdvReac Type Severity Reaction Status Date / Time amitriptyline Allergy Hives Verified 02/17/21 18:49 aspirin Allergy Stomach Verified 02/17/21 18:49 Upset latex Allergy Rash Verified 02/17/21 18:49 levofloxacin [From Levaquin] Allergy Diarrhea Verified 02/17/21 18:49 pregabalin [From Lyrica] Allergy Other Verified 02/17/21 18:49 morphine AdvReac Confusion Verified 02/17/21 18:49 Home Medications: Home Meds Albuterol [Ventolin HFA] 1 - 2 puff INH ASDIRECTED PRN 11/28/18 [History] PARoxetine HCL [Paroxetine HCl] 20 mg PO DAILY 11/28/18 [History] busPIRone HCl [busPIRone] 30 mg PO BID 11/28/18 [History] Albuterol Sulfate 1 dose NEB DAILY PRN 03/31/20 [History] Mirtazapine 7.5 mg PO BEDTIME 08/12/20 [History] Pantoprazole Sodium [Protonix] 20 mg PO DAILY 08/12/20 [History] Prazosin HCl [Prazosin] 1 mg PO BEDTIME 08/12/20 [History] Rosuvastatin Calcium 10 mg PO BEDTIME 08/12/20 [History] Folic Acid 1 mg PO BEDTIME #60 tablet 08/13/20 [Rx] Furosemide [Lasix] 40 mg PO Q48H #0 08/13/20 [Rx] Thiamine [Vitamin B-1] 100 mg PO BEDTIME #60 tablet 08/13/20 [Rx] Metoprolol Succinate 25 mg PO DAILY 09/30/20 [History] Benzonatate 200 mg PO TID PRN 3 Days #9 capsule 10/01/20 [Rx] Doxycycline [Vibramycin] 100 mg PO Q12HR 3 Days #6 cap 10/01/20 [Rx] Nicotine [Habitrol] 14 mg TRDERM DAILY 30 Days #30 patch 10/01/20 [Rx] predniSONE [Prednisone] 20 mg PO DAILY 12 Days #24 tablet 10/01/20 [Rx] Ondansetron [Zofran ODT] 4 mg PO Q6H PRN #12 tab.dis 11/23/20 [Rx] Prochlorperazine Maleate [Compazine] 10 mg PO Q6HR PRN #10 tablet 12/21/20 [Rx] Past Medical History - Past Health History Medical/Surgical History: Denies Medical/Surgical History HEENT History: Reports: Other (See Below) Other HEENT History: states has blurred vision, wears glasses, top denture, Cardiovascular History: Reports: High Cholesterol Other Cardiovascular History: states mild heart murmur Respiratory History: Reports: Asthma, Bronchitis, Recurrent, COPD, SOB, Other ( See Below) Other Respiratory History: states has nodule on R lower lung, Gastrointestinal History: Reports: Bowel Obstruction, Diverticulosis, GERD, P ancreatitis, Other (See Below) Other Gastrointestinal History: ulcerative colitis Genitourinary History: Reports: None ANALYSIS LEAD History: Reports: Ectopic , Other OB/BYN History: Ectopic Musculoskeletal History: Reports: Arthritis, Back Pain, Chronic, Fracture, Other (See Below) Other Musculoskeletal History: 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), put left hand through a plate glass window, left hand and wrist surgery x3 Neurological History: Reports: Other (See Below) Other Neuro History: CRIPS Psychiatric History: Reports: Addiction, Anxiety, Depression, PTSD, Suicide Attempt, Suicidal Ideation Endocrine/Metabolic History: Reports: None Hematologic History: Reports: Blood Transfusion(s) Immunologic History: Reports: None Oncologic (Cancer) History: Reports: Other (See Below) Other Oncologic History: cervical dysplagia Dermatologic History: Reports: None - Infectious Disease History Infectious Disease History: Reports: Chicken Pox - Past Surgical History Head Surgeries/Procedures: Reports: None HEENT Surgical History: Reports: Other (See Below) Other HEENT Surgeries/Procedures: Dental extractions Cardiovascular Surgical History: Reports: None Respiratory Surgical History: Reports: None GI Surgical History: Reports: Cholecystectomy, Colon, Colonoscopy, EGD, Other (See Below) Other GI Surgeries/Procedures: Multiple laproscopic surgeries, laparotomy with colon resection for bowel obstruction Female Surgical History: Reports: Section, Hysterectomy, Oophorectomy Other Female Surgeries/Procedures: left ovarian cyst with oopherectomy Endocrine Surgical History: Reports: None Neurological Surgical History: Reports: None Musculoskeletal Surgical History: Reports: Other (See Below) Other Musculoskeletal Surgeries/Procedures:: left hand surgery x3, toenail removal Oncologic Surgical History: Reports: None Dermatological Surgical History: Reports: None Social & Family History - Family History Family Medical History: No Pertinent Family History - Caffeine Use Caffeine Use: Reports: Coffee, Soda Caffeine Use Comment: 3-4 daily H&P Review of Systems - Review of Systems: Review Of Systems: See Below General: Reports: Weakness. Denies: Fever, Chills, Malaise, Fatigue, Night Sweats Pulmonary: Reports: Shortness of Breath, Wheezing, Cough. Denies: Pleuritic Chest Pain, Sputum, Hemoptysis Gastrointestinal: Denies: Abdominal Pain, Anorexia, Black Stool Genitourinary: Denies: Dysuria, Frequency, Burning Musculoskeletal: Denies: Neck Pain, Shoulder Pain, Arm Pain Skin: Denies: Cyanosis, Jaundice, Mottled Psychiatric: Denies: Confusion, Depression, Mood Lability Neurological: Denies: Confusion, Dizziness, Headache Exam - Exam Exam: See Below - Vital Signs Vital Signs: Last Vital Signs Temp 36.5 C 02/17/21 20:20 Pulse 98 02/17/21 20:20 Resp 24 H 02/17/21 20:20 BP 100/55 L 02/17/21 20:20 Pulse Ox 96 02/17/21 20:20 Weight: 59.874 kg - Exam Quality Assessment: Supplemental Oxygen General: Alert, Oriented, Mild Distress Neck: Supple, Trachea Midline Lungs: Clear to Auscultation, Normal Respiratory Effort, Decreased Breath Sounds, Rhonchi, Wheezing Cardiovascular: Regular Rate, Regular Rhythm, Normal S1, Normal S2 GI/Abdominal Exam: Normal Bowel Sounds, Soft, Non-Tender - Patient Data Lab Results Last 24 hrs: Laboratory Results - last 24 hr 02/17/21 02/17/21 02/17/21 Range/Units 18:41 18:41 18:41 WBC 5.56 (4.0-11.0) K/uL RBC 4.88 (4.30-5.90) M/uL Hgb 14.3 (12.0-16.0) g/dL Hct 41.5 (36.0-46.0) % MCV 85.0 (80.0-98.0) fL MCH 29.3 (27.0-32.0) pg MCHC 34.5 (31.0-37.0) g/dL RDW Std Deviation 44.5 (28.0-62.0) fl RDW Coeff of Aydin 14 (11.0-15.0) % Plt Count 286 (150-400) K/uL MPV 9.60 (7.40-12.00) fL Neut % (Auto) 62.5 (48.0-80.0) % Lymph % (Auto) 24.3 (16.0-40.0) % [place]isher % (Auto) 11.9 (0.0-15.0) % Eos % (Auto) 0.9 (0.0-7.0) % Baso % (Auto) 0.4 (0.0-1.5) % Neut # (Auto) 3.5 (1.4-5.7) K/uL Lymph # (Auto) 1.4 (0.6-2.4) K/uL [place] # (Auto) 0.7 (0.0-0.8) K/uL Eos # (Auto) 0.1 (0.0-0.7) K/uL Baso # (Auto) 0.0 (0.0-0.1) K/uL Nucleated RBC % 0.0 /100WBC Nucleated RBCs # 0 K/uL D-Dimer, Quantitative 0.54 H (0.0-0.50) mg/L FEU VBG pH (7.31-7.41) VBG pCO2 (41-51) mmHG VBG pO2 mmHG VBG HCO3 (23-28) mEq/L VBG Total CO2 (24-29) mmol/L VBG Base Excess (-2.0-3.0) Sodium 134 L (136-145) mmol/L Potassium 3.8 (3.5-5.1) mmol/L Chloride 97 L (98-107) mmol/L Carbon Dioxide 25.5 (21.0-32.0) mmol/L BUN 16 (7.0-18.0) mg/dL Creatinine 1.0 (0.6-1.0) mg/dL Est Cr Clr Drug Dosing 55.06 mL/min Estimated GFR (MDRD) 58.5 ml/min Glucose 152 H (74-106) mg/dL Calcium 9.3 (8.5-10.1) mg/dL Total Bilirubin 0.3 (0.2-1.0) mg/dL AST 17 (15-37) IU/L ALT 18 (14-63) IU/L Alkaline Phosphatase 120 H (46-116) U/L Troponin I < 0.050 (0.000-0.056) ng/mL Total Protein 7.9 (6.4-8.2) g/dL Albumin 3.8 (3.4-5.0) g/dL Globulin 4.1 H (2.6-4.0) g/dL Albumin/Globulin Ratio 0.9 (0.9-1.6) SARS-CoV-2 RNA (JOSE) (NEGATIVE) 02/17/21 02/17/21 Range/Units 19:35 20:02 WBC (4.0-11.0) K/uL RBC (4.30-5.90) M/uL Hgb (12.0-16.0) g/dL Hct (36.0-46.0) % MCV (80.0-98.0) fL MCH (27.0-32.0) pg MCHC (31.0-37.0) g/dL RDW Std Deviation (28.0-62.0) fl RDW Coeff of Aydin (11.0-15.0) % Plt Count (150-400) K/uL MPV (7.40-12.00) fL Neut % (Auto) (48.0-80.0) % Lymph % (Auto) (16.0-40.0) % [place] % (Auto) (0.0-15.0) % Eos % (Auto) (0.0-7.0) % Baso % (Auto) (0.0-1.5) % Neut # (Auto) (1.4-5.7) K/uL Lymph # (Auto) (0.6-2.4) K/uL [place]isher # (Auto) (0.0-0.8) K/uL Eos # (Auto) (0.0-0.7) K/uL Baso # (Auto) (0.0-0.1) K/uL Nucleated RBC % /100WBC Nucleated RBCs # K/uL D-Dimer, Quantitative (0.0-0.50) mg/L FEU VBG pH 7.41 (7.31-7.41) VBG pCO2 40 L (41-51) mmHG VBG pO2 31 mmHG VBG HCO3 26 (23-28) mEq/L VBG Total CO2 27 (24-29) mmol/L VBG Base Excess 1.0 (-2.0-3.0) Sodium (136-145) mmol/L Potassium (3.5-5.1) mmol/L Chloride (98-107) mmol/L Carbon Dioxide (21.0-32.0) mmol/L BUN (7.0-18.0) mg/dL Creatinine (0.6-1.0) mg/dL Est Cr Clr Drug Dosing mL/min Estimated GFR (MDRD) ml/min Glucose (74-106) mg/dL Calcium (8.5-10.1) mg/dL Total Bilirubin (0.2-1.0) mg/dL AST (15-37) IU/L ALT (14-63) IU/L Alkaline Phosphatase (46-116) U/L Troponin I (0.000-0.056) ng/mL Total Protein (6.4-8.2) g/dL Albumin (3.4-5.0) g/dL Globulin (2.6-4.0) g/dL Albumin/Globulin Ratio (0.9-1.6) SARS-CoV-2 RNA (JOSE) NEGATIVE (NEGATIVE) Result Diagrams: 02/17/21 18:41 02/17/21 18:41 Sepsis Event Note - Evaluation Sepsis Screening Result: No Definite Risk - Focused Exam Vital Signs: Vital Signs Temp Pulse Resp BP Pulse Ox 02/17/21 20:20 36.5 C 98 24 H 100/55 L 96 02/17/21 18:56 117 H 22 H 109/79 98 02/17/21 18:38 35.3 C L 112 H 30 H 90/68 90 L - Problem List (1) Smoker SNOMED Code(s): 07127791 ICD Code: F17.200 - NICOTINE DEPENDENCE, UNSPECIFIED, UNCOMPLICATED Status: Acute Current Visit: Yes (2) COPD exacerbation SNOMED Code(s): 028017986 ICD Code: J44.1 - CHRONIC OBSTRUCTIVE PULMONARY DISEASE W (ACUTE) EXACERBATION Status: Acute Current Visit: Yes (3) Hypoxia SNOMED Code(s): 696410624 ICD Code: R09.02 - HYPOXEMIA Status: Acute Current Visit: Yes (4) History of alcohol abuse SNOMED Code(s): 414704062 ICD Code: F10.11 - ALCOHOL ABUSE, IN REMISSION Status: Chronic Current Visit: No Problem List Initiated/Reviewed/Updated: Yes Orders Last 24hrs: Active Orders 24 hr Category Date Time Status Admission Status [Patient Status] [ADT] Stat ADT 02/17/21 19:38 Active Ambulate [RC] ASDIRECTED Care 02/17/21 20:48 Active Antiembolic Devices [RC] PER UNIT ROUTINE Care 02/17/21 20:49 Active Cardiac Monitoring [RC] . DIRECTED Care 02/17/21 18:43 Active EKG Documentation Completion [RC] STAT Care 02/17/21 18:43 Active Oxygen Therapy [RC] PRN Care 02/17/21 20:48 Active Pulse Oximetry [RC] PRN Care 02/17/21 20:49 Active RT Aerosol Therapy [RC] ASDIRECTED Care 02/17/21 18:44 Active RT Aerosol Therapy [RC] ASDIRECTED Care 02/17/21 18:44 Active RT Aerosol Therapy [RC] ASDIRECTED Care 02/17/21 18:44 Active RT Aerosol Therapy [RC] ASDIRECTED Care 02/17/21 20:50 Active RT Post Treatment Assessment [RC] Click to Edit Care 02/17/21 20:55 Ordered RT Pre-Treatment Assessment [RC] Click to Edit Care 02/17/21 20:55 Ordered VTE/DVT Education [RC] PER UNIT ROUTINE Care 02/17/21 20:48 Active Vital Signs [RC] Q4H Care 02/17/21 20:48 Active Heart Healthy Diet [DIET] Diet 02/18/21 Breakfast Active Acetaminophen [TylenoL] Med 02/17/21 20:48 Active 650 mg PO Q4H PRN Albuterol/Ipratropium [DuoNeb 3.0-0.5 MG/3 ML] Med 02/17/21 22:00 Active 3 ml NEB Q4HRRT Azithromycin [Zithromax] Med 02/18/21 09:00 Active 250 mg PO Q24H Azithromycin [Zithromax] 500 mg Med 02/17/21 19:45 Active Sodium Chloride 0.9% [Normal Saline (AdvBag)] 250 ml IV ONETIME Enoxaparin [Lovenox] Med 02/17/21 21:00 Active 40 mg SUBCUT Q24H Fluticasone/Salmeterol [Advair Diskus 100-50] Med 02/17/21 21:00 Ordered 1 puff INH BID Lactated Ringers [Ringers, Lactated] 1,000 ml Med 02/17/21 21:00 Active IV ASDIRECTED Ondansetron [Zofran] Med 02/17/21 20:48 Active 4 mg IVPUSH Q4H PRN Pantoprazole [ProTONIX IV] 40 mg Med 02/18/21 09:00 Active Sodium Chloride 0.9% [Normal Saline] 10 ml IV DAILY methylPREDNISolone Sod Succ [Solu-MEDROL] Med 02/18/21 03:00 Active 40 mg IVPUSH Q8H Sequential Compression Device [OM.PC] Per Unit Routine Oth 02/17/21 20:49 Ordered Medication Orders Acetaminophen (Acetaminophen 325 Mg Tab) 650 mg PO Q4H PRN PRN Reason: Pain (Mild 1-3)/fever Albuterol/Ipratropium (Albuterol/Ipratropium 3.0-0.5 Mg/3 Ml Neb Soln) 3 ml NEB Q4HRRT SEE Azithromycin (Azithromycin 250 Mg Tab) 250 mg PO Q24H SEE Enoxaparin Sodium (Enoxaparin 40 Mg/0.4 Ml Syringe) 40 mg SUBCUT Q24H SEE Azithromycin 500 mg/ Sodium (Chloride) 250 mls @ 250 mls/hr IV ONETIME SEE Last Admin: 02/17/21 20:21 Dose: 250 mls/hr Documented by: MELISSA Lactated Ringer's (Ringers, Lactated) 1,000 mls @ 125 mls/hr IV ASDIRECTED [facility] Pantoprazole Sodium 40 mg/ (Sodium Chloride) 10 mls @ 300 mls/hr IV DAILY SEE Methylprednisolone Sodium Succinate (Methylprednisolone Sodium Succinate 40 Mg/1 Ml Sdv) 40 mg IVPUSH Q8H SEE Ondansetron HCl (Ondansetron 4 Mg/2 Ml Sdv) 4 mg IVPUSH Q4H PRN PRN Reason: Nausea/Vomiting Assessment/Plan Comment:: 50-year-old female admitted for acute hypoxic respiratory failure secondary to COPD exacerbation Continue oxygenation support via nasal cannula currently patient needing 3 L, goal is to keep oxygen more than 88% Wean off oxygen as tolerated Start IV fluid hydration for insensible fluid loss Once patient starts eating and drinking well will DC fluids Start IV steroids duo nebs scheduled for now, will make as needed once patient's symptoms improve Advair twice daily Azithromycin 250 daily IV Zofran for nausea vomiting IV pantoprazole daily Lovenox for DVT prophylaxis Patient thoroughly counseled about quitting smoking and is very much motivated to do so. We will start patient on nicotine patch Anticipate 2 to 3 days stay given patient's severity of hypoxia and symptoms upon admission
--- NOTE | 2021-02-17 22:07 | PCM.EKG ---
#1 Interpretation EKG Date: 02/17/21 Time: 18:40 Rhythm: Other (sinush tachy) Rate (Beats/Min): 106 ST-T: Normal
[2021-02-17] MEDS: Fluticasone/Salmeterol 100-50 MCG Inhalation Powder 14/Diskus INH SCH (23:17)
[2021-02-17] MEDS: Lactated Ringers 1,000 ML IV SCH (23:18)
[2021-02-17] MEDS: Enoxaparin 40 MG/0.4 ML Syringe SUBCUT SCH (23:23)
[2021-02-17] MEDS: Albuterol/Ipratropium 3.0-0.5 MG/3 ML Neb Soln NEB SCH (23:23)
[2021-02-18] MEDS: methylPREDNISolone Sodium Succinate 40 MG/1 ML SDV IVPUSH SCH ×3 (02:37→18:09)
[2021-02-18] MEDS: Albuterol/Ipratropium 3.0-0.5 MG/3 ML Neb Soln NEB SCH ×6 (02:39→22:07)
[2021-02-18 06:05] LABS: BLOOD UREA NITROGEN,BUN 13 mg/dL (7.0-18.0); CARBON DIOXIDE,CO2 25.6 mmol/L (21.0-32.0); CHLORIDE,CL 102 mmol/L (98-107); GLUCOSE RANDOM 136 mg/dL (74-106); POTASSIUM,K 4.1 mmol/L (3.5-5.1); SODIUM,NA 138 mmol/L (136-145)
[2021-02-18] MEDS: Lactated Ringers 1,000 ML IV SCH (07:27)
[2021-02-18] MEDS: Fluticasone/Salmeterol 100-50 MCG Inhalation Powder 14/Diskus INH SCH ×2 (08:39→20:55)
[2021-02-18] MEDS: Pantoprazole 40 MG in Sodium Chloride 0.9% 10 ML IV SCH (09:17)
[2021-02-18] MEDS: Azithromycin 250 MG Tab PO SCH (09:18)
--- NOTE | 2021-02-18 13:24 | PCM.PN ---
- General Info Date of Service: 02/18/21 Admission Dx/Problem (Free Text): Admission Diagnosis/Problem Admission Diagnosis/Problem COPD, Severe chronic obstructive pulmonary disease Functional Status: Reports: Pain Controlled, Tolerating Diet, Ambulating - Review of Systems General: Denies: Fever, Weakness, Fatigue Pulmonary: Reports: Shortness of Breath, Cough, Sputum. Denies: Pleuritic Chest Pain Cardiovascular: Denies: Chest Pain, Palpitations Gastrointestinal: Denies: Abdominal Pain, Constipation, Decreased Appetite Genitourinary: Denies: Dysuria, Frequency, Burning Musculoskeletal: Denies: Neck Pain, Shoulder Pain, Arm Pain Skin: Denies: Mottled - Patient Data Vitals - Most Recent: Last Vital Signs Temp 36.9 C 02/18/21 12:00 Pulse 106 H 02/18/21 12:00 Resp 20 02/18/21 12:00 BP 109/52 L 02/18/21 12:00 Pulse Ox 95 02/18/21 07:00 Weight - Most Recent: 59.511 kg I&O - Last 24 Hours: Intake & Output 02/17/21 02/18/21 02/18/21 22:59 06:59 14:59 Intake Total 450 Output Total 650 Balance -200 Lab Results Last 24 Hours: Laboratory Results - last 24 hr 02/17/21 02/17/21 02/17/21 Range/Units 18:41 18:41 18:41 WBC 5.56 (4.0-11.0) K/uL RBC 4.88 (4.30-5.90) M/uL Hgb 14.3 (12.0-16.0) g/dL Hct 41.5 (36.0-46.0) % MCV 85.0 (80.0-98.0) fL MCH 29.3 (27.0-32.0) pg MCHC 34.5 (31.0-37.0) g/dL RDW Std Deviation 44.5 (28.0-62.0) fl RDW Coeff of Aydin 14 (11.0-15.0) % Plt Count 286 (150-400) K/uL MPV 9.60 (7.40-12.00) fL Neut % (Auto) 62.5 (48.0-80.0) % Lymph % (Auto) 24.3 (16.0-40.0) % [place] % (Auto) 11.9 (0.0-15.0) % Eos % (Auto) 0.9 (0.0-7.0) % Baso % (Auto) 0.4 (0.0-1.5) % Neut # (Auto) 3.5 (1.4-5.7) K/uL Lymph # (Auto) 1.4 (0.6-2.4) K/uL [place] # (Auto) 0.7 (0.0-0.8) K/uL Eos # (Auto) 0.1 (0.0-0.7) K/uL Baso # (Auto) 0.0 (0.0-0.1) K/uL Nucleated RBC % 0.0 /100WBC Nucleated RBCs # 0 K/uL D-Dimer, Quantitative 0.54 H (0.0-0.50) mg/L FEU VBG pH (7.31-7.41) VBG pCO2 (41-51) mmHG VBG pO2 mmHG VBG HCO3 (23-28) mEq/L VBG Total CO2 (24-29) mmol/L VBG Base Excess (-2.0-3.0) Sodium 134 L (136-145) mmol/L Potassium 3.8 (3.5-5.1) mmol/L Chloride 97 L (98-107) mmol/L Carbon Dioxide 25.5 (21.0-32.0) mmol/L BUN 16 (7.0-18.0) mg/dL Creatinine 1.0 (0.6-1.0) mg/dL Est Cr Clr Drug Dosing 55.06 mL/min Estimated GFR (MDRD) 58.5 ml/min Glucose 152 H (74-106) mg/dL Calcium 9.3 (8.5-10.1) mg/dL Phosphorus (2.6-4.7) mg/dL Magnesium (1.8-2.4) mg/dL Total Bilirubin 0.3 (0.2-1.0) mg/dL AST 17 (15-37) IU/L ALT 18 (14-63) IU/L Alkaline Phosphatase 120 H (46-116) U/L Troponin I < 0.050 (0.000-0.056) ng/mL Total Protein 7.9 (6.4-8.2) g/dL Albumin 3.8 (3.4-5.0) g/dL Globulin 4.1 H (2.6-4.0) g/dL Albumin/Globulin Ratio 0.9 (0.9-1.6) SARS-CoV-2 RNA (JOSE) (NEGATIVE) 02/17/21 02/17/21 02/18/21 Range/Units 19:35 20:02 05:17 WBC 5.31 (4.0-11.0) K/uL RBC 4.23 L (4.30-5.90) M/uL Hgb 12.1 (12.0-16.0) g/dL Hct 36.1 (36.0-46.0) % MCV 85.3 (80.0-98.0) fL MCH 28.6 (27.0-32.0) pg MCHC 33.5 (31.0-37.0) g/dL RDW Std Deviation 44.9 (28.0-62.0) fl RDW Coeff of Aydin 14 (11.0-15.0) % Plt Count 263 (150-400) K/uL MPV 9.60 (7.40-12.00) fL Neut % (Auto) 88.9 H (48.0-80.0) % Lymph % (Auto) 9.6 L (16.0-40.0) % [place] % (Auto) 1.5 (0.0-15.0) % Eos % (Auto) 0.0 (0.0-7.0) % Baso % (Auto) 0.0 (0.0-1.5) % Neut # (Auto) 4.7 (1.4-5.7) K/uL Lymph # (Auto) 0.5 L (0.6-2.4) K/uL [place] # (Auto) 0.1 (0.0-0.8) K/uL Eos # (Auto) 0.0 (0.0-0.7) K/uL Baso # (Auto) 0.0 (0.0-0.1) K/uL Nucleated RBC % 0.0 /100WBC Nucleated RBCs # 0 K/uL D-Dimer, Quantitative (0.0-0.50) mg/L FEU VBG pH 7.41 (7.31-7.41) VBG pCO2 40 L (41-51) mmHG VBG pO2 31 mmHG VBG HCO3 26 (23-28) mEq/L VBG Total CO2 27 (24-29) mmol/L VBG Base Excess 1.0 (-2.0-3.0) Sodium (136-145) mmol/L Potassium (3.5-5.1) mmol/L Chloride (98-107) mmol/L Carbon Dioxide (21.0-32.0) mmol/L BUN (7.0-18.0) mg/dL Creatinine (0.6-1.0) mg/dL Est Cr Clr Drug Dosing mL/min Estimated GFR (MDRD) ml/min Glucose (74-106) mg/dL Calcium (8.5-10.1) mg/dL Phosphorus (2.6-4.7) mg/dL Magnesium (1.8-2.4) mg/dL Total Bilirubin (0.2-1.0) mg/dL AST (15-37) IU/L ALT (14-63) IU/L Alkaline Phosphatase (46-116) U/L Troponin I (0.000-0.056) ng/mL Total Protein (6.4-8.2) g/dL Albumin (3.4-5.0) g/dL Globulin (2.6-4.0) g/dL Albumin/Globulin Ratio (0.9-1.6) SARS-CoV-2 RNA (JOSE) NEGATIVE (NEGATIVE) 02/18/21 Range/Units 05:17 WBC (4.0-11.0) K/uL RBC (4.30-5.90) M/uL Hgb (12.0-16.0) g/dL Hct (36.0-46.0) % MCV (80.0-98.0) fL MCH (27.0-32.0) pg MCHC (31.0-37.0) g/dL RDW Std Deviation (28.0-62.0) fl RDW Coeff of Aydin (11.0-15.0) % Plt Count (150-400) K/uL MPV (7.40-12.00) fL Neut % (Auto) (48.0-80.0) % Lymph % (Auto) (16.0-40.0) % [place] % (Auto) (0.0-15.0) % Eos % (Auto) (0.0-7.0) % Baso % (Auto) (0.0-1.5) % Neut # (Auto) (1.4-5.7) K/uL Lymph # (Auto) (0.6-2.4) K/uL [place] # (Auto) (0.0-0.8) K/uL Eos # (Auto) (0.0-0.7) K/uL Baso # (Auto) (0.0-0.1) K/uL Nucleated RBC % /100WBC Nucleated RBCs # K/uL D-Dimer, Quantitative (0.0-0.50) mg/L FEU VBG pH (7.31-7.41) VBG pCO2 (41-51) mmHG VBG pO2 mmHG VBG HCO3 (23-28) mEq/L VBG Total CO2 (24-29) mmol/L VBG Base Excess (-2.0-3.0) Sodium 138 (136-145) mmol/L Potassium 4.1 (3.5-5.1) mmol/L Chloride 102 (98-107) mmol/L Carbon Dioxide 25.6 (21.0-32.0) mmol/L BUN 13 (7.0-18.0) mg/dL Creatinine 0.7 (0.6-1.0) mg/dL Est Cr Clr Drug Dosing 78.65 mL/min Estimated GFR (MDRD) > 60.0 ml/min Glucose 136 H (74-106) mg/dL Calcium 8.7 (8.5-10.1) mg/dL Phosphorus 3.4 (2.6-4.7) mg/dL Magnesium 1.8 (1.8-2.4) mg/dL Total Bilirubin (0.2-1.0) mg/dL AST (15-37) IU/L ALT (14-63) IU/L Alkaline Phosphatase (46-116) U/L Troponin I (0.000-0.056) ng/mL Total Protein (6.4-8.2) g/dL Albumin (3.4-5.0) g/dL Globulin (2.6-4.0) g/dL Albumin/Globulin Ratio (0.9-1.6) SARS-CoV-2 RNA (JOSE) (NEGATIVE) Med Orders - Current: Current Medications Acetaminophen (Acetaminophen 325 Mg Tab) 650 mg PO Q4H PRN PRN Reason: Pain (Mild 1-3)/fever Last Admin: 02/18/21 10:27 Dose: 650 mg Documented by: Albuterol/Ipratropium (Albuterol/Ipratropium 3.0-0.5 Mg/3 Ml Neb Soln) 3 ml NEB Q4HRRT [facility] Last Admin: 02/18/21 09:51 Dose: 3 ml Documented by: Azithromycin (Azithromycin 250 Mg Tab) 250 mg PO Q24H [facility] Last Admin: 02/18/21 09:18 Dose: 250 mg Documented by: Enoxaparin Sodium (Enoxaparin 40 Mg/0.4 Ml Syringe) 40 mg SUBCUT Q24H [facility] Last Admin: 02/17/21 23:23 Dose: 40 mg Documented by: Folic Acid (Folic Acid 1 Mg Tab) 1 mg PO BEDTIME [facility] Azithromycin 500 mg/ Sodium (Chloride) 250 mls @ 250 mls/hr IV ONETIME [facility] Last Admin: 02/17/21 20:21 Dose: 250 mls/hr Documented by: Lactated Ringer's (Ringers, Lactated) 1,000 mls @ 125 mls/hr IV ASDIRECTED [facility] Last Admin: 02/18/21 07:27 Dose: 125 mls/hr Documented by: Pantoprazole Sodium 40 mg/ (Sodium Chloride) 10 mls @ 300 mls/hr IV DAILY [facility] Last Admin: 02/18/21 09:17 Dose: 300 mls/hr Documented by: Methylprednisolone Sodium Succinate (Methylprednisolone Sodium Succinate 40 Mg/1 Ml Sdv) 40 mg IVPUSH Q8H [facility] Last Admin: 02/18/21 10:27 Dose: 40 mg Documented by: Metoprolol Succinate (Metoprolol Succinate 25 Mg Tab.Er) 25 mg PO DAILY [facility] Mirtazapine (Mirtazapine 15 Mg Tab) 7.5 mg PO BEDTIME [facility] Nicotine (Nicotine 14 Mg/24 Hr Patch) 14 mg TRDERM DAILY [facility] Non-Formulary Medication (Buspirone Hcl [Buspirone]) 30 mg PO BID [facility] Ondansetron HCl (Ondansetron 4 Mg/2 Ml Sdv) 4 mg IVPUSH Q4H PRN PRN Reason: Nausea/Vomiting Paroxetine HCl (Paroxetine 20 Mg Tab) 20 mg PO WITHDINNER SEE Prazosin HCl (Prazosin 1 Mg Cap) 1 mg PO BEDTIME SEE Rosuvastatin Calcium (Rosuvastatin 10 Mg Tab) 10 mg PO BEDTIME SEE Fluticasone/Salmeterol (Fluticasone/Salmeterol 100-50 Mcg Inhalation Powder 14/Diskus) 1 puff INH BID SEE Last Admin: 02/18/21 08:39 Dose: 1 puff Documented by: Thiamine HCl (Thiamine 100 Mg Tab) 100 mg PO BEDTIME SEE Discontinued Medications Albuterol/Ipratropium (Albuterol/Ipratropium 3.0-0.5 Mg/3 Ml Neb Soln) 3 ml NEB ONETIME ONE Stop: 02/17/21 18:44 Last Admin: 02/17/21 18:52 Dose: 3 ml Documented by: Albuterol/Ipratropium (Albuterol/Ipratropium 3.0-0.5 Mg/3 Ml Neb Soln) 3 ml NEB ONETIME ONE Stop: 02/17/21 18:45 Last Admin: 02/17/21 18:52 Dose: 3 ml Documented by: Albuterol/Ipratropium (Albuterol/Ipratropium 3.0-0.5 Mg/3 Ml Neb Soln) 3 ml NEB ONETIME ONE Stop: 02/17/21 18:45 Last Admin: 02/17/21 18:52 Dose: 3 ml Documented by: Sodium Chloride (Normal Saline) 1,000 mls @ 999 mls/hr IV BOLUS ONE Stop: 02/17/21 19:43 Last Admin: 02/17/21 18:52 Dose: 999 mls/hr Documented by: Methylprednisolone Sodium Succinate (Methylprednisolone Sodium Succinate 125 Mg/2 Ml Sdv) 125 mg IVPUSH ONETIME ONE Stop: 02/17/21 18:45 Last Admin: 02/17/21 18:53 Dose: 125 mg Documented by: Ondansetron HCl (Ondansetron 4 Mg/2 Ml Sdv) 4 mg IVPUSH ONETIME ONE Stop: 02/17/21 18:46 Last Admin: 02/17/21 18:53 Dose: 4 mg Documented by: Ondansetron HCl (Ondansetron 4 Mg/2 Ml Sdv) 4 mg IVPUSH ONETIME ONE Stop: 02/17/21 21:04 Last Admin: 02/17/21 21:07 Dose: 4 mg Documented by: - Exam Quality Assessment: Supplemental Oxygen General: Alert, Oriented Lungs: Normal Respiratory Effort, Rales, Wheezing Cardiovascular: Regular Rate, Regular Rhythm GI/Abdominal Exam: Normal Bowel Sounds, Soft, Non-Tender Extremities: Normal Inspection, Normal Range of Motion - Patient Data Lab Results Last 24 hrs: Laboratory Results - last 24 hr 02/17/21 02/17/21 02/17/21 Range/Units 18:41 18:41 18:41 WBC 5.56 (4.0-11.0) K/uL RBC 4.88 (4.30-5.90) M/uL Hgb 14.3 (12.0-16.0) g/dL Hct 41.5 (36.0-46.0) % MCV 85.0 (80.0-98.0) fL MCH 29.3 (27.0-32.0) pg MCHC 34.5 (31.0-37.0) g/dL RDW Std Deviation 44.5 (28.0-62.0) fl RDW Coeff of Aydin 14 (11.0-15.0) % Plt Count 286 (150-400) K/uL MPV 9.60 (7.40-12.00) fL Neut % (Auto) 62.5 (48.0-80.0) % Lymph % (Auto) 24.3 (16.0-40.0) % [place] % (Auto) 11.9 (0.0-15.0) % Eos % (Auto) 0.9 (0.0-7.0) % Baso % (Auto) 0.4 (0.0-1.5) % Neut # (Auto) 3.5 (1.4-5.7) K/uL Lymph # (Auto) 1.4 (0.6-2.4) K/uL [place] # (Auto) 0.7 (0.0-0.8) K/uL Eos # (Auto) 0.1 (0.0-0.7) K/uL Baso # (Auto) 0.0 (0.0-0.1) K/uL Nucleated RBC % 0.0 /100WBC Nucleated RBCs # 0 K/uL D-Dimer, Quantitative 0.54 H (0.0-0.50) mg/L FEU VBG pH (7.31-7.41) VBG pCO2 (41-51) mmHG VBG pO2 mmHG VBG HCO3 (23-28) mEq/L VBG Total CO2 (24-29) mmol/L VBG Base Excess (-2.0-3.0) Sodium 134 L (136-145) mmol/L Potassium 3.8 (3.5-5.1) mmol/L Chloride 97 L (98-107) mmol/L Carbon Dioxide 25.5 (21.0-32.0) mmol/L BUN 16 (7.0-18.0) mg/dL Creatinine 1.0 (0.6-1.0) mg/dL Est Cr Clr Drug Dosing 55.06 mL/min Estimated GFR (MDRD) 58.5 ml/min Glucose 152 H (74-106) mg/dL Calcium 9.3 (8.5-10.1) mg/dL Phosphorus (2.6-4.7) mg/dL Magnesium (1.8-2.4) mg/dL Total Bilirubin 0.3 (0.2-1.0) mg/dL AST 17 (15-37) IU/L ALT 18 (14-63) IU/L Alkaline Phosphatase 120 H (46-116) U/L Troponin I < 0.050 (0.000-0.056) ng/mL Total Protein 7.9 (6.4-8.2) g/dL Albumin 3.8 (3.4-5.0) g/dL Globulin 4.1 H (2.6-4.0) g/dL Albumin/Globulin Ratio 0.9 (0.9-1.6) SARS-CoV-2 RNA (JOSE) (NEGATIVE) 02/17/21 02/17/21 02/18/21 Range/Units 19:35 20:02 05:17 WBC 5.31 (4.0-11.0) K/uL RBC 4.23 L (4.30-5.90) M/uL Hgb 12.1 (12.0-16.0) g/dL Hct 36.1 (36.0-46.0) % MCV 85.3 (80.0-98.0) fL MCH 28.6 (27.0-32.0) pg MCHC 33.5 (31.0-37.0) g/dL RDW Std Deviation 44.9 (28.0-62.0) fl RDW Coeff of Aydin 14 (11.0-15.0) % Plt Count 263 (150-400) K/uL MPV 9.60 (7.40-12.00) fL Neut % (Auto) 88.9 H (48.0-80.0) % Lymph % (Auto) 9.6 L (16.0-40.0) % [place] % (Auto) 1.5 (0.0-15.0) % Eos % (Auto) 0.0 (0.0-7.0) % Baso % (Auto) 0.0 (0.0-1.5) % Neut # (Auto) 4.7 (1.4-5.7) K/uL Lymph # (Auto) 0.5 L (0.6-2.4) K/uL [place] # (Auto) 0.1 (0.0-0.8) K/uL Eos # (Auto) 0.0 (0.0-0.7) K/uL Baso # (Auto) 0.0 (0.0-0.1) K/uL Nucleated RBC % 0.0 /100WBC Nucleated RBCs # 0 K/uL D-Dimer, Quantitative (0.0-0.50) mg/L FEU VBG pH 7.41 (7.31-7.41) VBG pCO2 40 L (41-51) mmHG VBG pO2 31 mmHG VBG HCO3 26 (23-28) mEq/L VBG Total CO2 27 (24-29) mmol/L VBG Base Excess 1.0 (-2.0-3.0) Sodium (136-145) mmol/L Potassium (3.5-5.1) mmol/L Chloride (98-107) mmol/L Carbon Dioxide (21.0-32.0) mmol/L BUN (7.0-18.0) mg/dL Creatinine (0.6-1.0) mg/dL Est Cr Clr Drug Dosing mL/min Estimated GFR (MDRD) ml/min Glucose (74-106) mg/dL Calcium (8.5-10.1) mg/dL Phosphorus (2.6-4.7) mg/dL Magnesium (1.8-2.4) mg/dL Total Bilirubin (0.2-1.0) mg/dL AST (15-37) IU/L ALT (14-63) IU/L Alkaline Phosphatase (46-116) U/L Troponin I (0.000-0.056) ng/mL Total Protein (6.4-8.2) g/dL Albumin (3.4-5.0) g/dL Globulin (2.6-4.0) g/dL Albumin/Globulin Ratio (0.9-1.6) SARS-CoV-2 RNA (JOSE) NEGATIVE (NEGATIVE) 02/18/21 Range/Units 05:17 WBC (4.0-11.0) K/uL RBC (4.30-5.90) M/uL Hgb (12.0-16.0) g/dL Hct (36.0-46.0) % MCV (80.0-98.0) fL MCH (27.0-32.0) pg MCHC (31.0-37.0) g/dL RDW Std Deviation (28.0-62.0) fl RDW Coeff of Aydin (11.0-15.0) % Plt Count (150-400) K/uL MPV (7.40-12.00) fL Neut % (Auto) (48.0-80.0) % Lymph % (Auto) (16.0-40.0) % [place] % (Auto) (0.0-15.0) % Eos % (Auto) (0.0-7.0) % Baso % (Auto) (0.0-1.5) % Neut # (Auto) (1.4-5.7) K/uL Lymph # (Auto) (0.6-2.4) K/uL [place] # (Auto) (0.0-0.8) K/uL Eos # (Auto) (0.0-0.7) K/uL Baso # (Auto) (0.0-0.1) K/uL Nucleated RBC % /100WBC Nucleated RBCs # K/uL D-Dimer, Quantitative (0.0-0.50) mg/L FEU VBG pH (7.31-7.41) VBG pCO2 (41-51) mmHG VBG pO2 mmHG VBG HCO3 (23-28) mEq/L VBG Total CO2 (24-29) mmol/L VBG Base Excess (-2.0-3.0) Sodium 138 (136-145) mmol/L Potassium 4.1 (3.5-5.1) mmol/L Chloride 102 (98-107) mmol/L Carbon Dioxide 25.6 (21.0-32.0) mmol/L BUN 13 (7.0-18.0) mg/dL Creatinine 0.7 (0.6-1.0) mg/dL Est Cr Clr Drug Dosing 78.65 mL/min Estimated GFR (MDRD) > 60.0 ml/min Glucose 136 H (74-106) mg/dL Calcium 8.7 (8.5-10.1) mg/dL Phosphorus 3.4 (2.6-4.7) mg/dL Magnesium 1.8 (1.8-2.4) mg/dL Total Bilirubin (0.2-1.0) mg/dL AST (15-37) IU/L ALT (14-63) IU/L Alkaline Phosphatase (46-116) U/L Troponin I (0.000-0.056) ng/mL Total Protein (6.4-8.2) g/dL Albumin (3.4-5.0) g/dL Globulin (2.6-4.0) g/dL Albumin/Globulin Ratio (0.9-1.6) SARS-CoV-2 RNA (JOSE) (NEGATIVE) Result Diagrams: 02/18/21 05:17 02/18/21 05:17 Sepsis Event Note - Evaluation Sepsis Screening Result: No Definite Risk - Focused Exam Vital Signs: Vital Signs Temp Pulse Resp BP Pulse Ox Pulse Ox 02/18/21 12:00 36.9 C 106 H 20 109/52 L 02/18/21 07:00 36.5 C 99 20 96/51 L 95 02/18/21 03:47 36.3 C 78 21 H 109/68 96 02/18/21 02:00 95 02/18/21 01:59 95 - Problem List & Annotations (1) Smoker SNOMED Code(s): 08795201 Code(s): F17.200 - NICOTINE DEPENDENCE, UNSPECIFIED, UNCOMPLICATED Status: Acute Current Visit: Yes (2) COPD exacerbation SNOMED Code(s): 187627180 Code(s): J44.1 - CHRONIC OBSTRUCTIVE PULMONARY DISEASE W (ACUTE) EXACERBATION Status: Acute Current Visit: Yes (3) Hypoxia SNOMED Code(s): 172882234 Code(s): R09.02 - HYPOXEMIA Status: Acute Current Visit: Yes (4) History of alcohol abuse SNOMED Code(s): 868061978 Code(s): F10.11 - ALCOHOL ABUSE, IN REMISSION Status: Chronic Current Visit: No - Problem List Review Problem List Initiated/Reviewed/Updated: Yes - My Orders Last 24 Hours: My Active Orders 02/17/21 20:10 Telemetry Monitoring [Cardiac Monitoring] [RC] Q8H 02/17/21 20:48 Ambulate [RC] ASDIRECTED Oxygen Therapy [RC] PRN VTE/DVT Education [RC] PER UNIT ROUTINE Vital Signs [RC] Q4H Acetaminophen [TylenoL] 650 mg PO Q4H PRN Ondansetron [Zofran] 4 mg IVPUSH Q4H PRN 02/17/21 20:49 Antiembolic Devices [RC] PER UNIT ROUTINE Pulse Oximetry [RC] PRN Sequential Compression Device [OM.PC] Per Unit Routine 02/17/21 20:50 RT Aerosol Therapy [RC] ASDIRECTED 02/17/21 20:55 RT Post Treatment Assessment [RC] Click to Edit RT Pre-Treatment Assessment [RC] Click to Edit 02/17/21 21:00 Enoxaparin [Lovenox] 40 mg SUBCUT Q24H Fluticasone/Salmeterol [Advair Diskus 100-50] 1 puff INH BID Lactated Ringers [Ringers, Lactated] 1,000 ml IV ASDIRECTED 02/17/21 22:00 Albuterol/Ipratropium [DuoNeb 3.0-0.5 MG/3 ML] 3 ml NEB Q4HRRT 02/18/21 03:00 methylPREDNISolone Sod Succ [Solu-MEDROL] 40 mg IVPUSH Q8H 02/18/21 Breakfast Heart Healthy Diet [DIET] 02/18/21 09:00 Azithromycin [Zithromax] 250 mg PO Q24H Pantoprazole [ProTONIX IV] 40 mg Sodium Chloride 0.9% [Normal Saline] 10 ml IV DAILY 02/18/21 13:15 Metoprolol Succinate [Toprol XL] 25 mg PO DAILY 02/18/21 17:30 PARoxetine [Paxil] 20 mg PO WITHDINNER 02/18/21 21:00 Folic Acid 1 mg PO BEDTIME Mirtazapine [Remeron] 7.5 mg PO BEDTIME Prazosin [Minpress] 1 mg PO BEDTIME Rosuvastatin [Crestor] 10 mg PO BEDTIME Thiamine [Vitamin B-1] 100 mg PO BEDTIME busPIRone HCl [busPIRone] 30 mg PO BID - Plan Plan:: 50-year-old female admitted for acute hypoxic respiratory failure secondary to COPD exacerbation Continue oxygenation support via nasal cannula currently patient needing 2 L, goal is to keep oxygen more than 88% Wean off oxygen as tolerated stop IV fluids Start IV steroids duo nebs scheduled for now, will make as needed once patient's symptoms improve Advair twice daily Azithromycin 250 daily IV Zofran for nausea vomiting IV pantoprazole daily Lovenox for DVT prophylaxis Patient thoroughly counseled about quitting smoking and is very much motivated to do so. start on nicotine patch Anticipate 2 to 3 days stay given patient's severity of hypoxia and symptoms upon admission
[2021-02-18] MEDS: Metoprolol Succinate 25 MG Tab.ER PO SCH (15:02)
[2021-02-18] MEDS: Nicotine 14 MG/24 Hr Patch TRDERM SCH (15:03)
[2021-02-18] MEDS: PARoxetine 20 MG Tab PO SCH (18:09)
[2021-02-18] MEDS: Enoxaparin 40 MG/0.4 ML Syringe SUBCUT SCH (20:51)
[2021-02-18] MEDS: Folic Acid 1 MG Tab PO SCH (20:52)
[2021-02-18] MEDS: Rosuvastatin 10 MG Tab PO SCH (20:52)
[2021-02-18] MEDS: busPIRone 5 MG Tab PO SCH (20:52)
[2021-02-18] MEDS: Mirtazapine 15 MG Tab PO SCH (20:52)
[2021-02-18] MEDS: Thiamine 100 MG Tab PO SCH (20:52)
[2021-02-18] MEDS: Prazosin 1 MG Cap PO SCH (22:07)
[2021-02-19] MEDS: methylPREDNISolone Sodium Succinate 40 MG/1 ML SDV IVPUSH SCH ×3 (02:08→18:37)
[2021-02-19] MEDS: Albuterol/Ipratropium 3.0-0.5 MG/3 ML Neb Soln NEB SCH ×6 (02:14→22:33)
[2021-02-19 07:18] LABS: BLOOD UREA NITROGEN,BUN 16 mg/dL (7.0-18.0); CARBON DIOXIDE,CO2 26.3 mmol/L (21.0-32.0); CHLORIDE,CL 106 mmol/L (98-107); GLUCOSE RANDOM 139 mg/dL (74-106); POTASSIUM,K 3.8 mmol/L (3.5-5.1); SODIUM,NA 141 mmol/L (136-145)
[2021-02-19] MEDS: Fluticasone/Salmeterol 100-50 MCG Inhalation Powder 14/Diskus INH SCH ×2 (08:47→20:21)
[2021-02-19] MEDS ORDERED: Magnesium Sulfate/Water 2 GM in Premix Bag 1 BAG IV ONE (09:12)
[2021-02-19] MEDS: busPIRone 5 MG Tab PO SCH ×2 (09:42→20:26)
[2021-02-19] MEDS: Metoprolol Succinate 25 MG Tab.ER PO SCH (09:46)
[2021-02-19] MEDS: Azithromycin 250 MG Tab PO SCH (09:46)
[2021-02-19] MEDS: Nicotine 14 MG/24 Hr Patch TRDERM SCH (09:49)
[2021-02-19] MEDS: Pantoprazole 40 MG in Sodium Chloride 0.9% 10 ML IV SCH (09:52)
--- NOTE | 2021-02-19 13:09 | PCM.PN ---
- General Info Date of Service: 02/19/21 Admission Dx/Problem (Free Text): Admission Diagnosis/Problem Admission Diagnosis/Problem COPD, Severe chronic obstructive pulmonary disease Subjective Update: Patient seen and examined at bedside, states she feels very tired, wants to have a regular diet instead of cardiac diet as her options are very limited on cardiac diet. Functional Status: Reports: Tolerating Diet, Ambulating, Urinating - Review of Systems General: Reports: Weakness, Fatigue. Denies: Fever, Malaise, Chills Pulmonary: Reports: Shortness of Breath, Cough, Sputum. Denies: Pleuritic Chest Pain Cardiovascular: Reports: Dyspnea on Exertion. Denies: Chest Pain, Palpitations Gastrointestinal: Denies: Abdominal Pain, Constipation, Decreased Appetite Genitourinary: Denies: Dysuria, Frequency, Burning Musculoskeletal: Denies: Neck Pain, Shoulder Pain, Arm Pain - Patient Data Vitals - Most Recent: Last Vital Signs Temp 36.3 C 02/19/21 09:00 Pulse 80 02/19/21 09:46 Resp 20 02/19/21 09:00 BP 115/60 02/19/21 09:46 Pulse Ox 92 L 02/19/21 09:00 Weight - Most Recent: 59.511 kg I&O - Last 24 Hours: Intake & Output 02/18/21 02/19/21 02/19/21 22:59 06:59 14:59 Intake Total 2740 1570 Output Total 1500 2400 Balance 1240 -830 Lab Results Last 24 Hours: Laboratory Results - last 24 hr 02/19/21 02/19/21 Range/Units 06:40 06:40 WBC 14.79 H (4.0-11.0) K/uL RBC 4.16 L (4.30-5.90) M/uL Hgb 12.1 (12.0-16.0) g/dL Hct 35.9 L (36.0-46.0) % MCV 86.3 (80.0-98.0) fL MCH 29.1 (27.0-32.0) pg MCHC 33.7 (31.0-37.0) g/dL RDW Std Deviation 46.2 (28.0-62.0) fl RDW Coeff of Aydin 15 (11.0-15.0) % Plt Count 287 (150-400) K/uL MPV 9.60 (7.40-12.00) fL Neut % (Auto) 89.4 H (48.0-80.0) % Lymph % (Auto) 6.8 L (16.0-40.0) % [place] % (Auto) 3.7 (0.0-15.0) % Eos % (Auto) 0.0 (0.0-7.0) % Baso % (Auto) 0.1 (0.0-1.5) % Neut # (Auto) 13.2 H (1.4-5.7) K/uL Lymph # (Auto) 1.0 (0.6-2.4) K/uL [place] # (Auto) 0.6 (0.0-0.8) K/uL Eos # (Auto) 0.0 (0.0-0.7) K/uL Baso # (Auto) 0.0 (0.0-0.1) K/uL Nucleated RBC % 0.0 /100WBC Nucleated RBCs # 0 K/uL Sodium 141 (136-145) mmol/L Potassium 3.8 (3.5-5.1) mmol/L Chloride 106 (98-107) mmol/L Carbon Dioxide 26.3 (21.0-32.0) mmol/L BUN 16 (7.0-18.0) mg/dL Creatinine 0.9 (0.6-1.0) mg/dL Est Cr Clr Drug Dosing 61.17 mL/min Estimated GFR (MDRD) > 60.0 ml/min Glucose 139 H (74-106) mg/dL Calcium 9.1 (8.5-10.1) mg/dL Phosphorus 3.9 (2.6-4.7) mg/dL Magnesium 1.7 L (1.8-2.4) mg/dL Med Orders - Current: Current Medications Acetaminophen (Acetaminophen 325 Mg Tab) 650 mg PO Q4H PRN PRN Reason: Pain (Mild 1-3)/fever Last Admin: 02/18/21 10:27 Dose: 650 mg Documented by: Albuterol/Ipratropium (Albuterol/Ipratropium 3.0-0.5 Mg/3 Ml Neb Soln) 3 ml NEB Q4HRRT SEE Last Admin: 02/19/21 09:59 Dose: 3 ml Documented by: Azithromycin (Azithromycin 250 Mg Tab) 250 mg PO Q24H COUNT INCLUDES THE [facility] Last Admin: 02/19/21 09:46 Dose: 250 mg Documented by: Buspirone HCl (Buspirone 5 Mg Tab) 30 mg PO BID COUNT INCLUDES THE [facility] Last Admin: 02/19/21 09:42 Dose: 30 mg Documented by: Enoxaparin Sodium (Enoxaparin 40 Mg/0.4 Ml Syringe) 40 mg SUBCUT Q24H COUNT INCLUDES THE [facility] Last Admin: 02/18/21 20:51 Dose: 40 mg Documented by: Folic Acid (Folic Acid 1 Mg Tab) 1 mg PO BEDTIME COUNT INCLUDES THE [facility] Last Admin: 02/18/21 20:52 Dose: 1 mg Documented by: Azithromycin 500 mg/ Sodium (Chloride) 250 mls @ 250 mls/hr IV ONETIME COUNT INCLUDES THE [facility] Last Admin: 02/17/21 20:21 Dose: 250 mls/hr Documented by: Pantoprazole Sodium 40 mg/ (Sodium Chloride) 10 mls @ 300 mls/hr IV DAILY COUNT INCLUDES THE [facility] Last Admin: 02/19/21 09:52 Dose: 300 mls/hr Documented by: Magnesium Sulfate 2 gm/ Premix 50 mls @ 12.5 mls/hr IV ONETIME ONE Stop: 02/19/21 13:11 Last Admin: 02/19/21 10:02 Dose: 12.5 mls/hr Documented by: Methylprednisolone Sodium Succinate (Methylprednisolone Sodium Succinate 40 Mg/1 Ml Sdv) 40 mg IVPUSH Q8H COUNT INCLUDES THE [facility] Last Admin: 02/19/21 10:00 Dose: 40 mg Documented by: Metoprolol Succinate (Metoprolol Succinate 25 Mg Tab.Er) 25 mg PO DAILY COUNT INCLUDES THE [facility] Last Admin: 02/19/21 09:46 Dose: 25 mg Documented by: Mirtazapine (Mirtazapine 15 Mg Tab) 7.5 mg PO BEDTIME COUNT INCLUDES THE [facility] Last Admin: 02/18/21 20:52 Dose: 7.5 mg Documented by: Nicotine (Nicotine 14 Mg/24 Hr Patch) 14 mg TRDERM DAILY COUNT INCLUDES THE [facility] Last Admin: 02/19/21 09:49 Dose: 14 mg Documented by: Ondansetron HCl (Ondansetron 4 Mg/2 Ml Sdv) 4 mg IVPUSH Q4H PRN PRN Reason: Nausea/Vomiting Paroxetine HCl (Paroxetine 20 Mg Tab) 20 mg PO WITHDINNER COUNT INCLUDES THE [facility] Last Admin: 02/18/21 18:09 Dose: 20 mg Documented by: Prazosin HCl (Prazosin 1 Mg Cap) 1 mg PO BEDTIME COUNT INCLUDES THE [facility] Last Admin: 02/18/21 22:07 Dose: 1 mg Documented by: Rosuvastatin Calcium (Rosuvastatin 10 Mg Tab) 10 mg PO BEDTIME COUNT INCLUDES THE [facility] Last Admin: 02/18/21 20:52 Dose: 10 mg Documented by: Fluticasone/Salmeterol (Fluticasone/Salmeterol 100-50 Mcg Inhalation Powder 14/Diskus) 1 puff INH BID COUNT INCLUDES THE [facility] Last Admin: 02/19/21 08:47 Dose: 1 puff Documented by: Thiamine HCl (Thiamine 100 Mg Tab) 100 mg PO BEDTIME COUNT INCLUDES THE [facility] Last Admin: 02/18/21 20:52 Dose: 100 mg Documented by: Discontinued Medications Albuterol/Ipratropium (Albuterol/Ipratropium 3.0-0.5 Mg/3 Ml Neb Soln) 3 ml NEB ONETIME ONE Stop: 02/17/21 18:44 Last Admin: 02/17/21 18:52 Dose: 3 ml Documented by: Albuterol/Ipratropium (Albuterol/Ipratropium 3.0-0.5 Mg/3 Ml Neb Soln) 3 ml NEB ONETIME ONE Stop: 02/17/21 18:45 Last Admin: 02/17/21 18:52 Dose: 3 ml Documented by: Albuterol/Ipratropium (Albuterol/Ipratropium 3.0-0.5 Mg/3 Ml Neb Soln) 3 ml NEB ONETIME ONE Stop: 02/17/21 18:45 Last Admin: 02/17/21 18:52 Dose: 3 ml Documented by: Sodium Chloride (Normal Saline) 1,000 mls @ 999 mls/hr IV BOLUS ONE Stop: 02/17/21 19:43 Last Admin: 02/17/21 18:52 Dose: 999 mls/hr Documented by: Lactated Ringer's (Ringers, Lactated) 1,000 mls @ 125 mls/hr IV ASDIRECTED COUNT INCLUDES THE [facility] Last Admin: 02/18/21 07:27 Dose: 125 mls/hr Documented by: Methylprednisolone Sodium Succinate (Methylprednisolone Sodium Succinate 125 Mg/2 Ml Sdv) 125 mg IVPUSH ONETIME ONE Stop: 02/17/21 18:45 Last Admin: 02/17/21 18:53 Dose: 125 mg Documented by: Ondansetron HCl (Ondansetron 4 Mg/2 Ml Sdv) 4 mg IVPUSH ONETIME ONE Stop: 02/17/21 18:46 Last Admin: 02/17/21 18:53 Dose: 4 mg Documented by: Ondansetron HCl (Ondansetron 4 Mg/2 Ml Sdv) 4 mg IVPUSH ONETIME ONE Stop: 02/17/21 21:04 Last Admin: 02/17/21 21:07 Dose: 4 mg Documented by: - Exam Quality Assessment: Supplemental Oxygen General: Alert, Oriented, Cooperative, Mild Distress Lungs: Normal Respiratory Effort, Decreased Breath Sounds, Wheezing Cardiovascular: Regular Rate, Regular Rhythm GI/Abdominal Exam: Normal Bowel Sounds, Soft, Non-Tender - Patient Data Lab Results Last 24 hrs: Laboratory Results - last 24 hr 02/19/21 02/19/21 Range/Units 06:40 06:40 WBC 14.79 H (4.0-11.0) K/uL RBC 4.16 L (4.30-5.90) M/uL Hgb 12.1 (12.0-16.0) g/dL Hct 35.9 L (36.0-46.0) % MCV 86.3 (80.0-98.0) fL MCH 29.1 (27.0-32.0) pg MCHC 33.7 (31.0-37.0) g/dL RDW Std Deviation 46.2 (28.0-62.0) fl RDW Coeff of Aydin 15 (11.0-15.0) % Plt Count 287 (150-400) K/uL MPV 9.60 (7.40-12.00) fL Neut % (Auto) 89.4 H (48.0-80.0) % Lymph % (Auto) 6.8 L (16.0-40.0) % [place] % (Auto) 3.7 (0.0-15.0) % Eos % (Auto) 0.0 (0.0-7.0) % Baso % (Auto) 0.1 (0.0-1.5) % Neut # (Auto) 13.2 H (1.4-5.7) K/uL Lymph # (Auto) 1.0 (0.6-2.4) K/uL [place] # (Auto) 0.6 (0.0-0.8) K/uL Eos # (Auto) 0.0 (0.0-0.7) K/uL Baso # (Auto) 0.0 (0.0-0.1) K/uL Nucleated RBC % 0.0 /100WBC Nucleated RBCs # 0 K/uL Sodium 141 (136-145) mmol/L Potassium 3.8 (3.5-5.1) mmol/L Chloride 106 (98-107) mmol/L Carbon Dioxide 26.3 (21.0-32.0) mmol/L BUN 16 (7.0-18.0) mg/dL Creatinine 0.9 (0.6-1.0) mg/dL Est Cr Clr Drug Dosing 61.17 mL/min Estimated GFR (MDRD) > 60.0 ml/min Glucose 139 H (74-106) mg/dL Calcium 9.1 (8.5-10.1) mg/dL Phosphorus 3.9 (2.6-4.7) mg/dL Magnesium 1.7 L (1.8-2.4) mg/dL Result Diagrams: 02/19/21 06:40 02/19/21 06:40 Sepsis Event Note - Evaluation Sepsis Screening Result: No Definite Risk - Focused Exam Vital Signs: Vital Signs Temp Pulse Pulse Resp BP BP Pulse Ox 02/19/21 09:46 80 115/60 02/19/21 09:00 36.3 C 80 20 115/60 92 L 02/19/21 04:47 36.7 C 83 19 101/50 L 95 - Problem List & Annotations (1) Smoker SNOMED Code(s): 83139611 Code(s): F17.200 - NICOTINE DEPENDENCE, UNSPECIFIED, UNCOMPLICATED Status: Acute Current Visit: Yes (2) COPD exacerbation SNOMED Code(s): 479165894 Code(s): J44.1 - CHRONIC OBSTRUCTIVE PULMONARY DISEASE W (ACUTE) EXACERBATION Status: Acute Current Visit: Yes (3) Hypoxia SNOMED Code(s): 290513866 Code(s): R09.02 - HYPOXEMIA Status: Acute Current Visit: Yes (4) History of alcohol abuse SNOMED Code(s): 112840725 Code(s): F10.11 - ALCOHOL ABUSE, IN REMISSION Status: Chronic Current Visit: No - Problem List Review Problem List Initiated/Reviewed/Updated: Yes - My Orders Last 24 Hours: My Active Orders 02/18/21 13:15 Metoprolol Succinate [Toprol XL] 25 mg PO DAILY 02/18/21 17:30 PARoxetine [Paxil] 20 mg PO WITHDINNER 02/18/21 21:00 Folic Acid 1 mg PO BEDTIME Mirtazapine [Remeron] 7.5 mg PO BEDTIME Prazosin [Minpress] 1 mg PO BEDTIME Rosuvastatin [Crestor] 10 mg PO BEDTIME Thiamine [Vitamin B-1] 100 mg PO BEDTIME busPIRone [Buspar] 30 mg PO BID 02/19/21 09:12 Magnesium Sulfate/Water [Magnesium Sulfate in Water 2 GM/50 ML] 2 gm Premix Bag 1 bag IV ONETIME 02/19/21 Lunch Regular Diet [DIET] 02/19/21 13:07 CXR [Chest 1V Frontal] [CR] Routine - Plan Plan:: 50-year-old female admitted for acute hypoxic respiratory failure secondary to COPD exacerbation Continue oxygenation support via nasal cannula currently patient needing 1-5 L, goal is to keep oxygen more than 88% Obtain repeat chest x-ray given patient's increased cough and sputum production Wean off oxygen as tolerated stop IV fluids cont IV steroids , duo nebs scheduled for now, will make as needed once patient's symptoms improve Advair twice daily Azithromycin 250 daily IV Zofran for nausea vomiting IV pantoprazole daily Lovenox for DVT prophylaxis Patient thoroughly counseled about quitting smoking and is very much motivated t o do so. start on nicotine patch Anticipate 2 to 3 days stay given patient's severity of hypoxia and symptoms upon admission
--- NOTE | 2021-02-19 14:31 | CR ---
Indication: Cough Technique: Single-view chest Comparison: No comparison Findings: Normal cardiac mediastinal silhouette. Left basilar linear scarring or atelectasis. No acute airspace or interstitial process. No effusion or pneumothorax. Impression: No acute pulmonary process. Dictated by Bina Vidal MD @ 02/19/2021 2:30:[address] Bina Vidal @ Feb 19 2021 2:30PM
[2021-02-19] MEDS: PARoxetine 20 MG Tab PO SCH (18:36)
[2021-02-19] MEDS: Enoxaparin 40 MG/0.4 ML Syringe SUBCUT SCH (20:23)
[2021-02-19] MEDS: Prazosin 1 MG Cap PO SCH (20:24)
[2021-02-19] MEDS: Folic Acid 1 MG Tab PO SCH (20:27)
[2021-02-19] MEDS: Rosuvastatin 10 MG Tab PO SCH (20:27)
[2021-02-19] MEDS: Mirtazapine 15 MG Tab PO SCH (20:27)
[2021-02-19] MEDS: Thiamine 100 MG Tab PO SCH (20:35)
[2021-02-20] MEDS: methylPREDNISolone Sodium Succinate 40 MG/1 ML SDV IVPUSH SCH ×2 (02:39→10:01)
[2021-02-20] MEDS: Albuterol/Ipratropium 3.0-0.5 MG/3 ML Neb Soln NEB SCH ×3 (02:42→10:06)
[2021-02-20 07:03] LABS: POTASSIUM,K 3.9 mmol/L (3.5-5.1)
[2021-02-20] MEDS: Fluticasone/Salmeterol 100-50 MCG Inhalation Powder 14/Diskus INH SCH (08:52)
[2021-02-20] MEDS: Pantoprazole 40 MG in Sodium Chloride 0.9% 10 ML IV SCH (09:33)
[2021-02-20] MEDS: Azithromycin 250 MG Tab PO SCH (09:35)
[2021-02-20] MEDS: busPIRone 5 MG Tab PO SCH (09:36)
[2021-02-20] MEDS: Nicotine 14 MG/24 Hr Patch TRDERM SCH (09:42)
[2021-02-20 09:51] VITALS: BP 128/78; PULSE 89
[2021-02-20] MEDS: Metoprolol Succinate 25 MG Tab.ER PO SCH (10:54)
--- NOTE | 2021-02-20 12:16 | PCM.DCSUM1 ---
Discharge Summary - Hospital Course Free Text/Narrative:: Patient is a 50-year-old female with past medical history of hypertension, hyperlipidemia, COPD, previous history of alcohol abuse currently sober for past 5 months, daily cigarette smoker smokes 10 cigarettes a day who presents to the ER with concerns of worsening shortness of breath which started the past 2 days but has been getting worse this morning. Patient states that she was using nebulizers at home to control her symptoms but ran out of them today. Patient states that her shortness of breath is getting way worse and she is unable to perform any exertion. Upon arrival in the ED patient was tachypneic with increased respiratory rate in 30s, was found to be 90% on room air and tachycardic at 112. Patient was started on oxygen. Patient was found to have diffuse expiratory wheezes as well as inspiratory wheezes on exam. Patient was also using some accessory muscles while speaking. Patient was unable to speak full sentences. Patient was started on duo nebs as well as IV steroids. Administered. After receiving several breathing treatments patient was still found to be hypoxic to 85-88 on room air and her symptoms minimally improved. Patient's D-dimer was found to be elevated and CTA of the chest was offered to rule out a PE which patient declined saying that she has done a lot of CTAs in the past and was never found to have a clot and would prefer not to get CTA done. Rest of the labs were not significantly deranged. Troponin was negative. EKG was unremarkable for ACS. Patient was admitted to the hospital for management of acute hypoxic respiratory failure due to COPD exacerbation. Patient was started on IV Solu-Medrol 40 mg every 8 hours, duo nebs were scheduled every 4 hours, patient was also started on azithromycin for possible underlying bronchitis and as an anti-inflammatory for COPD exacerbation. Patient required oxygenation via nasal cannula initially 3 L and eventually was weaned down to room air over the next 2 days. Patient eventually was feeling much better, her lung sounds were clear, she was ambulating in the hallways without oxygen and was saturating more than 88%. Patient was also started on Advair. Patient was eventually discharged on oral steroids short course and her home medications were renewed. Patient was thoroughly counseled about quitting smoking for good as it would result in "progression of her COPD. Patient was sent home on nicotine patches to help with quitting her tobacco abuse. Patient was recommended to follow-up with her primary care doctor upon discharge. Diagnosis: Stroke: No - Discharge Data Discharge Date: 02/20/21 Discharge Disposition: Home, Self-Care 01 Condition: Stable - Referral to Home Health Primary Care Physician: Zack Chand MD - Discharge Diagnosis/Problem(s) (1) Smoker SNOMED Code(s): 47854850 ICD Code: F17.200 - NICOTINE DEPENDENCE, UNSPECIFIED, UNCOMPLICATED Status: Acute Current Visit: Yes (2) COPD exacerbation SNOMED Code(s): 763985921 ICD Code: J44.1 - CHRONIC OBSTRUCTIVE PULMONARY DISEASE W (ACUTE) EXACERBATION Status: Acute Current Visit: Yes (3) Hypoxia SNOMED Code(s): 790999155 ICD Code: R09.02 - HYPOXEMIA Status: Acute Current Visit: Yes (4) History of alcohol abuse SNOMED Code(s): 690291672 ICD Code: F10.11 - ALCOHOL ABUSE, IN REMISSION Status: Chronic Current Visit: No - Discharge Plan *PRESCRIPTION DRUG MONITORING PROGRAM REVIEWED*: No *COPY OF PRESCRIPTION DRUG MONITORING REPORT IN PATIENT INOCENTE: No Prescriptions/Med Rec: Fluticasone/Salmeterol [Advair 100-50] 1 puff INH BID #1 diskus Albuterol Sulfate 1 dose NEB Q6H PRN #16 vial PRN Reason: Dyspnea Nicotine [Habitrol] 14 mg TRDERM DAILY #30 patch predniSONE [Prednisone] 40 mg PO DAILY 5 Days #10 tablet Albuterol [Ventolin HFA] 1 - 2 puff INH ASDIRECTED PRN #1 inhaler PRN Reason: Shortness Of Breath Azithromycin [Zithromax] 250 mg PO Q24H #1 tablet Home Medications: Home Meds PARoxetine HCL [Paroxetine HCl] 20 mg PO WITHDINNER 11/28/18 [History] busPIRone HCl [busPIRone] 30 mg PO BID 11/28/18 [History] Mirtazapine 7.5 mg PO BEDTIME 08/12/20 [History] Pantoprazole Sodium [Protonix] 20 mg PO DAILY 08/12/20 [History] Prazosin HCl [Prazosin] 1 mg PO BEDTIME 08/12/20 [History] Rosuvastatin Calcium 10 mg PO BEDTIME 08/12/20 [History] Folic Acid 1 mg PO BEDTIME #60 tablet 08/13/20 [Rx] Furosemide [Lasix] 40 mg PO Q48H #0 08/13/20 [Rx] Thiamine [Vitamin B-1] 100 mg PO BEDTIME #60 tablet 08/13/20 [Rx] Metoprolol Succinate 25 mg PO DAILY 09/30/20 [History] Benzonatate 200 mg PO TID PRN 3 Days #9 capsule 10/01/20 [Rx] Nicotine [Habitrol] 14 mg TRDERM DAILY 30 Days #30 patch 10/01/20 [Rx] Ondansetron [Zofran ODT] 4 mg PO Q6H PRN #12 tab.dis 11/23/20 [Rx] Prochlorperazine Maleate [Compazine] 10 mg PO Q6HR PRN #10 tablet 12/21/20 [Rx] Albuterol Sulfate 1 dose NEB Q6H PRN #16 vial 02/20/21 [Rx] Albuterol [Ventolin HFA] 1 - 2 puff INH ASDIRECTED PRN #1 inhaler 02/20/21 [Rx] Azithromycin [Zithromax] 250 mg PO Q24H #1 tablet 02/20/21 [Rx] Fluticasone/Salmeterol [Advair 100-50] 1 puff INH BID #1 diskus 02/20/21 [Rx] Nicotine [Habitrol] 14 mg TRDERM DAILY #30 patch 02/20/21 [Rx] predniSONE [Prednisone] 40 mg PO DAILY 5 Days #10 tablet 02/20/21 [Rx] Patient Handouts: Albuterol inhalation aerosol, Chronic Obstructive Pulmonary Disease, [id number], Azithromycin tablets, Prednisone tablets, Fluticasone; Salmeterol inhalation aerosol Referrals: Stephanie Naqvi NP [Nurse Practitioner] - 02/25/21 4:30 pm - Discharge Summary/Plan Comment DC Time >30 min.: No - Patient Data Vitals - Most Recent: Last Vital Signs Temp 36.8 C 02/20/21 09:47 Pulse 89 02/20/21 10:54 Resp 19 02/20/21 09:47 BP 128/78 02/20/21 10:54 Pulse Ox 94 L 02/20/21 09:47 Weight - Most Recent: 59.511 kg I&O - Last 24 hours: Intake & Output 02/19/21 02/20/2121 22:59 06:59 14:59 Intake Total 2060 1600 Output Total 1800 2400 Balance 260 -800 Lab Results - Last 24 hrs: Laboratory Results - last 24 hr 02/20/21 02/20/21 Range/Units 06:20 06:20 WBC 13.91 H (4.0-11.0) K/uL RBC 4.27 L (4.30-5.90) M/uL Hgb 12.3 (12.0-16.0) g/dL Hct 37.0 (36.0-46.0) % MCV 86.7 (80.0-98.0) fL MCH 28.8 (27.0-32.0) pg MCHC 33.2 (31.0-37.0) g/dL RDW Std Deviation 47.6 (28.0-62.0) fl RDW Coeff of Aydin 15 (11.0-15.0) % Plt Count 282 (150-400) K/uL MPV 9.60 (7.40-12.00) fL Neut % (Auto) 85.7 H (48.0-80.0) % Lymph % (Auto) 10.0 L (16.0-40.0) % [place] % (Auto) 4.2 (0.0-15.0) % Eos % (Auto) 0.0 (0.0-7.0) % Baso % (Auto) 0.1 (0.0-1.5) % Neut # (Auto) 11.9 H (1.4-5.7) K/uL Lymph # (Auto) 1.4 (0.6-2.4) K/uL [place] # (Auto) 0.6 (0.0-0.8) K/uL Eos # (Auto) 0.0 (0.0-0.7) K/uL Baso # (Auto) 0.0 (0.0-0.1) K/uL Nucleated RBC % 0.0 /100WBC Nucleated RBCs # 0 K/uL Sodium 140 (136-145) mmol/L Potassium 3.9 (3.5-5.1) mmol/L Chloride 104 (98-107) mmol/L Carbon Dioxide 25.0 (21.0-32.0) mmol/L BUN 23 H (7.0-18.0) mg/dL Creatinine 1.0 (0.6-1.0) mg/dL Est Cr Clr Drug Dosing 55.06 mL/min Estimated GFR (MDRD) 58.5 ml/min Glucose 119 H (74-106) mg/dL Calcium 8.8 (8.5-10.1) mg/dL Phosphorus 2.7 (2.6-4.7) mg/dL Magnesium 2.3 (1.8-2.4) mg/dL Med Orders - Current: Current Medications Acetaminophen (Acetaminophen 325 Mg Tab) 650 mg PO Q4H PRN PRN Reason: Pain (Mild 1-3)/fever Last Admin: 02/18/21 10:27 Dose: 650 mg Documented by: Albuterol/Ipratropium (Albuterol/Ipratropium 3.0-0.5 Mg/3 Ml Neb Soln) 3 ml NEB Q4HRRT [facility] Last Admin: 02/20/21 10:06 Dose: 3 ml Documented by: Azithromycin (Azithromycin 250 Mg Tab) 250 mg PO Q24H [facility] Last Admin: 02/20/21 09:35 Dose: 250 mg Documented by: Buspirone HCl (Buspirone 5 Mg Tab) 30 mg PO BID [facility] Last Admin: 02/20/21 09:36 Dose: 30 mg Documented by: Enoxaparin Sodium (Enoxaparin 40 Mg/0.4 Ml Syringe) 40 mg SUBCUT Q24H [facility] Last Admin: 02/19/21 20:23 Dose: 40 mg Documented by: Folic Acid (Folic Acid 1 Mg Tab) 1 mg PO BEDTIME [facility] Last Admin: 02/19/21 20:27 Dose: 1 mg Documented by: Azithromycin 500 mg/ Sodium (Chloride) 250 mls @ 250 mls/hr IV ONETIME [facility] Last Admin: 02/17/21 20:21 Dose: 250 mls/hr Documented by: Pantoprazole Sodium 40 mg/ (Sodium Chloride) 10 mls @ 300 mls/hr IV DAILY [facility] Last Admin: 02/20/21 09:33 Dose: 300 mls/hr Documented by: Methylprednisolone Sodium Succinate (Methylprednisolone Sodium Succinate 40 Mg/1 Ml Sdv) 40 mg IVPUSH Q8H [facility] Last Admin: 02/20/21 10:01 Dose: 40 mg Documented by: Metoprolol Succinate (Metoprolol Succinate 25 Mg Tab.Er) 25 mg PO DAILY [facility] Last Admin: 02/20/21 10:54 Dose: 25 mg Documented by: Mirtazapine (Mirtazapine 15 Mg Tab) 7.5 mg PO BEDTIME [facility] Last Admin: 02/19/21 20:27 Dose: 7.5 mg Documented by: Nicotine (Nicotine 14 Mg/24 Hr Patch) 14 mg TRDERM DAILY [facility] Last Admin: 02/20/21 09:42 Dose: 14 mg Documented by: Ondansetron HCl (Ondansetron 4 Mg/2 Ml Sdv) 4 mg IVPUSH Q4H PRN PRN Reason: Nausea/Vomiting Paroxetine HCl (Paroxetine 20 Mg Tab) 20 mg PO WITHDINNER [facility] Last Admin: 02/19/21 18:36 Dose: 20 mg Documented by: Prazosin HCl (Prazosin 1 Mg Cap) 1 mg PO BEDTIME [facility] Last Admin: 02/19/21 20:24 Dose: 1 mg Documented by: Rosuvastatin Calcium (Rosuvastatin 10 Mg Tab) 10 mg PO BEDTIME [facility] Last Admin: 02/19/21 20:27 Dose: 10 mg Documented by: Fluticasone/Salmeterol (Fluticasone/Salmeterol 100-50 Mcg Inhalation Powder 14/Diskus) 1 puff INH BID [facility] Last Admin: 02/20/21 08:52 Dose: 1 puff Documented by: Thiamine HCl (Thiamine 100 Mg Tab) 100 mg PO BEDTIME [facility] Last Admin: 02/19/21 20:35 Dose: 100 mg Documented by: Discontinued Medications Albuterol/Ipratropium (Albuterol/Ipratropium 3.0-0.5 Mg/3 Ml Neb Soln) 3 ml NEB ONETIME ONE Stop: 02/17/21 18:44 Last Admin: 02/17/21 18:52 Dose: 3 ml Documented by: Albuterol/Ipratropium (Albuterol/Ipratropium 3.0-0.5 Mg/3 Ml Neb Soln) 3 ml NEB ONETIME ONE Stop: 02/17/21 18:45 Last Admin: 02/17/21 18:52 Dose: 3 ml Documented by: Albuterol/Ipratropium (Albuterol/Ipratropium 3.0-0.5 Mg/3 Ml Neb Soln) 3 ml NEB ONETIME ONE Stop: 02/17/21 18:45 Last Admin: 02/17/21 18:52 Dose: 3 ml Documented by: Sodium Chloride (Normal Saline) 1,000 mls @ 999 mls/hr IV BOLUS ONE Stop: 02/17/21 19:43 Last Admin: 02/17/21 18:52 Dose: 999 mls/hr Documented by: Lactated Ringer's (Ringers, Lactated) 1,000 mls @ 125 mls/hr IV ASDIRECTED [facility] Last Admin: 02/18/21 07:27 Dose: 125 mls/hr Documented by: Magnesium Sulfate 2 gm/ Premix 50 mls @ 12.5 mls/hr IV ONETIME ONE Stop: 02/19/21 13:11 Last Admin: 02/19/21 10:02 Dose: 12.5 mls/hr Documented by: Methylprednisolone Sodium Succinate (Methylprednisolone Sodium Succinate 125 Mg/2 Ml Sdv) 125 mg IVPUSH ONETIME ONE Stop: 02/17/21 18:45 Last Admin: 02/17/21 18:53 Dose: 125 mg Documented by: Ondansetron HCl (Ondansetron 4 Mg/2 Ml Sdv) 4 mg IVPUSH ONETIME ONE Stop: 02/17/21 18:46 Last Admin: 02/17/21 18:53 Dose: 4 mg Documented by: Ondansetron HCl (Ondansetron 4 Mg/2 Ml Sdv) 4 mg IVPUSH ONETIME ONE Stop: 02/17/21 21:04 Last Admin: 02/17/21 21:07 Dose: 4 mg Documented by:
== END 2021-02-20 13:22 | disposition home or self-care (01) | DRG 189 ==
LOC: MW.ED 18:38 → MW.MS 19:38
PROVIDERS: ADMIT Student in an Organized Health Care Education/Training Program; ATTEND Student in an Organized Health Care Education/Training Program
DX: J96.01 Acute respiratory failure with hypoxia (principal); R09.02 Hypoxemia; H54.7 Unspecified visual loss; J44.1 Chronic obstructive pulmonary disease with (acute) exacerbation; F10.11 Alcohol abuse, in remission; F17.210 Nicotine dependence, cigarettes, uncomplicated; M19.90 Unspecified osteoarthritis, unspecified site; E78.00 Pure hypercholesterolemia, unspecified; K57.90 Diverticulosis of intestine, part unspecified, without perforation or abscess without bleeding; K21.9 Gastro-esophageal reflux disease without esophagitis; H53.8 Other visual disturbances; M54.9 Dorsalgia, unspecified; Z88.6 Allergy status to analgesic agent; Z20.822 Contact with and (suspected) exposure to COVID-19; G89.29 Other chronic pain; F41.9 Anxiety disorder, unspecified; F32.9 Major depressive disorder, single episode, unspecified; F43.10 Post-traumatic stress disorder, unspecified; E78.5 Hyperlipidemia, unspecified; I10 Essential (primary) hypertension; Z91.040 Latex allergy status; Z88.1 Allergy status to other antibiotic agents; Z88.5 Allergy status to narcotic agent; Z88.8 Allergy status to other drugs, medicaments and biological substances; Z79.899 Other long term (current) drug therapy; Z79.51 Long term (current) use of inhaled steroids; Z79.52 Long term (current) use of systemic steroids; Z90.49 Acquired absence of other specified parts of digestive tract; Z90.710 Acquired absence of both cervix and uterus; Z71.6 Tobacco abuse counseling
CPT/HCPCS: 36415; 71045; 80053; 84484; 85025; 85379; 87635; 93005; J2405; J2930; J7030; 80048; 82803; 83735; 84100; 94640; A9270-GY; C9113; J0456; J1650; J2920; J3475; J7050; J7120; J7620-GY; U0002

== ENCOUNTER 2021-04-01 07:22 | Day surgery (SDC) | payer MEDICAID ==
[~2021-04-01 07:22] MED LIST changes: +Glycopyrrolate 0.2 MG/ML SDV ONE; +Lidocaine 2% 5 ML SDV ONE; +Midazolam 1 MG/ML 2 ML SDV ONE; +Propofol 200 MG/20 ML SDV ONE
--- NOTE | 2021-04-01 07:45 | PCM.PREANE ---
Preanesthetic Assessment - Procedure Proposed Procedure: EGD/Colonoscopy - Anesthesia/Transfusion/Family Hx Anesthesia History: Prior Anesthesia Without Reaction Other Type of Anesthesia Reaction Comment: pt adopted, family hx unknown Family History of Anesthesia Reaction: No Transfusion History: Prior Transfusion Without Reaction - Review of Systems General: No Symptoms Pulmonary: No Symptoms (Smokes 1/2PPD) Cardiovascular: No Symptoms (Tachy, on metoprolol) Gastrointestinal: Abdominal Pain (GERD, well controlled) Neurological: No Symptoms (h/o TIA secondary to medications over 30 yrs ago, non since) Other: Reports: Liver Problems ("scorred") - Physical Assessment NPO Status Date: 03/31/21 NPO Status Time: 06:30 Height: 5 ft 3 in Weight: 59.874 kg ASA Class: 3 Airway Class: Mallampati = 2 Dentition: Reports: Dentures Thyro-Mental Finger Breadths: 3 Mouth Opening Finger Breadths: 3 Lungs: Clear to Auscultation, Normal Respiratory Effort Cardiovascular: Regular Rate, Regular Rhythm - Allergies Allergies/Adverse Reactions: Allergies Allergy/AdvReac Type Severity Reaction Status Date / Time amitriptyline Allergy confusion, Verified 03/30/21 08:39 itching aspirin Allergy Stomach Verified 03/30/21 08:39 Upset latex Allergy Rash Verified 03/30/21 08:39 levofloxacin [From Levaquin] Allergy Diarrhea Verified 03/30/21 08:39 pregabalin [From Lyrica] Allergy Blurred Verified 03/30/21 08:39 Vision - Anesthesia Plan Beta Mundo: Metoprolol Med Last Dose Date: 04/01/21 Med Last Dose Time: 06:00 - Acknowledgements Anesthesia Type Planned: General Anesthesia Pt an Appropriate Candidate for the Planned Anesthesia: Yes Alternatives and Risks of Anesthesia Discussed w Pt/Guardian: Yes Pt/Guardian Understands and Agrees with Anesthesia Plan: Yes PreAnesthesia Questionnaire HEENT History: Reports: Other (See Below) Other HEENT History: wears glasses, top denture, no teeth on the bottom Cardiovascular History: Reports: High Cholesterol, Hypertension Respiratory History: Reports: Asthma, Bronchitis, Recurrent, COPD Other Respiratory History: lung nodule rt lower lobe Gastrointestinal History: Reports: Bowel Obstruction, GERD, Pancreatitis Other Gastrointestinal History: abd pain, N&V, poor appetite Genitourinary History: Reports: None MOLD CHANGER History: Reports: Other Musculoskeletal History: 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" Neurological History: Reports: Other (See Below) Other Neuro History: 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, "small brain aneurysm", states had medicinal TIA due to protein injection Psychiatric History: Reports: Addiction, Anxiety, Depression, PTSD, Other (See Below) Other Psychiatric History: "sober for 7 months" Endocrine/Metabolic History: Reports: None Hematologic History: Reports: Blood Transfusion(s) Immunologic History: Reports: None Oncologic (Cancer) History: Reports: Other (See Below) Other Oncologic History: HPV Dermatologic History: Reports: None - Past Surgical History Head Surgeries/Procedures: Reports: None HEENT Surgical History: Reports: None Cardiovascular Surgical History: Reports: None Respiratory Surgical History: Reports: None GI Surgical History: Reports: Cholecystectomy, Colon, Colonoscopy, EGD Other GI Surgeries/Procedures: hx laparotomy with colon resection for bowel obstruction Female Surgical History: Reports: Section, Hysterectomy, Salpingo- Oophorectomy, Other (See Below) Other Female Surgeries/Procedures: hysterectomy with left oophorectomy in 2000, laparotomy for rt oophorectomy in 2016 Endocrine Surgical History: Reports: None Neurological Surgical History: Reports: None Musculoskeletal Surgical History: Reports: Other (See Below) Other Musculoskeletal Surgeries/Procedures:: left hand and wrist surgery x3 ("put my hand through a plate glass window") Oncologic Surgical History: Reports: Other (See Below) Other Oncologic Surgeries/Procedures: hysterectomy Dermatological Surgical History: Reports: None - SUBSTANCE USE Tobacco Use Status *Q: Current Every Day Tobacco User Tobacco Use Within Last Twelve Months: Cigarettes Recreational Drug Type: Reports: Marijuana/Hashish Recreational Drug Last Use: 03/25/21 - HOME MEDS Home Medications: Home Meds Albuterol Sulfate [Proair Hfa] 1 - 2 puff INH Q4H PRN 08/01/19 [History] Albuterol [Proventil Neb Soln] 0.5 ml NEB Q4H PRN 08/01/19 [History] Omeprazole 40 mg PO DAILY 08/01/19 [History] PARoxetine HCL [Paroxetine HCl] 30 mg PO BEDTIME 08/01/19 [History] busPIRone HCl [busPIRone] 30 mg PO BID 08/01/19 [History] ondansetron HCL [Ondansetron] 4 mg PO Q8H PRN 08/01/19 [History] Diclofenac Sodium 50 mg PO BID PRN 03/30/21 [History] Folic Acid 1 mg PO DAILY 03/30/21 [History] Furosemide [Lasix] 40 mg PO ASDIRECTED 03/30/21 [History] Metoprolol Succinate 25 mg PO DAILY 03/30/21 [History] Mv-Mn/Folic AC/Calcium/Vit K1 [Women's 50 Plus Multivit Tab] 1 tab PO DAILY 03/30/21 [History] Nicotine [Nicotine Patch] 1 patch TRDERM DAILY 03/30/21 [History] Rosuvastatin Calcium 10 mg PO DAILY 03/30/21 [History] Thiamine HCl [Vitamin B-1] 100 mg PO BEDTIME 03/30/21 [History] - CURRENT (IN HOUSE) MEDS Current Meds: Current Medications Lactated Ringer's (Ringers, Lactated) 1,000 mls @ 125 mls/hr IV ASDIRECTED SEE Discontinued Medications Glycopyrrolate (Glycopyrrolate 0.2 Mg/Ml Sdv) Confirm Administered Dose 0.2 mg .ROUTE .STK-MED ONE Stop: 04/01/21 07:05 Lidocaine (Lidocaine 2% 5 Ml Sdv) Confirm Administered Dose 5 ml .ROUTE .STK-MED ONE Stop: 04/01/21 07:05 Midazolam HCl (Midazolam 1 Mg/Ml 2 Ml Sdv) Confirm Administered Dose 2 mg .ROUTE .STK-MED ONE Stop: 04/01/21 07:05 Propofol (Propofol 200 Mg/20 Ml Sdv) Confirm Administered Dose 600 mg .ROUTE .STK-MED ONE Stop: 04/01/21 07:05
--- NOTE | 2021-04-01 10:04 | PCM.OPNOTE ---
- General Post-Op/Procedure Note Date of Surgery/Procedure: 04/01/21 Operative Procedure(s): egd w bx. colonoscopy w bx Findings: see [id number] Pre Op Diagnosis: abd pain, nausea/emisis, poor appetite Post-Op Diagnosis: Same Anesthesia Technique: Moderate Sedation Primary Surgeon: Jam Tesfaye Pathology: egd bx random colon bx Complications: None Condition: Good
--- NOTE | 2021-04-01 10:06 | PCM.POSTAN ---
POST ANESTHESIA ASSESSMENT - MENTAL STATUS Mental Status: Somnolent - VITAL SIGNS Vital Signs: Last Vital Signs Temp 98.1 F 04/01/21 07:35 Pulse 87 04/01/21 10:02 Resp 22 H 04/01/21 10:02 BP 90/51 L 04/01/21 10:02 Pulse Ox 100 04/01/21 10:02 - RESPIRATORY Respiratory Status: Respiratory Rate WNL, Airway Patent, O2 Saturation Stable - CARDIOVASCULAR CV Status: Pulse Rate WNL, Blood Pressure Stable - GASTROINTESTINAL GI Status: No Symptoms - PAIN Pain Score: 0 - POST OP HYDRATION Hydration Status: Adequate & Stable
[2021-04-01 10:19] VITALS: PULSE 79
[2021-04-01 10:35] VITALS: BP 101/55
--- NOTE | 2021-04-01 10:41 | PCM48HPAN ---
Post Anesthesia Note - EVALUATION WITHIN 48HRS OF ANESTHETIC Vital Signs in Normal Range: Yes Patient Participated in Evaluation: Yes Respiratory Function Stable: Yes Airway Patent: Yes Cardiovascular Function Stable: Yes Hydration Status Stable: Yes Pain Control Satisfactory: Yes Nausea and Vomiting Control Satisfactory: Yes Mental Status Recovered: Yes Vital Signs: Last Vital Signs Temp 97.2 F 04/01/21 10:20 Pulse 79 04/01/21 10:20 Resp 14 04/01/21 10:20 BP 101/55 L 04/01/21 10:20 Pulse Ox 94 L 04/01/21 10:20 - COMMENTS/OBSERVATIONS Free Text/Narrative:: Pt doing well post-op. VSS. No apparent anesthetic complications. Dr. Prashant Bautista
--- NOTE | 2021-04-05 10:04 | OR ---
SURGEON: Jam Tesfaye MD DATE OF PROCEDURE: 04/01/2021 PREOPERATIVE DIAGNOSIS: Abdominal pain, nauseated, and poor appetite. POSTOPERATIVE DIAGNOSES: 1. EGD diagnoses: Esophagitis and alkaline gastritis. 2. Colonoscopy diagnosis is external hemorrhoids. PROCEDURES PERFORMED: 1. Esophagogastroduodenoscopy with biopsy. 2. Colonoscopy with biopsy. DESCRIPTION OF PROCEDURE: EGD: The patient was taken to the endoscopy room, and with the COMIC BOOK ARTIST, Diprivan was administered. A well-lubricated EGD scope was gently inserted through the oropharynx, down the esophagus, passing through the gastroesophageal junction, into the stomach. The mucosa was examined upon the passage. Any etiology will be noted. Once in the stomach, we continued to advance to the distal antrum, passed through the pylorus into the second portion of the duodenum. Again, the mucosa was examined for any abnormality and etiology. The scope was then retrieved back to the stomach and then retroflexed to look at the fundus of the stomach. If a biopsy was indicated, we will biopsy the antrum, body, and gastroesophageal junction. The air will be sucked out while the scope is retrieved to reduce the patient's discomfort. The patient tolerated the procedure well. There were no intraoperative complications. Dr. Tesfaye was present through the whole procedure. Prior to surgery, a time-out had been called, the patient identified, procedure identified and antibiotic administered. Colonoscopy with biopsy: The patient was taken to the endoscopy room. A time out was called, patient identified, and procedure identified. Diprivan was then administrated. Patient went from awake to sleep, hearing doctor talking or door closing is normal. Perineum inspection and digital examination were then performed. A well-lubricated colonoscope was gently inserted through the rectum, advanced past the rectosigmoid junction, the descending colon, splenic flexure, transverse colon, hepatic flexure, ascending colon, arrived to the cecum. Cecum was identified as dictated in the finding. Then the scope was carefully withdrawn while attention was paid to the mucosal surface for any abnormality. Air will be sucked out during the scope withdrawal. At the rectum, retroflexed to examine any rectal diseases, fistula or hemorrhoids. During mucosal examination, abnormality or polyp was noted; picture taken and biopsy performed. Patient tolerated procedure well. There were no intraoperative complications, and Dr. Tesfaye was present throughout the whole procedure. FINDINGS: EGD findings: 1. The patient is easily sedated with COMIC BOOK ARTIST and Diprivan. The patient is soundly snoring. 2. Oropharynx and proximal esophagus were free of disease. Proximal esophagus is free of inflammation, stricture, AV malformation, or varicosity. Distal esophagus with GE junction at 32 shows salmon-colored changes of reflux and some area may be of mild esophagitis. There is no ulcer observed. Rugae is normal in appearance. There is a large amount of bile in the stomach consistent with people after gallbladder removed. There is a lot of petechiae, old blood, zenaida or coffee-ground, not a lot, but it is there. No blood clot. Antrum looks a little bit inflamed. Duodenum looks grossly normal. Biopsy done at antrum, body, GE junction at 32 and sucked out the gas while scope pulling out. Retroflexed look at the fundus of stomach, the patient has a very mild hiatal hernia. During the whole study, there is no food particle observed, but there was a lot of bile in the stomach. Colonoscopy findings: 1. The patient is easily sedated with COMIC BOOK ARTIST and Diprivan. The patient is soundly snoring. 2. Bowel prep is average to above average. No semi-formed stool, very little liquid stool. 3. Colon rather straightforward. Cecum indicated by ileocecal fold, one-to- one indentation, appendiceal orifice, and ScopeGuide is pointing south. Mucosa examined upon scope pulling out. The patient does not have polyp. The patient does have diverticulosis on the left colon proximal to the hepatic fracture. No signs or symptoms of diverticulitis. No mass, growth, inflammation, stricture, ulceration, AV malformation; none of those. The patient has mild internal hemorrhoids, mild external hemorrhoids. Random biopsy done for the patient complaining of abdominal pain. L[place] / [place] /[id number]
== END 2021-04-01 10:36 | disposition home or self-care (01) ==
LOC: EDSEX → MW.SDS 07:22 → MERGE 07:22 → MW.SDS 10:36
PROVIDERS: ATTEND Surgery
DX: K29.70 Gastritis, unspecified, without bleeding (principal); K20.90 Esophagitis, unspecified without bleeding; K64.4 Residual hemorrhoidal skin tags; Z88.8 Allergy status to other drugs, medicaments and biological substances; Z91.040 Latex allergy status
CPT/HCPCS: 43239; 45380; 81025; 88305; 88342; J2250; J2704; J3490; J7120; 00813

== ENCOUNTER 2021-05-02 22:53 | Emergency (ER) | payer MEDICAID ==
[2021-05-02] MEDS ORDERED: Ketorolac 30 MG/ML SDV IVPUSH ONE (23:51)
[2021-05-02] MEDS ORDERED: Ondansetron 4 MG/2 ML SDV IVPUSH ONE (23:51)
[2021-05-03] MEDS ORDERED: Sodium Chloride 0.9% 1,000 ML IV ONE (00:09)
[2021-05-03 00:50] LABS: BLOOD UREA NITROGEN,BUN 19 mg/dL (7.0-18.0); CARBON DIOXIDE,CO2 27.9 mmol/L (21.0-32.0); CHLORIDE,CL 100 mmol/L (98-107); GLUCOSE RANDOM 153 mg/dL (74-106); POTASSIUM,K 3.5 mmol/L (3.5-5.1); SODIUM,NA 143 mmol/L (136-145)
--- NOTE | 2021-05-03 01:19 | EDM.PDOC ---
ED HPI GENERAL MEDICAL PROBLEM - General Chief Complaint: Abdominal Pain Stated Complaint: FEVER, VOMITTING, CONVULSIONS Time Seen by Provider: 05/02/21 23:48 Source of Information: Reports: Patient History Limitations: Reports: No Limitations - History of Present Illness INITIAL COMMENTS - FREE TEXT/NARRATIVE: Patient is a 50-year-old female with a history of pancreatitis presents today for abdominal pain. Patient states the pain started about 3 hours ago out of nowhere. Not the patient pain better or worse does not radiate. She is felt nauseous but not any vomiting. She is able to tolerate water. She denies any other complaints. Right Abdomen Pain Score (Numeric/FACES): 8 - Related Data Allergies Allergy/AdvReac Type Severity Reaction Status Date / Time amitriptyline Allergy Hives Verified 05/02/21 23:39 aspirin Allergy Stomach Verified 05/02/21 23:39 Upset latex Allergy Rash Verified 05/02/21 23:39 levofloxacin [From Levaquin] Allergy Diarrhea Verified 05/02/21 23:39 pregabalin [From Lyrica] Allergy Other Verified 05/02/21 23:39 morphine AdvReac Confusion Verified 05/02/21 23:39 Home Meds: Home Meds PARoxetine HCL [Paroxetine HCl] 20 mg PO WITHDINNER 11/28/18 [History] busPIRone HCl [busPIRone] 30 mg PO BID 11/28/18 [History] Albuterol Sulfate [Proair Hfa] 1 - 2 puff INH Q4H PRN 08/01/19 [History] Albuterol [Proventil Neb Soln] 0.5 ml NEB Q4H PRN 08/01/19 [History] Omeprazole 40 mg PO DAILY 08/01/19 [History] PARoxetine HCL [Paroxetine HCl] 30 mg PO BEDTIME 08/01/19 [History] busPIRone HCl [busPIRone] 30 mg PO BID 08/01/19 [History] ondansetron HCL [Ondansetron] 4 mg PO Q8H PRN 08/01/19 [History] Mirtazapine 7.5 mg PO BEDTIME 08/12/20 [History] Pantoprazole Sodium [Protonix] 20 mg PO DAILY 08/12/20 [History] Prazosin HCl [Prazosin] 1 mg PO BEDTIME 08/12/20 [History] Rosuvastatin Calcium 10 mg PO BEDTIME 08/12/20 [History] Folic Acid 1 mg PO BEDTIME #60 tablet 08/13/20 [Rx] Furosemide [Lasix] 40 mg PO Q48H #0 08/13/20 [Rx] Thiamine [Vitamin B-1] 100 mg PO BEDTIME #60 tablet 08/13/20 [Rx] Metoprolol Succinate 25 mg PO DAILY 09/30/20 [History] Benzonatate 200 mg PO TID PRN 3 Days #9 capsule 10/01/20 [Rx] Nicotine [Habitrol] 14 mg TRDERM DAILY 30 Days #30 patch 10/01/20 [Rx] Ondansetron [Zofran ODT] 4 mg PO Q6H PRN #12 tab.dis 11/23/20 [Rx] Prochlorperazine Maleate [Compazine] 10 mg PO Q6HR PRN #10 tablet 12/21/20 [Rx] Albuterol Sulfate 1 dose NEB Q6H PRN #16 vial 02/20/21 [Rx] Albuterol [Ventolin HFA] 1 - 2 puff INH ASDIRECTED PRN #1 inhaler 02/20/21 [Rx] Azithromycin [Zithromax] 250 mg PO Q24H #1 tablet 02/20/21 [Rx] Fluticasone/Salmeterol [Advair 100-50] 1 puff INH BID #1 diskus 02/20/21 [Rx] Nicotine [Habitrol] 14 mg TRDERM DAILY #30 patch 02/20/21 [Rx] predniSONE [Prednisone] 40 mg PO DAILY 5 Days #10 tablet 02/20/21 [Rx] Diclofenac Sodium 50 mg PO BID PRN 03/30/21 [History] Folic Acid 1 mg PO DAILY 03/30/21 [History] Furosemide [Lasix] 40 mg PO ASDIRECTED 03/30/21 [History] Metoprolol Succinate 25 mg PO DAILY 03/30/21 [History] Mv-Mn/Folic AC/Calcium/Vit K1 [Women's 50 Plus Multivit Tab] 1 tab PO DAILY 03/30/21 [History] Nicotine [Nicotine Patch] 1 patch TRDERM DAILY 03/30/21 [History] Rosuvastatin Calcium 10 mg PO DAILY 03/30/21 [History] Thiamine HCl [Vitamin B-1] 100 mg PO BEDTIME 03/30/21 [History] Past Medical History - Past Health History Medical/Surgical History: Denies Medical/Surgical History HEENT History: Reports: Other (See Below) Other HEENT History: wears glasses, top denture, no teeth on the bottom Cardiovascular History: Reports: High Cholesterol, Hypertension Respiratory History: Reports: Asthma, Bronchitis, Recurrent, COPD, Other (See Below), SOB Other Respiratory History: lung nodule rt lower lobe Gastrointestinal History: Reports: Bowel Obstruction, Diverticulosis, GERD, Other (See Below), Pancreatitis Other Gastrointestinal History: abd pain, N&V, poor appetite Genitourinary History: Reports: None PREFLIGHT INSPECTOR History: Reports: Ectopic , Other PREFLIGHT INSPECTOR History: Ectopic Musculoskeletal History: Reports: Arthritis, Back Pain, Chronic, Fracture, Other (See Below) Other Musculoskeletal History: 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" Neurological History: Reports: Other (See Below) Other Neuro History: 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, "small brain aneurysm", states had medicinal TIA due to protein injection Psychiatric History: Reports: Addiction, Anxiety, Depression, Other (See Below), PTSD, Suicide Attempt, Suicidal Ideation Other Psychiatric History: "sober for 7 months" Endocrine/Metabolic History: Reports: None Hematologic History: Reports: Blood Transfusion(s) Immunologic History: Reports: None Oncologic (Cancer) History: Reports: Other (See Below) Other Oncologic History: HPV Dermatologic History: Reports: None - Infectious Disease History Infectious Disease History: Reports: Chicken Pox - Past Surgical History Head Surgeries/Procedures: Reports: None HEENT Surgical History: Reports: None, Other (See Below) Other HEENT Surgeries/Procedures: Dental extractions Cardiovascular Surgical History: Reports: None Respiratory Surgical History: Reports: None GI Surgical History: Reports: Cholecystectomy, Colonoscopy, Colon, EGD, Other (See Below) Other GI Surgeries/Procedures: hx laparotomy with colon resection for bowel obstruction Female Surgical History: Reports: Section, Hysterectomy, Other (See Below), Oophorectomy, Salpingo-Oophorectomy Other Female Surgeries/Procedures: hysterectomy with left oophorectomy in 2000, laparotomy for rt oophorectomy in 2016 Endocrine Surgical History: Reports: None Neurological Surgical History: Reports: None Musculoskeletal Surgical History: Reports: Other (See Below) Other Musculoskeletal Surgeries/Procedures:: left hand and wrist surgery x3 ("put my hand through a plate glass window") Oncologic Surgical History: Reports: None, Other (See Below) Other Oncologic Surgeries/Procedures: hysterectomy Dermatological Surgical History: Reports: None Social & Family History - Family History Family Medical History: No Pertinent Family History - Caffeine Use Caffeine Use: Reports: None Caffeine Use Comment: 3-4 daily - Recreational Drug Use Recreational Drug Use: No ED ROS GENERAL - Review of Systems Review Of Systems: See Below Constitutional: Reports: No Symptoms HEENT: Reports: No Symptoms Respiratory: Reports: No Symptoms Cardiovascular: Reports: No Symptoms Endocrine: Reports: No Symptoms GI/Abdominal: Reports: Abdominal Pain : Reports: No Symptoms Musculoskeletal: Reports: No Symptoms Skin: Reports: No Symptoms Neurological: Reports: No Symptoms Psychiatric: Reports: No Symptoms Hematologic/Lymphatic: Reports: No Symptoms Immunologic: Reports: No Symptoms ED EXAM, GI/ABD - Physical Exam Exam: See Below Exam Limited By: No Limitations General Appearance: Alert, WD/WN, No Apparent Distress Eyes: Bilateral: EOMI Neck: Normal Inspection Respiratory/Chest: No Respiratory Distress, Lungs Clear, Normal Breath Sounds Cardiovascular: Normal Peripheral Pulses, Regular Rate, Rhythm GI/Abdominal Exam: Normal Bowel Sounds, Soft, Tender Extremities: Normal Inspection Neurological: Alert, Oriented, Normal Cognition, Normal Gait Course - Vital Signs Last Recorded V/S: Last Vital Signs Temp 98.2 F 05/02/21 23:41 Pulse 79 05/03/21 01:58 Resp 18 05/03/21 01:58 BP 123/69 05/03/21 01:58 Pulse Ox 95 05/03/21 01:58 - Orders/Labs/Meds Labs: Laboratory Tests 05/03/21 05/03/21 05/03/21 Range/Units 00:20 00:20 00:20 WBC 10.85 (4.0-11.0) K/uL RBC 4.75 (4.30-5.90) M/uL Hgb 13.8 (12.0-16.0) g/dL Hct 41.2 (36.0-46.0) % MCV 86.7 (80.0-98.0) fL MCH 29.1 (27.0-32.0) pg MCHC 33.5 (31.0-37.0) g/dL RDW Std Deviation 46.5 (28.0-62.0) fl RDW Coeff of Aydin 15 (11.0-15.0) % Plt Count 348 (150-400) K/uL MPV 9.50 (7.40-12.00) fL Neut % (Auto) 86.0 H (48.0-80.0) % Lymph % (Auto) 9.7 L (16.0-40.0) % [place] % (Auto) 4.2 (0.0-15.0) % Eos % (Auto) 0.0 (0.0-7.0) % Baso % (Auto) 0.1 (0.0-1.5) % Neut # (Auto) 9.3 H (1.4-5.7) K/uL Lymph # (Auto) 1.1 (0.6-2.4) K/uL [place] # (Auto) 0.5 (0.0-0.8) K/uL Eos # (Auto) 0.0 (0.0-0.7) K/uL Baso # (Auto) 0.0 (0.0-0.1) K/uL Sodium 143 (136-145) mmol/L Potassium 3.5 (3.5-5.1) mmol/L Chloride 100 (98-107) mmol/L Carbon Dioxide 27.9 (21.0-32.0) mmol/L BUN 19 H (7.0-18.0) mg/dL Creatinine 1.0 (0.6-1.0) mg/dL Est Cr Clr Drug Dosing 55.06 mL/min Estimated GFR (MDRD) 58.5 ml/min Glucose 153 H (74-106) mg/dL Calcium 9.6 (8.5-10.1) mg/dL Phosphorus 2.4 L (2.6-4.7) mg/dL Magnesium 1.9 (1.8-2.4) mg/dL Total Bilirubin 0.3 (0.2-1.0) mg/dL AST 18 (15-37) IU/L ALT 22 (14-63) IU/L Alkaline Phosphatase 113 (46-116) U/L Total Protein 7.5 (6.4-8.2) g/dL Albumin 3.9 (3.4-5.0) g/dL Globulin 3.6 (2.6-4.0) g/dL Albumin/Globulin Ratio 1.1 (0.9-1.6) Lipase 115 (73-393) U/L Urine Opiates Screen (NEGATIVE) Ur Oxycodone Screen (NEGATIVE) Urine Methadone Screen (NEGATIVE) Ur Barbiturates Screen (NEGATIVE) Ur Phencyclidine Scrn (NEGATIVE) Ur Amphetamine Screen (NEGATIVE) U Methamphetamines Scrn (NEGATIVE) U Benzodiazepines Scrn (NEGATIVE) U Cocaine Metab Screen (NEGATIVE) U Marijuana (THC) Screen (NEGATIVE) Ethyl Alcohol < 3.0 mg/dL 05/03/21 Range/Units 00:54 WBC (4.0-11.0) K/uL RBC (4.30-5.90) M/uL Hgb (12.0-16.0) g/dL Hct (36.0-46.0) % MCV (80.0-98.0) fL MCH (27.0-32.0) pg MCHC (31.0-37.0) g/dL RDW Std Deviation (28.0-62.0) fl RDW Coeff of Aydin (11.0-15.0) % Plt Count (150-400) K/uL MPV (7.40-12.00) fL Neut % (Auto) (48.0-80.0) % Lymph % (Auto) (16.0-40.0) % [place] % (Auto) (0.0-15.0) % Eos % (Auto) (0.0-7.0) % Baso % (Auto) (0.0-1.5) % Neut # (Auto) (1.4-5.7) K/uL Lymph # (Auto) (0.6-2.4) K/uL [place] # (Auto) (0.0-0.8) K/uL Eos # (Auto) (0.0-0.7) K/uL Baso # (Auto) (0.0-0.1) K/uL Sodium (136-145) mmol/L Potassium (3.5-5.1) mmol/L Chloride (98-107) mmol/L Carbon Dioxide (21.0-32.0) mmol/L BUN (7.0-18.0) mg/dL Creatinine (0.6-1.0) mg/dL Est Cr Clr Drug Dosing mL/min Estimated GFR (MDRD) ml/min Glucose (74-106) mg/dL Calcium (8.5-10.1) mg/dL Phosphorus (2.6-4.7) mg/dL Magnesium (1.8-2.4) mg/dL Total Bilirubin (0.2-1.0) mg/dL AST (15-37) IU/L ALT (14-63) IU/L Alkaline Phosphatase (46-116) U/L Total Protein (6.4-8.2) g/dL Albumin (3.4-5.0) g/dL Globulin (2.6-4.0) g/dL Albumin/Globulin Ratio (0.9-1.6) Lipase (73-393) U/L Urine Opiates Screen NEGATIVE (NEGATIVE) Ur Oxycodone Screen NEGATIVE (NEGATIVE) Urine Methadone Screen NEGATIVE (NEGATIVE) Ur Barbiturates Screen NEGATIVE (NEGATIVE) Ur Phencyclidine Scrn NEGATIVE (NEGATIVE) Ur Amphetamine Screen NEGATIVE (NEGATIVE) U Methamphetamines Scrn NEGATIVE (NEGATIVE) U Benzodiazepines Scrn NEGATIVE (NEGATIVE) U Cocaine Metab Screen NEGATIVE (NEGATIVE) U Marijuana (THC) Screen POSITIVE (NEGATIVE) Ethyl Alcohol mg/dL Meds: Medications Discontinued Medications Generic Name Dose Route Start Last Admin Trade Name Freq PRN Reason Stop Dose Admin Sodium Chloride 1,000 mls @ 999 mls/hr 05/03/21 00:09 05/03/21 00:10 Normal Saline IV 05/03/21 01:09 999 mls/hr .BOLUS ONE Administration Iopamidol 100 ml 05/03/21 01:46 05/03/21 01:47 Iopamidol 755 Mg/Ml 500 Ml Multipack Bottle IVPUSH 05/03/21 01:47 100 ml ONETIME STA Administration Ketorolac Tromethamine 30 mg 05/02/21 23:51 05/03/21 00:07 Ketorolac 30 Mg/Ml Sdv IVPUSH 05/02/21 23:52 30 mg ONETIME ONE Administration Ondansetron HCl 4 mg 05/02/21 23:51 05/03/21 00:07 Ondansetron 4 Mg/2 Ml Sdv IVPUSH 05/02/21 23:52 4 mg ONETIME ONE Administration - Re-Assessments/Exams Free Text/Narrative Re-Assessment/Exam: 05/03/21 02:20 Patient's CAT scan shows gastritis patient is try to try Pepcid or Maalox [id number] and follow-up primary care physician. Departure - Departure Time of Disposition: 02:20 Disposition: Home, Self-Care 01 Condition: Good Clinical Impression: Gastritis - Discharge Information *PRESCRIPTION DRUG MONITORING PROGRAM REVIEWED*: Not Applicable *COPY OF PRESCRIPTION DRUG MONITORING REPORT IN PATIENT INOCENTE: Not Applicable Instructions: Gastritis, Adult, [id number] Referrals: Raffi Hammonds MD [Primary Care Provider] - Forms: ED Department Discharge Additional Instructions: The following information is given to patients seen in the emergency department who are being discharged to home. This information is to outline your options for follow-up care. We provide all patients seen in our emergency department with a follow-up referral. The need for follow-up, as well as the timing and circumstances, are variable depending upon the specifics of your emergency department visit. If you don't have a primary care physician on staff, we will provide you with a referral. We always advise you to contact your personal physician following an emergency department visit to inform them of the circumstance of the visit and for follow-up with them and/or the need for any referrals to a consulting specialist. The emergency department will also refer you to a specialist when appropriate. This referral assures that you have the opportunity for follow-up care with a specialist. All of these measure are taken in an effort to provide you with optimal care, which includes your follow-up. Under all circumstances we always encourage you to contact your private physician who remains a resource for coordinating your care. When calling for follow-up care, please make the office aware that this follow-up is from your recent emergency room visit. If for any reason you are refused follow-up, please contact the [facility] Emergency Department at and asked to speak to the emergency department charge nurse. Please follow up with your primary care physician. If you do not have a primary care physician, see below: [facility] [address] [place] [id number] [facility] [address] [place] [id number] He was seen today for abdominal pain. We did a CAT scan that showed gastritis. You can try to take Pepcid or Maalox [id number] for this. We recommend follow-up to primary care physician. If you have any other concerning signs or symptoms please return to the ED. Sepsis Event Note (ED) - Focused Exam Vital Signs: Vital Signs Temp Pulse Resp BP Pulse Ox 05/03/21 01:58 79 18 123/69 95 05/02/21 23:41 98.2 F 102 H 20 182/98 H 98 - Assessment/Plan Plan: Patient is a 50-year-old female who presents today for abdominal pain. Patient has history of chronic pancreatitis lipase normal today. Will obtain labs provide pain control and nausea and also a CT scan of the abdomen
[2021-05-03] MEDS ORDERED: Iopamidol 755 MG/ML 500 ML Multipack Bottle IVPUSH STA (01:46)
[2021-05-03 02:00] VITALS: BP 123/69; PULSE 79
--- NOTE | 2021-05-03 02:09 | CT ---
INDICATION: Diffuse abdominal pain TECHNIQUE: Axial images were obtained from the diaphragm to the pubic symphysis. Reformats were obtained in the coronal and sagittal plane. IV Contrast: 100 cc Isovue 370 Oral Contrast: None COMPARISON: Abdomen and pelvis CT 11/22/2020 FINDINGS: Lower chest: Unremarkable. Liver: Normal in contour with focal fat in the left lobe. Gallbladder and bile ducts: Status post cholecystectomy. Spleen: Unremarkable. Normal in size without mass. Pancreas: Unremarkable. No mass or inflammation. Adrenal glands: Unremarkable. No nodules. Kidneys: Unremarkable. No masses, stones, or hydronephrosis. Vasculature: Unremarkable. GI tract: Prominent gastric fold thickening with mild gastric distension. Small bowel is decompressed. Colonic diverticulosis. Pelvis: Bladder is unremarkable. Status posthysterectomy. Bones: Unremarkable for age. IMPRESSION: 1. Prominence of the gastric folds suspicious for a gastritis. 2. Colonic diverticulosis. Please note that all CT scans at this facility use dose modulation, iterative reconstruction, and/or weight-based dosing when appropriate to reduce radiation dose to as low as reasonably achievable. Dictated by Moody Cohen MD @ 05/03/2021 2:07:27 AM (Electronically Signed)
== END 2021-05-03 02:35 | disposition home or self-care (01) ==
LOC: MW.ED 22:53
DX: K29.70 Gastritis, unspecified, without bleeding (principal); E78.00 Pure hypercholesterolemia, unspecified; I10 Essential (primary) hypertension; J44.9 Chronic obstructive pulmonary disease, unspecified; K21.9 Gastro-esophageal reflux disease without esophagitis; M19.90 Unspecified osteoarthritis, unspecified site; Z88.8 Allergy status to other drugs, medicaments and biological substances; Z91.040 Latex allergy status; Z88.1 Allergy status to other antibiotic agents; Z88.5 Allergy status to narcotic agent; Z79.899 Other long term (current) drug therapy
CPT/HCPCS: 36415; 74177; 80053; 80305; 80307; 83690; 83735; 84100; 85025; 96374; 96375; 99284; J1885; J2405; J7030; Q9967

== ENCOUNTER 2021-09-01 17:53 | Emergency (ER) | payer MEDICAID | END 2021-09-01 18:23 | disposition left against medical advice (07) | LOC: MW.ED 17:53 | DX: Z53.21 Procedure and treatment not carried out due to patient leaving prior to being seen by health care provider (principal) ==

== ENCOUNTER 2022-06-12 05:38 | Emergency (ER) | payer MEDICAID ==
[2022-06-12] MEDS ORDERED: Clindamycin Phosphate in D5W 600 MG in Premix Bag 1 BAG IV ONE ×2 (05:52)
[2022-06-12] MEDS ORDERED: Sodium Chloride 0.9% 1,000 ML IV ONE (05:52)
[2022-06-12] MEDS ORDERED: Ondansetron 4 MG/2 ML SDV IVPUSH ONE (06:29)
[2022-06-12 06:30] VITALS: BP 120/69; PULSE 96
[2022-06-12 07:10] LABS: CARBON DIOXIDE,CO2 24.3 mmol/L (21.0-32.0); POTASSIUM,K 3.7 mmol/L (3.5-5.1)
[2022-06-12] MEDS ORDERED: Iopamidol 755 MG/ML 500 ML Multipack Bottle IVPUSH ONE (07:42)
== END 2022-06-12 09:02 ==
LOC: MW.ED 05:38
DX: J34.0 Abscess, furuncle and carbuncle of nose (principal); J44.9 Chronic obstructive pulmonary disease, unspecified; E78.00 Pure hypercholesterolemia, unspecified; I10 Essential (primary) hypertension; K21.9 Gastro-esophageal reflux disease without esophagitis; Z91.040 Latex allergy status; Z88.1 Allergy status to other antibiotic agents; Z79.82 Long term (current) use of aspirin; Z88.8 Allergy status to other drugs, medicaments and biological substances; Z88.5 Allergy status to narcotic agent; Z79.899 Other long term (current) drug therapy; Z20.822 Contact with and (suspected) exposure to COVID-19
CPT/HCPCS: 36415; 70487; 80053; 83605; 85025; 87040; 87635; 96361; 96365; 96375; 99283; J2405; J3490; J7030; Q9967; U0002

== ENCOUNTER 2022-11-26 19:37 | Emergency (ER) | payer MEDICAID ==
[2022-11-26] MEDS ORDERED: Albuterol/Ipratropium 3.0-0.5 MG/3 ML Neb Soln ONE (19:39)
[2022-11-26] MEDS ORDERED: Sodium Chloride 0.9% 10 ML Syringe FLUSH PRN (19:44)
[2022-11-26] MEDS ORDERED: Sodium Chloride 0.9% 2.5 ML Syringe FLUSH PRN (19:44)
[2022-11-26] MEDS ORDERED: methylPREDNISolone Sodium Succinate 125 MG/2 ML SDV IVPUSH STA (19:45)
[2022-11-26] MEDS ORDERED: Albuterol/Ipratropium 3.0-0.5 MG/3 ML Neb Soln NEB STA (19:45)
[2022-11-26] MEDS ORDERED: LORazepam 2 MG/ML SDV IVPUSH STA (19:46)
[2022-11-26] MEDS ORDERED: Ondansetron 4 MG/2 ML SDV IVPUSH STA (20:04)
[2022-11-26 20:43] LABS: CARBON DIOXIDE,CO2 26.6 mmol/L (21.0-32.0); POTASSIUM,K 4.3 mmol/L (3.5-5.1)
[2022-11-27 01:05] VITALS: BP 93/53; PULSE 97
== END 2022-11-26 21:32 | disposition home or self-care (01) ==
LOC: MW.ED 19:37
DX: F41.9 Anxiety disorder, unspecified (principal); R06.00 Dyspnea, unspecified; E78.00 Pure hypercholesterolemia, unspecified; I10 Essential (primary) hypertension; J44.9 Chronic obstructive pulmonary disease, unspecified; K21.9 Gastro-esophageal reflux disease without esophagitis; M19.90 Unspecified osteoarthritis, unspecified site; Z91.148 Patient's other noncompliance with medication regimen for other reason; Z88.8 Allergy status to other drugs, medicaments and biological substances; Z88.1 Allergy status to other antibiotic agents; Z88.5 Allergy status to narcotic agent; Z79.899 Other long term (current) drug therapy
CPT/HCPCS: 36415; 71045; 80053; 80307; 81001; 83735; 84484; 85025; 93005; 96374; 96375; 99285; J2060; J2405; J2930; J3490; 93010; 99284; J7620-GY